=== PATIENT | male | born 1950 | race Caucasian/White ===

== ENCOUNTER → 2018-01-22 14:25 | Outpatient (CLI) | payer MEDICARE, OTHER, SELFPAY ==
--- NOTE | 2018-01-22 14:34 | RAD_ITS ---
STUDY: X-RAY CHEST REASON FOR EXAM: Male, 67 years old. Renal cancer. TECHNIQUE: PA and lateral views of the chest. COMPARISON: Portable AP chest x-ray March 23, 2013; CT chest/thorax November 25, 2013. FINDINGS: The lungs are clear and expanded. There is no demonstrated pleural abnormality. The heart size is upper normal. Normal mediastinum and markel. Normal visualized pulmonary arteries. There is stable atherosclerotic tortuosity of the descending thoracic aorta. There are stable degenerative changes of the visualized thoracic spine. Normal visualized ribs, clavicles, and shoulders. There is no demonstrated abnormality of the visualized soft tissue structures of the upper abdomen. RAD/Chest PA and Lateral IMPRESSION: No acute cardiopulmonary disease. Electronically Signed: Randall Lofton MD at 14:51 EDT , Service support ,
[2018-01-22 15:36] LABS: PSA,Total - Annual Screen 4.73 ng/mL (0.00-4.00)
== END ==
PROVIDERS: Family Provider Family Medicine; PCP Family Medicine; Visit Provider Family Medicine
DX: C64.9 Malignant neoplasm of unspecified kidney, except renal pelvis (principal); Z12.5 Encounter for screening for malignant neoplasm of prostate
CPT/HCPCS: 36415; 71046; 84153; G0103

== ENCOUNTER → 2019-04-02 | Outpatient (CLI) | payer MEDICARE, OTHER, SELFPAY ==
[2019-04-02 10:19] LABS: Hematocrit 48.9 % (40-54); Hemoglobin 15.8 g/dL (13.0-16.5); Mean Corp Hgb Conc 32.3 g/dL (32-36); Mean Corpuscular Hgb 28.7 pg (27.0-32.0); Mean Corpuscular Volume 88.7 fL (80-94); Mean Platelet Vol. 12.8 fl (6.2-12.0); Platelet Count 203 K/mm3 (150-450); RBC Distribution Width CV 12.5 % (11.6-14.6); RBC Distribution Width SD 41.2 fl (35.1-43.9); Red Blood Count 5.51 M/mm3 (4.6-6.2); White Blood Count 6.3 K/mm3 (4.4-11.0)
[2019-04-02 10:51] LABS: Anion Gap 6 (5-15); BUN 15 mg/dL (7-18); BUN/Creat Ratio 10.6 RATIO (10-20); Calcium,Total 9.1 mg/dL (8.5-10.1); Chloride 107 mmol/L (98-107); Cholesterol 137 mg/dL (200); Creatinine, Serum 1.42 mg/dL (0.70-1.30); EST Glomerular Filtration Rate 53 mL/min (>60); Est Glom Filt Rate - Afr Amer 64 mL/min (>60); Glucose 86 mg/dL (74-106); High Density Lipoprotein 40 mg/dL; PSA,Total- Diagnostic 5.51 ng/mL (0.0-4.0); Potassium 4.9 mmol/L (3.5-5.1); Sodium Level 139 mmol/L (136-145); Triglycerides 135 mg/dL; Very Low Density Lipoprotein 27 mg/dL (5-40)
== END | disposition home or self-care (01) ==
PROVIDERS: Family Provider Family Medicine; PCP Family Medicine; Referring Provider Family Medicine; Visit Provider Family Medicine
DX: I10 Essential (primary) hypertension (principal); E78.5 Hyperlipidemia, unspecified; R97.20 Elevated prostate specific antigen [PSA]
CPT/HCPCS: 36415; 80048; 80061; 84153; 85027

== ENCOUNTER → 2020-01-22 15:28 | Outpatient (CLI) | payer MEDICARE, OTHER, SELFPAY ==
[2020-01-22 17:41] LABS: Absolute Lymphocyte Count 2.92 X10^3/uL (0.83-4.51); Absolute Neutrophil Count 4.1 X10^3/uL (2.0-7.7); Basophil# 0.09 X10^3/uL; Basophil% 1.1 % (0-1); Eosinophil# 0.11 X10^3/uL; Eosinophils% 1.4 % (0-5); Hematocrit 52.2 % (40-54); Lymphocyte # 2.92 X10^3/ul (4.0); Lymphocyte % 36.8 % (19-41); Mean Corp Hgb Conc 32.6 g/dL (32-36); Mean Corpuscular Hgb 27.9 pg (27.0-32.0); Mean Corpuscular Volume 85.6 fL (80-94); Mean Platelet Vol. 11.9 fl (6.2-12.0); Monocyte# 0.63 X10^3/uL; Monocyte% 7.9 % (0-10); NRBC Flagged by Analyzer 0 % (0-5); Neutrophil # 4.14 X10^3/uL (2.7-7.7); Neutrophil % 52.2 % (47-70); Platelet Count 254 K/mm3 (150-450); RBC Distribution Width CV 12.6 % (11.6-14.6); RBC Distribution Width SD 38.5 fl (35.1-43.9); White Blood Count 7.9 K/mm3 (4.4-11.0)
[2020-01-22 18:18] LABS: Vitamin B12 428 pg/mL (211-911); Vitamin D,25 Hydroxy 35.6 ng/mL
[2020-01-22 18:36] LABS: ALB/GLOB Ratio 1.1 RATIO (0.9-2.4); AST(SGOT) 14 U/L (15-37); Alanine Aminotransfer ALT/SGPT 28 U/L (16-61); Albumin, Serum 3.8 g/dL (3.2-5.0); Alkaline Phosphatase 74 U/L (45-117); Anion Gap 6 (5-15); BUN 20 mg/dL (7-18); BUN/Creat Ratio 12.3 RATIO (10-20); Calcium,Total 8.7 mg/dL (8.5-10.1); Chloride 107 mmol/L (98-107); Cholesterol 275 mg/dL (200); Creatinine, Serum 1.62 mg/dL (0.70-1.30); EST Glomerular Filtration Rate 45 mL/min (>60); Est Glom Filt Rate - Afr Amer 54 mL/min (>60); Globulin 3.6 g/dL (2.2-4.2); Glucose 179 mg/dL (74-106); High Density Lipoprotein 32 mg/dL; PSA,Total- Diagnostic 8.37 ng/mL (0.0-4.0); Phosphorus 3.5 mg/dL (2.5-4.9); Potassium 4.6 mmol/L (3.5-5.1); Protein, Total 7.4 g/dL (6.4-8.2); Sodium Level 138 mmol/L (136-145); T4 Free Direct 0.88 ng/dL (0.76-1.46); Thyroid Stim Hormone (TSH) 1.61 uIU/mL (0.358-3.74); Triglycerides 609 mg/dL
[2020-01-22 19:18] LABS: Hemoglobin A1c 7.3 % (4.2-6.3)
[2020-01-23 06:48] LABS: PTHIN 81.9 pg/mL (18.4-80.1)
[2020-01-23 10:49] LABS: Ferritin 46 ng/mL (26-388); Iron 90 ug/dL (65-175); Iron Binding Capacity,Total 416 ug/dL (250-450); PERCENT IRON SATURATION 21.6 % (15.0-55.0)
[2020-01-26 16:08] LABS: Vitamin B1, Thiamine 133.7 nmol/L (66.5-200.0)
[2020-01-26 20:09] LABS: Transferrin 321 mg/dL (177-329)
== END ==
PROVIDERS: PCP Family Medicine; Visit Provider Family Medicine
DX: E11.22 Type 2 diabetes mellitus with diabetic chronic kidney disease (principal); I12.9 Hypertensive chronic kidney disease with stage 1 through stage 4 chronic kidney disease, or unspecified chronic kidney disease; N18.3 Chronic kidney disease, stage 3 (moderate); E78.5 Hyperlipidemia, unspecified; E11.42 Type 2 diabetes mellitus with diabetic polyneuropathy; R97.20 Elevated prostate specific antigen [PSA]; E04.1 Nontoxic single thyroid nodule
CPT/HCPCS: 36415; 80053; 80061; 82306; 82607; 82728; 83036; 83540; 83550; 83970; 84100; 84153; 84425; 84439; 84443; 84466; 85025

== ENCOUNTER → 2020-02-02 08:09 | Outpatient (CLI) | payer MEDICARE, OTHER, SELFPAY ==
--- NOTE | 2020-02-02 08:14 | US_ITS ---
STUDY: THYROID ULTRASOUND REASON FOR EXAM: Male, 69 years old. NODULE FELT ON EXAM TECHNIQUE: Ultrasound evaluation of the thyroid was performed with real-time and static bunn-scale imaging. COMPARISON: None. FINDINGS: RIGHT LOBE: The right lobe of the thyroid gland measures 5.0 x 2.3 x 1.9 cm. There is a homogeneous echotexture. There are occasional well-defined, rounded hypoechoic cysts measuring up to 4 x 4 by 4 mm diameter. LEFT LOBE: The left lobe of the thyroid gland measures 3.7 x 1.4 x 1.5 cm. There is a homogeneous echotexture. There are occasional well-defined, rounded hypoechoic cyst measuring up to 4 x 4 x 3 mm diameter. ISTHMUS: The isthmus measures 6 mm. The regional lymph nodes are normal. 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 Electronically Signed: Randall Lofton MD at 15:53 EDT , Service support ,
== END ==
PROVIDERS: PCP Family Medicine; Referring Provider Family Medicine; Visit Provider Family Medicine
DX: E04.1 Nontoxic single thyroid nodule (principal)
CPT/HCPCS: 76536

== ENCOUNTER → 2020-02-16 | Outpatient (CLI) | payer MEDICARE, OTHER, SELFPAY ==
--- NOTE | 2020-02-17 | IMM_PTH ---
PATIENT: OSCAR KEENAN LOC: [facility] U#:[id number] AGE/SX: 69/M ROOM: RE02/16/[address]: Dr. Michael Pascual MD : 1950 BED: DIS: 02/16/2020 SPEC #: [id number] RECD: 02/18/20 12:53 STATUS: DAISY KRIS #: [id number] LOLA: 02/17/20 00:[address]: Michael Pascual DEPT: IMMUNOHISTOCHEMISTRY RECD BY: Zenaida Issa Tissues: A - PROSTATE RIGHT C - PROSTATE RIGHT F - PROSTATE LEFT Procedures: 34BE12 (add) P40 (add) 34BE12 (initial) PHYSICIAN & INSTITUTION [place] [id number] SPECIMEN INFORMATION: Tissue Source: A - Right apex, C - Right base, F - Left base Clinical Info: Elevated PSA Specimen Number: [id number] A, C & F CPT code: 51106, 59289 x5 METHODOLOGY: Deparaffinized sections of prefer/formalin-fixed tissue or PAP/DQ stained slides are incubated with monoclonal/polyclonal antibodies/oligonucleotide probes. Localization is made via biotin free immunoperoxidase method. Appropriate controls are performed and reacted as expected. Results on target cell population are indicated in the following table: RESULTS: ANTIBODY / CLONE RESULT Block A 34BE12 (34BE12) negative P40 (BC28) negative Block C 34BE12 (34BE12) negative P40 (BC28) negative Block F 34BE12 (34BE12) negative P40 (BC28) negative These tests were developed and their performance characteristics determined by [facility]. They may not have been cleared or approved by the U.S. Food and Drug Administration. The FDA has determined that such clearance or approval is not necessary. The above immunohistochemical/dualISH markers are ordered and reviewed by the Pathologist. INTERPRETATION: A. Right prostate, apex, core biopsy: Adenocarcinoma. C. Right prostate, base, core biopsy: Adenocarcinoma. F. Left prostate, base, core biopsy: Adenocarcinoma. MARINA:kehinde 02/19/20
--- NOTE | 2020-02-17 08:00 | PROSBIL_PTH ---
PATIENT: OSCAR KEENAN LOC: [facility] U#:[id number] AGE/SX: 69/M ROOM: RE02/16/[address]: Dr. Michael Pascula MD : 1950 BED: DIS: 02/16/2020 SPEC #: [id number] RECD: 02/17/20 09:30 STATUS: DAISY KRIS #: [id number] LOLA: 02/17/20 08:[address]: Michael Pascual DEPT: SURGICAL PATHOLOGY RECD BY: Santos Schuler Tissues: A - PROSTATE RIGHT B - PROSTATE RIGHT C - PROSTATE RIGHT D - PROSTATE LEFT E - PROSTATE LEFT F - PROSTATE LEFT Procedures: PROSTATE BX HEADER OPERATION: Prostate biopsy PRE-OP DIAGNOSIS: Elevated PSA TISSUE SUBMITTED: A - Right apex, B - Right mid, C - Right base, D - Left apex, E - Left mid, F - Left base MICROSCOPIC DIAGNOSIS A. Right prostate, apex, core biopsy: Prostatic adenocarcinoma. [place] grade: 3+3=6 Number of cores involved: 1/1 Proportion of tissue involved: ~30% Perineural invasion: Not identified. Greatest tumor length: 0.6 cm, discontinuous. See comment. B. Right prostate, mid, core biopsy: Prostatic tissue, negative for malignancy. C. Right prostate, base, core biopsy: Prostatic adenocarcinoma. [place] grade: 3+3=6 Number of cores involved: 2/4 Proportion of tissue involved: ~5% Perineural invasion: Not identified. Greatest tumor length: 0.2 cm See comment. D. Left prostate, apex, core biopsy: Prostatic adenocarcinoma. [place] grade: 3+3=6 Number of cores involved: 1/2 Proportion of tissue involved: ~50% Perineural invasion: Not identified. Greatest tumor length: 0.7 cm E. Left prostate, mid, core biopsy: Prostatic tissue, negative for malignancy. F. Left prostate, base, core biopsy: Prostatic adenocarcinoma. [place] grade: 3+3=6 Number of cores involved: 1/1 Proportion of tissue involved: ~20% Perineural invasion: Not identified. Greatest tumor length: 0.2 cm See comment. SJ:kehinde 02/18/20 COMMENT A, C & F - Immunohistochemistry ([id number]) supports the above diagnosis. Case has been reviewed in consultation with Dr. Vitale who concurs with the above diagnosis. IDC:AM MICROSCOPIC DESCRIPTION Slides are reviewed. GROSS DESCRIPTION A - Received is one container designated prostate, right apex. The specimen consists of one elongated fragment of light patino-white soft tissue measuring 1 cm in length and 0.1 cm in diameter. The specimen is totally submitted in one cassette. B - Received is one container designated prostate, right mid. The specimen consists of one elongated fragment of light patino-white soft tissue measuring 1.5 cm in length and 0.1 cm in diameter. The specimen is totally submitted in one cassette. C - Received is one container designated prostate, right base. The specimen consists of four elongated fragments of light patino-white soft tissue each measuring 1 cm in length and 0.1 cm in diameter. The specimen is totally submitted in one cassette. D - Received is one container designated prostate, left apex. The specimen consists of two elongated fragments of light patino-white soft tissue each measuring 1 cm in length and 0.1 cm in diameter. The specimen is totally submitted in one cassette. E - Received is one container designated prostate, left mid. The specimen consists of two elongated fragments of light patino-white soft tissue each measuring 1 cm in length and 0.1 cm in diameter. The specimen is totally submitted in one cassette. F - Received is one container designated prostate, left base. The specimen consists of one elongated fragment of light patino-white soft tissue measuring 1 cm in length and 0.1 cm in diameter. The specimen is totally submitted in one cassette. / AM:kehinde 02/17/20 TC:0 [facility]: [id number]
== END | disposition home or self-care (01) ==
LOC: LABSPEC 02-17 06:25
PROVIDERS: Visit Provider Urology
DX: R97.20 Elevated prostate specific antigen [PSA] (principal)
CPT/HCPCS: 88305; 88341; 88342; G0416

== ENCOUNTER → 2020-05-11 08:14 | Outpatient (CLI) | payer MEDICARE, OTHER, SELFPAY ==
[2020-05-11 10:27] LABS: Absolute Lymphocyte Count 2.18 X10^3/uL (0.83-4.51); Absolute Neutrophil Count 3.6 X10^3/uL (2.0-7.7); Basophil# 0.07 X10^3/uL; Basophil% 1.1 % (0-1); Eosinophil# 0.13 X10^3/uL; Hematocrit 49.5 % (40-54); Hemoglobin 15.9 g/dL (13.0-16.5); Lymphocyte # 2.18 X10^3/ul (4.0); Lymphocyte % 33.7 % (19-41); Mean Corp Hgb Conc 32.1 g/dL (32-36); Mean Corpuscular Hgb 27.2 pg (27.0-32.0); Mean Corpuscular Volume 84.6 fL (80-94); Mean Platelet Vol. 12.3 fl (6.2-12.0); Monocyte# 0.51 X10^3/uL; Monocyte% 7.9 % (0-10); NRBC Flagged by Analyzer 0 % (0-5); Neutrophil # 3.55 X10^3/uL (2.7-7.7); Neutrophil % 54.8 % (47-70); Platelet Count 202 K/mm3 (150-450); RBC Distribution Width CV 12.4 % (11.6-14.6); RBC Distribution Width SD 37.7 fl (35.1-43.9); Red Blood Count 5.85 M/mm3 (4.6-6.2); White Blood Count 6.5 K/mm3 (4.4-11.0)
[2020-05-11 11:07] LABS: ALB/GLOB Ratio 1.1 RATIO (0.9-2.4); AST(SGOT) 16 U/L (15-37); Alanine Aminotransfer ALT/SGPT 24 U/L (16-61); Albumin, Serum 3.9 g/dL (3.2-5.0); Alkaline Phosphatase 64 U/L (45-117); Anion Gap 6 (5-15); BUN 19 mg/dL (7-18); BUN/Creat Ratio 13.7 RATIO (10-20); Calcium,Total 9.1 mg/dL (8.5-10.1); Chloride 106 mmol/L (98-107); Cholesterol 169 mg/dL (200); Creatinine, Serum 1.39 mg/dL (0.70-1.30); EST Glomerular Filtration Rate 54 mL/min (>60); Est Glom Filt Rate - Afr Amer 65 mL/min (>60); Globulin 3.6 g/dL (2.2-4.2); Glucose 166 mg/dL (74-106); High Density Lipoprotein 34 mg/dL; Potassium 4.1 mmol/L (3.5-5.1); Protein, Total 7.5 g/dL (6.4-8.2); Sodium Level 136 mmol/L (136-145); Triglycerides 221 mg/dL; Very Low Density Lipoprotein 44 mg/dL (5-40)
[2020-05-11 11:09] LABS: Hemoglobin A1c 9.2 % (3.8-5.6)
[2020-05-11 12:09] LABS: Microalbumin:Creatinine Ratio 893.8 mg/g CRE (<30 mg/g CRE)
== END ==
PROVIDERS: PCP Family Medicine; Referring Provider Family Medicine; Visit Provider Family Medicine
DX: E11.9 Type 2 diabetes mellitus without complications (principal); I10 Essential (primary) hypertension; R80.9 Proteinuria, unspecified; E78.5 Hyperlipidemia, unspecified
CPT/HCPCS: 36415; 80053; 80061; 82043; 82570; 83036; 85025

== ENCOUNTER → 2022-01-25 | Outpatient (CLI) | payer MEDICARE, OTHER, SELFPAY | END | disposition home or self-care (01) | PROVIDERS: PCP Family Medicine; Referring Provider Nurse Practitioner Family; Visit Provider Nurse Practitioner Family | DX: U07.1 COVID-19 (principal) | CPT/HCPCS: 87635; U0003; U0005 ==

== ENCOUNTER 2024-02-21 05:05 | Emergency (ER) | payer MEDICARE, OTHER, SELFPAY ==
[2024-02-21 05:06] VITALS: BP 147/72; PULSE 64; RESP 20; TEMP 37.1; O2SAT 96; BMI 34.2
[2024-02-21 05:10] VITALS: BP 142/72; PULSE 61; RESP 20; TEMP 37.1; O2SAT 96
--- NOTE | 2024-02-21 05:25 | RAD_ITS ---
EXAM: XR CHEST, 2 VIEWS CLINICAL INDICATION: cough, fever TECHNIQUE: Frontal and lateral views of the chest. COMPARISON: 01/22/2018. FINDINGS: LUNGS AND PLEURAL SPACES: Unremarkable. No consolidation or edema. No pneumothorax. No effusion. HEART: Unremarkable. Cardiac silhouette not enlarged. MEDIASTINUM: Central airways and mediastinal contour are unremarkable. BONES/JOINTS: Unremarkable. No acute fracture. SOFT TISSUES: Unremarkable. TUBES, LINES AND DEVICES: AV sequential AICD pacemaker leads in good position. RAD/Chest PA and Lateral IMPRESSION: 1. No acute cardiopulmonary abnormality. 2. AV sequential AICD pacemaker leads in good position. Electronically Signed: Obed Morales MD at 6:14 EDT ,
--- NOTE | 2024-02-21 05:26 | EX.ED.DYSGE1 ---
HPI History of Present Illness Chief Complaint: Fever Informant: patient and spouse/S.O. Onset/Context/Timing Onset: Today Narrative Narrative: Patient presents 5 AM because he woke up not feeling well, took his temperature and it was 102. He started feeling like he had some nasal congestion and a mild sore throat and a mild nonproductive cough yesterday evening. When asked if he feels short of breath he states yes a little, it seems maybe it is more likely due to his nasal congestion but he cannot tell for sure. He states he feels nauseated and took a Zofran prior to coming here and it is better denies any abdominal pain or diarrhea. He has urinary frequency that has been stable recently since diagnosed with prostate cancer and receiving radiation. No chemotherapy. He denies any new urinary symptoms. He denies any earache, headache, myalgias, chest pain, neck pain/stiffness, confusion. [facility] Medical History Diabetes Hyperlipemia HTN (hypertension) Prostate cancer Home Medications ?Medication ?Instructions ?Recorded ?Last Taken ?Type amlodipine 5 mg tablet 5 mg PO DAILY 02/21/24 Unknown History aspirin 81 mg chewable tablet 1 tab PO DAILY 02/21/24 Unknown History (Jayna Chewable Low Dose Aspirin) atorvastatin 20 mg tablet 20 mg PO DAILY 02/21/24 Unknown History empagliflozin 10 mg tablet 10 mg PO DAILY 02/21/24 Unknown History empagliflozin 10 mg tablet 10 mg PO DAILY 02/21/24 Unknown History (Jardiance) glucos 500 [id number] 450 cap PO 02/21/24 Unknown History mg-liza 0.67 mg-I.frankince-boron capsule lisinopril 2.5 mg tablet 2.5 mg PO DAILY 02/21/24 Unknown History metformin 500 mg tablet 500 mg PO BID 02/21/24 Unknown History metoprolol tartrate 50 mg tablet 50 mg PO BID 02/21/24 Unknown History (Lopressor) nirmatrelvir 300 mg (150 mg See Rx Instructions PO .COMPLEX 02/21/24 Unknown Rx x2)-ritonavir 100 mg tablet,dose #30 tabs pack (Paxlovid) omega 5-rij-uta-fish oil 1,200 mg 1 cap PO DAILY 02/21/24 Unknown History (144 mg-216 mg) capsule (Fish Oil) omeprazole 10 mg capsule,delayed 10 mg PO DAILY 02/21/24 Unknown History release ondansetron HCl 4 mg tablet 4 mg PO Q8H PRN nausea and vomiting 02/21/24 Unknown History spironolactone 25 mg tablet 25 mg PO DAILY 02/21/24 Unknown History super beta prostate 02/21/24 Unknown History tamsulosin 0.4 mg capsule 0.4 mg PO QPM 02/21/24 Unknown History vitamin B complex (Balanced B-50 1 tab PO DAILY 02/21/24 Unknown History tablet) Allergy/AdvReac Type Severity Reaction Status Date / Time No Known Allergies Allergy Verified 02/21/24 05:13 Social History Smoking Status: Former smoker ROS ROS ED Constitutional Constitutional ED: Reports fever(s) and malaise ENT ENT ED: Reports nasal congestion, rhinorrhea and sore throat; Denies ear pain Cardiovascular Cardiovascular: Denies chest pain or palpitations Respiratory/Chest Respiratory/Chest: Reports cough and dyspnea; Denies sputum Gastrointestinal Gastrointestinal: Reports nausea; Denies abdominal pain, diarrhea or vomiting Genitourinary Genitourinary ED: Reports urinary frequency; Denies dysuria or hematuria Musculoskeletal Musculoskeletal: Denies myalgias or neck pain Integumentary Denies abscess or rash Neurologic Neurologic: Denies headache(s), paresthesias or weakness Psychiatric Psychiatric: Denies depression or suicidal thoughts Endocrine Endocrinology: Denies polydipsia or polyuria EXAM Physical Exam Const Vital Signs: 02/21/24 05:06 02/21/24 05:10 Temperature 98.7 F 98.7 F Temperature Source Oral Oral Pulse Rate 64 61 Respiratory Rate 20 H 20 H Blood Pressure 147/72 H 142/72 H Blood Pressure Mean 97 95 Pulse Ox 96 96 Oxygen Delivery Method Room Air Positive well nourished and well developed General Appearance ED: well developed and NAD HEENT Reports moist mucous membranes normocephalic and atraumatic Throat: posterior oropharynx abnormal Positive for erythema (Without trismus, asymmetry, exudates, petechiae) Eyes PERRL and EOMs intact bilaterally Neck no lymphadenopathy, supple and no meningeal signs Chest Wall inspection of chest normal and palpation of chest normal Resp normal respiratory effort and clear to auscultation bilaterally Cardio no murmurs Rate: regular rate; Negative for tachycardic Rhythm: regular rhythm GI normal to inspection, nondistended, normoactive bowel sounds and non-tender Back/Spine no CVA tenderness Extremity normal to inspection General Extremety ED: Negative for edema, tenderness or other findings General Extremity: Negative for edema or other findings Neuro oriented x3, CN's II-XII intact bilaterally and no sensory deficits noted Sensorium / Orientation: alert Motor Exam: strength 5/5 throughout Psych mental status grossly normal Skin Lesions: no lesions Rashes: no rashes MDM MDM MDM Narrative Medical decision making narrative: Patient has a temperature of 98.7 here and the rest of his vital signs are fairly normal. He did not take any fever reducing medications prior to coming here. At this time he has cold symptoms and some mild dyspnea. I asked if they were worried about anything other than a cold and the states no but she was concerned because he has a pacer/defibrillator. I asked if his defibrillator went off and they both state no. I reassured them regarding the presence of this device if all he has is a cold, but I was happy to run some tests including COVID/influenza/RSV swab, rapid strep PCR, U/A, and a 2 view chest x-ray to evaluate for these infections and/or pneumonia/UTI. They were amenable to that. Chest x-ray 2 views of my interpretation shows no evidence of pneumonia, radiology was in agreement. His strep test is negative. His COVID test is positive and the rest are negative. Discussed with him and at length. He has had some COVID vaccinations. He is not hypoxic and does not require admission. Discussed pros and cons of Paxlovid. He qualifies because he has cancer and is 73. We discussed risk of rebound symptoms. They prefer to try it if his medications are compatible. Lab Data Attestation: I reviewed the patient's lab results. Labs: Laboratory Results - last 24 hr 02/21/24 05:15 Urine Color Yellow Urine Clarity Clear Urine pH 6.5 Ur Specific [place] 1.010 Urine Protein 100 H Urine Glucose (UA) 1000 H Urine Ketones 15 H Urine Occult Blood 25 H Urine Nitrite Negative Urine Bilirubin Negative Urine Urobilinogen Normal Ur Leukocyte Esterase 25 H Urine RBC 0-5 SEEN Urine WBC 0 SEEN Ur Squamous Epith Cells 0 SEEN Urine Bacteria RARE Urine Mucus 0 SEEN Radiography Diagnostic Testing: Clinical Impression(s) from Imaging Studies Chest X-Ray 02/21/24 05:25 IMPRESSION: 1. No acute cardiopulmonary abnormality. 2. AV sequential AICD pacemaker leads in good position. Electronically Signed: Obed Morales MD at 6:14 EDT , Discharge Plan Triage Chief Complaint: Fever ED Provider: Nino Beck Dx/Rx/DC Orders Clinical Impression: COVID-19 Instructions: Coronavirus Disease 2019 (COVID-19): Caring for Yourself or Others Prescriptions: New Paxlovid 300 mg (150 mg x 2)-100 mg tablets,dose pack See Rx Instructions .ROUTE .COMPLEX Qty: 30 0RF Rx Instructions: take TWO 150 mg tablets of nirmatrelvir with ONE 100 mg tablet of ritonavir twice daily for 5 days Continued spironolactone 25 mg tablet 25 mg PO DAILY amlodipine 5 mg tablet 5 mg PO DAILY aspirin [Jayna Chewable Aspirin] 81 mg tablet,chewable 1 tab PO DAILY metformin 500 mg tablet 500 mg PO BID Patient Comments: unclear on dose metoprolol tartrate [Lopressor] 50 mg tablet 50 mg PO BID lisinopril 2.5 mg tablet 2.5 mg PO DAILY Patient Comments: not clear on dosage Jardiance 10 mg tablet 10 mg PO DAILY Patient Comments: unclear on dose empagliflozin 10 mg tablet 10 mg PO DAILY Patient Comments: unclear on dosage ondansetron HCl 4 mg tablet 4 mg PO Q8H PRN (Reason: nausea and vomiting) Patient Comments: unclear on dosage and frequency omeprazole 10 mg capsule,delayed release(DR/EC) 10 mg PO DAILY Patient Comments: unclear on dosage omega 7-lqe-hjp-fish oil [Fish Oil] 1,200 (144-216) mg capsule 1 cap PO DAILY vitamin B complex [Balanced B-50] Tablet 1 tab PO DAILY super beta prostate Patient Comments: 6 tablets a day ynyt-bogn-yxa0-emkj-jqegty-jrg 500-450-0.67 mg capsule PO Held tamsulosin 0.4 mg capsule 0.4 mg PO QPM Hold Instructions: Resume on 02/28/24. atorvastatin 20 mg tablet 20 mg PO DAILY Hold Instructions: Resume on 02/28/24. Primary Care Provider: Gilles Vance Referrals: Gilles Vance MD [Primary Care Provider] - As Needed Activity Restrictions/Additional Instructions: Try to get a home portable pulse oximeter and closely watch your oxygen levels periodically. If you stay below 90% for more than a minute or so, and/or you are feeling like your breathing is getting worse, return to the emergency department for further evaluation. Currently, CDC recommendations state that you should stay home through day 5 of symptoms, then as long as symptoms are improving, if you need to go to work or somewhere else you may for days 6-10 as long as you are wearing a mask the entire time. If you are feeling better after day 10 you may resume life is normal. Print Language: Indian Disposition Disposition: Home, Self Care
[2024-02-21 05:35] LABS: Mucous, Urine 0 SEEN /hpf (<or=2+); Squamous Epithelial Cells - UA 0 SEEN /hpf (0-5); White Blood Cells 0 SEEN /hpf (0-5)
[2024-02-21 05:39] LABS: Glucose, Dipstick 1000 mg/dl (Normal); Ketone-Dipstick 15 mg/dl (Negative); Leukocyte Esterase-Dipstick 25 /ul (Negative); Nitrite-Dipstick Negative (Negative); Occult Blood-Urine 25 /ul (Negative); Protein-Dipstick 100 mg/dl (Negative); Urine Bilirubin Dipstick Negative (Negative); Urine Urobilinogen Normal (Normal); Urine pH 6.5 (5.0 - 8.0)
[2024-02-21 06:32] LABS: Color, Urine Yellow (Yellow); Urine Clarity Clear (Clear)
[2024-02-21 07:05] VITALS: BP 164/74; PULSE 60; RESP 20; TEMP 36.8; O2SAT 95
[2024-02-21 07:11] LABS: Bacteria RARE /hpf (None Seen); Red Blood Cells-Urine 0-5 SEEN /hpf (0-5)
== END 2024-02-21 07:30 | disposition home or self-care (01) ==
PROVIDERS: Emergency Provider Emergency Medicine; Visit Provider Emergency Medicine
DX: U07.1 COVID-19 (principal); C61 Malignant neoplasm of prostate; E11.9 Type 2 diabetes mellitus without complications; Z87.891 Personal history of nicotine dependence; Z95.0 Presence of cardiac pacemaker; E78.5 Hyperlipidemia, unspecified; I10 Essential (primary) hypertension; Z79.899 Other long term (current) drug therapy; Z79.82 Long term (current) use of aspirin
CPT/HCPCS: 71046; 81001; 87631; 87651; 99282; A4216

== ENCOUNTER → 2024-09-11 | Outpatient (CLI) | payer MEDICARE, OTHER, SELFPAY ==
[2024-09-11 17:44] LABS: Absolute Lymphocyte Count 1.53 X10^3/uL (0.83-4.51); Absolute Neutrophil Count 4.5 X10^3/uL (2.0-7.7); Basophil# 0.08 X10^3/uL; Basophil% 1.2 % (0-1); Eosinophil# 0.16 X10^3/uL; Eosinophils% 2.3 % (0-5); Hematocrit 48.2 % (40-54); Hemoglobin 15.8 g/dL (13.0-16.5); Lymphocyte # 1.53 X10^3/ul (0.83-4.51); Lymphocyte % 22.1 % (19-41); Mean Corp Hgb Conc 32.8 g/dL (32-36); Mean Corpuscular Volume 85.3 fL (80-94); Monocyte# 0.65 X10^3/uL; Monocyte% 9.4 % (0-10); NRBC Flagged by Analyzer 0 % (0-5); Neutrophil # 4.45 X10^3/uL (2.7-7.7); Neutrophil % 64.3 % (47-70); Platelet Count 234 K/mm3 (150-450); RBC Distribution Width CV 13.9 % (11.6-14.6); RBC Distribution Width SD 42.8 fl (35.1-43.9); Red Blood Count 5.65 M/mm3 (4.6-6.2); White Blood Count 6.9 K/mm3 (4.4-11.0)
[2024-09-11 17:59] LABS: Vitamin D,25 Hydroxy 36.8 ng/mL
[2024-09-11 18:06] LABS: ALB/GLOB Ratio 1.1 RATIO (0.9-2.4); AST(SGOT) 12 U/L (15-37); Alanine Aminotransfer ALT/SGPT 27 U/L (16-61); Albumin, Serum 3.9 g/dL (3.2-5.0); Alkaline Phosphatase 59 U/L (45-117); Anion Gap 9 (5-15); BUN 21 mg/dL (7-18); BUN/Creat Ratio 12.4 RATIO (10-20); Calcium,Total 9.1 mg/dL (8.5-10.1); Chloride 108 mmol/L (98-107); Cholesterol 157 mg/dL (200); EST Glomerular Filtration Rate 42 mL/min (>60); Est Glom Filt Rate - Afr Amer 51 mL/min (>60); Globulin 3.7 g/dL (2.2-4.2); Glucose 183 mg/dL (74-106); High Density Lipoprotein 44 mg/dL; PSA,Total- Diagnostic 1.42 ng/mL (0.0-4.0); Phosphorus 3.9 mg/dL (2.5-4.9); Potassium 4.7 mmol/L (3.5-5.1); Protein, Total 7.6 g/dL (6.4-8.2); Sodium Level 138 mmol/L (136-145); Triglycerides 233 mg/dL; Very Low Density Lipoprotein 47 mg/dL (5-40)
[2024-09-11 18:14] LABS: Hemoglobin A1c 7.9 % (3.8-5.6)
[2024-09-11 18:25] LABS: PTHIN 79.7 pg/mL (18.4-80.1)
== END | disposition home or self-care (01) ==
LOC: MFPLAB 16:11
PROVIDERS: PCP Family Medicine; Referring Provider Family Medicine; Visit Provider Family Medicine
DX: E11.22 Type 2 diabetes mellitus with diabetic chronic kidney disease (principal); C61 Malignant neoplasm of prostate; N18.30 Chronic kidney disease, stage 3 unspecified; E21.3 Hyperparathyroidism, unspecified
CPT/HCPCS: 36415; 80053; 80061; 82306; 83036; 83970; 84100; 84153; 85025

== ENCOUNTER → 2024-11-21 | Outpatient (CLI) | payer MEDICARE, OTHER, SELFPAY ==
--- NOTE | 2024-11-21 08:54 | AAAS_ITS ---
Reason For Study Reason For Study: Screening Aorta Measurements Aorta Doppler Measurements Proximal aorta measures2.49 x 2.49cm. in cross-sectional Peak systolic flow velocities within the proximal aorta axis. measure 48.3 cm/sec. Proximal aorta measures2.44cm. in longitudinal axis. Peak systolic flow velocities within the mid aorta measure Mid aorta measures2.01 x 1.91cm. in cross-sectional axis. 71.3. cm/sec. Mid aorta measures2.02cm. in longitudinal axis. Peak systolic flow velocities within the distal aorta Distal aorta measures2.45 x 2.43cm. in cross-sectional axis.measure 77.9 cm/sec. Distal aorta measures2.59cm. in longitudinal axis. Left Iliac Artery Left iliac artery measures 2.19 x 2.18 cm. in the cross-sectional axis. Left iliac artery measures 2.19 cm. in the longitudinal axis. Peak systolic velocity in the left iliac artery measures 31.8 cm/sec. Right Iliac Artery Right iliac artery measures 1.28 x 1.31 cm. in the cross-sectional axis. Right iliac artery measures 1.22 cm. in the longitudinal axis. Peak systolic velocity in the right iliac artery measures 59.2 cm/sec. Procedure Aorta IVC Iliac vasculature or bypass grafts [id number]. Exam performed in department. 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
== END | disposition home or self-care (01) ==
PROVIDERS: PCP Family Medicine; Referring Provider Family Medicine; Visit Provider Family Medicine
DX: I71.40 Abdominal aortic aneurysm, without rupture, unspecified (principal)
CPT/HCPCS: 76706

== ENCOUNTER → 2024-12-08 | Outpatient (CLI) | payer MEDICARE, OTHER, SELFPAY ==
[2024-12-08 23:39] LABS: PSA,Total- Diagnostic 1.37 ng/mL (0.00-4.00)
== END | disposition home or self-care (01) ==
LOC: LAB 11:53
PROVIDERS: PCP Family Medicine; Referring Provider Urology; Visit Provider Urology
DX: C61 Malignant neoplasm of prostate (principal)
CPT/HCPCS: 36415; 84153

== ENCOUNTER → 2025-02-11 | Outpatient (CLI) | payer MEDICARE, OTHER, SELFPAY ==
[2025-02-11 11:57] LABS: Mucous, Urine 0 SEEN /hpf (<or=2+); Red Blood Cells-Urine 0 SEEN /hpf (0-5); Squamous Epithelial Cells - UA 0 SEEN /hpf (0-5)
[2025-02-11 15:32] LABS: Absolute Lymphocyte Count 1.57 X10^3/uL (0.83-4.51); Absolute Neutrophil Count 4.9 X10^3/uL (2.0-7.7); Basophil# 0.08 X10^3/uL; Basophil% 1.1 % (0-1); Eosinophil# 0.16 X10^3/uL; Eosinophils% 2.1 % (0-5); Hematocrit 51.7 % (40-54); Hemoglobin 17.2 g/dL (13.0-16.5); Lymphocyte # 1.57 X10^3/ul (0.83-4.51); Lymphocyte % 20.8 % (19-41); Mean Corp Hgb Conc 33.3 g/dL (32-36); Mean Corpuscular Hgb 28.7 pg (27.0-32.0); Mean Corpuscular Volume 86.2 fL (80-94); Mean Platelet Vol. 11.9 fl (6.2-12.0); Monocyte% 10.6 % (0-10); NRBC Flagged by Analyzer 0 % (0-5); Neutrophil # 4.91 X10^3/uL (2.7-7.7); Neutrophil % 64.9 % (47-70); Platelet Count 219 K/mm3 (150-450); RBC Distribution Width CV 13.3 % (11.6-14.6); RBC Distribution Width SD 41.3 fl (35.1-43.9); White Blood Count 7.6 K/mm3 (4.4-11.0)
[2025-02-11 16:33] LABS: Hemoglobin A1c 8.7 % (<=5.6)
[2025-02-11 16:36] LABS: PTHIN 32 pg/mL (11-61)
[2025-02-11 16:47] LABS: ALB/GLOB Ratio 1.5 RATIO (0.9-2.4); AST(SGOT) 17 U/L (<=37); Alanine Aminotransfer ALT/SGPT 15 U/L (<=46); Albumin, Serum 4.6 g/dL (3.4-4.8); Alkaline Phosphatase 60 U/L (40-129); Anion Gap 14 (5-15); BUN 21 mg/dL (4-19); BUN/Creat Ratio 12.6 RATIO (10-20); Calcium,Total 10.1 mg/dL (7.6-11.0); Carbon Dioxide 18.3 mmol/L (21.0-32.0); Chloride 104 mmol/L (98-108); Cholesterol 125 mg/dL (<=200); Creatinine, Serum 1.64 mg/dL (0.70-1.20); EST Glomerular Filtration Rate 43 (>60); Glucose 128 mg/dL (70-99); High Density Lipoprotein 32 mg/dL; Low Density Lipoprotein Calc. 58 mg/dL; Phosphorus 4.2 mg/dL (2.7-4.5); Potassium 5.3 mmol/L (3.3-5.1); Protein, Total 7.6 g/dL (5.9-8.4); Sodium Level 137 mmol/L (133-145); Total Bilirubin 0.65 mg/dL (0.00-1.30); Triglycerides 172 mg/dL; Very Low Density Lipoprotein 34 mg/dL (5-40); Vitamin D,25 Hydroxy 41.4 ng/mL (30-100); cholesterol:hdl ratio screen 3.86
[2025-02-11 20:37] LABS: Microalbumin,Random Urine 78.5 mg/L (NO RANGE EST.); Microalbumin:Creatinine Ratio 726.9 mg/g CRE; Protein, Urine (Random) 19.3 mg/dL (0.0-12.0); Protein:Creat Ratio 179 mg/g CRE (0-200)
[2025-02-11 21:21] LABS: Color, Urine Yellow (Yellow); Glucose, Dipstick 1000 mg/dl (Normal); Ketone-Dipstick Negative (Negative); Leukocyte Esterase-Dipstick Negative /ul (Negative); Nitrite-Dipstick Negative (Negative); Occult Blood-Urine Negative /ul (Negative); Protein-Dipstick 30 mg/dl (Negative); Urine Bilirubin Dipstick Negative (Negative); Urine Clarity Clear (Clear); Urine Urobilinogen Normal (Normal)
[2025-02-11 22:23] LABS: Bacteria RARE /hpf (None Seen); White Blood Cells 0-5 SEEN /hpf (0-5)
[2025-02-12 10:32] LABS: Ferritin 28 ng/mL (37-417)
[2025-02-12 10:58] LABS: Iron 83 ug/dL (65-175); Iron Binding Capacity,Total 429 ug/dL (250-450); Iron Binding Capacity,Unsat 346 ug/dL (228-428)
== END | disposition home or self-care (01) ==
LOC: MFPLAB 11:46
PROVIDERS: PCP Family Medicine; Referring Provider Family Medicine; Visit Provider Family Medicine
DX: E11.22 Type 2 diabetes mellitus with diabetic chronic kidney disease (principal); I50.22 Chronic systolic (congestive) heart failure; N18.30 Chronic kidney disease, stage 3 unspecified; R71.8 Other abnormality of red blood cells
CPT/HCPCS: 36415; 80053; 80061; 81001; 82043; 82306; 82570; 82728; 83036; 83540; 83550; 83970; 84100; 84156; 85025

== ENCOUNTER → 2025-03-04 | Outpatient (CLI) | payer MEDICARE, OTHER, SELFPAY ==
[2025-03-04 16:33] LABS: Anion Gap 14 (5-15); BUN 30 mg/dL (4-19); BUN/Creat Ratio 14.1 RATIO (10-20); Calcium,Total 9.5 mg/dL (7.6-11.0); Carbon Dioxide 19.8 mmol/L (21.0-32.0); Chloride 102 mmol/L (98-108); Creatinine, Serum 2.12 mg/dL (0.70-1.20); EST Glomerular Filtration Rate 32 (>60); Glucose 164 mg/dL (70-99); Potassium 5.3 mmol/L (3.3-5.1); Sodium Level 136 mmol/L (133-145)
--- OUTSIDE RECORDS SUMMARY | 2025-03-04 21:34 | XMS RPT_ITS | CCD ---
Author Organization [facility] Care Team Providers Care Lieutenant General Name Role Phone Rajiv PATEL, Dr. Gilles Bailey Primary Care Provider [phone]( [phone] Rajiv PATEL, Dr. Gilles Bailey Attending Provider Rajiv PATEL, Dr. Gilles Bailey Referring Provider Shaniqua PATEL, Dr. James Attending Provider [phone] Chetan PATEL, Dr. [place] Attending Provider [phone] Samara PATEL, Dr. Michael Hanson Attending Provider Samara PATEL, Dr. Michael Hanson Referring Provider Gilles Vance Primary Care Unavailable Stanislaw Benton Attending Unavailable Shaniqua, [place] Attending Unavailable Gilles Vance Primary Care Unavailable Gilles Vance Primary Care Unavailable Gilles Vance Attending Unavailable Gilles Vance Referring Unavailable Gilles Vance Primary Care Unavailable Gilles Vance Attending Unavailable Gilles Vance Referring Unavailable Gilles Vance Primary Care Unavailable Michael Pascual Attending Unavailable Michael Pascual Referring Unavailable SchGilles baxter Primary Care Unavailable SchGilles baxter Attending Unavailable Gilles Vance Referring Unavailable SchGilles baxter Referring Unavailable SchGilles baxter Primary Care Unavailable SchGilles baxter Attending Unavailable HARRISON FOUNTAIN Primary Care Unavailable Nino Beck Attending Unavailable Gilles Vance Primary Care Unavailable Gilles Vance Attending Unavailable Gilles Vance Referring Unavailable Shaniqua, Jacob Attending Unavailable Gilles Vance E Primary Care Unavailable SchGilles baxter E Referring Unavailable Shaniqua, Jacob Attending Unavailable Gilles Vance Primary Care Unavailable Gilles Vance Referring Unavailable Rajiv PATEL, Dr. Gilles Bailey Primary Care Provider Rajiv PATEL, Dr. Gilles Bailey Attending Provider Rajiv PATEL, Dr. Gilles Bailey Referring Provider Medications Current Medications Medication Drug Class(es) Dates Sig (Normalized) Sig (Original) amLODIPine 10 mg oral tablet (12 sources) Dihydropyridine Calcium Channel Sage Start: 09-24-2024 take 1 tablet by mouth once daily Amlodipine 10 mg tablet Active 10 mg PO daily September 24, 2024 10:51am Start: 09-11-2024 End: 09-24-2024 take 5 mg by mouth once daily Amlodipine 10 mg tablet Discontinued 5 mg PO daily September 11, 2024 4:41pm September 24, 2024 10:53am Start: 09-11-2024 End: 09-11-2024 take 1 tablet by mouth once daily Amlodipine 10 mg tablet Discontinued 10 mg PO daily September 11, 2024 1:00am September 11, 2024 4:42pm Start: 02-21-2024 End: 09-11-2024 take 1 tablet by mouth once daily Amlodipine 5 mg tablet Discontinued 5 mg PO DAILY February 21, 2024 12:00am September 11, 2024 4:28pm aspirin 81 mg chewable tablet (3 sources) Platelet Aggregation Inhibitor, Nonsteroidal Anti-inflammatory Drug Start: 02-21-2024 Aspirin (Jayna Chewable Aspirin) 81 mg tablet,chewable Active 1 {tbl} PO DAILY February 21, 2024 12:00am atorvastatin 40 mg oral tablet (6 sources) HMG-CoA Reductase Inhibitor Start: 09-11-2024 take 1 tablet by mouth once daily Atorvastatin 40 mg tablet Active 40 mg PO daily September 11, 2024 1:00am Start: 02-21-2024 End: 09-11-2024 take 1 tablet by mouth once daily Atorvastatin 20 mg tablet Discontinued 20 mg PO DAILY February 21, 2024 12:00am September 11, 2024 4:29pm On Hold: Resume on 02/28/24. empagliflozin 25 mg oral tablet (12 sources) Sodium-Glucose Cotransporter 2 Inhibitor Start: 09-11-2024 End: 09-24-2024 take 1 tablet by mouth once daily Empagliflozin (Jardiance) 25 mg tablet Active 25 mg PO daily September 24, 2024 10:51am Start: 02-21-2024 End: 09-11-2024 take 1 tablet by mouth once daily Empagliflozin (Jardiance) 10 mg tablet Discontinued 10 mg PO DAILY February 21, 2024 12:00am September 11, 2024 4:26pm gabapentin 300 mg oral capsule (1 source) Anti-epileptic Agent Start: 02-13-2025 take 1 capsule by mouth three times daily Gabapentin 300 mg capsule Active 300 mg PO THREE TIMES A DAY February 13, 2025 12:00am Feal-Uzyj-Myl4-Liza- Frankn-Bor 500-450-0.67 mg capsule (3 sources) Start: 02-21-2024 Keee-Yldl-Uuz1-M aof-Xezgpw-Bzj 500-450-0.67 mg capsule Active NMA PO February 21, 2024 12:00am metFORMIN hydrochloride 500 mg oral tablet (9 sources) Biguanide Start: 09-24-2024 take 1 tablet by mouth twice daily Metformin 500 mg tablet Active 500 mg PO TWICE A DAY September 24, 2024 10:52am Start: 09-11-2024 End: 09-24-2024 take 2 tablets by mouth twice daily Metformin 500 mg tablet Discontinued 1000 mg PO TWICE A DAY September 11, 2024 4:29pm September 24, 2024 10:53am Start: 02-21-2024 End: 09-11-2024 take 1 tablet by mouth twice daily Metformin 500 mg tablet Discontinued 500 mg PO TWICE A DAY February 21, 2024 12:00am September 11, 2024 4:30pm metoprolol tartrate 50 mg oral tablet (3 sources) beta-Adrenergic Sage Start: 02-21-2024 take 1 tablet by mouth twice daily Metoprolol Tartrate (Lopressor) 50 mg tablet Active 50 mg PO TWICE A DAY February 21, 2024 12:00am [place] 0-Xzu-Uak-Fish Oil (Fish Oil) 1,200 (144-216) mg capsule (3 sources) Start: 02-21-2024 [place] 9-Wea-Pzz-Fish Oil (Fish Oil) 1,200 (144-216) mg capsule Active 1 NMA PO DAILY February 21, 2024 12:00am omeprazole 40 mg delayed release oral capsule (12 sources) Proton Pump Inhibitor Start: 09-24-2024 take 1 capsule by mouth once daily Omeprazole 40 mg capsule,delayed release(DR/EC) Active 40 mg PO daily September 24, 2024 10:52am Start: 09-11-2024 End: 09-24-2024 Omeprazole 40 mg capsule,del ayed release(DR/EC) Discontinued 20 mg PO daily September 11, 2024 4:41pm September 24, 2024 10:53am Start: 09-11-2024 End: 09-11-2024 take 1 capsule by mouth once daily Omeprazole 40 mg capsule,delayed release(DR/EC) Discontinued 40 mg PO daily September 11, 2024 1:00am September 11, 2024 4:42pm Start: 02-21-2024 End: 09-11-2024 take 1 capsule by mouth once daily Omeprazole 10 mg capsule,delayed release(DR/EC) Discontinued 10 mg PO DAILY February 21, 2024 12:00am September 11, 2024 4:28pm ondansetron 4 mg oral tablet (3 sources) Serotonin-3 Receptor Antagonist Start: 02-21-2024 take 1 tablet by mouth every eight hours as needed for nausea and vomiting Ondansetron Hcl 4 mg tablet Active 4 mg PO Q8H as needed for nausea and vomiting February 21, 2024 12:00am sacubitril / valsartan (3 sources) Angiotensin 2 Receptor Sage Start: 09-24-2024 Sacubitril-Valsarta n (Entresto) 24-26 mg tablet Active 1 {tbl} PO TWICE A DAY September 24, 2024 1:00am spironolactone 25 mg oral tablet (3 sources) Aldosterone Antagonist Start: 02-21-2024 take 1 tablet by mouth once daily Spironolactone 25 mg tablet Active 25 mg PO DAILY February 21, 2024 12:00am super beta prostate (3 sources) Start: 02-21-2024 super beta prostate Active February 21, 2024 12:00am Vitamin B Complex (Balanced B-50) tablet (3 sources) Start: 02-21-2024 Vitamin B Complex (Balanced B-50) tablet Active 1 {tbl} PO DAILY February 21, 2024 12:00am Completed/Discontinued Medications Medication Drug Class(es) Dates Sig (Normalized) Sig (Original) lisinopril 40 mg oral tablet (9 sources) Angiotensin Converting Enzyme Inhibitor Start: 09-11-2024 End: 09-24-2024 Lisinopril 40 mg tablet Discontinued 20 mg PO TWICE A DAY September 11, 2024 4:41pm September 24, 2024 10:53am Start: 09-11-2024 End: 09-11-2024 take 1 tablet by mouth once daily Lisinopril 40 mg tablet Discontinued 40 mg PO daily September 11, 2024 1:00am September 11, 2024 4:42pm Start: 02-21-2024 End: 09-11-2024 take 1 tablet by mouth once daily Lisinopril 2.5 mg tablet Discontinued 2.5 mg PO DAILY February 21, 2024 12:00am September 11, 2024 4:29pm Nirmatrelvir-Ritonavir (Paxlovid) 300 mg (150 mg x 2)-100 mg tablets,dose pack (3 sources) Start: 02-21-2024 End: 09-11-2024 Nirmatrelvir-Ritonavir (Paxlovid) 300 mg (150 mg x 2)-100 mg tablets,dose pack Discontinued 0 PO .COMPLEX 30 February 21, 2024 12:00am September 11, 2024 4:27pm take TWO 150 mg tablets of nirmatrelvir with ONE 100 mg tablet of ritonavir twice daily for 5 days tamsulosin hydrochloride 0.4 mg oral capsule (3 sources) alpha-Adren ergic Sage Start: 02-21-2024 End: 09-11-2024 take 1 capsule by mouth once daily in the evening Tamsulosin 0.4 mg capsule Discontinued 0.4 mg PO EVERY EVENING February 21, 2024 12:00am September 11, 2024 4:29pm On Hold: Resume on 02/28/24. Problems Problem Classification Problem Date Documented Date Episodic/Chronic Aortic; peripheral; and visceral artery aneurysms (5 sources) Abdominal aortic aneurysm; Translations: [Abdominal aortic aneurysm (AAA)] 09-11-2024 Chronic Calculus of urinary tract (3 sources) Kidney stone; Translations: [Calculus of kidney] 09-11-2024 Episodic Cancer of kidney and renal pelvis (3 sources) History of malignant neoplasm of retroperitoneum; Translations: [Personal history of other malignant neoplasm of kidney] 09-11-2024 Episodic Cancer of prostate (4 sources) Malignant tumor of prostate; Translations: [Malignant neoplasm of prostate] Onset: 12-15-2024 09-11-2024 Chronic Cardiac dysrhythmias (15 sources) Sinus node dysfunction; Translations: [Sick sinus syndrome] Onset: 09-24-2024 09-11-2024 Chronic Conduction disorders (8 sources) Automatic implantable cardiac defibrillator in situ; Translations: [Presence of automatic (implantable) cardiac defibrillator] Onset: 12-05-2023 09-24-2024 Chronic Comment on above: [employer] Stem XT DR Congestive heart failure; nonhypertensive (7 sources) Chronic combined systolic and diastolic heart failure; Translations: [Chronic combined systolic (congestive) and diastolic (congestive) heart failure] Onset: 09-24-2024 09-11-2024 Chronic Coronary atherosclerosis and other heart disease (4 sources) Coronary atherosclerosis; Translations: [Atherosclerotic heart disease of telida coronary artery without angina pectoris] Onset: 09-24-2024 09-11-2024 Chronic Diabetes mellitus with complications (5 sources) Chronic kidney disease stage 3 due to type 2 diabetes mellitus; Translations: [Type 2 diabetes mellitus with diabetic chronic kidney disease] Onset: 10-10-2024 09-11-2024 Chronic Diabetes mellitus without complication (3 sources) Diabetes mellitus; Translations: [Type 2 diabetes mellitus without complications] 09-11-2024 Chronic Disorders of lipid metabolism (5 sources) Hyperlipidemia; Translations: [Hyperlipidemia, unspecified] 09-11-2024 Chronic Esophageal disorders (6 sources) Gastroesophageal reflux disease; Translations: [Gastro-esophageal reflux disease without esophagitis] 09-11-2024 Chronic Essential hypertension (5 sources) Hypertensive disorder; Translations: [Essential (primary) hypertension] 09-11-2024 Chronic Occlusion or stenosis of precerebral arteries (3 sources) Bilateral atherosclerosis of carotid arteries; Translations: [Occlusion and stenosis of bilateral carotid arteries] 09-11-2024 Chronic Other endocrine disorders (3 sources) Hyperparathyroidism; Translations: [Hyperparathyroidism, unspecified] 09-11-2024 Chronic Other hematologic conditions (1 source) Other abnormality of red blood cells; Translations: [Other abnormality of red blood cells] Onset: 02-12-2025 Episodic Other nervous system disorders (3 sources) Neuropathy; Translations: [Polyneuropathy, unspecified] 09-11-2024 Chronic Other non-traumatic joint disorders (3 sources) Pain in right knee; Translations: [Right knee pain] 09-11-2024 Episodic Other nutritional; endocrine; and metabolic disorders (3 sources) Obesity; Translations: [Obesity, unspecified] 09-11-2024 Chronic Jasmin-; endo-; and myocarditis; cardiomyopathy (except that caused by tuberculosis or sexually transmitted disease) (8 sources) Dilated cardiomyopathy; Translations: [Dilated cardiomyopathy] Onset: 10-16-2024 09-11-2024 Chronic Peripheral and visceral atherosclerosis (3 sources) Peripheral vascular disease; Translations: [Peripheral vascular disease, unspecified] 09-11-2024 Chronic Residual codes; unclassified (3 sources) Obstructive sleep apnea syndrome; Translations: [Obstructive sleep apnea (adult) (pediatric)] 09-11-2024 Chronic Unclassified (1 source) Abdominal aortic aneurysm, without rupture, unspecified; Translations: [Abdominal aortic aneurysm, without rupture, unspecified] Onset: 12-03-2024 Viral infection (3 sources) Disease caused by 2019-nCoV; Translations: [COVID-19] 09-11-2024 Episodic Viral infection (1 source) COVID-19; Translations: [COVID-19] Onset: 08-18-2024 Results Test Name Value Interpretation Reference Range Facility Ferritinon 02-12-2025 Ferritin [Mass/Vol] 28 ng/mL Low 37-417 [facility] Comment on above: Order Comment: LADI Bailey ADD ANNA IBC TO BLOOD DRAWN 02/11/25 PER Order Date: 02/11/25Order Info: [id number] - CMPOrder Info: [id number] - LIPIDOrder Info: [id number] - PHOS Performed By: #### M [id number] #### [facility] [address] [place] [address]. [place], [address] Iron+Iron Binding Capacityon 02-12-2025 Iron [Mass/Vol] 83 ug/dL Normal 65-175 [facility] Comment on above: Order Comment: LADI Bailey ADD ANNA IBC TO BLOOD DRAWN 02/11/25 PER Order Date: 02/11/25Order Info: [id number] - CMPOrder Info: [id number] - LIPIDOrder Info: [id number] - PHOS Performed By: #### M [id number] #### [facility] [address] [place], [place], [id number] IRON SATURATION 19.0 Normal 9-55 [facility] Comment on above: Order Comment: LADI Bailey ADD ANNA IBC TO BLOOD DRAWN 02/11/25 PER Order Date: 02/11/25Order Info: [id number] - CMPOrder Info: [id number] - LIPIDOrder Info: [id number] - PHOS Performed By: #### M [id number] #### [facility] [address] [place], [place], [id number] TIBC 429 ug/dL Normal 250-450 [facility] Comment on above: Order Comment: LADI Bailey ADD ANNA IBC TO BLOOD DRAWN 02/11/25 PER Order Date: 02/11/25Order Info: [id number] - CMPOrder Info: [id number] - LIPIDOrder Info: [id number] - PHOS Performed By: #### M [id number] #### [facility] [address] [place], [place], [id number] UIBC 346 ug/dL Normal 228-428 [facility] Comment on above: Order Comment: LADI Bailey ADD ANNA IBC TO BLOOD DRAWN 02/11/25 PER Order Date: 02/11/25Order Info: [id number] - CMPOrder Info: [id number] - LIPIDOrder Info: [id number] - PHOS Performed By: #### M [id number] #### [facility] [address] [place], [place], [id number] Absolute lymphocyte countOrd ered By: Gilles Vance on 02-11-2025 Lymphocytes Auto (Unsp spec) [#/Vol] 1.57 10*3/uL 0.83-4.51 [facility] Absolute neutrophil countOrd ered By: Gilles Vance on 02-11-2025 Neutrophils (Bld) [#/Vol] 4.9 10*3/uL 2.0-7.7 [facility] Anion gap in Serum or Plasma Ordered By: Gilles Vance on 02-11-2025 Anion gap [Moles/Vol] 14 mmol/L 5- [facility] Automated lymphocyte count a s percentage of total leukocytesOrdered By: Gilles Vance on 02-11-2025 Lymphocytes/100 WBC Auto (Unsp spec) 20.8 % - [facility] BUN/creatinine ratioOrdered By: Gilles Vance on 02-11-2025 Urea nitrogen/Creatinine [Mass ratio] 12.6 mg/mg 10- [facility] Basophil percentageOrdered B y: Gilles Vance on 02-11-2025 Basophils/100 WBC (Bld) 1.1 % High 0-1 [facility] Bilirubin Test strip Ql (U)O rdered By: Gilles Vance on 02-11-2025 Bilirubin Ql (U) Negative Negative [facility] Bilirubin, totalOrdered By: Gilles Vance on 02-11-2025 Bilirubin [Mass/Vol] 0.65 mg/dL 0.00-1.30 [facility] CBC W/Diff, Automatedon 01-16 Absolute Lymph 1.57 X10 3/uL Normal 0.83-4.51 [facility] Comment on above: Order Comment: Order Date: 02/11/25Order Info: [id number] - CBCD Performed By: #### M [id number] #### [facility] [address] [place], [place], [phone] ([address] Absolute Neut 4.9 X10 3/uL Normal 2.0-7.7 [facility] Comment on above: Order Comment: Order Date: 02/11/25Order Info: [id number] - CBCD Performed By: #### M [id number] #### [facility] [address] [place], [address] Basophils/100 WBC (Bld) 1.1 % High 0-1 [facility] Comment on above: Order Comment: Order Date: 02/11/25Order Info: [id number] - CBCD Performed By: #### M [id number] #### [facility] [address] [place], [address] Eosinophils/100 WBC (Bld) 2.1 % Normal 0-5 [facility] Comment on above: Order Comment: Order Date: 02/11/25Order Info: 183- - CBCD Performed By: #### M [id number] #### [facility] [address] [place], [address] Erythrocyte distribution width (RBC) [Ratio] 13.3 % Normal 11.6-14.6 [facility] Comment on above: Order Comment: Order Date: 02/11/25Order Info: 183- - CBCD Performed By: #### M [id number] #### [facility] [address] [place], [address] Hematocrit (Bld) [Volume fraction] 51.7 % Normal 40-54 [facility] Comment on above: Order Comment: Order Date: 02/11/25Order Info: [id number]- - CBCD Performed By: #### M [id number] #### [facility] [address] [place], [address] Hemoglobin (Bld) [Mass/Vol] 17.2 g/dL High 13.0-16.5 [facility] Comment on above: Order Comment: Order Date: 02/11/25Order Info: [id number]- - CBCD Performed By: #### M [id number] #### [facility] [address] [place], [address] IG% 0.500 Normal 0.0-0.9 [facility] Comment on above: Order Comment: Order Date: 02/11/25Order Info: [id number] - CBCD Result Comment: IG% - Immature Granulocytes (promyelocytes, myelocytes and metamyelocytes) > 1% indicates that a LEFT SHIFT is Present. Performed By: #### M [id number] #### [facility] [address] [place], [address] Lymphocytes/100 WBC (Bld) 20.8 % Normal 19-41 [facility] Comment on above: Order Comment: Order Date: 02/11/25Order Info: [id number] - CBCD Performed By: #### M [id number] #### [facility] [address] [place], [address] MCH (RBC) [Entitic mass] 28.7 pg Normal 27.0-32.0 [facility] Comment on above: Order Comment: Order Date: 02/11/25Order Info: [id number] - CBCD Performed By: #### M 100.678 #### [facility] [address] [place], [address] MCHC (RBC) [Mass/Vol] 33.3 g/dL Normal 32-36 [facility] Comment on above: Order Comment: Order Date: 02/11/25Order Info: [id number] - CBCD Performed By: #### M 100.678 #### [facility] [address] [place], [address] MCV (RBC) [Entitic vol] 86.2 fL Normal 80-94 [facility] Comment on above: Order Comment: Order Date: 02/11/25Order Info: [id number] - CBCD Performed By: #### M [id number] #### [facility] [address] [place], [address] Monocytes/100 WBC (Bld) 10.6 % High 0-10 [facility] Comment on above: Order Comment: Order Date: 02/11/25Order Info: [id number] - CBCD Performed By: #### M 100.678 #### [facility] [address] [place], [address] Neutrophils/100 WBC (Bld) 64.9 % Normal 47-70 [facility] Comment on above: Order Comment: Order Date: 02/11/25Order Info: [id number] - CBCD Performed By: #### M [id number] #### [facility] [address] [place], [address] Nucleated RBC (Bld) [#/Vol] 0 10*3/uL Normal 0-5 [facility] Comment on above: Order Comment: Order Date: 02/11/25Order Info: [id number] - CBCD Performed By: #### M 100.678 #### [facility] [address] [place], [address] Platelet mean volume (Bld) [Entitic vol] 11.9 fL Normal 6.2-12.0 [facility] Comment on above: Order Comment: Order Date: 02/11/25Order Info: [id number] - CBCD Performed By: #### M 100.678 #### [facility] [address] [place], [address] Platelets (Bld) [#/Vol] 219 10*3/uL Normal 150-450 [facility] Comment on above: Order Comment: Order Date: 02/11/25Order Info: [id number] - CBCD Performed By: #### M 100.678 #### [facility] [address] [place], [address] RBC (Bld) [#/Vol] 6.00 10*6/uL Normal 4.6-6.2 [facility] Comment on above: Order Comment: Order Date: 02/11/25Order Info: [id number] - CBCD Performed By: #### M 100.678 #### [facility] [address] [place], [address] RDW SD 41.3 fl Normal 35.1-43.9 [facility] Comment on above: Order Comment: Order Date: 02/11/25Order Info: [id number] - CBCD Performed By: #### M 100.678 #### [facility] [address] [place], [place], [id number] WBC (Bld) [#/Vol] 7.6 10*3/uL Normal 4.4-11.0 [facility] Comment on above: Order Comment: Order Date: 02/11/25Order Info: [id number] - CBCD Performed By: #### M 100.678 #### [facility] [address] [place], [place], [id number] Calculated very low density lipoprotein (VLDL) cholesterol measurementOrdered By: Gilles Vance on 02-11-2025 Calculated very low density lipoprotein (VLDL) cholesterol measurement 34 mg/dL 5-40 [facility] Carbon dioxide, total [Moles /volume] in Central venous bloodOrdered By: Gilles Vance on 02-11-2025 CO2 [Moles/Vol] 18.3 mmol/L Low 21.0-32.0 [facility] Chloride assayOrdered By: Anel Vance on 02-11-2025 Chloride [Moles/Vol] 104 mmol/L 98-108 [facility] Comprehensive Metabolic Prof ilon 02-11-2025 Albumin [Mass/Vol] 4.6 g/dL Normal 3.4-4.8 [facility] Comment on above: Order Comment: Order Date: 02/11/25Order Info: [id number] - CMPOrder Info: [id number] - LIPIDOrder Info: [id number] - PHOS Performed By: #### M 100.678 #### [facility] [address] [place], [place], [id number] Albumin/Globulin [Mass ratio] 1.5 {ratio} Normal 0.9-2.4 [facility] Comment on above: Order Comment: Order Date: 02/11/25Order Info: [id number] - CMPOrder Info: [id number] - LIPIDOrder Info: [id number] - PHOS Performed By: #### M 100.678 #### [facility] [address] [place], [address] ALK PHOS 60 U/L Normal 40-129 [facility] Comment on above: Order Comment: Order Date: 02/11/25Order Info: [id number] - CMPOrder Info: [id number] - LIPIDOrder Info: [id number] - PHOS Performed By: #### M 100.678 #### [facility] [address] [place], [address] ALT [Catalytic activity/Vol] 15 U/L Normal <=46 [facility] Comment on above: Order Comment: Order Date: 02/11/25Order Info: [id number] - CMPOrder Info: [id number] - LIPIDOrder Info: [id number] - PHOS Performed By: #### M 100.678 #### [facility] [address] [place], [address] AST [Catalytic activity/Vol] 17 U/L Normal <=37 [facility] Comment on above: Order Comment: Order Date: 02/11/25Order Info: [id number] - CMPOrder Info: [id number] - LIPIDOrder Info: [id number] - PHOS Performed By: #### M 100.678 #### [facility] [address] [place], [address] Bilirubin [Mass/Vol] 0.65 mg/dL Normal 0.00-1.30 [facility] Comment on above: Order Comment: Order Date: 02/11/25Order Info: [id number] - CMPOrder Info: [id number] - LIPIDOrder Info: [id number] - PHOS Performed By: #### M 100.678 #### [facility] [address] [place], [address] BUN/CRE 12.6 RATIO Normal 10-20 [facility] Comment on above: Order Comment: Order Date: 02/11/25Order Info: [id number] - CMPOrder Info: [id number] - LIPIDOrder Info: [id number] - PHOS Performed By: #### M 100.678 #### [facility] [address] [place], [id number] [phone] Calcium [Mass/Vol] 10.1 mg/dL Normal 7.6-11.0 [facility] Comment on above: Order Comment: Order Date: 02/11/25Order Info: [id number] - CMPOrder Info: [id number] - LIPIDOrder Info: [id number] - PHOS Performed By: #### M 100.678 #### [facility] [address] [place], [address] Chloride [Moles/Vol] 104 mmol/L Normal 98-108 [facility] Comment on above: Order Comment: Order Date: 02/11/25Order Info: [id number] - CMPOrder Info: [id number] - LIPIDOrder Info: [id number] - PHOS Performed By: #### M 100.678 #### [facility] [address] [place], [address] CO2 [Moles/Vol] 18.3 mmol/L Low 21.0-32.0 [facility] Comment on above: Order Comment: Order Date: 02/11/25Order Info: [id number] - CMPOrder Info: [id number] - LIPIDOrder Info: [id number] PHOS Performed By: #### M 100.678 #### [facility] [address] [place], [address] (524) Creatinine [Mass/Vol] 1.64 mg/dL High 0.70-1.20 [facility] Comment on above: Order Comment: Order Date: 02/11/25Order Info: [id number] - CMPOrder Info: [id number] - LIPIDOrder Info: [id number] - PHOS Performed By: #### M [id number] #### [facility] [address] [place], [address] GAP 14 Normal 5-15 [facility] Comment on above: Order Comment: Order Date: 02/11/25Order Info: [id number] - CMPOrder Info: [id number] - LIPIDOrder Info: [id number] - PHOS Performed By: #### M 100.678 #### [facility] [address] [place], [address] GFR/1.73 sq M.predicted among non-blacks MDRD (S/P/Bld) [Vol rate/Area] 43 mL/min/{1.73_m2} Low >60 [facility] Comment on above: Order Comment: Order Date: 02/11/25Order Info: [id number] - CMPOrder Info: - LIPIDOrder Info: [id number] - PHOS Result Comment: mL/m in/1.73m2 CKD-EPI Creatinine Equation (2020) Performed By: #### M 100.678 #### [facility] [address] [place], [address] Globulin (S) [Mass/Vol] 3.0 g/dL Normal 2.2-4.2 [facility] Comment on above: Order Comment: Order Date: 02/11/25Order Info: [id number] - CMPOrder Info: - LIPIDOrder Info: [id number] - PHOS Performed By: #### M 100.678 #### [facility] [address] [place], [address] Glucose [Mass/Vol] 128 mg/dL High 70-99 [facility] Comment on above: Order Comment: Order Date: 02/11/25Order Info: [id number] - CMPOrder Info: [id number] - LIPIDOrder Info: [id number] - PHOS Performed By: #### M 100.678 #### [facility] [address] [place], [address] Potassium [Moles/Vol] 5.3 mmol/L High 3.3-5.1 [facility] Comment on above: Order Comment: Order Date: 02/11/25Order Info: [id number] - CMPOrder Info: [id number] - LIPIDOrder Info: [id number] - PHOS Performed By: #### M 100.678 #### [facility] [address] [place], [place], [id number] Sodium [Moles/Vol] 137 mmol/L Normal 133-145 [facility] Comment on above: Order Comment: Order Date: 02/11/25Order Info: [id number] - CMPOrder Info: [id number] - LIPIDOrder Info: [id number] - PHOS Performed By: #### M 100.678 #### [facility] [address] [place], [id number] T PROT 7.6 g/dL Normal 5.9-8.4 [facility] Comment on above: Order Comment: Order Date: 02/11/25Order Info: [id number] - CMPOrder Info: [id number] - LIPIDOrder Info: [id number] - PHOS Performed By: #### M 100.678 #### [facility] [address] [place], [place], [address] Urea nitrogen [Mass/Vol] 21 mg/dL High 4-19 [facility] Comment on above: Order Comment: Order Date: 02/11/25Order Info: [id number] - CMPOrder Info: [id number] - LIPIDOrder Info: [id number] - PHOS Performed By: #### M 100.678 #### [facility] [address] [place], [address] Eosinophil percentageOrdered By: Gilles Vance on 02-11-2025 Eosinophils/100 WBC (Bld) 2.1 % 0-5 [facility] Erythrocyte distribution wid th ratioOrdered By: Gilles Vance on 02-11-2025 Erythrocyte distribution width (RBC) [Ratio] 13.3 % 11.6-14.6 [facility] Erythrocyte distribution wid th standard deviationOrdered By: Gilles Vance on 02-11-2025 Erythrocyte distribution width (RBC) [Ratio] 41.3 fl 35.1-43.9 [facility] Glomerular filtration rate ( GFR) estimation/1.73 sq m using serum, plasma, or whole bOrdered By: Gilles Vance on 02-11-2025 GFR/1.73 sq M.predicted among non-blacks MDRD (S/P/Bld) [Vol rate/Area] 43 mL/min/{1.73_m2} Low >60 [facility] Comment on above: mL/min/1.73m2 CKD-EP I Creatinine Equation (2020) Hematocrit Auto (Bld) [Volum e fraction]Ordered By: Gilles Vance on 02-11-2025 Hematocrit (Bld) [Volume fraction] 51.7 % 40-54 [facility] Hemoglobin A1con 02-11-2025 HbA1c (Bld) [Mass fraction] 8.7 % High <=5.6 [facility] Comment on above: Order Comment: Order Date: 02/11/25Order Info: [id number] - A1C Result Comment: Norm al < 5.7 % Prediabetic 5.7 - 6.4 % Diabetic >or= 6.5 % Please note range changes. Performed By: #### M 100.678 #### [facility] [address] [place] [address]. [place], [address] Hemoglobin A1c percentageOrd ered By: Gilles Vance on 02-11-2025 HbA1c (Bld) [Mass fraction] 8.7 % High <5.7 [facility] Comment on above: Normal < 5.7 % Predi abetic 5.7 - 6.4 % Diabetic >or= 6.5 % Please note range changes. Hemoglobin measurementOrdere d By: Gilles Vance on 02-11-2025 Hemoglobin (Bld) [Mass/Vol] 17.2 g/dL High 13.0-16.5 [facility] Immature granulocytes/100 WB C Auto (Bld)Ordered By: Gilles Vance on 02-11-2025 Immature granulocytes/100 WBC (Bld) 0.500 % 0.0-0.9 [facility] Comment on above: IG% - Immature Granu locytes (promyelocytes, myelocytes and metamyelocytes) > 1% indicates that a LEFT SHIFT is Present. Iron measurement (mass/mass) Ordered By: Gilles Vance on 02-11-2025 Iron (Unsp spec) [Mass/Mass] 83 ug/dL 65-175 [facility] Ketones Test strip Ql (U)Ord ered By: Gilles Vance on 02-11-2025 Ketones Ql (U) Negative Negative [facility] LDL calc ser/plasOrdered By: Gilles Vance on 02-11-2025 Cholesterol in LDL [Mass/Vol] 58 mg/dL [facility] Comment on above: Lcbgkahley=457-623 m g/dL & Higher Ibwg=206 mg/dL or greater Laboratory - Chemistry and C hemistry - challengeOrdered By: Gilles Vance on 02-11-2025 AST [Catalytic activity/Vol] 17 U/L <38 [facility] Lipid Profileon 02-11-2025 CHOL:HDL 3.86 Normal [facility] Comment on above: Order Comment: Order Date: 02/11/25Order Info: [id number] - CMPOrder Info: [id number] - LIPIDOrder Info: [id number] - PHOS Performed By: #### M 100.678 #### [facility] [address] [place], [place], [id number] Cholesterol [Mass/Vol] 125 mg/dL Normal <=200 [facility] Comment on above: Order Comment: Order Date: 02/11/25Order Info: [id number] - CMPOrder Info: [id number] - LIPIDOrder Info: [id number] - PHOS Result Comment: Chol esterol level, Desirable <200 mg/dL Borderline high cholesterol 200-239 mg/dL High cholesterol >=240 mg/dL Recommendations of the NCEP Adult Treatment Panel for the following risk-cutoff thresholds for the [place] population. Performed By: #### M 100.678 #### [facility] [address] [place], [place], [id number] Cholesterol in HDL [Mass/Vol] 32 mg/dL Low [facility] Comment on above: Order Comment: Order Date: 02/11/25Order Info: [id number] - CMPOrder Info: [id number] - LIPIDOrder Info: [id number] - PHOS Result Comment: M[place] onal Cholesterol Education Program (NCEP) guidelines: <40 mg/dL: Low HDL-cholesterol (major risk factor for CHD) >= 60 mg/dL: High HDL-cholesterol (negative risk factor for CHD) HDL-cholesterol is affected by a number of factors, e.g. smoking, exercise, hormones, sex and age. Performed By: #### M 100.678 #### [facility] [address] [place], [address] Cholesterol in LDL [Mass/Vol] 58 mg/dL Normal [facility] Comment on above: Order Comment: Order Date: 02/11/25Order Info: [id number] - CMPOrder Info: [id number] - LIPIDOrder Info: [id number] - PHOS Result Comment: Bord udtlfn=572-671 mg/dL Higher Zypm=946 mg/dL or greater Performed By: #### M 100.678 #### [facility] [address] [place], [address] Cholesterol in VLDL [Mass/Vol] 34 mg/dL Normal 5-40 [facility] Comment on above: Order Comment: Order Date: 02/11/25Order Info: [id number] - CMPOrder Info: [id number] - LIPIDOrder Info: [id number] - PHOS Performed By: #### M 100.678 #### [facility] [address] [place], [address] Triglyceride [Mass/Vol] 172 mg/dL Normal [facility] Comment on above: Order Comment: Order Date: 02/11/25Order Info: [id number] - CMPOrder Info: [id number] - LIPIDOrder Info: [id number] - PHOS Result Comment: The drugs N-Acetylcysteine and Metamizole may falsely depress this assay. Normal range: <150 mg/dL Borderline High: 150-199 mg/dL High: 200-499 mg/dL Very High: >500 mg/dL Performed By: #### M 100.678 #### [facility] [address] [place], [place], [id number] (736) MCV (mean corpuscular volume ) determinationOrdered By: Gilles Vance on 02-11-2025 MCV (RBC) [Entitic vol] 86.2 fL 80-94 [facility] Mean corpuscular hemoglobin (MCH) determinationOrdered By: Gilles Vance on 02-11-2025 MCH (RBC) [Entitic mass] 28.7 pg 27.0-32.0 [facility] Mean corpuscular hemoglobin concentration (MCHC) determinationOrdered By: Gilles Vance on 02-11-2025 MCHC (RBC) [Mass/Vol] 33.3 g/dL 32-36 [facility] Mean platelet volume determi nationOrdered By: Gilles Vance on 02-11-2025 Platelet mean volume (Bld) [Entitic vol] 11.9 fL 6.2-12.0 [facility] Microalb:Creat Ratio,Random URon 02-11-2025 MALB:CREAT 726.9 mg/g CRE Normal [facility] Comment on above: Order Comment: Order Date: 02/11/25Order Info: [id number] - MIALB Performed By: #### M 100.677 #### [facility] [address] [place], [place], [phone] MICROALBUMIN,UR 78.5 mg/L Normal NO RANGE EST. [facility] Comment on above: Order Comment: Order Date: 02/11/25Order Info: [id number] - MIALB Performed By: #### M 100.677 #### [facility] [address] [place], [place], [phone] Microscopic analysis of urin e for red blood cells (RBC)Ordered By: Gilles Vance on 02-11-2025 Microscopic analysis of urine for red blood cells (RBC) 0 SEEN /hpf 0-5 [facility] Monocyte percentageOrdered B y: Gilles Vance on 02-11-2025 Monocytes/100 WBC (Bld) 10.6 % High 0-10 [facility] Mucus LM Ql (Urine sed)Order ed By: Gilles Vance on 02-11-2025 Mucus Ql (Urine sed) 0 SEEN /hpf [facility] Neutrophil percentageOrdered By: Gilles Vance on 02-11-2025 Neutrophils/100 WBC (Bld) 64.9 % 47-70 [facility] Nitrite Test strip Ql (U)Ord ered By: Gilles Vance on 02-11-2025 Nitrite Ql (U) Negative Negative [facility] No Panel InformationOrdered By: Gilles Vance on 02-11-2025 Unsaturated Iron Binding Capacity 346 ug/dL 228-428 [facility] Nucleated red blood cell per centageOrdered By: Gilles Vance on 02-11-2025 Nucleated RBC/100 WBC (Bld) [Ratio] 0 % 0-5 [facility] PTHINon 02-11-2025 PTH 32 pg/mL Normal 11-61 [facility] Comment on above: Order Comment: Order Date: 02/11/25Order Info: [id number] - PTHIN Performed By: #### M 100.678 #### [facility] [address] [place], [place], [phone] Phosphoruson 02-11-2025 Phosphate [Mass/Vol] 4.2 mg/dL Normal 2.7-4.5 [facility] [place] Comment on above: Order Comment: Order Date: 02/11/25Order Info: [id number] - CMPOrder Info: [id number] - LIPIDOrder Info: [id number] - PHOS Performed By: #### M 100.678 #### [facility] [address] [place], [place], [address] Platelet countOrdered By: Anel Vance on 02-11-2025 Platelets (Bld) [#/Vol] 219 10*3/uL 150-450 [facility] Potassium measurement (mass/ volume)Ordered By: Gilles Vance on 02-11-2025 Potassium (Unsp spec) [Mass/Vol] 5.3 mmol/L High 3.3-5.1 [facility] Protein Test strip Ql (U)Ord ered By: Gilles Vance on 02-11-2025 Protein Ql (U) 30 mg/dl High Negative [facility] Protein+Creatinine Ratio,Uri neon 02-11-2025 PROT:CRE RATIO 179 mg/g CRE Normal 0-200 [facility] Comment on above: Order Comment: Order Date: 02/11/25Order Info: [id number] - MIALB Performed By: #### M 100.677 #### [facility] [address] [place], [address] Protein (U) [Mass/Vol] 19.3 mg/dL High 0.0-12.0 [facility] Comment on above: Order Comment: Order Date: 02/11/25Order Info: [id number] - MIALB Performed By: #### M 100.677 #### [facility] [address] [place], [address] UR CREAT 108.00 mg/dL Normal 39.00-259.00 [facility] Comment on above: Order Comment: Order Date: 02/11/25Order Info: [id number] - MIALB Performed By: #### M 100.677 #### [facility] [address] [place], [address] RBC Auto (Bld) [#/Vol]Ordere d By: Gilles Vance on 02-11-2025 RBC (Bld) [#/Vol] 6.00 10*6/uL 4.6-6.2 [facility] Random urine creatinine bryanna urement (mass/volume)Ordered By: Gilles Vance on 02-11-2025 Creatinine Unsp time (U) [Mass/Vol] 108.00 mg/dL 39.00-259.00 [facility] Screening total cholesterol/ high density lipoprotein (HDL) cholesterol ratioOrdered By: Gilles Vance on 02-11-2025 Cholesterol.total/Cholest james in HDL [Mass ratio] 3.86 {ratio} [facility] Serum creatinine measurement (mass/volume)Ordered By: Gilles Vance on 02-11-2025 Creatinine [Mass/Vol] 1.64 mg/dL High 0.70-1.20 [facility] Serum globulin measurementOr dered By: Gilles Vance on 02-11-2025 Globulin (S) [Mass/Vol] 3.0 g/dL 2.2-4.2 [facility] Serum glucose measurement (m ass/volume)Ordered By: Gilles Vance on 02-11-2025 Glucose [Mass/Vol] 128 mg/dL High 70-99 [facility] Serum or plasma alanine lester otransferase (ALT) measurementOrdered By: Gilles Vance on 02-11-2025 ALT [Catalytic activity/Vol] 15 U/L <47 [facility] Serum or plasma albumin bryanna urement (mass/volume)Ordered By: Gilles Vance on 02-11-2025 Albumin [Mass/Vol] 4.6 g/dL 3.4-4.8 [facility] Serum or plasma albumin/glob ulin mass ratioOrdered By: Gilles Vance on 02-11-2025 Albumin/Globulin [Mass ratio] 1.5 {ratio} 0.9-2.4 [facility] Serum or plasma alkaline shakira sphatase measurementOrdered By: Gilles Vance on 02-11-2025 ALP [Catalytic activity/Vol] 60 U/L 40-129 [facility] Serum or plasma calcium bryanna urement (mass/volume)Ordered By: Gilles Vance on 02-11-2025 Calcium [Mass/Vol] 10.1 mg/dL 7.6-11.0 [facility] Serum or plasma cholesterol in HDL measurement (mass/volume)Ordered By: Gilles Vance on 02-11-2025 Cholesterol in HDL [Mass/Vol] 32 mg/dL Low >40 [facility] Comment on above: National Cholesterol Education Program (NCEP) guidelines:<40 mg/dL: Low HDL-cholesterol (major risk factor for CHD)>= 60 mg/dL: High HDL-cholesterol (negative risk factor for CHD)HDL-cholesterol is affected by a number of factors, e.g. smoking, exercise, hormones, sex and age. Serum or plasma cholesterol measurement (mass/volume)Ordered By: Gilles Vance on 02-11-2025 Cholesterol [Mass/Vol] 125 mg/dL <201 [facility] Comment on above: Cholesterol level, D esirable <200 mg/dLBorderline high cholesterol 200-239 mg/dLHigh cholesterol >=240 mg/dLRecommendations of the NCEP Adult Treatment Panel for the following risk-cutoff thresholds for the [place] population. Serum or plasma ferritin arnoldo surement (mass/volume)Ordered By: Gilles Vance on 02-11-2025 Ferritin [Mass/Vol] 28 ng/mL Low 37-417 [facility] Serum or plasma iron saturat ion measurement (mass fraction)Ordered By: Gilles Vance on 02-11-2025 Iron saturation [Mass fraction] 19.0 % 9-55 [facility] Serum or plasma urea nitroge n measurement (mass/volume)Ordered By: Gilles Vance on 02-11-2025 Urea nitrogen [Mass/Vol] 21 mg/dL High 4-19 [facility] Sodium levelOrdered By: Gilles Vance on 02-11-2025 Sodium [Moles/Vol] 137 mmol/L 133-145 [facility] Squamous epithelial cells de tection in urine sediment by light microscopyOrdered By: Gilles Vance on 02-11-2025 Epithelial cells.squamous LM Ql (Urine sed) 0 SEEN /hpf 0-5 [facility] Total proteinOrdered By: Hever Vance on 02-11-2025 Protein [Mass/Vol] 7.6 g/dL 5.9-8.4 [facility] Triglycerides measurementOrd ered By: Gilles Vance on 02-11-2025 Triglyceride [Mass/Vol] 172 mg/dL <199 [facility] Comment on above: The drugs N-Acetylcy steine and Metamizole may falsely depress this assay. Normal range: <150 mg/dLBorderline High: 150-199 mg/dLHigh: 200-499 mg/dLVery High: >500 mg/dL Urinalysis, Completeon 02-11 BACTERIA RARE Normal None Seen [facility] Comment on above: Order Comment: CLEAN CATCH Performed By: #### M 100.677 #### [facility] [address] [place], [place], [phone] WBC 0-5 SEEN Normal 0-5 [facility] Comment on above: Order Comment: CLEAN CATCH Performed By: #### M 100.677 #### [facility] [address] [place], [address] EPI,SQUAMOUS 0 SEEN Normal 0-5 [facility] Comment on above: Order Comment: CLEAN CATCH Performed By: #### M 100.677 #### [facility] [address] [place], [place], [phone] Mucus Ql (Urine sed) 0 SEEN Normal [facility] Comment on above: Order Comment: CLEAN CATCH Performed By: #### M 100.677 #### [facility] [address] [place], [place], [phone] RBC 0 SEEN Normal 0-5 [facility] Comment on above: Order Comment: CLEAN CATCH Performed By: #### M 100.677 #### [facility] [address] [place], [place], [id number] Urine albumin measurement wi detection limit of 20 mg/L or less (mass/volume)Ordered By: Gilles Vance on 02-11-2025 Albumin DL <= 20 mg/L (U) [Mass/Vol] 78.5 mg/L NO RANGE EST. [facility] Urine clarityOrdered By: Hever Vance on 02-11-2025 Clarity (U) Clear Clear [facility] Urine color determinationOrd ered By: Gilles Vance on 02-11-2025 Color (U) Yellow Yellow [facility] Urine glucose detectionOrder ed By: Gilles Vance on 02-11-2025 Glucose Ql (U) 1000 mg/dl High Normal [facility] Urine leukocyte esterase det ection by dipstickOrdered By: Gilles Vance on 02-11-2025 Leukocyte esterase Test strip Ql (U) Negative Negative [facility] Urine pHOrdered By: Gilles baxter on 02-11-2025 pH (U) 5.0 [pH] 5.0 - 8.0 [facility] Urine protein measurement (m ass/volume)Ordered By: Gilles Vance on 02-11-2025 Protein (U) [Mass/Vol] 19.3 mg/dL High 0.0-12.0 [facility] Urine protein/creatinine mas s ratioOrdered By: Gilles Vance on 02-11-2025 Protein/Creatinine (U) [Mass ratio] 179 mg/g CRE 0-200 [facility] Urine sediment bacteria coun t by microscopy (number/high power field)Ordered By: Gilles Vance on 02-11-2025 Bacteria LM.HPF (Urine sed) [#/Area] RARE /hpf None Seen [facility] Urine specific gravity measu rementOrdered By: Gilles Vance on 02-11-2025 Specific gravity (U) [Rel density] 1.020 1.002-1.030 [facility] Urine urobilinogen measureme ntOrdered By: Gilles Vance on 02-11-2025 Urobilinogen Ql (U) Normal mg/dl Normal [facility] Vitamin D,25 Hydroxyon 02-11 Vitamin D 25-OH 41.4 ng/mL Normal 30-100 [facility] Comment on above: Order Comment: Order Date: 02/11/25Order Info: [id number] - CMPOrder Info: [id number] - LIPIDOrder Info: [id number] - PHOS Result Comment: Amelie min D Status Deficiency: <20 ng/mL (50nmol/L) Insufficiency: 20-30 ng/mL (50-75 nmol/L) Sufficiency: 30-100 ng/mL (75-250 nmol/L) Toxicity: >100 ng/mL (>250 nmol/L) Performed By: #### M 100.677 #### [facility] [address] [place] [address], [phone] White blood cell (WBC) count Ordered By: Gilles Vance on 02-11-2025 WBC (Bld) [#/Vol] 7.6 10*3/uL 4.4-11.0 [facility] White blood cell countOrdere d By: Gilles Vance on 02-11-2025 White blood cell count 0-5 SEEN /hpf 0-5 [facility] Diagnostic total prostate sp ecific antigen (PSA) measurementOrdered By: Michael Pascual on 12-08-2024 Prostate Specific Antigen Total 1.37 ng/mL 0.00-4.00 [facility] Comment on above: This test was perfor med using the [employer] tPSA method. Measured values of a patient sample can vary depending on the testing procedure used. PSA values determined on patient samples by different testing procedures cannot be used interchangeably. If there is a change in PSA assays while monitoring therapy, sequential testing should be performed to confirm baseline values. PSA,Total- Diagnosticon 11-16 PSA, DIAGNOSTIC 1.37 ng/mL Normal 0.00-4.00 [facility] Comment on above: Result Comment: This test was performed using the [employer] tPSA method. Measured values of a patient??sample can vary depending on the testing procedure used. PSA values determined on patient samples by different testing procedures cannot be used interchangeably. If there is a change in PSA assays while monitoring therapy, sequential testing should be performed to confirm baseline values. Performed By: #### M 100.677 #### [facility] [address] [place], [address] Cardiovascular ultrasound re portOrdered By: Stanislaw Benton on 11-24-[address] [facility] [address] [place] [address] AAA Screening 11/21/24 0909 MR#: [id number] Acct: [id number] Name: OSCAR KEENAN Rep #:[id number] : 1950 73 From: Stanislaw Puri Attending Dr: Dr. Gilles Vance MD Status: REG CLI Ordering Dr: Gillse Vance MD Date: 11/21/24 Location: CVS Sex: M C Admitted: Reason For Study Reason For Study: Screening Aorta Measurements Aorta Doppler Measurements Proximal aorta measures2.49 x 2.49cm. in cross-sectional Peak systolic flow velocities within the proximal aorta axis. measure 48.3 cm/sec. Proximal aorta measures2.44cm. in longitudinal axis. Peak systolic flow velocities within the mid aorta measure Mid aorta measures2.01 x 1.91cm. in cross-sectional axis. 71.3. cm/sec. Mid aorta measures2.02cm. in longitudinal axis. Peak systolic flow velocities within the distal aorta Distal aorta measures2.45 x 2.43cm. in cross-sectional axis.measure 77.9 cm/sec. Distal aorta measures2.59cm. in longitudinal axis. Left Iliac Artery Left iliac artery measures 2.19 x 2.18 cm. in the cross-sectional axis. Left iliac artery measures 2.19 cm. in the longitudinal axis. Peak systolic velocity in the left iliac artery measures 31.8cm/sec. Right Iliac Artery Right iliac artery measures 1.28 x 1.31 cm. in the cross-sectional axis. Right iliac artery measures 1.22 cm. in the longitudinal axis. Peak systolic velocity in the right iliac artery measures 59.2 cm/sec. Procedure Aorta IVC Iliac vasculature or bypass grafts [id number]. Exam performed in department. VL/AAA Screening Interpretation Summary Aorta patent, ectasia to 2.59 cm Right iliac artery patent, ectasia to 1.31 cm Left iliac artery patent, 2.19 cm aneurysm present __ Ordering Physician: Gilles Vance Referring Physician: Gilles Vance Performed By: Juliette Mckeon Blanca 11/24/241533 Date _ Stanislaw Benton MD CC: Dr. Gilles Vance MD ~ Date Dictated: 11/21/24908 Date Transcribed: 11/24/241533 [employer]point Application Architect: Signed [facility] Work Phone: AAA Screeningon 11-21-2024 AAA Screening [facility] [address] [place] [address] AAA Screening 11/21/24908 MR#: [id number] Acct: [id number] Name: OSCAR KEENAN Rep #: [id number] : 1950 73 From: Stanislaw Benton MD Attending Dr: Dr. Gilles Vance MD Status: R EG CLI Ordering Dr: Gilles Vance MD Date: 11/21/24 Location: [facility] Sex: M C Admitted: Reason For Study Reason For Study: Screening Aorta Measurements Aorta Doppler Measurements Proximal aorta measures2.49 x 2.49cm. in cross-sectional Peak systolic flow velocities within the proximal aorta axis. measure 48.3 cm/sec. Proximal aorta measures2.44cm. in longitudinal axis. Peak systolic flow velocities within the mid aorta measure Mid aorta measures2.01 x 1.91cm. in cross-sectional axis. 71.3. cm/sec. Mid aorta measures2.02cm. in longitudinal axis. Peak systolic flow velocities within the distal aorta Distal aorta measures2.45 x 2.43cm. in cross-sectional axis.measure 77.9 cm/sec. Distal aorta measures2.59cm. in longitudinal axis. Left Iliac Artery Left iliac artery measures 2.19 x 2.18 cm. in the cross-sectional axis. Left iliac artery measures 2.19 cm. in the longitudinal axis. Peak systolic velocity in the left iliac artery measures 31.8 cm/sec. Right Iliac Artery Right iliac artery measures 1.28 x 1.31 cm. in the cross-sectional axis. Right iliac artery measures 1.22 cm. in the longitudinal axis. Peak systolic velocity in the right iliac artery measures 59.2 cm/sec. Procedure Aorta IVC Iliac vasculature or bypass grafts [id number]. Exam performed in department. VL/AAA Screening Interpretation Summary Aorta patent, ectasia to 2.59 cm Right iliac artery patent, ectasia to 1.31 cm Left iliac artery patent, 2.19 cm aneurysm present __ Ordering Physician: Gilles Vance Referring Physician: Gilles Vance Performed By: Juliette Mckeon T 11/24/24 1534 Date Stanislaw Benton MD CC: Dr. Gilles Vance MD Date Dictated: 11/21/2409 Date Transcribed: 11/24/24 153 [employer]point Application Architect: Signed Normal [facility] Pacemaker Checkon 10-06-2024 Pacemaker Check [facility] [address] [place] [address] Pacemaker Check Date of Service: 10/06/24 1346 MR#: [id number] Acct: [id number] Name: OSCAR KEENAN Rep #: [id number] : 1950 From: Macy Klein Age/Sex: 73/M Location: [facility] Status: Signed Billing Codes ICD Device Billin ICD Dev Prog Eval, Dual Assessment and Plan Assessment and Plan (1) Presence of implantable cardioverter-defibr illator (ICD): Status: Acute Comment: Medtronic Stem XT (2) SA node dysfunction: Status: Acute (3) Dilated cardiomyopathy: Status: Acute 10/06/241346 Date Macy Becker Signature: Date (if applicable) CC: Normal [facility] 12 Lead EKG performed by [facility] on 09-24-2024 12 Lead EKG performed by [facility] [address] [place] [address] 12 Lead EKG performed by [facility] 09/24/24 0946 MR#: [id number] Acct: [id number] Name: OSCAR KEENAN Rep #: [id number] : 1950 73 From: Jacob Mcgovern MD Attending Dr: Dr. 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 ABNORMAL Electronically signed on 09/24/2024 at 14:42 by Jacob Mcgovern [employer] Version 8610 09/24/24 1443 Date Jacob Mcgovern MD CC: Dr. Gilles Vance MD Date Dictated: 09/24/24945 Date Transcribed: 09/24/24945 Sharepoint Application Architect: [place] Signed Normal [facility] Cardiology Visit Reporton Cardiology Visit Report [facility] [address] [place] [address]. [address] [place], [place] [address] OFFICE VISIT Date of Service: 09/24/24 MR#: [id number] Acct: [id number] Name: OSCAR KEENAN Rep #: [id number] : 1950 Provider: Dr. Jacob Mcgovern MD Age/Sex: 73/M Location: [facility] Status: Signed HPI HPI History of Present Illness Details: Pleasant 73-year-old man who is relocating his care here to [place] from [place]. He is a gentleman with a history of peripheral vascular disease status post arterial bypass of his lower extremities in 2004. In 2012 he had a left nephrectomy performed. It appears that at some point he underwent evaluation of his coronary anatomy and no significant obstructive disease was noted. He has however had progressive worsening of his left ventricular ejection fraction culminating in his most recent ejection fraction from 2023 noted to be approximately 30-35 %. He does have a history of congestive heart failure [place] [employer] class III. As part of his guideline directed medical therapy he had undergone a permanent pacemaker implantation which was recently in November 2023 upgraded to a single-lead ICD in November 2023. It was a Medtronic model DD PA 2 D4, serial number [id number]. He has not had any evidence of heart failure and he tells me that he has been having serial stress test performed yearly with his last stress test in August 2023 demonstrating medium reversible defect noted in the lateral area which was partially reversible. He also has an abdominal aortic aneurysm which measures 3.[address] scan. He denies any neck arm or jaw discomfort suggest angina. His last EKG from June 2024 demonstrated an atrial paced rhythm. Intake Vital Signs 02/21/24 05:06 09/24/24 09:46 Height 5 ft 8 in 5 ft 8 in Weight: 226 lb BMI 34.3 BP 114/80 Blood Pressure Location Lt brachial Position Sitting Respiration 18 Pulse 61 Pulse Source Monitor Intake Visit Reasons: EST (SELF) Schedule Supervisor Required: No Accompanied by: Self Is patient in pain?: No Allergies No Known Allergies Allergy (Verified 09/24/24 09:50) Medications ???Medication ???Instructions ???Recorded ???Confirmed ???Type aspirin 81 mg chewable tablet 1 tab PO DAILY 02/21/24 09/24/24 History (Jayna Chewable Low Dose Aspirin) glucos 500 ga-hjvtx-ysi3 450 cap PO 02/21/24 09/24/24 History mg-liza 0.67 mg-Idiego-newtono n capsule metoprolol tartrate 50 mg tablet 50 mg PO BID 02/21/24 09/24/24 History (Lopressor) omega 1-guc-ayw-fish oil 1,200 mg 1 cap PO DAILY 02/21/24 09/24/24 History (144 mg-216 mg) capsule (Fish Oil) ondansetron HCl 4 mg tablet 4 mg PO Q8H PRN nausea and vomiting 02/21/24 09/24/24 History spironolactone 25 mg tablet 25 mg PO DAILY 02/21/24 09/24/24 History super beta prostate 02/21/24 09/24/24 History vitamin B complex (Balanced B-50 1 tab PO DAILY 02/21/24 09/24/24 History tablet) atorvastatin 40 mg tablet 40 mg PO QDAY 09/11/24 09/24/24 History amlodipine 10 mg tablet 10 mg PO QDAY 09/24/24 09/24/24 History empagliflozin 25 mg tablet 25 mg PO QDAY 09/24/24 09/24/24 History (Jardiance) metformin 500 mg tablet 500 mg PO BID 09/24/24 09/24/24 History omeprazole 40 mg capsule,delayed 40 mg PO QDAY 09/24/24 09/24/24 History release sacubitril 24 mg-valsartan 26 mg 1 tab PO BID 09/24/24 09/24/24 History tablet (Entresto) Have you fallen in the past year?: No PFSH Medical History SA node dysfunction Afib Dilated cardiomyopathy Supraventricular tachycardia Chronic combined systolic (congestive) and diastolic (congestive) heart failure Atherosclerosis of both carotid arteries Atherosclerosis of coronary artery of telida heart without angina pectoris ROSSI (obstructive sleep apnea) Neuropathy Hyperparathyroidism AAA (abdominal aortic aneurysm) CKD stage 3 due to type 2 diabetes mellitus Obesity PVD (peripheral vascular disease) Gómez esophagus GERD (gastroesophageal reflux disease) Calculus of kidney Right knee pain History of herniated intervertebral disc History of kidney cancer Diabetes Hyperlipemia HTN (hypertension) Prostate cancer Surgical History (Updated 09/24/24 @ 10:[address] Jacob Mcgovern MD) Hx of rotator cuff surgery ( 1989) Hx of arterial bypass of lower limb ( 2004) Presence of implantable cardioverter-defibr illator (ICD) (12/05/23) History of nephrectomy, left (02/28/13) Family History Father Cancer COPD (chronic obstructive pulmonary disease) Diabetes Brother Heart disease Mother Hypertension Social History Smoking Status: Current some day smoker tobacco type: c (more content not included)... Normal [facility] [id number] DOrdered By: Saida Vance on 09-11-2024 Vitamin D 25-Hydroxy 36.8 ng/mL [facility] [place] Comment on above: Vitamin D 25(OH) Sta tus Range Deficiency <20 ng/mL (50nmol/L) Insufficiency 20 - 30 ng/mL (50 - 75 nmol/L) Sufficiency 30 - 100 ng/mL (75 - 250 nmol/L) Toxicity >100 ng/mL (>250 nmol/L) Absolute neutrophil countOrd ered By: Gilles Vance on 09-11-2024 Neutrophils (Bld) [#/Vol] 4.5 10*3/uL 2.0-7.7 [facility] Albumin to globulin ratioOrd ered By: Gilles Vance on 09-11-2024 Albumin/Globulin [Mass ratio] 1.1 {ratio} 0.9-2.4 [facility] Basophil percentageOrdered B y: Gilles Vance on 09-11-2024 Basophils/100 WBC (Bld) 1.2 % High 0-1 [facility] Bilirubin, totalOrdered By: Gilles Vance on 09-11-2024 Bilirubin [Mass/Vol] 0.60 mg/dL 0.20-1.00 [facility] [place] Comment on above: For patients on eltr ombopag therapy, use of Dimension [place] TBIL is not recommended. Blood urea nitrogen (BUN)/cr eatinine ratioOrdered By: Gilles Vance on 09-11-2024 Urea nitrogen/Creatinine [Mass ratio] 12.4 mg/mg 10-20 [facility] CBC W/Diff, Automatedon 08-18 Absolute Lymph 1.53 X10 3/uL Normal 0.83-4.51 [facility] Comment on above: Order Comment: Order Date: 09/11/24 Order Info: 0184-1 - CBCD Performed By: #### L 501.9985, L501.2300, L500.4050, L501.9940, L509.1000, L506.1000, L500.4100, L100.0100 #### [facility] [address] [place], [address] Absolute Neut 4.5 X10 3/uL Normal 2.0-7.7 [facility] Comment on above: Order Comment: Order Date: 09/11/24 Order Info: 0184-1 - CBCD Performed By: #### L 501.9985, L501.2300, L500.4050, L501.9940, L509.1000, L506.1000, L500.4100, L100.0100 #### [facility] [address] [place], [address] Basophils/100 WBC (Bld) 1.2 % High 0-1 [facility] Comment on above: Order Comment: Order Date: 09/11/24 Order Info: 0184-1 - CBCD Performed By: #### L 501.9985, L501.2300, L500.4050, L501.9940, L509.1000, L506.1000, L500.4100, L100.0100 #### [facility] [address] [place], [address] Eosinophils/100 WBC (Bld) 2.3 % Normal 0-5 [facility] Comment on above: Order Comment: Order Date: 09/11/24 Order Info: 0184- - CBCD Performed By: #### L 501.9985, L501.2300, L500.4050, L501.9940, L509.1000, L506.1000, L500.4100, L100.0100 #### [facility] [address] [place] [place], [address] Erythrocyte distribution width (RBC) [Ratio] 13.9 % Normal 11.6-14.6 [facility] Comment on above: Order Comment: Order Date: 09/11/24 Order Info: 0184-1 - CBCD Performed By: #### L 501.9985, L501.2300, L500.4050, L501.9940, L509.1000, L506.1000, L500.4100, L100.0100 #### [facility] [address] [place], [address] Hematocrit (Bld) [Volume fraction] 48.2 % Normal 40-54 [facility] Comment on above: Order Comment: Order Date: 09/11/24 Order Info: 0184-1 - CBCD Performed By: #### L 501.9985, L501.2300, L500.4050, L501.9940, L509.1000, L506.1000, L500.4100, L100.0100 #### [facility] [address] [place], [address] Hemoglobin (Bld) [Mass/Vol] 15.8 g/dL Normal 13.0-16.5 [facility] Comment on above: Order Comment: Order Date: 09/11/24 Order Info: 0184- - CBCD Performed By: #### L 501.9985, L501.2300, L500.4050, L501.9940, L509.1000, L506.1000, L500.4100, L100.0100 #### [facility] [address] [place], [address] IG% 0.700 Normal 0.0-0.9 [facility] Comment on above: Order Comment: Order Date: 09/11/24 Order Info: 0184-1 - CBCD Result Comment: IG% - Immature Granulocytes (promyelocytes, myelocytes and metamyelocytes) > 1% indicates that a LEFT SHIFT is Present. Performed By: #### L 501.9985, L501.2300, L500.4050, L501.9940, L509.1000, L506.1000, L500.4100, L100.0100 #### [facility] [address] [place], [address] Lymphocytes/100 WBC (Bld) 22.1 % Normal 19-41 [facility] Comment on above: Order Comment: Order Date: 09/11/24 Order Info: 0184-1 - CBCD Performed By: #### L 501.9985, L501.2300, L500.4050, L501.9940, L509.1000, L506.1000, L500.4100, L100.0100 #### [facility] [address] [place], [address] MCH (RBC) [Entitic mass] 28.0 pg Normal 27.0-32.0 [facility] Comment on above: Order Comment: Order Date: 09/11/24 Order Info: 01812-16 - CBCD Performed By: #### L 501.9985, L501.2300, L500.4050, L501.9940, L509.1000, L506.1000, L500.4100, L100.0100 #### [facility] [address] [place], [address] MCHC (RBC) [Mass/Vol] 32.8 g/dL Normal 32-36 [facility] Comment on above: Order Comment: Order Date: 09/11/24 Order Info: 01812-16 - CBCD Performed By: #### L 501.9985, L501.2300, L500.4050, L501.9940, L509.1000, L506.1000, L500.4100, L100.0100 #### [facility] [address] [place], [address] MCV (RBC) [Entitic vol] 85.3 fL Normal 80-94 [facility] Comment on above: Order Comment: Order Date: 09/11/24 Order Info: 01812-16 - CBCD Performed By: #### L 501.9985, L501.2300, L500.4050, L501.9940, L509.1000, L506.1000, L500.4100, L100.0100 #### [facility] [address] [place], [address] Monocytes/100 WBC (Bld) 9.4 % Normal 0-10 [facility] Comment on above: Order Comment: Order Date: 09/11/24 Order Info: 01812-16 - CBCD Performed By: #### L 501.9985, L501.2300, L500.4050, L501.9940, L509.1000, L506.1000, L500.4100, L100.0100 #### [facility] [address] [place], [address] Neutrophils/100 WBC (Bld) 64.3 % Normal 47-70 [facility] Comment on above: Order Comment: Order Date: 09/11/24 Order Info: 0184-1 - CBCD Performed By: #### L 501.9985, L501.2300, L500.4050, L501.9940, L509.1000, L506.1000, L500.4100, L100.0100 #### [facility] [address] [place], [address] Nucleated RBC (Bld) [#/Vol] 0 10*3/uL Normal 0-5 [facility] Comment on above: Order Comment: Order Date: 09/11/24 Order Info: 0184- - CBCD Performed By: #### L 501.9985, L501.2300, L500.4050, L501.9940, L509.1000, L506.1000, L500.4100, L100.0100 #### [facility] [address] [place], [address] Platelet mean volume (Bld) [Entitic vol] 12.0 fL Normal 6.2-12.0 [facility] Comment on above: Order Comment: Order Date: 09/11/24 Order Info: 0184-1 - CBCD Performed By: #### L 501.9985, L501.2300, L500.4050, L501.9940, L509.1000, L506.1000, L500.4100, L100.0100 #### [facility] [address] [place], [address] Platelets (Bld) [#/Vol] 234 10*3/uL Normal 150-450 [facility] Comment on above: Order Comment: Order Date: 09/11/24 Order Info: 0184-1 - CBCD Performed By: #### L 501.9985, L501.2300, L500.4050, L501.9940, L509.1000, L506.1000, L500.4100, L100.0100 #### [facility] [address] [place], [address] RBC (Bld) [#/Vol] 5.65 10*6/uL Normal 4.6-6.2 [facility] Comment on above: Order Comment: Order Date: 09/11/24 Order Info: 0184- - CBCD Performed By: #### L 501.9985, L501.2300, L500.4050, L501.9940, L509.1000, L506.1000, L500.4100, L100.0100 #### [facility] [address] [place], [place], [id number] RDW SD 42.8 fl Normal 35.1-43.9 [facility] Comment on above: Order Comment: Order Date: 09/11/24 Order Info: 0184- - CBCD Performed By: #### L 501.9985, L501.2300, L500.4050, L501.9940, L509.1000, L506.1000, L500.4100, L100.0100 #### [facility] [address] [place], [address] WBC (Bld) [#/Vol] 6.9 10*3/uL Normal 4.4-11.0 [facility] Comment on above: Order Comment: Order Date: 09/11/24 Order Info: 0184-1 - CBCD Performed By: #### L 501.9985, L501.2300, L500.4050, L501.9940, L509.1000, L506.1000, L500.4100, L100.0100 #### [facility] [address] [place], [place], [id number] Carbon dioxide measurementOr dered By: Gilles Vance on 09-11-2024 CO2 [Moles/Vol] 20.0 mmol/L Low 21.0-32.0 [facility] Chloride measurementOrdered By: Gilles Vance on 09-11-2024 Chloride [Moles/Vol] 108 mmol/L High 98-107 [facility] Comprehensive Metabolic Prof ilon 09-11-2024 Albumin [Mass/Vol] 3.9 g/dL Normal 3.2-5.0 [facility] Comment on above: Order Comment: Order Date: 09/11/24 Order Info: 785- - CMP Order Info: - LIPID Order Info: 2776-09 - PHOS Order Info: 782-09 - PSAD Performed By: #### L 501.9985, L501.2300, L500.4050, L501.9940, L509.1000, L506.1000, L500.4100, L100.0100 #### [facility] [address] [place], [place], [address] Albumin/Globulin [Mass ratio] 1.1 {ratio} Normal 0.9-2.4 [facility] Comment on above: Order Comment: Order Date: 09/11/24 Order Info: 785-09 - CMP Order Info: - LIPID Order Info: 2776-09 - PHOS Order Info: 782- - PSAD Performed By: #### L 501.9985, L501.2300, L500.4050, L501.9940, L509.1000, L506.1000, L500.4100, L100.0100 #### [facility] [address] [place], [place], [phone] ALK P 59 U/L Normal 45-117 [facility] Comment on above: Order Comment: Order Date: 09/11/24 Order Info: 785-09 - CMP Order Info: - LIPID Order Info: 2776-09 - PHOS Order Info: 83- - PSAD Performed By: #### L 501.9985, L501.2300, L500.4050, L501.9940, L509.1000, L506.1000, L500.4100, L100.0100 #### [facility] [address] [place], [place], [address] ALT [Catalytic activity/Vol] 27 U/L Normal 16-61 [facility] Comment on above: Order Comment: Order Date: 09/11/24 Order Info: 0786-1 - CMP Order Info: 92135-0 - LIPID Order Info: 2776-09 - PHOS Order Info: 782- - PSAD Performed By: #### L 501.9985, L501.2300, L500.4050, L501.9940, L509.1000, L506.1000, L500.4100, L100.0100 #### [facility] [address] [place], [place], [phone] AST [Catalytic activity/Vol] 12 U/L Low 15-37 [facility] Comment on above: Order Comment: Order Date: 09/11/24 Order Info: 785- - CMP Order Info: - LIPID Order Info: 2776-09 - PHOS Order Info: 782-09 - PSAD Performed By: #### L 501.9985, L501.2300, L500.4050, L501.9940, L509.1000, L506.1000, L500.4100, L100.0100 #### [facility] [address] [place], [place], [address] Bilirubin [Mass/Vol] 0.60 mg/dL Normal 0.20-1.00 [facility] Comment on above: Order Comment: Order Date: 09/11/24 Order Info: 07- - CMP Order Info: [id number] - LIPID Order Info: 2776-09 - PHOS Order Info: 782- - PSAD Result Comment: For patients on eltrombopag therapy, use of Dimension [place] TBIL is not recommended. Performed By: #### L 501.9985, L501.2300, L500.4050, L501.9940, L509.1000, L506.1000, L500.4100, L100.0100 #### [facility] [address] [place], [address] BUN/CRE 12.4 RATIO Normal 10-20 [facility] Comment on above: Order Comment: Order Date: 09/11/24 Order Info: 785-1 - CMP Order Info: 62402-7 - LIPID Order Info: 7- - PHOS Order Info: 83- - PSAD Performed By: #### L 501.9985, L501.2300, L500.4050, L501.9940, L509.1000, L506.1000, L500.4100, L100.0100 #### [facility] [address] [place], [address] CA,Total 9.1 mg/dL Normal 8.5-10.1 [facility] Comment on above: Order Comment: Order Date: 09/11/24 Order Info: 785- - CMP Order Info: - LIPID Order Info: 2776-09 - PHOS Order Info: 782- - PSAD Performed By: #### L 501.9985, L501.2300, L500.4050, L501.9940, L509.1000, L506.1000, L500.4100, L100.0100 #### [facility] [address] [place], [address] Chloride [Moles/Vol] 108 mmol/L High 98-107 [facility] Comment on above: Order Comment: Order Date: 09/11/24 Order Info: 785- - CMP Order Info: 68313-6 - LIPID Order Info: 2777 - PHOS Order Info: 83-1 - PSAD Performed By: #### L 501.9985, L501.2300, L500.4050, L501.9940, L509.1000, L506.1000, L500.4100, L100.0100 #### [facility] [address] [place], [address] CO2 [Moles/Vol] 20.0 mmol/L Low 21.0-32.0 [facility] Comment on above: Order Comment: Order Date: 09/11/24 Order Info: 785- - CMP Order Info: [id number] - LIPID Order Info: 2776-09 - PHOS Order Info: 782-09 - PSAD Performed By: #### L 501.9985, L501.2300, L500.4050, L501.9940, L509.1000, L506.1000, L500.4100, L100.0100 #### [facility] [address] [place], [place], [phone] Creatinine [Mass/Vol] 1.70 mg/dL High 0.70-1.30 [facility] Comment on above: Order Comment: Order Date: 09/11/24 Order Info: 785-09 - CMP Order Info: - LIPID Order Info: 2776-09 - PHOS Order Info: 782-09 - PSAD Result Comment: The validity of the calculated GFR GFRAA in patients over 70 years has not been determined. Clinical correlation is essential. Performed By: #### L 501.9985, L501.2300, L500.4050, L501.9940, L509.1000, L506.1000, L500.4100, L100.0100 #### [facility] [address] [place], [place], [address] EST GFR - AA 51 mL/min Low >60 [facility] Comment on above: Order Comment: Order Date: 09/11/24 Order Info: 785-09 - CMP Order Info: - LIPID Order Info: 2776-09 - PHOS Order Info: 782-09 - PSAD Result Comment: Afri can [place] GFR Calc Performed By: #### L 501.9985, L501.2300, L500.4050, L501.9940, L509.1000, L506.1000, L500.4100, L100.0100 #### [facility] [address] [place], [place], [address] GAP 9 Normal 5-15 [facility] Comment on above: Order Comment: Order Date: 09/11/24 Order Info: 785-09 - CMP Order Info: - LIPID Order Info: 2776-09 - PHOS Order Info: 782-09 - PSAD Performed By: #### L 501.9985, L501.2300, L500.4050, L501.9940, L509.1000, L506.1000, L500.4100, L100.0100 #### [facility] [address] [place], [place], [address] GFR/1.73 sq M.predicted among non-blacks MDRD (S/P/Bld) [Vol rate/Area] 42 mL/min/{1.73_m2} Low >60 [facility] Comment on above: Order Comment: Order Date: 09/11/24 Order Info: 785-09 - CMP Order Info: - LIPID Order Info: 2776-09 - PHOS Order Info: 782-09 - PSAD Result Comment: Non- GFR Calc Performed By: #### L 501.9985, L501.2300, L500.4050, L501.9940, L509.1000, L506.1000, L500.4100, L100.0100 #### [facility] [address] [place], [place], [address] Globulin (S) [Mass/Vol] 3.7 g/dL Normal 2.2-4.2 [facility] Comment on above: Order Comment: Order Date: 09/11/24 Order Info: 785-09 - CMP Order Info: - LIPID Order Info: 2776-09 - PHOS Order Info: 782-09 - PSAD Performed By: #### L 501.9985, L501.2300, L500.4050, L501.9940, L509.1000, L506.1000, L500.4100, L100.0100 #### [facility] [address] [place], [place], [address] Glucose [Mass/Vol] 183 mg/dL High 74-106 [facility] Comment on above: Order Comment: Order Date: 09/11/24 Order Info: 785-09 - CMP Order Info: - LIPID Order Info: 2776-09 - PHOS Order Info: 782- - PSAD Result Comment: Fast ing Glucose result greater than or equal to 126 mg/dL suggests DIABETES MELLITUS per A.D.A. criteria. Performed By: #### L 501.9985, L501.2300, L500.4050, L501.9940, L509.1000, L506.1000, L500.4100, L100.0100 #### [facility] [address] [place], [place], [address] [phone] Potassium [Moles/Vol] 4.7 mmol/L Normal 3.5-5.1 [facility] Comment on above: Order Comment: Order Date: 09/11/24 Order Info: 785-09 - CMP Order Info: - LIPID Order Info: 2776-09 - PHOS Order Info: 07 - PSAD Performed By: #### L 501.9985, L501.2300, L500.4050, L501.9940, L509.1000, L506.1000, L500.4100, L100.0100 #### [facility] [address] [place], [place], [address] [phone] Sodium [Moles/Vol] 138 mmol/L Normal 136-145 [facility] Comment on above: Order Comment: Order Date: 09/11/24 Order Info: 785-09 - CMP Order Info: - LIPID Order Info: 2776-09 - PHOS Order Info: 782-09 - PSAD Performed By: #### L 501.9985, L501.2300, L500.4050, L501.9940, L509.1000, L506.1000, L500.4100, L100.0100 #### [facility] [address] [place], [place], [id number] T PROT 7.6 g/dL Normal 6.4-8.2 [facility] Comment on above: Order Comment: Order Date: 09/11/24 Order Info: 0786-1 - CMP Order Info: 34255-3 - LIPID Order Info: 277- - PHOS Order Info: 782-09 - PSAD Performed By: #### L 501.9985, L501.2300, L500.4050, L501.9940, L509.1000, L506.1000, L500.4100, L100.0100 #### [facility] [address] [place], [place], [id number] Urea nitrogen [Mass/Vol] 21 mg/dL High 7-18 [facility] Comment on above: Order Comment: Order Date: 09/11/24 Order Info: 0786-1 - CMP Order Info: 03457-2 - LIPID Order Info: [id number] - PHOS Order Info: 782-09 - PSAD Performed By: #### L 501.9985, L501.2300, L500.4050, L501.9940, L509.1000, L506.1000, L500.4100, L100.0100 #### [facility] [address] [place], [place], [id number] Diagnostic total prostate sp ecific antigen (PSA) measurementOrdered By: Gilles Vance on 09-11-2024 Prostate Specific Antigen Total 1.42 ng/mL 0.0-4.0 [facility] Comment on above: This test was perfor med using the TPSA assay method [facility]. Values obtained with differentassay methods cannot be used interchangably.When changing PSA assays in the course of monitoring apatient, additional sequential testing should be carriedout to confirm baseline values. Eosinophil percentageOrdered By: Gilles Vance on 09-11-2024 Eosinophils/100 WBC (Bld) 2.3 % 0-5 [facility] Erythrocyte distribution wid th ratioOrdered By: Gilles Vance on 09-11-2024 Erythrocyte distribution width (RBC) [Ratio] 13.9 % 11.6-14.6 [facility] Erythrocyte distribution wid th standard deviationOrdered By: Gilles Vance on 09-11-2024 Erythrocyte distribution width (RBC) [Entitic vol] 42.8 fL 35.1-43.9 [facility] Estimated glomerular filtrat ion rate (GFR) AmericanOrdered By: Gilles Vance on 09-11-2024 Estimated GFR (MDRD) Amer 51 mL/min Low >60 [facility] Comment on above: GFR Calc Glomerular filtration rate ( GFR) estimationOrdered By: Gilles Vance on 09-11-2024 Estimated GFR (MDRD) Non-Af Amer 42 mL/min Low >60 [facility] Comment on above: Non- GFR Calc Glucose measurementOrdered B y: Gilles Vance on 09-11-2024 Glucose [Mass/Vol] 183 mg/dL High 74-106 [facility] Comment on above: Fasting Glucose resu lt greater than or equal to 126 mg/dL suggests DIABETES MELLITUS per A.D.A. criteria. Hematocrit Auto (Bld) [Volum e fraction]Ordered By: Gilles Vance on 09-11-2024 Hematocrit (Bld) [Volume fraction] 48.2 % 40-54 [facility] Hemoglobin A1con 09-11-2024 HbA1c (Bld) [Mass fraction] 7.9 % High 3.8-5.6 [facility] Comment on above: Order Comment: Order Date: 09/11/24Order Info: [id number] - A1C Result Comment: Norm al < 5.7 % Prediabetic 5.7 - 6.4 % Diabetic >or= 6.5 % Please note range changes. Performed By: #### M 100.677 #### [facility] [address] [place] [address]. [place], [address] Hemoglobin A1c percentageOrd ered By: Gilles Vance on 09-11-2024 HbA1c (Bld) [Mass fraction] 7.9 % High 3.8-5.6 [facility] Comment on above: Normal < 5.7 % Predi abetic 5.7 - 6.4 % Diabetic >or= 6.5 % Please note range changes. Hemoglobin measurementOrdere d By: Gilles Vance on 09-11-2024 Hemoglobin (Bld) [Mass/Vol] 15.8 g/dL 13.0-16.5 [facility] High density lipoprotein (HD L) measurementOrdered By: Gilles Vance on 09-11-2024 Cholesterol in HDL [Mass/Vol] 44 mg/dL >40 [facility] Comment on above: The drugs N-Acetylcy steine and Metamizole may falsely depress this assay. Reference Range HDL <40 mg/dL Low HDL Cholesterol HDL >or= 60 mg/dL High HDL Cholesterol Immature granulocytes/100 WB C Auto (Bld)Ordered By: Gilles Vance on 09-11-2024 Immature granulocytes/100 WBC (Bld) 0.700 % 0.0-0.9 [facility] Comment on above: IG% - Immature Granu locytes (promyelocytes, myelocytes and metamyelocytes) > 1% indicates that a LEFT SHIFT is Present. Intact parathyroid hormone ( iPTH) measurementOrdered By: Gilles Vance on 09-11-2024 Parathyroid Hormone (Intact) 79.7 pg/mL 18.4-80.1 [facility] - Chemistry and C hemistry - challengeOrdered By: Gilles Vance on 09-11-2024 AST [Catalytic activity/Vol] 12 U/L Low 15-37 [facility] Lipid Profileon 09-11-2024 Cholesterol [Mass/Vol] 157 mg/dL Normal 200 [facility] Comment on above: Order Comment: Order Date: 09/11/24 Order Info: [id number] - CMP Order Info: [id number] - LIPID Order Info: [id number] - PHOS Order Info: [id number] - PSAD Result Comment: <200 mg/dL Desirable 200-240 mg/dL Borderline >240 mg/dL High Risk Performed By: #### L 501.9985, L501.2300, L500.4050, L501.9940, L509.1000, L506.1000, L500.4100, L100.0100 #### [facility] [address] [place], [address] Cholesterol in HDL [Mass/Vol] 44 mg/dL Normal [facility] Comment on above: Order Comment: Order Date: 09/11/24 Order Info: [id number] - CMP Order Info: - LIPID Order Info: [id number] - PHOS Order Info: [id number] - PSAD Result Comment: The drugs N-Acetylcysteine and Metamizole may falsely depress this assay. Reference Range HDL <40 mg/dL Low HDL Cholesterol HDL >or= 60 mg/dL High HDL Cholesterol Performed By: #### L 501.9985, L501.2300, L500.4050, L501.9940, L509.1000, L506.1000, L500.4100, L100.0100 #### [facility] [address] [place], [address] Cholesterol in LDL [Mass/Vol] 66 mg/dL Normal 0-130 [facility] Comment on above: Order Comment: Order Date: 09/11/24 Order Info: [id number] - CMP Order Info: - LIPID Order Info: [id number] - PHOS Order Info: [id number] - PSAD Performed By: #### L 501.9985, L501.2300, L500.4050, L501.9940, L509.1000, L506.1000, L500.4100, L100.0100 #### [facility] [address] [place], [address] Cholesterol in VLDL [Mass/Vol] 47 mg/dL High 5-40 [facility] Comment on above: Order Comment: Order Date: 09/11/24 Order Info: [id number] - CMP Order Info: [id number] - LIPID Order Info: [id number] - PHOS Order Info: 07 - PSAD Performed By: #### L 501.9985, L501.2300, L500.4050, L501.9940, L509.1000, L506.1000, L500.4100, L100.0100 #### [facility] [address] [place], [address] Triglyceride [Mass/Vol] 233 mg/dL High [facility] Comment on above: Order Comment: Order Date: 09/11/24 Order Info: [id number] - CMP Order Info: [id number] - LIPID Order Info: [id number] - PHOS Order Info: [id number] - PSAD Result Comment: The drugs N-Acetylcysteine and Metamizole may falsely depress this assay. Serum Triglycerides Reference Interval Normal <150 mg/dL Borderline high 150 - 199 mg/dL High 200 - 499 mg/dL Very High > or = 500 mg/dL Performed By: #### L 501.9985, L501.2300, L500.4050, L501.9940, L509.1000, L506.1000, L500.4100, L100.0100 #### [facility] [address] [place], [address] Low density lipoprotein (LDL ) cholesterol measurementOrdered By: Gilles Vance on 09-11-2024 Cholesterol in LDL [Mass/Vol] 66 mg/dL 0-130 [facility] Lymphocytes Auto (Unsp spec) [#/Vol]Ordered By: Gilles Vance on 09-11-2024 Lymphocytes (Bld) [#/Vol] 1.53 10*3/uL 0.83-4.5 1 [facility] Lymphocytes/100 WBC Auto (Un sp spec)Ordered By: Gilles Vance on 09-11-2024 Lymphocytes/100 WBC (Bld) 22.1 % 19-41 [facility] MCV (mean corpuscular volume ) determinationOrdered By: Gilles Vance on 09-11-2024 MCV (RBC) [Entitic vol] 85.3 fL 80-94 [facility] Mean corpuscular hemoglobin (MCH) determinationOrdered By: Gilles Vance on 09-11-2024 MCH (RBC) [Entitic mass] 28.0 pg 27.0-32.0 [facility] Mean corpuscular hemoglobin concentration (MCHC) determinationOrdered By: Gilles Vance on 09-11-2024 MCHC (RBC) [Mass/Vol] 32.8 g/dL 32-36 [facility] Mean platelet volume determi nationOrdered By: Gilles Vance on 09-11-2024 Platelet mean volume (Bld) [Entitic vol] 12.0 fL 6.2-12.0 [facility] Monocyte percentageOrdered B y: Gilles Vance on 09-11-2024 Monocytes/100 WBC (Bld) 9.4 % 0-10 [facility] Neutrophil percentageOrdered By: Gilles Vance on 09-11-2024 Neutrophils/100 WBC (Bld) 64.3 % 47-70 [facility] Nucleated red blood cell per centageOrdered By: Gilles Pattoncharles on 09-11-2024 Nucleated RBC/100 WBC (Bld) [Ratio] 0 % 0-5 [facility] PSA,Total- Diagnosticon 08-18 PSA, DIAGNOSTIC 1.42 ng/mL Normal 0.0-4.0 [facility] Comment on above: Order Comment: Order Date: 09/11/24 Order Info: [id number] - CMP Order Info: [id number] - LIPID Order Info: [id number] - PHOS Order Info: [id number] - PSAD Result Comment: This test was performed using the TPSA assay method for the [employer] chemistry system. Values obtained with different assay methods cannot be used interchangably. When changing PSA assays in the course of monitoring a patient, additional sequential testing should be carried out to confirm baseline values. Performed By: #### L 501.9985, L501.2300, L500.4050, L501.9940, L509.1000, L506.1000, L500.4100, L100.0100 #### [facility] [address] [place], [place], [id number] PTHINon 09-11-2024 PTH 79.7 pg/mL Normal 18.4-80.1 [facility] Comment on above: Order Comment: Order Date: 09/11/24Order Info: [id number] - PTHIN Performed By: #### M 100.677 #### [facility] [address] [place], [place], [address] Phosphoruson 09-11-2024 Phosphate [Mass/Vol] 3.9 mg/dL Normal 2.5-4.9 [facility] Comment on above: Order Comment: Order Date: 09/11/24 Order Info: [id number] - CMP Order Info: [id number] - LIPID Order Info: [id number] - PHOS Order Info: [id number] - PSAD Performed By: #### L 501.9985, L501.2300, L500.4050, L501.9940, L509.1000, L506.1000, L500.4100, L100.0100 #### [facility] [address] [place], [address] Phosphorus measurementOrdere d By: Gilles Vance on 09-11-2024 Phosphorus Level 3.9 mg/dL 2.5-4.9 [facility] Platelet countOrdered By: Anel Vance on 09-11-2024 Platelets (Bld) [#/Vol] 234 10*3/uL 150-450 [facility] Potassium measurementOrdered By: Gilles Vance on 09-11-2024 Potassium [Moles/Vol] 4.7 mmol/L 3.5-5.1 [facility] RBC Auto (Bld) [#/Vol]Ordere d By: Gilles Vance on 09-11-2024 RBC (Bld) [#/Vol] 5.65 10*6/uL 4.6-6.2 [facility] Serum anion gap measurementO rdered By: Gilles Vance on 09-11-2024 Anion gap [Moles/Vol] 9 mmol/L 5-15 [facility] Serum globulin measurementOr dered By: Gilles Vance on 09-11-2024 Globulin (S) [Mass/Vol] 3.7 g/dL 2.2-4.2 [facility] Serum or plasma alanine lester otransferase (ALT) measurementOrdered By: Gilles Vance on 09-11-2024 ALT [Catalytic activity/Vol] 27 U/L 16-61 [facility] Serum or plasma albumin bryanna urement (mass/volume)Ordered By: Gilles Vance on 09-11-2024 Albumin [Mass/Vol] 3.9 g/dL 3.2-5.0 [facility] Serum or plasma alkaline shakira sphatase measurementOrdered By: Gilles Vance on 09-11-2024 ALP [Catalytic activity/Vol] 59 U/L 45-117 [facility] Serum or plasma calcium bryanna urement (mass/volume)Ordered By: Gilles Vance on 09-11-2024 Calcium [Mass/Vol] 9.1 mg/dL 8.5-10.1 [facility] Serum or plasma cholesterol measurement (mass/volume)Ordered By: Gilles Vance on 09-11-2024 Cholesterol [Mass/Vol] 157 mg/dL <200 [facility] Comment on above: <200 mg/dL Desirable 200-240 mg/dL Borderline >240 mg/dL High Risk Serum or plasma creatinine m easurement (mass/volume)Ordered By: Gilles Vance on 09-11-2024 Creatinine [Mass/Vol] 1.70 mg/dL High 0.70-1.30 [facility] Comment on above: The validity of the calculated GFR & GFRAA in patients over 70 years has not been determined. Clinical correlation is essential. Serum or plasma urea nitroge n measurement (mass/volume)Ordered By: Gilles Vance on 09-11-2024 Urea nitrogen [Mass/Vol] 21 mg/dL High 7-18 [facility] Sodium levelOrdered By: Gilles Vance on 09-11-2024 Sodium [Moles/Vol] 138 mmol/L 136-145 [facility] Total proteinOrdered By: Hever Vance on 09-11-2024 Protein [Mass/Vol] 7.6 g/dL 6.4-8.2 [facility] Triglycerides measurementOrd ered By: Gilles Vance on 09-11-2024 Triglyceride [Mass/Vol] 233 mg/dL High <199 [facility] Comment on above: The drugs N-Acetylcy steine and Metamizole may falsely depress this assay.Serum Triglycerides Reference Interval Normal <150 mg/dL Borderline high 150 - 199 mg/dL High 200 - 499 mg/dL Very High > or = 500 mg/dL Very low density lipoprotein (VLDL) cholesterol measurementOrdered By: Gilles Vance on 09-11-2024 VLDL Cholesterol 47 mg/dL High 5-40 [facility] Vitamin D,25 Hydroxyon 09-11 Vitamin D 25-OH 36.8 ng/mL Normal [facility] Comment on above: Order Comment: Order Date: 09/11/24 Order Info: [id number] - VITD25 Result Comment: Amelie min D 25(OH) Status Range Deficiency <20 ng/mL (50nmol/L) Insufficiency 20 - 30 ng/mL (50 - 75 nmol/L) Sufficiency 30 - 100 ng/mL (75 - 250 nmol/L) Toxicity >100 ng/mL (>250 nmol/L) Performed By: #### L 501.9985, L501.2300, L500.4050, L501.9940, L509.1000, L506.1000, L500.4100, L100.0100 #### [facility] [address] [place], [address] White blood cell (WBC) count Ordered By: Gilles Vance on 09-11-2024 WBC (Bld) [#/Vol] 6.9 10*3/uL 4.4-11.0 [facility] Chest PA and Lateralon 02-20 Chest PA and Lateral [facility] [address] [place] [address] Chest PA and Lateral MR#: [id number] Acct: [id number] Name: OSCAR KEENAN Rep #: [id number] : 1950 M 73 From: Obed Puri PCP: Dr. Gilles Vance MD Status: PRE ER Study: Chest PA and Lateral Date of Exam: 02/21/24 Exam# [id number] Ordering Dr: Nino Beck MD -[id number] EXAM: XR CHEST, 2 VIEWS CLINICAL INDICATION: cough, fever TECHNIQUE: Frontal and lateral views of the chest. COMPARISON: 01/22/2018. FINDINGS: LUNGS AND PLEURAL SPACES: Unremarkable. No consolidation or edema. No pneumothorax. No effusion. HEART: Unremarkable. Cardiac silhouette not enlarged. MEDIASTINUM: Central airways and mediastinal contour are unremarkable. BONES/JOINTS: Unremarkable. No acute fracture. SOFT TISSUES: Unremarkable. TUBES, LINES AND DEVICES: AV sequential AICD pacemaker leads in good position. RAD/Chest PA and Lateral IMPRESSION: 1. No acute cardiopulmonary abnormality. 2. AV sequential AICD pacemaker leads in good position. Electronically Signed: Obed Morales MD at 6:14 EDT , CC: Dr. Nino Beck MD; Dr. Gilles Vance MD Sharepoint Application Architect: Signed Normal [facility] Emergency Department Summary on 02-21-[address] [facility] Medical Records Department [address] [place] [address] Emergency Department Summary 02/21/24 MR#: [id number] Acct: [id number] Name: OSCAR KEENAN Rep #: [id number] : 1950 73 From: Nino Beck MD PCP: Dr. Gilles Vance MD Status:REG ER Location: ED HPI History of Present Illness Chief Complaint: Fever Informant: patient and spouse/S.O. Onset/Context/Demetria zaldivar Onset: Today Narrative Narrative: Patient presents 5 AM because he woke up not feeling well, took his temperature and it was 102. He started feeling like he had some nasal congestion and a mild sore throat and a mild nonproductive cough yesterday evening. When asked if he feels short of breath he states yes a little, it seems maybe it is more likely due to his nasal congestion but he cannot tell for sure. He states he feels nauseated and took a Zofran prior to coming here and it is better denies any abdominal pain or diarrhea. He has urinary frequency that has been stable recently since diagnosed with prostate cancer and receiving radiation. No chemotherapy. He denies any new urinary symptoms. He denies any earache, headache, myalgias, chest pain, neck pain/stiffness, confusion. [facility] Medical History Diabetes Hyperlipemia HTN (hypertension) Prostate cancer Home Medications ???Medication ???Instructions ???Recorded ???Last Taken ???Type amlodipine 5 mg tablet 5 mg PO DAILY 02/21/24 Unknown History aspirin 81 mg chewable tablet 1 tab PO DAILY 02/21/24 Unknown History (Jayna Chewable Low Dose Aspirin) atorvastatin 20 mg tablet 20 mg PO DAILY 02/21/24 Unknown History empagliflozin 10 mg tablet 10 mg PO DAILY 02/21/24 Unknown History empagliflozin 10 mg tablet 10 mg PO DAILY 02/21/24 Unknown History (Jardiance) glucos 500 [id number] 450 cap PO 02/21/24 Unknown History mg-liza 0.67 mg-I.frankince-boro n capsule lisinopril 2.5 mg tablet 2.5 mg PO DAILY 02/21/24 Unknown History metformin 500 mg tablet 500 mg PO BID 02/21/24 Unknown History metoprolol tartrate 50 mg tablet 50 mg PO BID 02/21/24 Unknown History (Lopressor) nirmatrelvir 300 mg (150 mg See Rx Instructions PO .COMPLEX 02/21/24 Unknown Rx x2)-ritonavir 100 mg tablet,dose #30 tabs pack (Paxlovid) omega 8-fbj-vqa-fish oil 1,200 mg 1 cap PO DAILY 02/21/24 Unknown History (144 mg-216 mg) capsule (Fish Oil) omeprazole 10 mg capsule,delayed 10 mg PO DAILY 02/21/24 Unknown History release ondansetron HCl 4 mg tablet 4 mg PO Q8H PRN nausea and vomiting 02/21/24 Unknown History spironolactone 25 mg tablet 25 mg PO DAILY 02/21/24 Unknown History super beta prostate 02/21/24 Unknown History tamsulosin 0.4 mg capsule 0.4 mg PO QPM 02/21/24 Unknown History vitamin B complex (Balanced B-50 1 tab PO DAILY 02/21/24 Unknown History tablet) Allergy/AdvReac Type Severity Reaction Status Date / Time No Known Allergies Allergy Verified 02/21/24 05:13 Social History Smoking Status: Former smoker ROS ROS ED Constitutional Constitutional ED: Reports fever(s) and malaise ENT ENT ED: Reports nasal congestion, rhinorrhea and sore throat; Denies ear pain Cardiovascular Cardiovascular: Denies chest pain or palpitations Respiratory/Chest Respiratory/Chest: Reports cough and dyspnea; Denies sputum Gastrointestinal Gastrointestinal: Reports nausea; Denies abdominal pain, diarrhea or vomiting Genitourinary Genitourinary ED: Reports urinary frequency; Denies dysuria or hematuria Musculoskeletal Musculoskeletal: Denies myalgias or neck pain Integumentary Denies abscess or rash Neurologic Neurologic: Denies headache(s), paresthesias or weakness Psychiatric Psychiatric: Denies depression or suicidal thoughts Endocrine Endocrinology: Denies polydipsia or polyuria EXAM Physical Exam Const Vital Signs: 02/21/24 05:06 02/21/24 05:10 Temperature 98.7 F 98.7 F Temperature Source Oral Oral Pulse Rate 64 61 Respiratory Rate 20 H 20 H Blood Pressure 147/72 H 142/72 H Blood Pressure Mean 97 95 Pulse Ox 96 96 Oxygen Delivery Method Room Air Positive well nourished and well developed General Appearance ED: well developed and NAD HEENT Reports moist mucous membranes normocephalic and atraumatic Throat: posterior oropharynx abnormal Positive for erythema (Without trismus, asymmetry, exudates, petechiae) Eyes PERRL and EOMs intact bilaterally Neck no lymphadenopathy, supple and no meningeal signs Chest Wall inspection of chest normal and palpation of chest normal Resp normal respiratory effort and clear to auscultation bilaterally Cardio no murmurs Rate: regular rate; Negative for tachycar (more content not included)... Normal [facility] M100.677on 02-21-2024 M100.677 Negative Normal [facility] Comment on above: Performed By: #### M 100.677 #### [facility] [address] [place], [address] M100.678on 02-21-2024 M100.678 Normal Reference Range = Negative COV + FLU + RSV PCR GeneXpert Instrument, PCR method COV + FLU + RSV PCR Copy of report sent to Infection Control Printer [id number] 02/21/24 0622 BISINEERAJ. SARS-CoV-2 (COVID 19) Positive A INFLUENZA A Negative INFLUENZA B Negative RSV PCR Negative COV Normal [facility] Comment on above: Performed By: #### M 100.678 #### [facility] [address] [facility] [place], [address] Urinalysis, Completeon 02-20 BACTERIA RARE Normal None Seen [facility] Comment on above: Order Comment: CLEAN CATCH Performed By: #### M 100.677 #### [facility] [address] [place], [address] RBC 0-5 SEEN Normal 0-5 [facility] Comment on above: Order Comment: CLEAN CATCH Performed By: #### M 100.677 #### [facility] [address] [place], [address] Clarity (U) Clear Normal Clear [facility] Comment on above: Order Comment: CLEAN CATCH Performed By: #### M 100.677 #### [facility] [address] [place], [address] Color (U) Yellow Normal Yellow [facility] Comment on above: Order Comment: CLEAN CATCH Performed By: #### M 100.7 #### [facility] [address] [place], [address] BILIRUBIN URINE Negative Normal Negative [facility] Comment on above: Order Comment: CLEAN CATCH Performed By: #### M 100.677 #### [facility] [address] [place], [address] GLUCOSE, UR 1000 mg/dl Abnormal Normal [facility] Comment on above: Order Comment: CLEAN CATCH Performed By: #### M 100.677 #### [facility] [address] [place], [address] KETONE UR 15 mg/dl Abnormal Negative [facility] Comment on above: Order Comment: CLEAN CATCH Performed By: #### M 100.677 #### [facility] [address] [place], [address] LEUK ESTERASE 25 /ul Abnormal Negative [facility] Comment on above: Order Comment: CLEAN CATCH Performed By: #### M 100.677 #### [facility] [address] [place], [address] Nitrite Ql (U) Negative Normal Negative [facility] Comment on above: Order Comment: CLEAN CATCH Performed By: #### M 100.677 #### [facility] [address] [place], [address] OCCULT BLOOD-UR 25 /ul Abnormal Negative [facility] Comment on above: Order Comment: CLEAN CATCH Performed By: #### M 100.677 #### [facility] [address] [place], [address] pH UR 6.5 Normal 5.0 - 8.0 [facility] Comment on above: Order Comment: CLEAN CATCH Performed By: #### M 100.7 #### [facility] [address] [place], [address] PROT DIPSTX 100 mg/dl Abnormal Negative [facility] Comment on above: Order Comment: CLEAN CATCH Performed By: #### M 100.7 #### [facility] [address] [place], [address] SP.GR. DIPSTX 1.010 Normal 1.002-1.030 [facility] Comment on above: Order Comment: CLEAN CATCH Performed By: #### M 100.7 #### [facility] [address] [place], [address] UROBILI Normal Normal Normal [facility] Comment on above: Order Comment: CLEAN CATCH Performed By: #### M 100.677 #### [facility] [address] [place], [address] EPI,SQUAMOUS 0 SEEN Normal 0-5 [facility] Comment on above: Order Comment: CLEAN CATCH Performed By: #### M 100.677 #### [facility] [address] [place], [address] Mucus Ql (Urine sed) 0 SEEN Normal [facility] Comment on above: Order Comment: CLEAN CATCH Performed By: #### M 100.677 #### [facility] [address] [place], [place], [id number] WBC 0 SEEN Normal 0-5 [facility] Comment on above: Order Comment: CLEAN CATCH Performed By: #### M 100.677 #### [facility] [address] [place], [address] Laboratory - Microbiology an d Antimicrobial susceptibilityon 01-25-2022 SARS-CoV-2 (COVID-19) RNA DIEGO+probe Ql (Unsp spec) Detected Not Detect [facility] Work Phone: Comment on above: Normal Reference Ran ge: Not DetectedMethod:(RT-PCR) real-time reverse transcriptase PCRLuminex MARIBELL Instrument*The Food and Drug Administration (FDA) has issued an Emergency Use Authorization (EAU) for the [employer] SARS-CoV-2 Assay for the rapid detection of the virus that causes COVID-19. This test has been validated, but the FDAs independent review of this validation is pending.*Negative results do not preclude infection and should not be used as the sole basis for treatment or patient management. Optimum specimen types and timing for peak viral levels during infections caused by SARS-CoV-2 have not been determined. Collection of multiple specimens from the same patient may be necessary to detect the virus. The possibility of a false negative result should be considered if the patient has clinical presentation or has had recent exposure. Vital Signs Date Time Vital Sign Value Performing Clinician Faci lity 09-24-2024 09:46-0500 Body height 172.[address] Gilles Vance MD Work Phone: [facility] 09-24-2024 09:46-0500 Body mass index (BMI) [Ratio] 34.3 kg/m2 Dr. Gilles Vance MD Work Phone: [facility] 09-24-2024 09:46-0500 Body weight 102.[address] Gilles Vance MD Work Phone: [facility] 09-24-2024 09:46-0500 Diastolic blood pressure 80 mm[Hg] Dr. Gilles Vance MD Work Phone: [facility] 09-24-2024 09:46-0500 Heart rate 61 /min Dr. Gilles Vance MD Work Phone: [facility] 09-24-2024 09:46-0500 Respiratory rate 18 /min Dr. Gilles Vance MD Work Phone: [facility] 09-24-2024 09:46-0500 Systolic blood pressure 114 mm[Hg] Dr. Gilles Vance MD Work Phone: [facility] Encounters Encounter Date Encounter Type Care Provider Facility Start: 03-19-2025 ambulatory Gilles Vance [facility] y:[facility] Start: 02-11-2025 End: 02-11-2025 ambulatory Gilles Rajiv Facility:[facility] Start: 02-11-2025 End: 02-11-[address] Gilles Vance MD -Laboratory [facility] Start: 02-11-2025 End: 02-11-2025 ambulatory Gilles Vacne Facility:[facility] Start: 12-08-2024 End: 12-08-[address] Gilels Vance MD Work Phone: [facility] Work Phone: Start: 12-08-2024 End: 12-08-[address] Michael Pascual MD -Laboratory Work Phone: Start: 12-08-2024 End: 12-08-2024 ambulatory Gilles Vance Facility:[facility] Start: 11-21-2024 Non-patient / Non-visit Dr. Stanislaw french MD -[facility] Start: 11-21-2024 End: 11-21-[address] Gilles Vance MD Work Phone: [facility] Work Phone: Start: 11-21-2024 End: 11-21-2024 Patient encounter procedure Dr. Gilles Vance MD -Cardiovascular Services Work Phone: Start: 11-21-2024 End: 11-21-2024 ambulatory Gilles Vance Facility:[facility] Start: 10-06-2024 End: 10-06-2024 ambulatory Jacob Mcgovern Facility:[facility] Start: 10-06-2024 End: 10-06-[address] Jacob Mcgovern MD -[facility] Work Phone: Start: 09-24-2024 End: 09-24-2024 ambulatory Monte Riomeghan Mcgovern Facility:[facility] Start: 09-24-2024 End: 09-24-[address] Jacob Mcgovern MD -[facility] Work Phone: Start: 09-11-2024 End: 09-11-[address] Gilles Vance MD -Laboratory, [facility] Start: 09-11-2024 End: 09-11-2024 ambulatory [facility] Facility:[facility] Start: 02-21-2024 End: 02-21-2024 Emergency department patient visit [facility] Facility:[facility] Start: 01-25-2022 End: 01-25-2022 Patient encounter procedure [facility]-Laboratory, Specimen Procedures Date Procedure Procedure Detail Performing Clinician Start: 02-11-[address] Gilles Vance MD Work Phone: Start: 02-11-2025 Serum inorganic phos phate measurement Dr. Gilles Vance MD Work Phone: Start: 02-11-2025 Total iron binding capacity measurement Dr. Gilles Vance MD Work Phone: Start: 02-11-2025 Urine microalbumin/creatinine ratio measurement Dr. Gilles Vance MD Work Phone: Start: 02-11-2025 Urnls dip stick/tabl et reagent auto microscopy Dr. Gilles Vance MD Work Phone: Start: 02-11-2025 Vitamin D, 25-hydrox y measurement Dr. Gilles Vance MD Work Phone: Comment on above: Vitamin D StatusDefi ciency: <20 ng/mL (50nmol/L)Insufficiency: 20-30 ng/mL (50-75 nmol/L)Sufficiency: 30-100 ng/mL (75-250 nmol/L)Toxicity: >100 ng/mL (>250 nmol/L) Start: 12-08-2024 Assay of prostate sp ecific antigen total Dr. Gilles Vance MD Work Phone: Comment on above: This test was perfor med using the [employer] tPSA method. Measured values of a patient sample can vary depending on the testing procedure used. PSA values determined on patient samples by different testing procedures cannot be used interchangeably. If there is a change in PSA assays while monitoring therapy, sequential testing should be performed to confirm baseline values. Start: 09-24-2024 Evaluation of diagno stic study results Dr. Gilles Vance MD Work Phone: Payers Date Payer Category Payer Medicare [id number] 2024 Private Health Insurance [id number] 2024 Self-pay [id number] 2008 Private Health Insurance [employer] [id number] Unknown SELF PAY INSURANCE [id number] Unknown [id number] Unknown [id number] Unknown [id number] Unknown [id number] Unknown [id number] Unknown [id number] Unknown [id number] Unknown [id number] Unknown [id number] Unknown [id number] Unknown [id number] Social History Date Type Detail Facility Start: 06-23-2013 Tobacco smoking stat [facility] Unknown if ever smoked [facility] Work Phone: Start: 01-25-2022 None [facility] Start: 01-25-2022 Non-smoker [facility] Start: 1950 Sex Assigned At Male [facility] Start: 09-11-2024 [facility] Start: 12-03-2024 End: 12-15-2024 Sex Male (finding) [facility] Evaluation note 09-24-2024 Note Date & Type Note Facility 09-24-2024 Evaluation note Diagnosis Onset Date Resolution AAA (abdominal aortic aneurysm) acute September 24, 2024 9:45am Afib acute September 24, 2024 9:45am Dilated cardiomyopathy acute September 24, 2024 9:45am Hyperlipemia acute September 24, 2024 9:45am Presence of implantable cardioverter-defibri llator (ICD) December 05, 2023 acute September 24, 2024 9:45am 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 September 24, 2024 9:45am HTN (hypertension) chronic 2024 9:45am Dilated cardiomyopathy acute October 06, 2024 9:48am Presence of implantable cardioverter-defibri llator (ICD) December 05, 2023 acute October 06, 2024 9:48am SA node dysfunction acute Janua 2024 9:48am [facility] Work Phone: Evaluation note Note Date & Type Note Facility Evaluation note No assessment information availa ble [facility] Work Phone: Reason for referral (narrative) Note Date & Type Note Facility Reason for referral (narrative) No reason for referral information available [facility] Work Phone: Chief Complaint and Reason for Visit Chief Complaint Admit Date EST (SELF) September 24, 2024 9: 45am Pacer Check Remote October 06, 2024 9 :00am [place] October 06, 2024 9 :48am AAA SCREENING November 21, 2024 8:43 am Reason for Visit Admit Date AAA (abdominal aortic aneurysm) September 24, 2024 9:45am Afib September 24, 2024 9: 45am Dilated cardiomyopathy September 24, 2024 9:45am Hyperlipemia September 24, 2024 9: 45am Presence of implantable cardioverter-def ibrillator (ICD) September 24, 2024 9:45am Chronic combined systolic (c ongestive) and diastolic (congestive) heart failure September 24, 2024 9:45am HTN (hypertension) September 24, 2024 9: 45am Dilated cardiomyopathy October 06 9:48am Presence of implantable cardioverter-def ibrillator (ICD) October 06, 2024 9:48am SA node dysfunction October 06, 2024 9 :48am Chief Complaint Admit Date AAA SCREENING November 21, 2024 8:43 am Family History Relationship Condition Age at Onset Recorded Date/T [place] father Malignant neoplasm Unknown Chronic obstructive pulmonary disease Unk nown Diabetes mellitus Unknown brother Cardiac disease Unknown mother Hypertension Unknown Summary Purpose Advance Directives No Advanced Directives Records Found Additional Source Comments Goals (unrecognized section and content) Goals may be documented in a n alternate sectionGoals may be documented in an alternate sectionGoals may be documented in an alternate sectionGoals may be documented in an alternate section Care Teams (unrecognized sec tion and content) Team Status: Active Member Role Status Dates Dr. Gilles Vance MD Primary Care Provider Active Team Status: Inactive Member Role Status Dates Dr. Gilles Vance MD Primary Care Provider Active Start: September 11, 2024 End: September 11, 2024 Dr. Gilles Vance MD Attending Provider Active Start: September 11, 2024 End: September 11, 2024 Dr. Gilles Vance MD Referring Provider Active Start: September 11, 2024 End: September 11, 2024 Team Status: Inactive Member Role Status Dates Dr. Jacob Mcgovern MD Attending Provider Active S tart: September 24, 2024 End: September 24, 2024 Dr. Gilles Vance MD Primary Care Provider Active Start: September 24, 2024 End: September 24, 2024 Dr. Gilles Vance MD Referring Provider Active Start: September 24, 2024 End: September 24, 2024 Team Status: Inactive Member Role Status Dates Dr. Gilles Vance MD Primary Care Provider Active Start: October 06, 2024 End: October 06, 2024 Dr. Jacob Mcgovern MD Attending Provider Active S tart: October 06, 2024 End: October 06, 2024 Team Status: Inactive Member Role Status Dates Dr. Gilles Vance MD Primary Care Provider Active Start: October 06, 2024 End: October 06, 2024 Dr. Gilles Vance MD Referring Provider Active Start: October 06, 2024 End: October 06, 2024 Dr. Jacob Mcgovern MD Attending Provider Active S tart: October 06, 2024 End: October 06, 2024 Team Status: Inactive Member Role Status Dates Dr. Gilles Vance MD Primary Care Provider Active Start: November 21, 2024 End: November 21, 2024 Dr. Gilles Vance MD Attending Provider Active Start: November 21, 2024 End: November 21, 2024 Dr. Gilles Vance MD Referring Provider Active Start: November 21, 2024 End: November 21, 2024 Team Status: Active Member Role Status Dates Dr. Gilles Vance MD Primary Care Provider Active Start: November 21, 2024 Dr. Stanislaw Benton MD Attending Provider Active S tart: November 21, 2024 Team Status: Inactive Member Role Status Dates Dr. Gilles Vance MD Primary Care Provider Active Start: December 08, 2024 End: December 08, 2024 Dr. Michael Pascual MD Attending Provider Active Start: December 08, 2024 End: December 08, 2024 Dr. Michael Pascual MD Referring Provider Active Start: December 08, 2024 End: December 08, 2024 Team Status: Inactive Member Role Status Dates Dr. Gilles Vance MD Primary Care Provider Active Start: February 11, 2025 End: February 11, 2025 Dr. Gilles Vance MD Attending Provider Active Start: February 11, 2025 End: February 11, 2025 Dr. Gilles Vance MD Referring Provider Active Start: February 11, 2025 End: February 11, 2025 (unrecognized sect ion and content) No Status Records Found INFORMATION SOURCE (unrecogn ized section and content) DATE CREATED AUTHOR 02/18/2025 [facility] FOR RECORDS PERTAINING TO PATIENTS WHO ARE OR HAVE BEEN ENROLLED IN A CHEMICAL DEPENDENCY/SUBSTANCEABUSE PROGRAM, SOME INFORMATION MAY BE OMITTED. This clinical summary was aggregated from multiple sources. Caution should be exercised in using it in the provision of clinical care. This summary normalizes information from multiple sources, and as a consequence, information in this document may materially change the coding, format and clinical context of patient data. In addition, data may be omitted in some cases. CLINICAL DECISIONS SHOULD BE BASED ON THE PRIMARY CLINICAL RECORDS. [employer] provides no warranty or guarantee of the accuracy or completeness of information in this document.
== END | disposition home or self-care (01) ==
LOC: MFPLAB 11:49
PROVIDERS: PCP Family Medicine; Visit Provider Family Medicine
DX: E87.5 Hyperkalemia (principal)
CPT/HCPCS: 36415; 80048

== ENCOUNTER → 2025-03-09 | Outpatient (CLI) | payer MEDICARE, OTHER, SELFPAY ==
--- OUTSIDE RECORDS SUMMARY | 2025-03-09 10:40 | XMS RPT_ITS | CCD ---
Author Organization [facility] Care Team Providers Care Commercial Makeup Artist Name Role Phone Rajiv PATEL, Dr. Gilles Bailey Primary Care Provider Rajiv PATEL, Dr. Gilles Bailey Attending Provider Rajiv PATEL, Dr. Gilles Bailey Referring Provider [phone] Shaniqua PATEL, Dr. James Attending Provider Chetan PATEL, Dr. Dover Attending Provider Samara PATEL, Dr. Michael Hanson Attending Provider Samara PATEL, Dr. Michael Hanson Referring Provider Rajiv PATEL, Dr. Gilles Bailey Primary Care Provider Rajiv PATEL, Dr. Gilles Bailey Attending Provider [phone] Rajiv PATEL, Dr. Gilles Bailey Referring Provider Gilles Vance Referring Unavailable Gilles Vance Primary Care Unavailable Gilles Vance Attending Unavailable Gilles Vance Primary Care Unavailable Gilles Vance Attending Unavailable Gilles Vance Primary Care Unavailable Gilles Vance Referring Unavailable Gilles Vance Attending Unavailable Gilles Vance Referring Unavailable Gilles Vance Attending Unavailable Gilles Vance Primary Care Unavailable Gilles Vance Referring Unavailable Gilles Vance Primary Care Unavailable Gilles Vance Attending Unavailable Gilles Vance Referring Unavailable Gilles Vance Attending Unavailable Gilles Vance Primary Care Unavailable Michael Pascual Referring Unavailable Michael Pascual Attending Unavailable Gilles Vance Primary Care Unavailable Stanislaw Benton Attending Unavailable Gilles Vance Primary Care Unavailable Gilles Vance Referring Unavailable Gilles Vance Primary Care Unavailable Shaniqua, Jacob Attending Unavailable Gilles Vance Referring Unavailable Gilles Vance Primary Care Unavailable Jacob Mcgovern Attending Unavailable Gilles Vance Primary Care Unavailable Jacob Mcgovern Attending Unavailable Medications Current Medications Medication Drug Class(es) Dates [...] TIMES A DAY February 13, 2025 12:00am Zlaj-Ajxp-Rdo7-Liza- Frankn-Bor 500-450-0.67 mg capsule (3 sources) Start: 02-21-2024 Cfhd-Hcpq-Rum1-M yza-Rgmprn-Vys 500-450-0.67 mg capsule Active NMA PO February [...] TWICE A DAY February 21, 2024 12:00am [place] 7-Jub-Agb-Fish Oil (Fish Oil) 1,200 (144-216) mg capsule (3 sources) Start: 02-21-2024 [place] 1-Udd-Sda-Fish Oil (Fish Oil) 1,200 (144-216) mg capsule [...] 12-05-2023 09-24-2024 Chronic Comment on above: [employer] XT DR Congestive heart failure; nonhypertensive (7 sources) Chronic combined systolic and diastolic heart failure; Translations: [Chronic combined systolic (congestive) and diastolic (congestive) heart failure] Onset: 09-24-2024 09-11-2024 Chronic Coronary atherosclerosis and other heart disease (4 sources) Coronary atherosclerosis; Translations: [Atherosclerotic heart disease of [place] coronary artery without angina pectoris] Onset: 09-24-2024 [...] caused by 2019-nCoV; Translations: [COVID-19] 09-11-2024 Episodic Results Test Name Value Interpretation Reference Range Facility Basic Metabolic Profile (BMP )on 03-04-2025 BUN/CRE 14.1 RATIO Normal 10-20 [facility] Comment on above: Order Comment: Order Date: 03/04/25Order Info: [id number]- - BMP Performed By: #### L 500.2500 ####[facility] [address] [place], [place], [id number] Calcium [Mass/Vol] 9.5 mg/dL Normal 7.6-11.0 [facility] Comment on above: Order Comment: Order Date: 03/04/25Order Info: 0667- - BMP Performed By: #### L 500.2500 ####[facility] [address] [place], [address] Chloride [Moles/Vol] 102 mmol/L Normal 98-108 [facility] Comment on above: Order Comment: Order Date: 03/04/25Order Info: 0667- - BMP Performed By: #### L 500.2500 ####[facility] [address] [place], [address] CO2 [Moles/Vol] 19.8 mmol/L Low 21.0-32.0 [facility] Comment on above: Order Comment: Order Date: 03/04/25Order Info: [id number] - BMP Performed By: #### L 500.2500 ####[facility] [address] [place], [address] Creatinine [Mass/Vol] 2.12 mg/dL High 0.70-1.20 [facility] Comment on above: Order Comment: Order Date: 03/04/25Order Info: [id number] - BMP Performed By: #### L 500.2500 ####[facility] [address] [place], [address] GAP 14 Normal 5-15 [facility] Comment on above: Order Comment: Order Date: 03/04/25Order Info: 666-09 - BMP Performed By: #### L 500.2500 ####[facility] [address] [place], [address] GFR/1.73 sq M.predicted among non-blacks MDRD (S/P/Bld) [Vol rate/Area] 32 mL/min/{1.73_m2} Low >60 [facility] Comment on above: Order Comment: Order Date: 03/04/25Order Info: 666-09 - BMP Result Comment: mL/m in/1.73m2 CKD-EPI Creatinine Equation (2020) Performed By: #### L 500.2500 ####[facility] [address] [place], [address] Glucose [Mass/Vol] 164 mg/dL High 70-99 [facility] Comment on above: Order Comment: Order Date: 03/04/25Order Info: 666-09 - BMP Performed By: #### L 500.2500 ####[facility] [address] [place], [address] Potassium [Moles/Vol] 5.3 mmol/L High 3.3-5.1 [facility] Comment on above: Order Comment: Order Date: 03/04/25Order Info: [id number] - BMP Performed By: #### L 500.2500 ####[facility] [address] [place], [address] Sodium [Moles/Vol] 136 mmol/L Normal 133-145 [facility] Comment on above: Order Comment: Order Date: 03/04/25Order Info: 0667- - BMP Performed By: #### L 500.2500 ####[facility] [address] [place], [address] Urea nitrogen [Mass/Vol] 30 mg/dL High 4-19 [facility] Comment on above: Order Comment: Order Date: 03/04/25Order Info: [id number] - BMP Performed By: #### L 500.2500 ####[facility] [address] [place], [address] Ferritinon 02-12-2025 Ferritin [Mass/Vol] 28 ng/mL Low 37-417 [facility] Comment on above: Order Comment: LADI Bailey ADD ANNA IBC TO BLOOD DRAWN 02/11/25 PER Order Date: 02/11/25 Order Info: [id number] - CMP Order Info: [id number] - LIPID Order Info: [id number] - PHOS Performed By: #### L 503.6030, L503.6550, L502.0250, L400.0001, L501.0900, L506.1001 #### [facility] [address] [place], [address] Iron+Iron Binding Capacityon 02-12-2025 Iron [Mass/Vol] 83 ug/dL Normal 65-175 [facility] Comment on above: Order Comment: LADI Bailey ADD ANNA IBC TO BLOOD DRAWN 02/11/25 PER Order Date: 02/11/25 Order Info: [id number] - CMP Order Info: - LIPID Order Info: [id number] - PHOS Performed By: #### L 503.6030, L503.6550, L502.0250, L400.0001, L501.0900, L506.1001 #### [facility] [address] [place], [address] IRON SATURATION 19.0 Normal 9-55 [facility] Comment on above: Order Comment: LADI Bailey ADD ANNA IBC TO BLOOD DRAWN 02/11/25 PER Order Date: 02/11/25 Order Info: [id number] - CMP Order Info: - LIPID Order Info: [id number] - PHOS Performed By: #### L 503.6030, L503.6550, L502.0250, L400.0001, L501.0900, L506.1001 #### [facility] [address] [place], [address] TIBC 429 ug/dL Normal 250-450 [facility] Comment on above: Order Comment: LADI Bailey ADD ANNA IBC TO BLOOD DRAWN 02/11/25 PER Order Date: 02/11/25 Order Info: [id number] - CMP Order Info: - LIPID Order Info: [id number] - PHOS Performed By: #### L 503.6030, L503.6550, L502.0250, L400.0001, L501.0900, L506.1001 #### [facility] [address] [place], [address] UIBC 346 ug/dL Normal 228-428 [facility] Comment on above: Order Comment: LADI Bailey ADD ANNA IBC TO BLOOD DRAWN 02/11/25 PER Order Date: 02/11/25 Order Info: [id number] - CMP Order Info: - LIPID Order Info: [id number] - PHOS Performed By: #### L 503.6030, L503.6550, L502.0250, L400.0001, L501.0900, L506.1001 #### [facility] [address] [place], [address] Absolute lymphocyte countOrd ered By: Gilles Vance on 02-11-2025 Lymphocytes Auto (Unsp spec) [#/Vol] 1.57 10*3/uL 0.83-4.51 [facility] Absolute neutrophil countOrd ered By: Gilles Vance on 02-11-2025 Neutrophils (Bld) [#/Vol] 4.9 10*3/uL 2.0-7.7 [facility] Anion gap in Serum or Plasma Ordered By: Gilles Vance on 02-11-2025 Anion gap [Moles/Vol] 14 mmol/L 5- [facility] Automated lymphocyte count a s percentage of total leukocytesOrdered By: Gilles Vance on 02-11-2025 Lymphocytes/100 WBC Auto (Unsp spec) 20.8 % - [facility] BUN/creatinine ratioOrdered By: Gilles Vance on 02-11-2025 Urea nitrogen/Creatinine [Mass ratio] 12.6 mg/mg 10- [facility] Basophil percentageOrdered B y: Gilles Vance on 02-11-2025 Basophils/100 WBC (Bld) 1.1 % High 0-1 [facility] Bilirubin Test strip Ql (U)O rdered By: Gilles Vance on 02-11-2025 Bilirubin Ql (U) Negative Negative [facility] Bilirubin, totalOrdered By: Gilles Vance on 02-11-2025 Bilirubin [Mass/Vol] 0.65 mg/dL 0.00-1.30 [facility] CBC W/Diff, Automatedon 01-16 Absolute Lymph 1.57 X10 3/uL Normal 0.83-4.51 [facility] Comment on above: Order Comment: Order Date: 02/11/25Order Info: [id number] - CBCD Performed By: #### L 500.4050, L501.2300, L500.4100, L501.9985, L100.0100, L509.1000 ####[facility] [address] [place], [address] Absolute Neut 4.9 X10 3/uL Normal 2.0-7.7 [facility] Comment on above: Order Comment: Order Date: 02/11/25Order Info: 018-1 - CBCD Performed By: #### L 500.4050, L501.2300, L500.4100, L501.9985, L100.0100, L509.1000 ####[facility] [address] [place], [address] Basophils/100 WBC (Bld) 1.1 % High 0-1 [facility] Comment on above: Order Comment: Order Date: 02/11/25Order Info: 018-1 - CBCD Performed By: #### L 500.4050, L501.2300, L500.4100, L501.9985, L100.0100, L509.1000 ####[facility] [address] [place], [address] Eosinophils/100 WBC (Bld) 2.1 % Normal 0-5 [facility] Comment on above: Order Comment: Order Date: 02/11/25Order Info: 018- - CBCD Performed By: #### L 500.4050, L501.2300, L500.4100, L501.9985, L100.0100, L509.1000 ####[facility] [address] [place], [address] Erythrocyte distribution width (RBC) [Ratio] 13.3 % Normal 11.6-14.6 [facility] Comment on above: Order Comment: Order Date: 02/11/25Order Info: [id number] - CBCD Performed By: #### L 500.4050, L501.2300, L500.4100, L501.9985, L100.0100, L509.1000 ####[facility] [address] [place], [address] Hematocrit (Bld) [Volume fraction] 51.7 % Normal 40-54 [facility] Comment on above: Order Comment: Order Date: 02/11/25Order Info: [id number] - CBCD Performed By: #### L 500.4050, L501.2300, L500.4100, L501.9985, L100.0100, L509.1000 ####[facility] [address] [place], [address] Hemoglobin (Bld) [Mass/Vol] 17.2 g/dL High 13.0-16.5 [facility] Comment on above: Order Comment: Order Date: 02/11/25Order Info: 0184-1 - CBCD Performed By: #### L 500.4050, L501.2300, L500.4100, L501.9985, L100.0100, L509.1000 ####[facility] [address] [place], [address] IG% 0.500 Normal 0.0-0.9 [facility] Comment on above: Order Comment: Order Date: 02/11/25Order Info: [id number] - CBCD Result Comment: IG% - Immature Granulocytes (promyelocytes, myelocytes and metamyelocytes) > 1% indicates that a LEFT SHIFT is Present. Performed By: #### L 500.4050, L501.2300, L500.4100, L501.9985, L100.0100, L509.1000 ####[facility] [address] [place], [address] Lymphocytes/100 WBC (Bld) 20.8 % Normal 19-41 [facility] Comment on above: Order Comment: Order Date: 02/11/25Order Info: 0184-1 - CBCD Performed By: #### L 500.4050, L501.2300, L500.4100, L501.9985, L100.0100, L509.1000 ####[facility] [address] [place], [address] MCH (RBC) [Entitic mass] 28.7 pg Normal 27.0-32.0 [facility] Comment on above: Order Comment: Order Date: 02/11/25Order Info: 0184-1 - CBCD Performed By: #### L 500.4050, L501.2300, L500.4100, L501.9985, L100.0100, L509.1000 ####[facility] [address] [place], [address] MCHC (RBC) [Mass/Vol] 33.3 g/dL Normal 32-36 [facility] Comment on above: Order Comment: Order Date: 02/11/25Order Info: 0184-1 - CBCD Performed By: #### L 500.4050, L501.2300, L500.4100, L501.9985, L100.0100, L509.1000 ####[facility] [address] [place], [address] MCV (RBC) [Entitic vol] 86.2 fL Normal 80-94 [facility] Comment on above: Order Comment: Order Date: 02/11/25Order Info: 0184-1 - CBCD Performed By: #### L 500.4050, L501.2300, L500.4100, L501.9985, L100.0100, L509.1000 ####[facility] [address] [place], [address] Monocytes/100 WBC (Bld) 10.6 % High 0-10 [facility] Comment on above: Order Comment: Order Date: 02/11/25Order Info: [id number] - CBCD Performed By: #### L 500.4050, L501.2300, L500.4100, L501.9985, L100.0100, L509.1000 ####[facility] [address] [place], [address] Neutrophils/100 WBC (Bld) 64.9 % Normal 47-70 [facility] Comment on above: Order Comment: Order Date: 02/11/25Order Info: [id number] - CBCD Performed By: #### L 500.4050, L501.2300, L500.4100, L501.9985, L100.0100, L509.1000 ####[facility] [address] [place], [address] Nucleated RBC (Bld) [#/Vol] 0 10*3/uL Normal 0-5 [facility] Comment on above: Order Comment: Order Date: 02/11/25Order Info: [id number] - CBCD Performed By: #### L 500.4050, L501.2300, L500.4100, L501.9985, L100.0100, L509.1000 ####[facility] [address] [place], [address] Platelet mean volume (Bld) [Entitic vol] 11.9 fL Normal 6.2-12.0 [facility] Comment on above: Order Comment: Order Date: 02/11/25Order Info: [id number] - CBCD Performed By: #### L 500.4050, L501.2300, L500.4100, L501.9985, L100.0100, L509.1000 ####[facility] [address] [place], [address] Platelets (Bld) [#/Vol] 219 10*3/uL Normal 150-450 [facility] Comment on above: Order Comment: Order Date: 02/11/25Order Info: [id number] - CBCD Performed By: #### L 500.4050, L501.2300, L500.4100, L501.9985, L100.0100, L509.1000 ####[facility] [address] [place], [address] RBC (Bld) [#/Vol] 6.00 10*6/uL Normal 4.6-6.2 [facility] Comment on above: Order Comment: Order Date: 02/11/25Order Info: [id number] - CBCD Performed By: #### L 500.4050, L501.2300, L500.4100, L501.9985, L100.0100, L509.1000 ####[facility] [address] [place], [address] RDW SD 41.3 fl Normal 35.1-43.9 [facility] Comment on above: Order Comment: Order Date: 02/11/25Order Info: [id number] - CBCD Performed By: #### L 500.4050, L501.2300, L500.4100, L501.9985, L100.0100, L509.1000 ####[facility] [address] [place], [address] WBC (Bld) [#/Vol] 7.6 10*3/uL Normal 4.4-11.0 [facility] Comment on above: Order Comment: Order Date: 02/11/25Order Info: [id number] - CBCD Performed By: #### L 500.4050, L501.2300, L500.4100, L501.9985, L100.0100, L509.1000 ####[facility] [address] [place], [address] Calculated very low density lipoprotein (VLDL) cholesterol measurementOrdered By: Gilles Vance on 02-11-2025 Calculated very low density lipoprotein (VLDL) cholesterol measurement 34 mg/dL 5-40 [facility] Carbon dioxide, total [Moles /volume] in Central venous bloodOrdered By: Gilles Vance on 02-11-2025 CO2 [Moles/Vol] 18.3 mmol/L Low 21.0-32.0 [facility] Chloride assayOrdered By: Anel Vance on 02-11-2025 Chloride [Moles/Vol] 104 mmol/L 98-108 [facility] Comprehensive Metabolic Prof ilon 02-11-2025 Albumin [Mass/Vol] 4.6 g/dL Normal 3.4-4.8 [facility] Comment on above: Order Comment: Order Date: 02/11/25Order Info: 86-1 - CMPOrder Info: [id number] - LIPIDOrder Info: [id number] - PHOS Performed By: #### L 500.4050, L501.2300, L500.4100, L501.9985, L100.0100, L509.1000 ####[facility] [address] [place], [address] Albumin/Globulin [Mass ratio] 1.5 {ratio} Normal 0.9-2.4 [facility] Comment on above: Order Comment: Order Date: 02/11/25Order Info: [id number]- - CMPOrder Info: - LIPIDOrder Info: 7 - PHOS Performed By: #### L 500.4050, L501.2300, L500.4100, L501.9985, L100.0100, L509.1000 ####[facility] [address] [place], [address] ALK PHOS 60 U/L Normal 40-129 [facility] Comment on above: Order Comment: Order Date: 02/11/25Order Info: [id number] - CMPOrder Info: [id number] - LIPIDOrder Info: [id number] - PHOS Performed By: #### L 500.4050, L501.2300, L500.4100, L501.9985, L100.0100, L509.1000 ####[facility] [address] [place], [address] ALT [Catalytic activity/Vol] 15 U/L Normal <=46 [facility] Comment on above: Order Comment: Order Date: 02/11/25Order Info: 07-1 - CMPOrder Info: [id number] - LIPIDOrder Info: [id number] - PHOS Performed By: #### L 500.4050, L501.2300, L500.4100, L501.9985, L100.0100, L509.1000 ####[facility] [address] [place], [address] AST [Catalytic activity/Vol] 17 U/L Normal <=37 [facility] Comment on above: Order Comment: Order Date: 02/11/25Order Info: [id number] - CMPOrder Info: [id number] - LIPIDOrder Info: [id number] - PHOS Performed By: #### L 500.4050, L501.2300, L500.4100, L501.9985, L100.0100, L509.1000 ####[facility] [address] [place], [address] Bilirubin [Mass/Vol] 0.65 mg/dL Normal 0.00-1.30 [facility] Comment on above: Order Comment: Order Date: 02/11/25Order Info: 07-1 - CMPOrder Info: [id number] - LIPIDOrder Info: [id number] - PHOS Performed By: #### L 500.4050, L501.2300, L500.4100, L501.9985, L100.0100, L509.1000 ####[facility] [address] [place], [address] BUN/CRE 12.6 RATIO Normal 10-20 [facility] Comment on above: Order Comment: Order Date: 02/11/25Order Info: [id number] - CMPOrder Info: [id number] - LIPIDOrder Info: [id number] - PHOS Performed By: #### L 500.4050, L501.2300, L500.4100, L501.9985, L100.0100, L509.1000 ####[facility] [address] [place], [address] Calcium [Mass/Vol] 10.1 mg/dL Normal 7.6-11.0 [facility] Comment on above: Order Comment: Order Date: 02/11/25Order Info: [id number] - CMPOrder Info: [id number] - LIPIDOrder Info: [id number] - PHOS Performed By: #### L 500.4050, L501.2300, L500.4100, L501.9985, L100.0100, L509.1000 ####[facility] [address] [place], [address] Chloride [Moles/Vol] 104 mmol/L Normal 98-108 [facility] Comment on above: Order Comment: Order Date: 02/11/25Order Info: [id number] - CMPOrder Info: [id number] - LIPIDOrder Info: [id number]- - PHOS Performed By: #### L 500.4050, L501.2300, L500.4100, L501.9985, L100.0100, L509.1000 ####[facility] [address] [place], [address] CO2 [Moles/Vol] 18.3 mmol/L Low 21.0-32.0 [facility] Comment on above: Order Comment: Order Date: 02/11/25Order Info: 07-1 - CMPOrder Info: [id number] - LIPIDOrder Info: [id number] - PHOS Performed By: #### L 500.4050, L501.2300, L500.4100, L501.9985, L100.0100, L509.1000 ####[facility] [address] [place], [address] Creatinine [Mass/Vol] 1.64 mg/dL High 0.70-1.20 [facility] Comment on above: Order Comment: Order Date: 02/11/25Order Info: [id number] - CMPOrder Info: [id number] - LIPIDOrder Info: [id number] - PHOS Performed By: #### L 500.4050, L501.2300, L500.4100, L501.9985, L100.0100, L509.1000 ####[facility] [address] [place], [address] GAP 14 Normal 5-15 [facility] Comment on above: Order Comment: Order Date: 02/11/25Order Info: [id number] - CMPOrder Info: [id number] - LIPIDOrder Info: [id number] - PHOS Performed By: #### L 500.4050, L501.2300, L500.4100, L501.9985, L100.0100, L509.1000 ####[facility] [address] [place], [address] GFR/1.73 sq M.predicted among non-blacks MDRD (S/P/Bld) [Vol rate/Area] 43 mL/min/{1.73_m2} Low >60 [facility] Comment on above: Order Comment: Order Date: 02/11/25Order Info: 07- - CMPOrder Info: [id number] - LIPIDOrder Info: [id number] - PHOS Result Comment: mL/m in/1.73m2 CKD-EPI Creatinine Equation (2020) Performed By: #### L 500.4050, L501.2300, L500.4100, L501.9985, L100.0100, L509.1000 ####[facility] [address] [place], [address] Globulin (S) [Mass/Vol] 3.0 g/dL Normal 2.2-4.2 [facility] Comment on above: Order Comment: Order Date: 02/11/25Order Info: [id number]- - CMPOrder Info: [id number] - LIPIDOrder Info: [id number] - PHOS Performed By: #### L 500.4050, L501.2300, L500.4100, L501.9985, L100.0100, L509.1000 ####[facility] [address] [place], [address] Glucose [Mass/Vol] 128 mg/dL High 70-99 [facility] Comment on above: Order Comment: Order Date: 02/11/25Order Info: [id number]- - CMPOrder Info: [id number] - LIPIDOrder Info: [id number] - PHOS Performed By: #### L 500.4050, L501.2300, L500.4100, L501.9985, L100.0100, L509.1000 ####[facility] [address] [place], [address] Potassium [Moles/Vol] 5.3 mmol/L High 3.3-5.1 [facility] Comment on above: Order Comment: Order Date: 02/11/25Order Info: [id number] - CMPOrder Info: [id number] - LIPIDOrder Info: [id number] - PHOS Performed By: #### L 500.4050, L501.2300, L500.4100, L501.9985, L100.0100, L509.1000 ####[facility] [address] [place], [address] Sodium [Moles/Vol] 137 mmol/L Normal 133-145 [facility] Comment on above: Order Comment: Order Date: 02/11/25Order Info: 07-1 - CMPOrder Info: [id number] - LIPIDOrder Info: [id number] - PHOS Performed By: #### L 500.4050, L501.2300, L500.4100, L501.9985, L100.0100, L509.1000 ####[facility] [address] [place], [address] T PROT 7.6 g/dL Normal 5.9-8.4 [facility] Comment on above: Order Comment: Order Date: 02/11/25Order Info: [id number] - CMPOrder Info: [id number] - LIPIDOrder Info: [id number] - PHOS Performed By: #### L 500.4050, L501.2300, L500.4100, L501.9985, L100.0100, L509.1000 ####[facility] [address] [place], [address] Urea nitrogen [Mass/Vol] 21 mg/dL High 4-19 [facility] Comment on above: Order Comment: Order Date: 02/11/25Order Info: [id number] - CMPOrder Info: [id number] - LIPIDOrder Info: [id number] - PHOS Performed By: #### L 500.4050, L501.2300, L500.4100, L501.9985, L100.0100, L509.1000 ####[facility] [address] [place], [address] Eosinophil percentageOrdered By: Gilles Vance on 02-11-2025 Eosinophils/100 WBC (Bld) 2.1 % 0-5 [facility] Erythrocyte distribution wid th ratioOrdered By: Gilles Vance on 02-11-2025 Erythrocyte distribution width (RBC) [Ratio] 13.3 % 11.6-14.6 [facility] Erythrocyte distribution wid th standard deviationOrdered By: Gilles Vance on 02-11-2025 Erythrocyte distribution width (RBC) [Ratio] 41.3 fl 35.1-43.9 [facility] Glomerular filtration rate ( GFR) estimation/1.73 sq m using serum, plasma, or whole bOrdered By: Gilles Vance on 02-11-2025 GFR/1.73 sq M.predicted among non-blacks MDRD (S/P/Bld) [Vol rate/Area] 43 mL/min/{1.73_m2} Low >60 [facility] Comment on above: mL/min/1.73m2 CKD-EP I Creatinine Equation (2020) Hematocrit Auto (Bld) [Volum e fraction]Ordered By: Gilles Vance on 02-11-2025 Hematocrit (Bld) [Volume fraction] 51.7 % 40-54 [facility] Hemoglobin A1con 02-11-2025 HbA1c (Bld) [Mass fraction] 8.7 % High <=5.6 [facility] Comment on above: Order Comment: Order Date: 02/11/25Order Info: [id number] - A1C Result Comment: Norm al < 5.7 % Prediabetic 5.7 - 6.4 % Diabetic >or= 6.5 % Please note range changes. Performed By: #### L 500.4050, L501.2300, L500.4100, L501.9985, L100.0100, L509.1000 ####[facility] [address] [place], [address] Hemoglobin A1c percentageOrd ered By: Gilles Vacne on 02-11-2025 HbA1c (Bld) [Mass fraction] 8.7 % High <5.7 [facility] Comment on above: Normal < 5.7 % Predi abetic 5.7 - 6.4 % Diabetic >or= 6.5 % Please note range changes. Hemoglobin measurementOrdere d By: Gilles Vance on 02-11-2025 Hemoglobin (Bld) [Mass/Vol] 17.2 g/dL High 13.0-16.5 [facility] Immature granulocytes/100 WB C Auto (Bld)Ordered By: Gilles Vance on 02-11-2025 Immature granulocytes/100 WBC (Bld) 0.500 % 0.0-0.9 [facility] Comment on above: IG% - Immature Granu locytes (promyelocytes, myelocytes and metamyelocytes) > 1% indicates that a LEFT SHIFT is Present. Iron measurement (mass/mass) Ordered By: Gilles Vance on 02-11-2025 Iron (Unsp spec) [Mass/Mass] 83 ug/dL 65-175 [facility] Ketones Test strip Ql (U)Ord ered By: Gilles Vance on 02-11-2025 Ketones Ql (U) Negative Negative [facility] LDL calc ser/plasOrdered By: Gilles Vance on 02-11-2025 Cholesterol in LDL [Mass/Vol] 58 mg/dL [facility] Comment on above: Yojeqncxqx=669-269 m g/dL & Higher Ifok=779 mg/dL or greater Laboratory - Chemistry and C hemistry - challengeOrdered By: Gilles Vance on 02-11-2025 AST [Catalytic activity/Vol] 17 U/L <38 [facility] Lipid Profileon 02-11-2025 CHOL:HDL 3.86 Normal [facility] Comment on above: Order Comment: Order Date: 02/11/25Order Info: [id number] - CMPOrder Info: [id number] - LIPIDOrder Info: [id number] - PHOS Performed By: #### L 500.4050, L501.2300, L500.4100, L501.9985, L100.0100, L509.1000 ####[facility] [address] [place], [address] Cholesterol [Mass/Vol] 125 mg/dL Normal <=200 [facility] Comment on above: Order Comment: Order Date: 02/11/25Order Info: [id number] - CMPOrder Info: [id number] - LIPIDOrder Info: [id number] - PHOS Result Comment: Chol esterol level, Desirable <200 mg/dL Borderline high cholesterol 200-239 mg/dL High cholesterol >=240 mg/dL Recommendations of the NCEP Adult Treatment Panel for the following risk-cutoff thresholds for the [place] population. Performed By: #### L 500.4050, L501.2300, L500.4100, L501.9985, L100.0100, L509.1000 ####[facility] [address] [place], [address] Cholesterol in HDL [Mass/Vol] 32 mg/dL Low [facility] Comment on above: Order Comment: Order Date: 02/11/25Order Info: [id number] - CMPOrder Info: [id number] - LIPIDOrder Info: [id number] - PHOS Result Comment: Mica onal Cholesterol Education Program (NCEP) guidelines: <40 mg/dL: Low HDL-cholesterol (major risk factor for CHD) >= 60 mg/dL: High HDL-cholesterol (negative risk factor for CHD) HDL-cholesterol is affected by a number of factors, e.g. smoking, exercise, hormones, sex and age. Performed By: #### L 500.4050, L501.2300, L500.4100, L501.9985, L100.0100, L509.1000 ####[facility] [address] [place], [address] Cholesterol in LDL [Mass/Vol] 58 mg/dL Normal [facility] Comment on above: Order Comment: Order Date: 02/11/25Order Info: [id number] - CMPOrder Info: [id number] - LIPIDOrder Info: [id number]- - PHOS Result Comment: Bord riwevw=562-942 mg/dL Higher Moiq=749 mg/dL or greater Performed By: #### L 500.4050, L501.2300, L500.4100, L501.9985, L100.0100, L509.1000 ####[facility] [address] [place], [address] Cholesterol in VLDL [Mass/Vol] 34 mg/dL Normal 5-40 [facility] Comment on above: Order Comment: Order Date: 02/11/25Order Info: 07- - CMPOrder Info: - LIPIDOrder Info: [id number] - PHOS Performed By: #### L 500.4050, L501.2300, L500.4100, L501.9985, L100.0100, L509.1000 ####[facility] [address] [place], [place], [phone] Triglyceride [Mass/Vol] 172 mg/dL Normal [facility] Comment on above: Order Comment: Order Date: 02/11/25Order Info: [id number]- - CMPOrder Info: [id number] - LIPIDOrder Info: [id number]- - PHOS Result Comment: The drugs N-Acetylcysteine and Metamizole may falsely depress this assay. Normal range: <150 mg/dL Borderline High: 150-199 mg/dL High: 200-499 mg/dL Very High: >500 mg/dL Performed By: #### L 500.4050, L501.2300, L500.4100, L501.9985, L100.0100, L509.1000 ####[facility] [address] [place], [address] MCV (mean corpuscular volume ) determinationOrdered By: Gilles Vance on 02-11-2025 MCV (RBC) [Entitic vol] 86.2 fL 80-94 [facility] Mean corpuscular hemoglobin (MCH) determinationOrdered By: Gilles Vance on 02-11-2025 MCH (RBC) [Entitic mass] 28.7 pg 27.0-32.0 [facility] Mean corpuscular hemoglobin concentration (MCHC) determinationOrdered By: Gilles Vance on 02-11-2025 MCHC (RBC) [Mass/Vol] 33.3 g/dL 32-36 [facility] Mean platelet volume determi nationOrdered By: Gilles Vance on 02-11-2025 Platelet mean volume (Bld) [Entitic vol] 11.9 fL 6.2-12.0 [facility] Microalb:Creat Ratio,Random URon 02-11-2025 MALB:CREAT 726.9 mg/g CRE Normal [facility] Comment on above: Order Comment: Order Date: 02/11/25 Order Info: [id number] - MIALB Performed By: #### L 503.6030, L503.6550, L502.0250, L400.0001, L501.0900, L506.1001 #### [facility] [address] [place], [place], [id number] MICROALBUMIN,UR 78.5 mg/L Normal NO RANGE EST. [facility] Comment on above: Order Comment: Order Date: 02/11/25 Order Info: [id number] - MIALB Performed By: #### L 503.6030, L503.6550, L502.0250, L400.0001, L501.0900, L506.1001 #### [facility] [address] [place], [place], [address] Microscopic analysis of urin e for red blood cells (RBC)Ordered By: Gilles Vance on 02-11-2025 Microscopic analysis of urine for red blood cells (RBC) 0 SEEN /hpf 0-5 [facility] Monocyte percentageOrdered B y: Gilles Vance on 02-11-2025 Monocytes/100 WBC (Bld) 10.6 % High 0-10 [facility] Mucus LM Ql (Urine sed)Order ed By: Gilles Vance on 02-11-2025 Mucus Ql (Urine sed) 0 SEEN /hpf [facility] Neutrophil percentageOrdered By: Gilles Vance on 02-11-2025 Neutrophils/100 WBC (Bld) 64.9 % 47-70 [facility] Nitrite Test strip Ql (U)Ord ered By: Gilles Vance on 02-11-2025 Nitrite Ql (U) Negative Negative [facility] No Panel InformationOrdered By: Gilles Vance on 02-11-2025 Unsaturated Iron Binding Capacity 346 ug/dL 228-428 [facility] Nucleated red blood cell per centageOrdered By: Gilles Vance on 02-11-2025 Nucleated RBC/100 WBC (Bld) [Ratio] 0 % 0-5 [facility] PTHINon 02-11-2025 PTH 32 pg/mL Normal 11-61 [facility] Comment on above: Order Comment: Order Date: 02/11/25Order Info: [id number] - PTHIN Performed By: #### L 500.4050, L501.2300, L500.4100, L501.9985, L100.0100, L509.1000 ####[facility] [address] [place], [address] Phosphoruson 02-11-2025 Phosphate [Mass/Vol] 4.2 mg/dL Normal 2.7-4.5 [facility] Comment on above: Order Comment: Order Date: 02/11/25Order Info: [id number] - CMPOrder Info: [id number] - LIPIDOrder Info: [id number] - PHOS Performed By: #### L 500.4050, L501.2300, L500.4100, L501.9985, L100.0100, L509.1000 ####[facility] [address] [place], [address] Platelet countOrdered By: Anel Vance on 02-11-2025 Platelets (Bld) [#/Vol] 219 10*3/uL 150-450 [facility] Potassium measurement (mass/ volume)Ordered By: Gilles Vance on 02-11-2025 Potassium (Unsp spec) [Mass/Vol] 5.3 mmol/L High 3.3-5.1 [facility] Protein Test strip Ql (U)Ord ered By: Gilles Vance on 02-11-2025 Protein Ql (U) 30 mg/dl High Negative [facility] Protein+Creatinine Ratio,Uri neon 02-11-2025 PROT:CRE RATIO 179 mg/g CRE Normal 0-200 [facility] Comment on above: Order Comment: Order Date: 02/11/25 Order Info: [id number] - MIALB Performed By: #### L 503.6030, L503.6550, L502.0250, L400.0001, L501.0900, L506.1001 #### [facility] [address] [place], [address] Protein (U) [Mass/Vol] 19.3 mg/dL High 0.0-12.0 [facility] Comment on above: Order Comment: Order Date: 02/11/25 Order Info: [id number] - MIALB Performed By: #### L 503.6030, L503.6550, L502.0250, L400.0001, L501.0900, L506.1001 #### [facility] [address] [place], [address] UR CREAT 108.00 mg/dL Normal 39.00-259.00 [facility] Comment on above: Order Comment: Order Date: 02/11/25 Order Info: [id number] - MIALB Performed By: #### L 503.6030, L503.6550, L502.0250, L400.0001, L501.0900, L506.1001 #### [facility] [address] [place], [address] RBC Auto (Bld) [#/Vol]Ordere d By: Gilles Vance on 02-11-2025 RBC (Bld) [#/Vol] 6.00 10*6/uL 4.6-6.2 [facility] Random urine creatinine bryanna urement (mass/volume)Ordered By: Gilles Vance on 02-11-2025 Creatinine Unsp time (U) [Mass/Vol] 108.00 mg/dL 39.00-259.00 [facility] Screening total cholesterol/ high density lipoprotein (HDL) cholesterol ratioOrdered By: Gilles Vance on 02-11-2025 Cholesterol.total/Cholest james in HDL [Mass ratio] 3.86 {ratio} [facility] Serum creatinine measurement (mass/volume)Ordered By: Gilles Vance on 02-11-2025 Creatinine [Mass/Vol] 1.64 mg/dL High 0.70-1.20 [facility] Serum globulin measurementOr dered By: Gilles Vance on 02-11-2025 Globulin (S) [Mass/Vol] 3.0 g/dL 2.2-4.2 [facility] Serum glucose measurement (m ass/volume)Ordered By: Gilles Vance on 02-11-2025 Glucose [Mass/Vol] 128 mg/dL High 70-99 [facility] Serum or plasma alanine lester otransferase (ALT) measurementOrdered By: Gilles Vance on 02-11-2025 ALT [Catalytic activity/Vol] 15 U/L <47 [facility] Serum or plasma albumin bryanna urement (mass/volume)Ordered By: Gilles Vance on 02-11-2025 Albumin [Mass/Vol] 4.6 g/dL 3.4-4.8 [facility] Serum or plasma albumin/glob ulin mass ratioOrdered By: Gilles Vance on 02-11-2025 Albumin/Globulin [Mass ratio] 1.5 {ratio} 0.9-2.4 [facility] Serum or plasma alkaline shakira sphatase measurementOrdered By: Gilles Vance on 02-11-2025 ALP [Catalytic activity/Vol] 60 U/L 40-129 [facility] Serum or plasma calcium bryanna urement (mass/volume)Ordered By: Gilles Vance on 02-11-2025 Calcium [Mass/Vol] 10.1 mg/dL 7.6-11.0 [facility] Serum or plasma cholesterol in HDL measurement (mass/volume)Ordered By: Gilles Vance on 02-11-2025 Cholesterol in HDL [Mass/Vol] 32 mg/dL Low >40 [facility] Comment on above: National Cholesterol Education Program (NCEP) guidelines:<40 mg/dL: Low HDL-cholesterol (major risk factor for CHD)>= 60 mg/dL: High HDL-cholesterol (negative risk factor for CHD)HDL-cholesterol is affected by a number of factors, e.g. smoking, exercise, hormones, sex and age. Serum or plasma cholesterol measurement (mass/volume)Ordered By: Gilles Vance on 02-11-2025 Cholesterol [Mass/Vol] 125 mg/dL <201 [facility] Comment on above: Cholesterol level, D esirable <200 mg/dLBorderline high cholesterol 200-239 mg/dLHigh cholesterol >=240 mg/dLRecommendations of the NCEP Adult Treatment Panel for the following risk-cutoff thresholds for the [place] population. Serum or plasma ferritin arnoldo surement (mass/volume)Ordered By: Gilles Vance on 02-11-2025 Ferritin [Mass/Vol] 28 ng/mL Low 37-417 [facility] Serum or plasma iron saturat ion measurement (mass fraction)Ordered By: Gilles Vance on 02-11-2025 Iron saturation [Mass fraction] 19.0 % 9-55 [facility] Serum or plasma urea nitroge n measurement (mass/volume)Ordered By: Gilles Vance on 02-11-2025 Urea nitrogen [Mass/Vol] 21 mg/dL High 4-19 [facility] Sodium levelOrdered By: Gilles Vance on 02-11-2025 Sodium [Moles/Vol] 137 mmol/L 133-145 [facility] Squamous epithelial cells de tection in urine sediment by light microscopyOrdered By: Gilles Vance on 02-11-2025 Epithelial cells.squamous LM Ql (Urine sed) 0 SEEN /hpf 0-5 [facility] Total proteinOrdered By: Hever Vance on 02-11-2025 Protein [Mass/Vol] 7.6 g/dL 5.9-8.4 [facility] Triglycerides measurementOrd ered By: Gilles Vance on 02-11-2025 Triglyceride [Mass/Vol] 172 mg/dL <199 [facility] Comment on above: The drugs N-Acetylcy steine and Metamizole may falsely depress this assay. Normal range: <150 mg/dLBorderline High: 150-199 mg/dLHigh: 200-499 mg/dLVery High: >500 mg/dL Urinalysis, Completeon 02-11 BACTERIA RARE Normal None Seen [facility] Comment on above: Order Comment: CLEAN CATCH Performed By: #### L 503.6030, L503.6550, L502.0250, L400.0001, L501.0900, L506.1001 #### [facility] [address] [place], [address] WBC 0-5 SEEN Normal 0-5 [facility] Comment on above: Order Comment: CLEAN CATCH Performed By: #### L 503.6030, L503.6550, L502.0250, L400.0001, L501.0900, L506.1001 #### [facility] [address] [place], [address] EPI,SQUAMOUS 0 SEEN Normal 0-5 [facility] Comment on above: Order Comment: CLEAN CATCH Performed By: #### L 503.6030, L503.6550, L502.0250, L400.0001, L501.0900, L506.1001 #### [facility] [address] [place], [address] Mucus Ql (Urine sed) 0 SEEN Normal [facility] Comment on above: Order Comment: CLEAN CATCH Performed By: #### L 503.6030, L503.6550, L502.0250, L400.0001, L501.0900, L506.1001 #### [facility] [address] [place], [address] RBC 0 SEEN Normal 0-5 [facility] Comment on above: Order Comment: CLEAN CATCH Performed By: #### L 503.6030, L503.6550, L502.0250, L400.0001, L501.0900, L506.1001 #### [facility] [address] [place], [address] Urine albumin measurement wi detection limit of 20 mg/L or less (mass/volume)Ordered By: Gilles Vance on 02-11-2025 Albumin DL <= 20 mg/L (U) [Mass/Vol] 78.5 mg/L NO RANGE EST. [facility] Urine clarityOrdered By: Hever Vance on 02-11-2025 Clarity (U) Clear Clear [facility] Urine color determinationOrd ered By: Gilles Vance on 02-11-2025 Color (U) Yellow Yellow [facility] Urine glucose detectionOrder ed By: Gilles Vance on 02-11-2025 Glucose Ql (U) 1000 mg/dl High Normal [facility] Urine leukocyte esterase det ection by dipstickOrdered By: Gilles Vance on 02-11-2025 Leukocyte esterase Test strip Ql (U) Negative Negative [facility] Urine pHOrdered By: Gilles baxter on 02-11-2025 pH (U) 5.0 [pH] 5.0 - 8.0 [facility] Urine protein measurement (m ass/volume)Ordered By: Gilles Vance on 02-11-2025 Protein (U) [Mass/Vol] 19.3 mg/dL High 0.0-12.0 [facility] Urine protein/creatinine mas s ratioOrdered By: Gilles Vance on 02-11-2025 Protein/Creatinine (U) [Mass ratio] 179 mg/g CRE 0-200 [facility] Urine sediment bacteria coun t by microscopy (number/high power field)Ordered By: Gilles Vance on 02-11-2025 Bacteria LM.HPF (Urine sed) [#/Area] RARE /hpf None Seen [facility] Urine specific gravity measu rementOrdered By: Gilles Vance on 02-11-2025 Specific gravity (U) [Rel density] 1.020 1.002-1.030 [facility] Urine urobilinogen measureme ntOrdered By: Gilles Vance on 02-11-2025 Urobilinogen Ql (U) Normal mg/dl Normal [facility] Vitamin D,25 Hydroxyon 02-11 Vitamin D 25-OH 41.4 ng/mL Normal 30-100 [facility] Comment on above: Order Comment: Order Date: 02/11/25 Order Info: [id number] - CMP Order Info: [id number] - LIPID Order Info: [id number] - PHOS Result Comment: Amelie min D Status Deficiency: <20 ng/mL (50nmol/L) Insufficiency: 20-30 ng/mL (50-75 nmol/L) Sufficiency: 30-100 ng/mL (75-250 nmol/L) Toxicity: >100 ng/mL (>250 nmol/L) Performed By: #### L 503.6030, L503.6550, L502.0250, L400.0001, L501.0900, L506.1001 #### [facility] [address] [place], [address] White blood cell (WBC) count Ordered By: Gilles Vance on 02-11-2025 WBC (Bld) [#/Vol] 7.6 10*3/uL 4.4-11.0 [facility] White blood cell countOrdere d By: Gilles Vance on 02-11-2025 White blood cell count 0-5 SEEN /hpf 0-5 [facility] Diagnostic total prostate sp ecific antigen (PSA) measurementOrdered By: Michael Pascual on 12-08-2024 Prostate Specific Antigen Total 1.37 ng/mL 0.00-4.00 [facility] Comment on above: This test was [...] 11-16 PSA, DIAGNOSTIC 1.37 ng/mL Normal 0.00-4.00 [facility] Comment on above: Result Comment: This [...] confirm baseline values. Performed By: #### L 501.9940 #### [facility] [address] [place], [address] Cardiovascular ultrasound re portOrdered By: Stanislaw Benton on 11-24-2024 Study report [facility] [address] [place] [address] AAA Screening 11/21/24 0909 MR#: [id number] Acct: [id number] Name: OSCAR KEENAN Rep #:[id number] : 1950 73 From: Stanislaw Puri Attending Dr: Dr. Gilles Vance MD Status: REG CLI Ordering Dr: Gilles Vance MD Date: 11/21/24 Location: [facility] Sex: M C Admitted: Reason For Study [...] Aorta IVC Iliac vasculature or bypass grafts [address]01. Exam performed in department. 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 Gilles Vance MD ~ Date Dictated: 11/21/24908 Date Transcribed: 11/24/241533 [employer] Supervisor: Signed [facility] Work Phone: AAA Screeningon 11-21-2024 AAA Screening [facility] [address] [place] [address] AAA Screening 11/21/24908 MR#: [id number] Acct: [id number] Name: OSCAR KEENAN Rep #: [id number] : 1950 73 From: Stanislaw Benton MD Attending Dr: Dr. Gilles Vance MD Status: R [facility] Ordering Dr: Gilles Vance MD Date: 11/21/24 Location: [facility] Sex: M C Admitted: Reason For Study [...] Aorta IVC Iliac vasculature or bypass grafts 11124. Exam performed in department. 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 Gilles Vance MD Date Dictated: 11/21/24 0909 Date Transcribed: 11/24/241533 [employer] Supervisor: Signed Normal [facility] Pacemaker Checkon 10-06-2024 Pacemaker Check [facility] [address] [place] [address] Pacemaker Check Date of Service: 10/06/24 1346 MR#: [id number] Acct: [id number] Name: OSCAR KEENAN Rep #: [id number] : 1950 From: Macy Klein Age/Sex: 73/M [place] [facility] [place]: Signed Billing Codes ICD Device Billin ICD Dev Prog Eval, Dual Assessment and Plan Assessment and Plan (1) Presence of implantable cardioverter-defibr illator (ICD): Status: Acute Comment: Medtronic [place] XT (2) SA node dysfunction: Status: Acute (3) Dilated cardiomyopathy: Status: Acute 10/06/24 1347 Date Macy Mercerrahulirma Signature: Date (if applicable) CC: Normal [facility] 12 Lead EKG performed by [facility] on 09-24-2024 12 Lead EKG performed by [address] [address] 12 Lead EKG performed by [facility] 09/24/24 0946 MR#: [id number] Acct: [id number] Name: OSCAR KEENAN Rep #: [id number] : 1950 73 From: Jacob Mcgovern MD Attending Dr: Dr. 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 ABNORMAL Electronically signed on 09/24/2024 at 14:42 by Jacob Mcgovern [employer] Version [id number] 09/24/24 1443 Date Jacob Mcgovern MD CC: Dr. Gilles Vance MD Date Dictated: 09/24/24945 Date Transcribed: 09/24/24945 [employer] Supervisor: [place] Signed Normal [facility] Cardiology Visit Reporton Cardiology Visit Report [facility] [address] [place] [address] OFFICE VISIT Date of Service: 09/24/24 MR#: [id number] Acct: [id number] Name: OSCAR KEENAN Rep #: [id number] : 1950 Provider: Dr. Jacob Mcgovern MD Age/Sex: 73/M Location: [facility] Status: Signed HPI HPI History of Present Illness Details: Pleasant 73-year-old man who is relocating his care here to [place] from [place]. He is a gentleman with a history [...] have a history of congestive heart failure [place] [employer] class III. As part of his guideline directed medical therapy he had undergone a permanent pacemaker implantation which was recently in November 2023 upgraded to a single-lead ICD in November 2023. It was a Medtronic model DD PA 2 D4, serial number [id number]. 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 Accompanied by: Self Is patient in pain?: No Allergies No Known Allergies Allergy (Verified 09/24/24 09:50) Medications ???Medication ???Instructions ???Recorded ???Confirmed ???Type aspirin 81 mg chewable tablet 1 tab PO DAILY 02/21/24 09/24/24 History (Jayna Chewable Low Dose Aspirin) glucos 500 eb-kbygu-cmn8 450 cap PO 02/21/24 09/24/24 History mg-liza 0.67 mg-I.frankince-boro n capsule metoprolol tartrate 50 mg tablet 50 mg PO BID 02/21/24 09/24/24 History (Lopressor) omega 5-iys-xej-fish oil 1,200 mg 1 cap PO DAILY [...] carotid arteries Atherosclerosis of coronary artery of [place] heart without angina pectoris ROSSI (obstructive sleep [...] type: c (more content not included)... Normal [facility] 37-BP-Mostgbn DOrdered By: Saida Vance on 09-11-2024 Vitamin D 25-Hydroxy 36.8 ng/mL [facility] Comment on above: Vitamin D 25(OH) Sta tus Range Deficiency <20 ng/mL (50nmol/L) Insufficiency 20 - 30 ng/mL (50 - 75 nmol/L) Sufficiency 30 - 100 ng/mL (75 - 250 nmol/L) Toxicity >100 ng/mL (>250 nmol/L) Absolute neutrophil countOrd ered By: Gilles Vance on 09-11-2024 Neutrophils (Bld) [#/Vol] 4.5 10*3/uL 2.0-7.7 [facility] Albumin to globulin ratioOrd ered By: Gilles Vance on 09-11-2024 Albumin/Globulin [Mass ratio] 1.1 {ratio} 0.9-2.4 [facility] Basophil percentageOrdered B y: Gilles Vance on 09-11-2024 Basophils/100 WBC (Bld) 1.2 % High 0-1 [facility] Bilirubin, totalOrdered By: Gilles Rajiv on 09-11-2024 Bilirubin [Mass/Vol] 0.60 mg/dL 0.20-1.00 [facility] [place] Comment on above: For patients on eltr ombopag therapy, use of Dimension Baskin TBIL is not recommended. Blood urea nitrogen (BUN)/cr eatinine ratioOrdered By: Gilles Vance on 09-11-2024 Urea nitrogen/Creatinine [Mass ratio] 12.4 mg/mg 10-20 [facility] CBC W/Diff, Automatedon 12-2 Absolute Lymph 1.53 X10 3/uL Normal 0.83-4.51 [facility] Comment on above: Order Comment: Order Date: 09/11/24Order Info: [id number] - CBCD Performed By: #### L 501.9985, L501.2300, L500.4050, L501.9940, L509.1000, L506.1000, L500.4100, L100.0100 ####[facility] [address] [facility] [place], [address] Absolute Neut 4.5 X10 3/uL Normal 2.0-7.7 [facility] Comment on above: Order Comment: Order Date: 09/11/24Order Info: [id number] - CBCD Performed By: #### L 501.9985, L501.2300, L500.4050, L501.9940, L509.1000, L506.1000, L500.4100, L100.0100 ####[facility] [address] [facility] [place], [address] Basophils/100 WBC (Bld) 1.2 % High 0-1 [facility] Comment on above: Order Comment: Order Date: 09/11/24Order Info: [id number] - CBCD Performed By: #### L 501.9985, L501.2300, L500.4050, L501.9940, L509.1000, L506.1000, L500.4100, L100.0100 ####[facility] [address] [place], [address] Eosinophils/100 WBC (Bld) 2.3 % Normal 0-5 [facility] Comment on above: Order Comment: Order Date: 09/11/24Order Info: [id number] - CBCD Performed By: #### L 501.9985, L501.2300, L500.4050, L501.9940, L509.1000, L506.1000, L500.4100, L100.0100 ####[facility] [address] [place], [address] Erythrocyte distribution width (RBC) [Ratio] 13.9 % Normal 11.6-14.6 [facility] Comment on above: Order Comment: Order Date: 09/11/24Order Info: [id number] - CBCD Performed By: #### L 501.9985, L501.2300, L500.4050, L501.9940, L509.1000, L506.1000, L500.4100, L100.0100 ####[facility] [address] [place], [address] Hematocrit (Bld) [Volume fraction] 48.2 % Normal 40-54 [facility] Comment on above: Order Comment: Order Date: 09/11/24Order Info: [id number] - CBCD Performed By: #### L 501.9985, L501.2300, L500.4050, L501.9940, L509.1000, L506.1000, L500.4100, L100.0100 ####[facility] [address] [place], [address] Hemoglobin (Bld) [Mass/Vol] 15.8 g/dL Normal 13.0-16.5 [facility] Comment on above: Order Comment: Order Date: 09/11/24Order Info: [id number] - CBCD Performed By: #### L 501.9985, L501.2300, L500.4050, L501.9940, L509.1000, L506.1000, L500.4100, L100.0100 ####[facility] [address] [place], [address] IG% 0.700 Normal 0.0-0.9 [facility] Comment on above: Order Comment: Order Date: 09/11/24Order Info: [id number] - CBCD Result Comment: IG% - Immature Granulocytes (promyelocytes, myelocytes and metamyelocytes) > 1% indicates that a LEFT SHIFT is Present. Performed By: #### L 501.9985, L501.2300, L500.4050, L501.9940, L509.1000, L506.1000, L500.4100, L100.0100 ####[facility] [address] [place], [address] Lymphocytes/100 WBC (Bld) 22.1 % Normal 19-41 [facility] Comment on above: Order Comment: Order Date: 09/11/24Order Info: [id number] - CBCD Performed By: #### L 501.9985, L501.2300, L500.4050, L501.9940, L509.1000, L506.1000, L500.4100, L100.0100 ####[facility] [address] [place], [address] MCH (RBC) [Entitic mass] 28.0 pg Normal 27.0-32.0 [facility] Comment on above: Order Comment: Order Date: 09/11/24Order Info: [id number] - CBCD Performed By: #### L 501.9985, L501.2300, L500.4050, L501.9940, L509.1000, L506.1000, L500.4100, L100.0100 ####[facility] [address] [place], [address] MCHC (RBC) [Mass/Vol] 32.8 g/dL Normal 32-36 [facility] Comment on above: Order Comment: Order Date: 09/11/24Order Info: [id number] - CBCD Performed By: #### L 501.9985, L501.2300, L500.4050, L501.9940, L509.1000, L506.1000, L500.4100, L100.0100 ####[facility] [address] [place], [address] MCV (RBC) [Entitic vol] 85.3 fL Normal 80-94 [facility] Comment on above: Order Comment: Order Date: 09/11/24Order Info: [id number]- - CBCD Performed By: #### L 501.9985, L501.2300, L500.4050, L501.9940, L509.1000, L506.1000, L500.4100, L100.0100 ####[facility] [address] [place], [address] Monocytes/100 WBC (Bld) 9.4 % Normal 0-10 [facility] Comment on above: Order Comment: Order Date: 09/11/24Order Info: [id number]- - CBCD Performed By: #### L 501.9985, L501.2300, L500.4050, L501.9940, L509.1000, L506.1000, L500.4100, L100.0100 ####[facility] [address] [place], [address] Neutrophils/100 WBC (Bld) 64.3 % Normal 47-70 [facility] Comment on above: Order Comment: Order Date: 09/11/24Order Info: [id number] - CBCD Performed By: #### L 501.9985, L501.2300, L500.4050, L501.9940, L509.1000, L506.1000, L500.4100, L100.0100 ####[facility] [address] [place], [address] Nucleated RBC (Bld) [#/Vol] 0 10*3/uL Normal 0-5 [facility] Comment on above: Order Comment: Order Date: 09/11/24Order Info: [id number] - CBCD Performed By: #### L 501.9985, L501.2300, L500.4050, L501.9940, L509.1000, L506.1000, L500.4100, L100.0100 ####[facility] [address] [place], [address] Platelet mean volume (Bld) [Entitic vol] 12.0 fL Normal 6.2-12.0 [facility] Comment on above: Order Comment: Order Date: 09/11/24Order Info: 018- - CBCD Performed By: #### L 501.9985, L501.2300, L500.4050, L501.9940, L509.1000, L506.1000, L500.4100, L100.0100 ####[facility] [address] [place], [address] Platelets (Bld) [#/Vol] 234 10*3/uL Normal 150-450 [facility] Comment on above: Order Comment: Order Date: 09/11/24Order Info: 018- - CBCD Performed By: #### L 501.9985, L501.2300, L500.4050, L501.9940, L509.1000, L506.1000, L500.4100, L100.0100 ####[facility] [address] [place], [address] RBC (Bld) [#/Vol] 5.65 10*6/uL Normal 4.6-6.2 [facility] Comment on above: Order Comment: Order Date: 09/11/24Order Info: [id number] - CBCD Performed By: #### L 501.9985, L501.2300, L500.4050, L501.9940, L509.1000, L506.1000, L500.4100, L100.0100 ####[facility] [address] [place], [address] RDW SD 42.8 fl Normal 35.1-43.9 [facility] Comment on above: Order Comment: Order Date: 09/11/24Order Info: [id number]- - CBCD Performed By: #### L 501.9985, L501.2300, L500.4050, L501.9940, L509.1000, L506.1000, L500.4100, L100.0100 ####[facility] [address] [place], [address] WBC (Bld) [#/Vol] 6.9 10*3/uL Normal 4.4-11.0 [facility] Comment on above: Order Comment: Order Date: 09/11/24Order Info: 018- - CBCD Performed By: #### L 501.9985, L501.2300, L500.4050, L501.9940, L509.1000, L506.1000, L500.4100, L100.0100 ####[facility] [address] [facility] [address] [place], [place], [phone] Carbon dioxide measurementOr dered By: Gilles Vance on 09-11-2024 CO2 [Moles/Vol] 20.0 mmol/L Low 21.0-32.0 [facility] Chloride measurementOrdered By: Gilles Vance on 09-11-2024 Chloride [Moles/Vol] 108 mmol/L High 98-107 [facility] Comprehensive Metabolic Prof ilon 09-11-2024 Albumin [Mass/Vol] 3.9 g/dL Normal 3.2-5.0 [facility] Comment on above: Order Comment: Order Date: 09/11/24Order Info: [id number] - CMPOrder Info: [id number] - LIPIDOrder Info: [id number] - PHOSOrder Info: [id number] - PSAD Performed By: #### L 501.9985, L501.2300, L500.4050, L501.9940, L509.1000, L506.1000, L500.4100, L100.0100 ####[facility] [address] [place], [address] Albumin/Globulin [Mass ratio] 1.1 {ratio} Normal 0.9-2.4 [facility] Comment on above: Order Comment: Order Date: 09/11/24Order Info: 86- - CMPOrder Info: - LIPIDOrder Info: [id number] - PHOSOrder Info: [id number]- - PSAD Performed By: #### L 501.9985, L501.2300, L500.4050, L501.9940, L509.1000, L506.1000, L500.4100, L100.0100 ####[facility] [address] [place], [address] ALK P 59 U/L Normal 45-117 [facility] Comment on above: Order Comment: Order Date: 09/11/24Order Info: [id number] - CMPOrder Info: - LIPIDOrder Info: [id number] - PHOSOrder Info: 782- - PSAD Performed By: #### L 501.9985, L501.2300, L500.4050, L501.9940, L509.1000, L506.1000, L500.4100, L100.0100 ####[facility] [address] [place], [address] ALT [Catalytic activity/Vol] 27 U/L Normal 16-61 [facility] Comment on above: Order Comment: Order Date: 09/11/24Order Info: [id number]- - CMPOrder Info: - LIPIDOrder Info: [id number] - PHOSOrder Info: 83- - PSAD Performed By: #### L 501.9985, L501.2300, L500.4050, L501.9940, L509.1000, L506.1000, L500.4100, L100.0100 ####[facility] [address] [place], [place], [id number] AST [Catalytic activity/Vol] 12 U/L Low 15-37 [facility] Comment on above: Order Comment: Order Date: 09/11/24Order Info: 785- - CMPOrder Info: [id number] - LIPIDOrder Info: [id number] - PHOSOrder Info: 782- - PSAD Performed By: #### L 501.9985, L501.2300, L500.4050, L501.9940, L509.1000, L506.1000, L500.4100, L100.0100 ####[facility] [address] [place], [place], [phone] Bilirubin [Mass/Vol] 0.60 mg/dL Normal 0.20-1.00 [facility] Comment on above: Order Comment: Order Date: 09/11/24Order Info: [id number] - CMPOrder Info: - LIPIDOrder Info: [id number] - PHOSOrder Info: 782- - PSAD Result Comment: For patients on eltrombopag therapy, use of Dimension Baskin TBIL is not recommended. Performed By: #### L 501.9985, L501.2300, L500.4050, L501.9940, L509.1000, L506.1000, L500.4100, L100.0100 ####[facility] [address] [place], [place], [phone] BUN/CRE 12.4 RATIO Normal 10-20 [facility] Comment on above: Order Comment: Order Date: 09/11/24Order Info: [id number] - CMPOrder Info: - LIPIDOrder Info: [id number] - PHOSOrder Info: [id number]- - PSAD Performed By: #### L 501.9985, L501.2300, L500.4050, L501.9940, L509.1000, L506.1000, L500.4100, L100.0100 ####[facility] [address] [place], [address] CA,Total 9.1 mg/dL Normal 8.5-10.1 [facility] Comment on above: Order Comment: Order Date: 09/11/24Order Info: 86-1 - CMPOrder Info: [id number] - LIPIDOrder Info: [id number] - PHOSOrder Info: 83- - PSAD Performed By: #### L 501.9985, L501.2300, L500.4050, L501.9940, L509.1000, L506.1000, L500.4100, L100.0100 ####[facility] [address] [place], [address] Chloride [Moles/Vol] 108 mmol/L High 98-107 [facility] Comment on above: Order Comment: Order Date: 09/11/24Order Info: 785- - CMPOrder Info: - LIPIDOrder Info: [id number] - PHOSOrder Info: 83- - PSAD Performed By: #### L 501.9985, L501.2300, L500.4050, L501.9940, L509.1000, L506.1000, L500.4100, L100.0100 ####[facility] [address] [place], [address] CO2 [Moles/Vol] 20.0 mmol/L Low 21.0-32.0 [facility] Comment on above: Order Comment: Order Date: 09/11/24Order Info: 785- - CMPOrder Info: - LIPIDOrder Info: [id number] - PHOSOrder Info: 83- - PSAD Performed By: #### L 501.9985, L501.2300, L500.4050, L501.9940, L509.1000, L506.1000, L500.4100, L100.0100 ####[facility] [address] [place], [place], [address] Creatinine [Mass/Vol] 1.70 mg/dL High 0.70-1.30 [facility] Comment on above: Order Comment: Order Date: 09/11/24Order Info: [id number] - CMPOrder Info: [id number] - LIPIDOrder Info: [id number] - PHOSOrder Info: 782- - PSAD Result Comment: The validity of the calculated GFR GFRAA in patients over 70 years has not been determined. Clinical correlation is essential. Performed By: #### L 501.9985, L501.2300, L500.4050, L501.9940, L509.1000, L506.1000, L500.4100, L100.0100 ####[facility] [address] [place], [place], [id number] EST GFR - AA 51 mL/min Low >60 [facility] Comment on above: Order Comment: Order Date: 09/11/24Order Info: [id number] - CMPOrder Info: - LIPIDOrder Info: [id number] - PHOSOrder Info: 782- - PSAD Result Comment: Afri can [place] GFR Calc Performed By: #### L 501.9985, L501.2300, L500.4050, L501.9940, L509.1000, L506.1000, L500.4100, L100.0100 ####[facility] [address] [place], [place], [address] GAP 9 Normal 5-15 [facility] Comment on above: Order Comment: Order Date: 09/11/24Order Info: [id number] - CMPOrder Info: [id number] - LIPIDOrder Info: [id number] - PHOSOrder Info: [id number] - PSAD Performed By: #### L 501.9985, L501.2300, L500.4050, L501.9940, L509.1000, L506.1000, L500.4100, L100.0100 ####[facility] [address] [place], [place], [phone] GFR/1.73 sq M.predicted among non-blacks MDRD (S/P/Bld) [Vol rate/Area] 42 mL/min/{1.73_m2} Low >60 [facility] Comment on above: Order Comment: Order Date: 09/11/24Order Info: 785- - CMPOrder Info: - LIPIDOrder Info: [id number] - PHOSOrder Info: [id number] - PSAD Result Comment: Non- GFR Calc Performed By: #### L 501.9985, L501.2300, L500.4050, L501.9940, L509.1000, L506.1000, L500.4100, L100.0100 ####[facility] [address] [place], [place], [phone] Globulin (S) [Mass/Vol] 3.7 g/dL Normal 2.2-4.2 [facility] Comment on above: Order Comment: Order Date: 09/11/24Order Info: [id number] - CMPOrder Info: - LIPIDOrder Info: [id number] - PHOSOrder Info: [id number] - PSAD Performed By: #### L 501.9985, L501.2300, L500.4050, L501.9940, L509.1000, L506.1000, L500.4100, L100.0100 ####[facility] [address] [place], [place], [phone] Glucose [Mass/Vol] 183 mg/dL High 74-106 [facility] Comment on above: Order Comment: Order Date: 09/11/24Order Info: [id number] - CMPOrder Info: - LIPIDOrder Info: [id number] - PHOSOrder Info: [id number] - PSAD Result Comment: Fast ing Glucose result greater than or equal to 126 mg/dL suggests DIABETES MELLITUS per A.D.A. criteria. Performed By: #### L 501.9985, L501.2300, L500.4050, L501.9940, L509.1000, L506.1000, L500.4100, L100.0100 ####[facility] [address] [place], [address] Potassium [Moles/Vol] 4.7 mmol/L Normal 3.5-5.1 [facility] Comment on above: Order Comment: Order Date: 09/11/24Order Info: 86-1 - CMPOrder Info: [id number] - LIPIDOrder Info: [id number] - PHOSOrder Info: 83- - PSAD Performed By: #### L 501.9985, L501.2300, L500.4050, L501.9940, L509.1000, L506.1000, L500.4100, L100.0100 ####[facility] [address] [place], [place], [phone] Sodium [Moles/Vol] 138 mmol/L Normal 136-145 [facility] Comment on above: Order Comment: Order Date: 09/11/24Order Info: [id number]- - CMPOrder Info: - LIPIDOrder Info: [id number] - PHOSOrder Info: 83- - PSAD Performed By: #### L 501.9985, L501.2300, L500.4050, L501.9940, L509.1000, L506.1000, L500.4100, L100.0100 ####[facility] [address] [place], [address] T PROT 7.6 g/dL Normal 6.4-8.2 [facility] Comment on above: Order Comment: Order Date: 09/11/24Order Info: 86- - CMPOrder Info: - LIPIDOrder Info: [id number] - PHOSOrder Info: 83-1 - PSAD Performed By: #### L 501.9985, L501.2300, L500.4050, L501.9940, L509.1000, L506.1000, L500.4100, L100.0100 ####[facility] [address] [place], [address] Urea nitrogen [Mass/Vol] 21 mg/dL High 7-18 [facility] Comment on above: Order Comment: Order Date: 09/11/24Order Info: [id number] - CMPOrder Info: [id number] - LIPIDOrder Info: [id number] - PHOSOrder Info: [id number] - PSAD Performed By: #### L 501.9985, L501.2300, L500.4050, L501.9940, L509.1000, L506.1000, L500.4100, L100.0100 ####[facility] [address] [place] [place], [address] Diagnostic total prostate sp ecific antigen (PSA) measurementOrdered By: Gilles Vance on 09-11-2024 Prostate Specific Antigen Total 1.42 ng/mL 0.0-4.0 [facility] Comment on above: This test was perfor med using the TPSA assay method for [employer] chemistry system. Values obtained with differentassay methods cannot be used interchangably.When changing PSA assays in the course of monitoring apatient, additional sequential testing should be carriedout to confirm baseline values. Eosinophil percentageOrdered By: Gilles Vance on 09-11-2024 Eosinophils/100 WBC (Bld) 2.3 % 0-5 [facility] Erythrocyte distribution wid th ratioOrdered By: Gilles Vance on 09-11-2024 Erythrocyte distribution width (RBC) [Ratio] 13.9 % 11.6-14.6 [facility] Erythrocyte distribution wid th standard deviationOrdered By: Gilles Vance on 09-11-2024 Erythrocyte distribution width (RBC) [Entitic vol] 42.8 fL 35.1-43.9 [facility] Estimated glomerular filtrat ion rate (GFR) AmericanOrdered By: Gilles Vance on 09-11-2024 Estimated GFR (MDRD) Amer 51 mL/min Low >60 [facility] Comment on above: GFR Calc Glomerular filtration rate ( GFR) estimationOrdered By: Gilles Vance on 09-11-2024 Estimated GFR (MDRD) Non-Af Amer 42 mL/min Low >60 [facility] Comment on above: Non- GFR Calc Glucose measurementOrdered B y: Gilles Vance on 09-11-2024 Glucose [Mass/Vol] 183 mg/dL High 74-106 [facility] Comment on above: Fasting Glucose resu lt greater than or equal to 126 mg/dL suggests DIABETES MELLITUS per A.D.A. criteria. Hematocrit Auto (Bld) [Volum e fraction]Ordered By: Gilles Vance on 09-11-2024 Hematocrit (Bld) [Volume fraction] 48.2 % 40-54 [facility] Hemoglobin A1con 09-11-2024 HbA1c (Bld) [Mass fraction] 7.9 % High 3.8-5.6 [facility] Comment on above: Order Comment: Order Date: 09/11/24Order Info: [id number] - A1C Result Comment: Norm al < 5.7 % Prediabetic 5.7 - 6.4 % Diabetic >or= 6.5 % Please note range changes. Performed By: #### L 501.9985, L501.2300, L500.4050, L501.9940, L509.1000, L506.1000, L500.4100, L100.0100 ####[facility] [address] [place], [address] Hemoglobin A1c percentageOrd ered By: Gilles Vance on 09-11-2024 HbA1c (Bld) [Mass fraction] 7.9 % High 3.8-5.6 [facility] Comment on above: Normal < 5.7 % Predi abetic 5.7 - 6.4 % Diabetic >or= 6.5 % Please note range changes. Hemoglobin measurementOrdere d By: Gilles Vance on 09-11-2024 Hemoglobin (Bld) [Mass/Vol] 15.8 g/dL 13.0-16.5 [facility] High density lipoprotein (HD L) measurementOrdered By: Gilles Vance on 09-11-2024 Cholesterol in HDL [Mass/Vol] 44 mg/dL >40 [facility] Comment on above: The drugs N-Acetylcy steine and Metamizole may falsely depress this assay. Reference Range HDL <40 mg/dL Low HDL Cholesterol HDL >or= 60 mg/dL High HDL Cholesterol Immature granulocytes/100 WB C Auto (Bld)Ordered By: Gilles Vance on 09-11-2024 Immature granulocytes/100 WBC (Bld) 0.700 % 0.0-0.9 [facility] Comment on above: IG% - Immature Granu locytes (promyelocytes, myelocytes and metamyelocytes) > 1% indicates that a LEFT SHIFT is Present. Intact parathyroid hormone ( iPTH) measurementOrdered By: Gilles Vance on 09-11-2024 Parathyroid Hormone (Intact) 79.7 pg/mL 18.4-80.1 [facility] Laboratory - Chemistry and C hemistry - challengeOrdered By: Gilles Vance on 09-11-2024 AST [Catalytic activity/Vol] 12 U/L Low 15-37 [facility] Lipid Profileon 09-11-2024 Cholesterol [Mass/Vol] 157 mg/dL Normal 200 [facility] Comment on above: Order Comment: Order Date: 09/11/24Order Info: [id number] - CMPOrder Info: [id number] - LIPIDOrder Info: [id number] - PHOSOrder Info: [id number] - PSAD Result Comment: <200 mg/dL Desirable 200-240 mg/dL Borderline >240 mg/dL High Risk Performed By: #### L 501.9985, L501.2300, L500.4050, L501.9940, L509.1000, L506.1000, L500.4100, L100.0100 ####[facility] [address] [place], [address] Cholesterol in HDL [Mass/Vol] 44 mg/dL Normal [facility] Comment on above: Order Comment: Order Date: 09/11/24Order Info: [id number] - CMPOrder Info: [id number] - LIPIDOrder Info: [id number] - PHOSOrder Info: [id number] - PSAD Result Comment: The drugs N-Acetylcysteine and Metamizole may falsely depress this assay. Reference Range HDL <40 mg/dL Low HDL Cholesterol HDL >or= 60 mg/dL High HDL Cholesterol Performed By: #### L 501.9985, L501.2300, L500.4050, L501.9940, L509.1000, L506.1000, L500.4100, L100.0100 ####[facility] [address] [place], [address] Cholesterol in LDL [Mass/Vol] 66 mg/dL Normal 0-130 [facility] Comment on above: Order Comment: Order Date: 09/11/24Order Info: [id number] - CMPOrder Info: - LIPIDOrder Info: [id number] - PHOSOrder Info: [id number]- - PSAD Performed By: #### L 501.9985, L501.2300, L500.4050, L501.9940, L509.1000, L506.1000, L500.4100, L100.0100 ####[facility] [address] [place], [address] Cholesterol in VLDL [Mass/Vol] 47 mg/dL High 5-40 [facility] Comment on above: Order Comment: Order Date: 09/11/24Order Info: [id number] - CMPOrder Info: - LIPIDOrder Info: [id number] - PHOSOrder Info: [id number]- - PSAD Performed By: #### L 501.9985, L501.2300, L500.4050, L501.9940, L509.1000, L506.1000, L500.4100, L100.0100 ####[facility] [address] [place], [address] Triglyceride [Mass/Vol] 233 mg/dL High [facility] Comment on above: Order Comment: Order Date: 09/11/24Order Info: [id number] - CMPOrder Info: - LIPIDOrder Info: [id number] - PHOSOrder Info: 83- - PSAD Result Comment: The drugs N-Acetylcysteine and Metamizole may falsely depress this assay. Serum Triglycerides Reference Interval Normal <150 mg/dL Borderline high 150 - 199 mg/dL High 200 - 499 mg/dL Very High > or = 500 mg/dL Performed By: #### L 501.9985, L501.2300, L500.4050, L501.9940, L509.1000, L506.1000, L500.4100, L100.0100 ####[facility] [address] [place], [address] Low density lipoprotein (LDL ) cholesterol measurementOrdered By: Gilles Vance on 09-11-2024 Cholesterol in LDL [Mass/Vol] 66 mg/dL 0-130 [facility] Lymphocytes Auto (Unsp spec) [#/Vol]Ordered By: Gilles Vance on 09-11-2024 Lymphocytes (Bld) [#/Vol] 1.53 10*3/uL 0.83-4.5 1 [facility] Lymphocytes/100 WBC Auto (Un sp spec)Ordered By: Gilles Vance on 09-11-2024 Lymphocytes/100 WBC (Bld) 22.1 % 19-41 [facility] MCV (mean corpuscular volume ) determinationOrdered By: Gilles Vance on 09-11-2024 MCV (RBC) [Entitic vol] 85.3 fL 80-94 [facility] Mean corpuscular hemoglobin (MCH) determinationOrdered By: Gilles Vance on 09-11-2024 MCH (RBC) [Entitic mass] 28.0 pg 27.0-32.0 [facility] Mean corpuscular hemoglobin concentration (MCHC) determinationOrdered By: Gilles Vance on 09-11-2024 MCHC (RBC) [Mass/Vol] 32.8 g/dL 32-36 [facility] Mean platelet volume determi nationOrdered By: Gilles Vance on 09-11-2024 Platelet mean volume (Bld) [Entitic vol] 12.0 fL 6.2-12.0 [facility] Monocyte percentageOrdered B y: Gilles Vance on 09-11-2024 Monocytes/100 WBC (Bld) 9.4 % 0-10 [facility] Neutrophil percentageOrdered By: Gilles Vance on 09-11-2024 Neutrophils/100 WBC (Bld) 64.3 % 47-70 [facility] Nucleated red blood cell per centageOrdered By: Gilles Vance on 09-11-2024 Nucleated RBC/100 WBC (Bld) [Ratio] 0 % 0-5 [facility] PSA,Total- Diagnosticon 12 PSA, DIAGNOSTIC 1.42 ng/mL Normal 0.0-4.0 [facility] Comment on above: Order Comment: Order Date: 09/11/24Order Info: [id number] - CMPOrder Info: [id number] - LIPIDOrder Info: [id number] - PHOSOrder Info: [id number] - PSAD Result Comment: This test was performed using the TPSA assay method for the [employer] chemistry system. Values obtained with different assay methods cannot be used interchangably. When changing PSA assays in the course of monitoring a patient, additional sequential testing should be carried out to confirm baseline values. Performed By: #### L 501.9985, L501.2300, L500.4050, L501.9940, L509.1000, L506.1000, L500.4100, L100.0100 ####[facility] [id number] [place], [place], [id number] PTHINon 09-11-2024 PTH 79.7 pg/mL Normal 18.4-80.1 [facility] Comment on above: Order Comment: Order Date: 09/11/24Order Info: [id number] - PTHIN Performed By: #### L 501.9985, L501.2300, L500.4050, L501.9940, L509.1000, L506.1000, L500.4100, L100.0100 ####[facility] [id number] [place], [place], [id number] Phosphoruson 09-11-2024 Phosphate [Mass/Vol] 3.9 mg/dL Normal 2.5-4.9 [facility] Comment on above: Order Comment: Order Date: 09/11/24Order Info: [id number] - CMPOrder Info: [id number] - LIPIDOrder Info: [id number] - PHOSOrder Info: [id number] - PSAD Performed By: #### L 501.9985, L501.2300, L500.4050, L501.9940, L509.1000, L506.1000, L500.4100, L100.0100 ####[facility] [id number] [place], [address] Phosphorus measurementOrdere d By: Gilles Vance on 09-11-2024 Phosphorus Level 3.9 mg/dL 2.5-4.9 [facility] Platelet countOrdered By: Anel Vance on 09-11-2024 Platelets (Bld) [#/Vol] 234 10*3/uL 150-450 [facility] Potassium measurementOrdered By: Gilles Vance on 09-11-2024 Potassium [Moles/Vol] 4.7 mmol/L 3.5-5.1 [facility] RBC Auto (Bld) [#/Vol]Ordere d By: Gilles Vance on 09-11-2024 RBC (Bld) [#/Vol] 5.65 10*6/uL 4.6-6.2 [facility] Serum anion gap measurementO rdered By: Gilles Vance on 09-11-2024 Anion gap [Moles/Vol] 9 mmol/L 5-15 [facility] Serum globulin measurementOr dered By: Gilles Vance on 09-11-2024 Globulin (S) [Mass/Vol] 3.7 g/dL 2.2-4.2 [facility] Serum or plasma alanine lester otransferase (ALT) measurementOrdered By: Gilles Vance on 09-11-2024 ALT [Catalytic activity/Vol] 27 U/L 16-61 [facility] Serum or plasma albumin bryanna urement (mass/volume)Ordered By: Gilles Vance on 09-11-2024 Albumin [Mass/Vol] 3.9 g/dL 3.2-5.0 [facility] Serum or plasma alkaline shakira sphatase measurementOrdered By: Gilles Vance on 09-11-2024 ALP [Catalytic activity/Vol] 59 U/L 45-117 [facility] Serum or plasma calcium bryanna urement (mass/volume)Ordered By: Gilles Vance on 09-11-2024 Calcium [Mass/Vol] 9.1 mg/dL 8.5-10.1 [facility] Serum or plasma cholesterol measurement (mass/volume)Ordered By: Gilles Vance on 09-11-2024 Cholesterol [Mass/Vol] 157 mg/dL <200 [facility] Comment on above: <200 mg/dL Desirable 200-240 mg/dL Borderline >240 mg/dL High Risk Serum or plasma creatinine m easurement (mass/volume)Ordered By: Gilles Vance on 09-11-2024 Creatinine [Mass/Vol] 1.70 mg/dL High 0.70-1.30 [facility] Comment on above: The validity of the calculated GFR & GFRAA in patients over 70 years has not been determined. Clinical correlation is essential. Serum or plasma urea nitroge n measurement (mass/volume)Ordered By: Gilles Vance on 09-11-2024 Urea nitrogen [Mass/Vol] 21 mg/dL High 7-18 [facility] Sodium levelOrdered By: Gilles Vance on 09-11-2024 Sodium [Moles/Vol] 138 mmol/L 136-145 [facility] Total proteinOrdered By: Hever Vance on 09-11-2024 Protein [Mass/Vol] 7.6 g/dL 6.4-8.2 [facility] Triglycerides measurementOrd ered By: Gilles Vance on 09-11-2024 Triglyceride [Mass/Vol] 233 mg/dL High <199 [facility] Comment on above: The drugs N-Acetylcy steine and Metamizole may falsely depress this assay.Serum Triglycerides Reference Interval Normal <150 mg/dL Borderline high 150 - 199 mg/dL High 200 - 499 mg/dL Very High > or = 500 mg/dL Very low density lipoprotein (VLDL) cholesterol measurementOrdered By: Gilles Vance on 09-11-2024 VLDL Cholesterol 47 mg/dL High 5-40 [facility] Vitamin D,25 Hydroxyon 09-11 Vitamin D 25-OH 36.8 ng/mL Normal [facility] Comment on above: Order Comment: Order Date: 09/11/24Order Info: [id number] - [id number] Result Comment: Amelie min D 25(OH) Status Range Deficiency <20 ng/mL (50nmol/L) Insufficiency 20 - 30 ng/mL (50 - 75 nmol/L) Sufficiency 30 - 100 ng/mL (75 - 250 nmol/L) Toxicity >100 ng/mL (>250 nmol/L) Performed By: #### L 501.9985, L501.2300, L500.4050, L501.9940, L509.1000, L506.1000, L500.4100, L100.0100 ####[facility] [id number] [place], [address] White blood cell (WBC) count Ordered By: Gilles Vance on 09-11-2024 WBC (Bld) [#/Vol] 6.9 10*3/uL 4.4-11.0 [facility] Laboratory - Microbiology an d Antimicrobial susceptibilityon 01-25-2022 SARS-CoV-2 (COVID-19) RNA DIEGO+probe Ql (Unsp spec) Detected Not Detect [facility] Work Phone: Comment on above: Normal Reference Ran ge: Not DetectedMethod:(RT-PCR) real-time reverse transcriptase PCRLuminex MARIBELL Instrument*The Food and Drug Administration (FDA) has issued an Emergency Use Authorization (EAU) for the MARIBELL SARS-CoV-2 Assay for the rapid detection of [...] Date Time Vital Sign Value Performing Clinician Yolii lucien 09-24-2024 09:46-0500 Body height 172.[address] Gilles Vance MD Work Phone: [facility] 09-24-2024 09:46-0500 Body mass index (BMI) [Ratio] 34.3 kg/m2 Dr. Gilles Vance MD Work Phone: [facility] 09-24-2024 09:46-0500 Body weight 102.[address] Gilles Vance MD Work Phone: [facility] 09-24-2024 09:46-0500 Diastolic blood pressure 80 mm[Hg] Dr. Gilles Vance MD Work Phone: [facility] 09-24-2024 09:46-0500 Heart rate 61 /min Dr. Gilles Vance MD Work Phone: [facility] 09-24-2024 09:46-0500 Respiratory rate 18 /min Dr. Gilles Vance MD Work Phone: [facility] 09-24-2024 09:46-0500 Systolic blood pressure 114 mm[Hg] Dr. Gilles Vance MD Work Phone: [facility] Encounters Encounter Date Encounter Type Care Provider Facility Start: 03-19-2025 ambulatory Gilles Vance Facilit y:[facility] Start: 03-04-2025 ambulatory Gilles Vance Facilit y:[facility] Start: 02-11-2025 End: 02-11-[address] Gilles Vance MD Work Phone: [facility] Work Phone: Start: 02-11-2025 End: 02-11-[address] Gilles Vance MD -Laboratory [facility] Start: 02-11-2025 End: 02-11-2025 ambulatory Gilles Vance Facility:[facility] Start: 12-08-2024 End: 12-08-[address] Gilles Vance MD Work Phone: [facility] Work Phone: Start: 12-08-2024 End: 12-08-[address] Michael Pascual MD -Laboratory Work Phone: Start: 12-08-2024 End: 12-08-2024 ambulatory Michael Pascual Facility:[facility] Start: 11-21-2024 Non-patient / Non-visit Dr. Stanislaw french MD -[facility] Start: 11-21-2024 End: 11-21-[address] Gilles Vance MD Work Phone: [facility] Work Phone: Start: 11-21-2024 End: 11-21-[address] Gilles Vance MD -[facility] Work Phone: Start: 11-21-2024 End: 11-21-2024 ambulatory Gilles Vance Facility:[facility] Start: 10-06-2024 End: 10-06-2024 [facility] Start: 10-06-2024 End: 10-06-[address] Jacob Mcgovern MD -[facility] Work Phone: Start: 09-24-2024 End: 09-24-2024 ambulatory Gilles Vance Facility:[facility] Start: 09-24-2024 End: 09-24-[address] Jacob Mcgovern MD -[facility] Work Phone: Start: 09-11-2024 End: 09-11-[address] Gilles Vance MD -Laboratory, [facility] Start: 09-11-2024 End: 09-11-2024 ambulatory Gilles Vance Facility:[facility] Start: 01-25-2022 End: 01-25-2022 Patient encounter procedure [facility]-Laboratory, Specimen Procedures Date Procedure Procedure Detail [...] Work Phone: Payers Date Payer Category Payer Self-pay [id number] 2024 Medicare [id number] 2024 Private Health Insurance [id number] 2008 Private Health Insurance [employer] [id number] Unknown SELF PAY INSURANCE [id number] Unknown [id number] Unknown [id number] Unknown [id number] Unknown [id number] Unknown [id number] Unknown [id number] Unknown [id number] Unknown [id number] Unknown [id number] Unknown [id number] Unknown [id number] Social History Date Type Detail Facility Start: 06-23-2013 Tobacco smoking stat [facility] Unknown if ever smoked [facility] Work Phone: Start: 01-25-2022 None [facility] Start: 01-25-2022 Non-smoker [facility] Start: 1950 Sex Assigned At Male [facility] Start: 09-11-2024 [facility] sm[facility] Start: 12-03-2024 End: 12-15-2024 Sex Male (finding) [facility] Evaluation note 09-24-2024 Note Date & [...] 06, 2024 9:48am SA node dysfunction acute 2024 9:48am [facility] Work Phone: Evaluation note Note Date & Type Note Facility Evaluation note No assessment information availa ble [facility] Work Phone: Reason for referral (narrative) Note Date & Type Note Facility Reason for referral (narrative) No reason for referral information available [facility] Work Phone: Chief Complaint and Reason [...] November 21, 2024 8:43 am Family History No Family History Records Found Relationship Condition Age at Onset Recorded Date/T [...] ized section and content) DATE CREATED AUTHOR 03/07/2025 [facility] FOR RECORDS PERTAINING TO PATIENTS WHO ARE [...] BE BASED ON THE PRIMARY CLINICAL RECORDS. [employer] provides no warranty or guarantee of the accuracy or completeness of information in this document.
[2025-03-09 11:03] LABS: Anion Gap 15 (5-15); BUN 30 mg/dL (4-19); BUN/Creat Ratio 15.2 RATIO (10-20); Carbon Dioxide 18.8 mmol/L (21.0-32.0); Chloride 103 mmol/L (98-108); Creatinine, Serum 1.94 mg/dL (0.70-1.20); EST Glomerular Filtration Rate 35 (>60); Glucose 165 mg/dL (70-99); Potassium 5.3 mmol/L (3.3-5.1); Sodium Level 137 mmol/L (133-145)
== END | disposition home or self-care (01) ==
LOC: MFPLAB 08:27
PROVIDERS: PCP Family Medicine; Visit Provider Family Medicine
DX: E87.5 Hyperkalemia (principal)
CPT/HCPCS: 36415; 80048

== ENCOUNTER → 2025-03-19 | Outpatient (CLI) | payer MEDICARE, OTHER, SELFPAY | END | disposition home or self-care (01) | LOC: CVS 13:25 | PROVIDERS: PCP Family Medicine; Referring Provider Family Medicine; Visit Provider Family Medicine | DX: I50.22 Chronic systolic (congestive) heart failure (principal) | CPT/HCPCS: 93306; Q9957; A4216; C8929 ==

== ENCOUNTER 2025-05-03 10:57 | Emergency (ER) | payer MEDICARE, OTHER, SELFPAY ==
[2025-05-03 10:58] VITALS: BP 149/88; PULSE 76; RESP 16; TEMP 36.8; O2SAT 100
[2025-05-03 11:13] VITALS: BMI 35.6
--- NOTE | 2025-05-03 11:28 | VDLE_ITS ---
Reason For Study Reason For Study: Pain RIGHT LEFT GSV is normal. CFV is compressible, spontaneous, phasic, competent, CFV is compressible, spontaneous, phasic, competent and demonstrates normal augmentation. and demonstrates normal augmentation. FV is compressible, spontaneous, phasic, competent and demonstrates normal augmentation. POP V is compressible, spontaneous, phasic, competent and demonstrates normal augmentation. T/P Trunk is compressible. PTV is compressible. RT PerV is compressible. Procedure This is a venous duplex using B-mode, color flow and spectral Doppler. Exam performed portable in ED. A preliminary report was called and/or faxed to Jacque Huynh MD. VL/Venous Duplex US, Unilateral Interpretation Summary Deep veins of the right lower extremity are patent and compressible segmentally . There is no evidence of right lower extremity deep vein thrombosis. Valvular competence appears intact within the p roximal deep venous system on the right . The right great saphenous vein appears patent and compressible segmentally. The left common femoral vein is patent and compressible . Ordering Physician: Jacque Huynh Referring Physician: Gilles Vance Performed By: Disha Pierce RVT
--- OUTSIDE RECORDS SUMMARY | 2025-05-03 12:10 | XMS RPT_ITS | CCD ---
Author Organization [facility] CliniSymd Care Team Providers Care Feed Miller Name Role Phone Rajiv PATEL, Dr. Gilles Bailey Primary Care Provider [phone] Rajiv PATEL, Dr. Gilles Bailey Attending Provider Rajiv PATEL, Dr. Gilles Bailey Referring Provider Shaniqua PATEL, Dr. James Attending Provider Chetan PATEL, Dr. Dover Attending Provider Samara PATEL, Dr. Michael Hanson Attending Provider Samara PATEL, Dr. Michael Hanson Referring Provider Rajiv PATEL, Dr. Gilles Bailey Primary Care Provider Rajiv PATEL, Dr. Gilles Bailey Attending Provider Rajiv PATEL, Dr. Gilles Bailey Referring Provider [phone] Rajiv PATEL, Dr. Gilles Bailey Primary Care Provider Rajiv PATEL, Dr. Gilles Bailey Attending Provider Rajiv PATEL, Dr. Gilles Bailey Referring Provider Shaniqua PATEL, Dr. James Attending Provider Gilles Vance Attending Unavailable Gilles Vance Referring [...] Unavailable Gilles Vance Referring Unavailable Gilles Vance Referring Unavailable Gilles Vance Primary Care Unavailable Jacob Mcgovern Attending Unavailable Jacob Mcgovern Attending Unavailable Gilles Vance Primary Care Unavailable Jacob Mcgovern Attending Unavailable Gilles Vance Primary Care Unavailable Stanislaw Benton Attending Unavailable Gilles Vance Primary Care Unavailable Gilles Vance Attending Unavailable Gilles Vance Referring Unavailable Gilles Vance Primary Care Unavailable Michael Pascual Attending Unavailable Michael Pascual Referring Unavailable Gilles Vance Primary Care Unavailable Gilles Vance Attending Unavailable Gilles Vance Referring Unavailable Gilles Vance Primary Care Unavailable Medications Current Medications Medication Drug Class(es) Dates Sig (Normalized) Sig (Original) amLODIPine 10 mg oral tablet (20 sources) Dihydropyridine Calcium Channel Sage Start: 09-24-2024 [...] 2024 4:28pm aspirin 81 mg chewable tablet (6 sources) Platelet Aggregation Inhibitor, Nonsteroidal Anti-inflammatory Drug Start: 02-21-2024 Aspirin (Jayna Chewable Aspirin) 81 mg tablet,chewable Active 1 {tbl} PO DAILY February 21, 2024 12:00am atorvastatin 40 mg oral tablet (12 sources) HMG-CoA Reductase Inhibitor Start: 09-11-2024 take [...] on 02/28/24. empagliflozin 25 mg oral tablet (20 sources) Sodium-Glucose Cotransporter 2 Inhibitor Start: 09-11-2024 [...] 2024 4:26pm gabapentin 300 mg oral capsule (4 sources) Anti-epileptic Agent Start: 02-13-2025 take 1 capsule by mouth three times daily Gabapentin 300 mg capsule Active 300 mg PO THREE TIMES A DAY February 13, 2025 12:00am Noob-Mqkv-Zkq7-Liza- Frankn-Bor 500-450-0.67 mg capsule (6 sources) Start: 02-21-2024 Uzad-Imog-Wmf1-M bij-Nttsnj-Qfs 500-450-0.67 mg capsule Active NMA PO February 21, 2024 12:00am metFORMIN hydrochloride 500 mg oral tablet (18 sources) Biguanide Start: 09-24-2024 take 1 tablet [...] 4:30pm metoprolol tartrate 50 mg oral tablet (6 sources) beta-Adrenergic Sage Start: 02-21-2024 take 1 tablet by mouth twice daily Metoprolol Tartrate (Lopressor) 50 mg tablet Active 50 mg PO TWICE A DAY February 21, 2024 12:00am [place] 4-Rez-Ruz-Fish Oil (Fish Oil) 1,200 (144-216) mg capsule (6 sources) Start: 02-21-2024 [place] 9-Rcy-Mqq-Fish Oil (Fish Oil) 1,200 (144-216) mg capsule Active 1 NMA PO DAILY February 21, 2024 12:00am omeprazole 40 mg delayed release oral capsule (20 sources) Proton Pump Inhibitor Start: 09-24-2024 take [...] 2024 4:28pm ondansetron 4 mg oral tablet (6 sources) Serotonin-3 Receptor Antagonist Start: 02-21-2024 take 1 tablet by mouth every eight hours as needed for nausea and vomiting Ondansetron Hcl 4 mg tablet Active 4 mg PO Q8H as needed for nausea and vomiting February 21, 2024 12:00am sacubitril / valsartan (6 sources) Angiotensin 2 Receptor Sage Start: 09-24-2024 Sacubitril-Valsar patino (Entresto) 24-26 mg tablet Active 1 {tbl} PO TWICE A DAY September 24, 2024 1:00am super beta prostate (6 sources) Start: 02-21-2024 super beta prostate Active February 21, 2024 12:00am Vitamin B Complex (Balanced B-50) tablet (6 sources) Start: 02-21-2024 Vitamin B Comp jay (Balanced B-50) tablet Active 1 {tbl} PO DAILY February 21, 2024 12:00am Completed/Discontinued Medications Medication Drug Class(es) Dates Sig (Normalized) Sig (Original) lisinopril 40 mg oral tablet (18 sources) Angiotensin Converting Enzyme Inhibitor Start: 09-11-2024 [...] (150 mg x 2)-100 mg tablets,dose pack (6 sources) Start: 02-21-2024 End: 09-11-2024 Nirmatrelvir-Ritonavir (Paxlovid) 300 mg (150 mg x 2)-100 mg tablets,dose pack Discontinued 0 PO .COMPLEX 30 0 February 21, 2024 12:00am September 11, 2024 4:27pm take TWO 150 mg tablets of nirmatrelvir with ONE 100 mg tablet of ritonavir twice daily for 5 days Start: 02-21-2024 End: 09-11-2024 Nirmatrelvir-Ritonavir (Paxl ovid) 300 mg (150 mg x 2)-100 mg tablets,dose pack Discontinued 0 PO .COMPLEX 30 February 21, 2024 12:00am September 11, 2024 4:27pm take TWO 150 mg tablets of nirmatrelvir with ONE 100 mg tablet of ritonavir twice daily for 5 days spironolactone 25 mg oral tablet (6 sources) Aldosterone Antagonist Start: 02-21-2024 End: 03-10-2025 take 1 tablet by mouth once daily Spironolactone 25 mg tablet Discontinued 25 mg PO DAILY February 21, 2024 12:00am March 10, 2025 1:26pm tamsulosin hydrochloride 0.4 mg oral capsule (6 sources) alpha-Adrenergic Sage Start: 02-21-2024 End: 09-11-2024 take 1 capsule by mouth once daily in the evening Tamsulosin 0.4 mg capsule Discontinued 0.4 mg PO EVERY EVENING February 21, 2024 12:00am September 11, 2024 4:29pm On Hold: Resume on 02/28/24. Problems Problem Classification Problem Date Documented Date Episodic/Chronic Aortic; peripheral; and visceral artery aneurysms (8 sources) Abdominal aortic aneurysm; Translations: [Abdominal aortic aneurysm (AAA)] 09-11-2024 Chronic Calculus of urinary tract (6 sources) Kidney stone; Translations: [Calculus of kidney] 09-11-2024 Episodic Cancer of kidney and renal pelvis (6 sources) History of malignant neoplasm of retroperitoneum; Translations: [Personal history of other malignant neoplasm of kidney] 09-11-2024 Episodic Cancer of prostate (7 sources) Malignant tumor of prostate; Translations: [Malignant neoplasm of prostate] Onset: 12-15-2024 09-11-2024 Chronic Cardiac dysrhythmias (20 sources) Sinus node dysfunction; Translations: [Sick sinus syndrome] Onset: 09-24-2024 09-11-2024 Chronic Conduction disorders (11 sources) Automatic implantable cardiac defibrillator in situ; Translations: [Presence of automatic (implantable) cardiac defibrillator] Onset: 12-05-2023 09-24-2024 Chronic Comment on above: [employer] [place] XT Congestive heart failure; nonhypertensive (11 sources) Chronic combined systolic and diastolic heart failure; Translations: [Chronic combined systolic (congestive) and diastolic (congestive) heart failure] Onset: 09-24-2024 09-11-2024 Chronic Coronary atherosclerosis and other heart disease (7 sources) Coronary atherosclerosis; Translations: [Atherosclerotic heart disease of [place] coronary artery without angina pectoris] Onset: 09-24-2024 09-11-2024 Chronic Diabetes mellitus with complications (8 sources) Chronic kidney disease stage 3 due to type 2 diabetes mellitus; Translations: [Type 2 diabetes mellitus with diabetic chronic kidney disease] Onset: 10-10-2024 09-11-2024 Chronic Diabetes mellitus without complication (6 sources) Diabetes mellitus; Translations: [Type 2 diabetes mellitus without complications] 09-11-2024 Chronic Disorders of lipid metabolism (8 sources) Hyperlipidemia; Translations: [Hyperlipidemia, unspecified] 09-11-2024 Chronic Esophageal disorders (12 sources) Gastroesophageal reflux disease; Translations: [Gastro-esophageal reflux disease without esophagitis] 09-11-2024 Chronic Essential hypertension (8 sources) Hypertensive disorder; Translations: [Essential (primary) hypertension] 09-11-2024 Chronic Fluid and electrolyte disorders (1 source) Hyperkalemia; Translations: [Hyperkalemia] Onset: 03-13-2025 Episodic Occlusion or stenosis of precerebral arteries (6 sources) Bilateral atherosclerosis of carotid arteries; Translations: [Occlusion and stenosis of bilateral carotid arteries] 09-11-2024 Chronic Other endocrine disorders (6 sources) Hyperparathyroidism; Translations: [Hyperparathyroidism, unspecified] 09-11-2024 Chronic Other hematologic conditions (1 source) Other abnormality of red blood cells; Translations: [Other abnormality of red blood cells] Onset: 02-12-2025 Episodic Other nervous system disorders (6 sources) Neuropathy; Translations: [Polyneuropathy, unspecified] 09-11-2024 Chronic Other non-traumatic joint disorders (6 sources) Pain in right knee; Translations: [Right knee pain] 09-11-2024 Episodic Other nutritional; endocrine; and metabolic disorders (6 sources) Obesity; Translations: [Obesity, unspecified] 09-11-2024 Chronic Jasmin-; endo-; and myocarditis; cardiomyopathy (except that caused by tuberculosis or sexually transmitted disease) (11 sources) Dilated cardiomyopathy; Translations: [Dilated cardiomyopathy] Onset: 10-16-2024 09-11-2024 Chronic Peripheral and visceral atherosclerosis (6 sources) Peripheral vascular disease; Translations: [Peripheral vascular disease, unspecified] 09-11-2024 Chronic Residual codes; unclassified (6 sources) Obstructive sleep apnea syndrome; Translations: [Obstructive sleep apnea (adult) (pediatric)] 09-11-2024 Chronic Unclassified (1 source) Abdominal aortic aneurysm, without rupture, unspecified; Translations: [Abdominal aortic aneurysm, without rupture, unspecified] Onset: 12-03-2024 Viral infection (6 sources) Disease caused by 2019-nCoV; Translations: [COVID-19] 09-11-2024 Episodic Results Test Name Value Interpretation Reference Range Facility Echo Complete W/ Contraston 03-19-2025 Echo Complete W/ Contrast [facility] [place] [address] Echo Complete W/ Contrast 03/19/25 1039 MR#: [id number] Acct: [id number] Name: OSCAR KEENAN Rep #: [id number] : 1950 74 From: Jacob Mcgovern MD Attending Dr: Dr. Gilles Vance MD Status: R EG CLI Ordering Dr: Gilles Vance MD Date: 03/19/25 Location: [facility] Sex: M C Admitted: Reason For Study Reason For Study: CHF Procedure This was a 2D Doppler, Color Flow transthoracic echocardiogram. The study was technically difficult. Due to body habitus. Contrast injection was performed. Exam performed in department. Left Ventricle Normal LV size. The left ventricular ejection fraction is 60 %. Stage 1 diastolic dysfunction. No regional wall motion abnormalities noted. Right Ventricle Normal RV size. Normal systolic function. Atria Normal left atrium. Normal right atrium. Mitral Valve Normal mitral valve. Tricuspid Valve Normal tricuspid valve. Mild (1+) tricuspid valve insufficiency. Pulmonary artery systolic pressure is 25 mmHg. Aortic Valve Trisinus/trileaflet aortic valve. Pulmonic Valve Normal pulmonic valve. Great Vessels Normal aortic root. The pulmonary artery is normal size. Inferior vena cava collapse with respiration. Pericardium/Pleural No pericardial effusion. Medication Diluted definity 1.5ml given slow IV push to enhance endocardial definition. MMode/2D Measurements Calculations LVIDd: 5.4 cm IVSd: 0.82 cm Ao root diam: 4.3 cm LVIDs: 4.0 cm LVPWd: 0.99 cm RVDd: 3.6 cm FS: 25.1 % __ asc Aorta Diam: 4.7 cm LAV(MOD-bp): 40.6 ml LVAd ap4: 32.1 cm2 LAV(MOD-bp) Indexed: 18.6 ml/m2 LVLd ap4: 9.3 cm LAV(MOD-sp2): 45.0 ml EDV(MOD-sp4): 92.3 ml LAV(MOD-sp4): 36.0 ml EDV(sp4-el): 93.7 ml LVAs ap4: 18.6 cm2 LVLs ap4: 7.8 cm ESV(MOD-sp4): 37.7 ml ESV(sp4-el): 37.6 ml EF(MOD-sp4): 59.2 % EF(sp4-el): 59.9 % __ LVAd ap2: 31.0 cm2 SV(MOD-sp4): 54.7 ml SV(MOD-sp2): 50.9 ml LVLd ap2: 9.3 cm SI(MOD-sp4): 25.0 ml/m2 SI(MOD-sp2): 23.3 ml/m2 EDV(MOD-sp2): 84.5 ml EDV(sp2-el): 87.8 ml LVAs ap2: 18.0 cm2 LVLs ap2: 8.1 cm ESV(MOD-sp2): 33.6 ml ESV(sp2-el): 33.9 ml EF(MOD-sp2): 60.3 % __ SV(sp4-el): 56.2 ml LA A4 area: 15.8 cm2 RA A4 area: 15.7 cm2 __ TAPSE: 1.6 cm Time Measurements MV dec time: 0.19 sec Doppler Measurements Calculations MV E max jt: 34.3 cm/sec Lat Peak E' Jt: 10.5 cm/sec Med Peak E' Jt: 6.3 cm/sec MV A max jt: 68.3 cm/sec E/E' lat: 3.3 E/E' med: 5.4 MV E/A: 0.50 __ MV V2 max: 75.0 cm/sec MV P1/2t max jt: 37.2 cm/sec Ao V2 max: 112.1 cm/sec MV max P.2 mmHg MV P1/2t: 73.9 msec Ao max P.0 mmHg MV V2 mean: 26.4 cm/sec MV dec slope: 147.4 cm/sec2 Ao V2 mean: 75.2 cm/sec MV mean P.40 mmHg Ao mean P.6 mmHg MV V2 VTI: 15.0 cm MVA(P1/2t): 3.0 cm2 Ao V2 VTI: 22.4 cm AV (velocity ratio): 0.80 __ LV V1 max: 82.7 cm/sec PA V2 max: 84.5 cm/sec TR max jt: 231.8 cm/sec LV V1 max P.7 mmHg PA V2 mean: 57.2 cm/sec TR max P.5 mmHg LV V1 mean P.4 mmHg LV V1 mean: 55.9 cm/sec LV V1 VTI: 18.0 cm ECHO/Echo Complete W/ Contrast Interpretation Summary Normal LV size. The left ventricular ejection fraction is 60 %. No regional wall motion abnormalities noted. Stage 1 diastolic dysfunction. Pulmonary artery systolic pressure is 25 mmHg. Contrast injection was performed. __ Ordering Physician: Gilles Vance Referring Physician: Gilles Vance Performed By: Brea Emerson RDCS, RVT 03/19/251714 Date Jacob Mcgovern MD CC: Dr. Gilles Vance MD Date Dictated: 03/19/251038 Date Transcribed: 03/19/251714 Export Clerk: Signed Normal [facility] Echocardiogram study reportO rdered By: Jacob Mcgovern on 03-19-[address] [facility] [address] [place] [address] Echo Complete W/ Contrast 03/19/251038 MR#: [id number] Acct: [id number] Name: OSCAR KEENAN Rep #:[id number] : 1950 74 From: Jacob Puri Attending Dr: Dr. Gilles Vance MD Status: REG I Ordering Dr: Gilles Vnace MD Date: 03/19/25 Location: [facility] Sex: M C Admitted: Reason For Study Reason For Study: CHF Procedure This was a 2D Doppler, Color Flow transthoracic echocardiogram. The study was technically difficult. Due to body habitus. Contrast injection was performed. Exam performed in department. Left Ventricle Normal LV size. The left ventricular ejection fraction is 60 %. Stage 1 diastolic dysfunction. No regional wall motion abnormalities noted. Right Ventricle Normal RV size. Normal systolic function. Atria Normal left atrium. Normal right atrium. Mitral Valve Normal mitral valve. Tricuspid Valve Normal tricuspid valve. Mild (1+) tricuspid valve insufficiency. Pulmonary artery systolic pressure is 25 mmHg. Aortic Valve Trisinus/trileaflet aortic valve. Pulmonic Valve Normal pulmonic valve. Great Vessels Normal aortic root. The pulmonary artery is normal size. Inferior vena cava collapse with respiration. Pericardium/Pleural No pericardial effusion. Medication Diluted definity 1.5ml given slow IV push to enhance endocardial definition. MMode/2D Measurements & Calculations LVIDd: 5.4 cm IVSd: 0.82 cm Ao root diam: 4.3 cm LVIDs: 4.0 cm LVPWd: 0.99 cm RVDd: 3.6 cm FS: 25.1 % ____ asc Aorta Diam: 4.7 cm LAV(MOD-bp): 40.6 ml LVAd ap4: 32.1 cm2 LAV(MOD-bp) Indexed: 18.6 ml/m2 LVLd ap4: 9.3 cm LAV(MOD-sp2): 45.0 ml EDV(MOD-sp4): 92.3 ml LAV(MOD-sp4): 36.0 ml EDV(sp4-el): 93.7 ml LVAs ap4: 18.6 cm2 LVLs ap4: 7.8 cm ESV(MOD-sp4): 37.7 ml ESV(sp4-el): 37.6 ml EF(MOD-sp4): 59.2 % EF(sp4-el): 59.9 % __ LVAd ap2: 31.0 cm2 SV(MOD-sp4): 54.7 ml SV(MOD-sp2): 50.9 ml LVLd ap2: 9.3 cm SI(MOD-sp4): 25.0 ml/m2 SI(MOD-sp2): 23.3 ml/m2 EDV(MOD-sp2): 84.5 ml EDV(sp2-el): 87.8 ml LVAs ap2: 18.0 cm2 LVLs ap2: 8.1 cm ESV(MOD-sp2): 33.6 ml ESV(sp2-el): 33.9 ml EF(MOD-sp2): 60.3 % ____ SV(sp4-el): 56.2 ml LA A4 area: 15.8 cm2 RA A4 area: 15.7 cm2 ____ TAPSE: 1.6 cm Time Measurements MV dec time: 0.19 sec Doppler Measurements & Calculations MV E max jt: 34.3 cm/sec Lat Peak E' Jt: 10.5 cm/sec Med Peak E' Jt: 6.3 cm/sec MV A max jt: 68.3 cm/sec E/E' lat: 3.3 E/E' med: 5.4 MV E/A: 0.50 ____ MV V2 max: 75.0 cm/sec MV P1/2t max jt: 37.2 cm/sec Ao V2 max: 112.1 cm/sec MV max P.2 mmHg MV P1/2t: 73.9 msec Ao max P.0 mmHg MV V2 mean: 26.4 cm/sec MV dec slope: 147.4 cm/sec2 Ao V2 mean: 75.2 cm/sec MV mean P.40 mmHg Ao mean P.6 mmHg MV V2 VTI: 15.0 cm MVA(P1/2t): 3.0 cm2 Ao V2 VTI: 22.4 cm AV (velocity ratio): 0.80 __ LV V1 max: 82.7 cm/sec PA V2 max: 84.5 cm/sec TR max jt: 231.8 cm/sec LV V1 max P.7 mmHg PA V2 mean: 57.2 cm/sec TR max P.5 mmHg LV V1 mean P.4 mmHg LV V1 mean: 55.9 cm/sec LV V1 VTI: 18.0 cm ECHO/Echo Complete W/ Contrast Interpretation Summary Normal LV size. The left ventricular ejection fraction is 60 %. No regional wall motion abnormalities noted. Stage 1 diastolic dysfunction. Pulmonary artery systolic pressure is 25 mmHg. Contrast injection was performed. __ Ordering Physician: Gilles Vance Referring Physician: Gilles Vance Performed By: Brea Emerson, JADYN, RVT 03/19/251714 Date _ Jacob Mcgovern MD CC: Dr. Gilles Vance MD ~ Date Dictated: 03/19/25 1039 Date Transcribed: 03/19/251714 Export Clerk: Signed [facility] Work Phone: Microalb:Creat Ratio,Random URon 03-10-2025 MALB:CREAT 72.7 mg/g CRE Normal [facility] Comment on above: Order Comment: Order Date: 02/11/25 Order Info: [id number] - MIALB Result Comment: AMENDED REPORT 03/10/25 1104 MALB:CREAT previously reported as: 726.9 mg/g CRE Performed By: #### L 503.6030, L503.6550, L502.0250, L400.0001, L501.0900, L506.1001 #### [facility] [address] [place], [address] Anion gap in Serum or Plasma Ordered By: Gilles Vance on 03-09-2025 Anion gap [Moles/Vol] 15 mmol/L 01-29 [facility] BUN/creatinine ratioOrdered By: Gilles Vance on 03-09-2025 Urea nitrogen/Creatinine [Mass ratio] 15.2 mg/mg 07-06 [facility] Basic Metabolic Profile (BMP )on 03-09-2025 BUN/CRE 15.2 RATIO Normal 07-06 [facility] Comment on above: Order Comment: Order Date: 03/05/25 Order Info: 666-09 - BMP routine Performed By: #### L 500.2500 #### [facility] [address] [place], [address] Calcium [Mass/Vol] 10.0 mg/dL Normal 7.6-11.[address] [facility] Comment on above: Order Comment: Order Date: 03/05/25 Order Info: 666-09 - BMP routine Performed By: #### L 500.2500 #### [facility] [address] [place], [address] Chloride [Moles/Vol] 103 mmol/L Normal 98-108 [facility] Comment on above: Order Comment: Order Date: 03/05/25 Order Info: 666-09 - BMP routine Performed By: #### L 500.2500 #### [facility] [address] [place], [address] CO2 [Moles/Vol] 18.8 mmol/L Low 21.0-32.0 [facility] Comment on above: Order Comment: Order Date: 03/05/25 Order Info: 666-09 - BMP routine Performed By: #### L 500.2500 #### [facility] [address] [place], [address] Creatinine [Mass/Vol] 1.94 mg/dL High 0.70-1.20 [facility] Comment on above: Order Comment: Order Date: 03/05/25 Order Info: 0667- - BMP routine Performed By: #### L 500.2500 #### [facility] [address] [place], [address] GAP 15 Normal 5-15 [facility] Comment on above: Order Comment: Order Date: 03/05/25 Order Info: 666- - BMP routine Performed By: #### L 500.2500 #### [facility] [address] [place], [address] GFR/1.73 sq M.predicted among non-blacks MDRD (S/P/Bld) [Vol rate/Area] 35 mL/min/{1.73_m2} Low >60 [facility] Comment on above: Order Comment: Order Date: 03/05/25 Order Info: 666-09 - BMP routine Result Comment: mL/m in/1.73m2 CKD-EPI Creatinine Equation (2020) Performed By: #### L 500.2500 #### [facility] [address] [place], [address] Glucose [Mass/Vol] 165 mg/dL High 70-[address] [facility] Comment on above: Order Comment: Order Date: 03/05/25 Order Info: 06- - BMP routine Performed By: #### L 500.2500 #### [facility] [address] [place], [address] Potassium [Moles/Vol] 5.3 mmol/L High 3.3-5.1 [facility] Comment on above: Order Comment: Order Date: 03/05/25 Order Info: 06- - BMP routine Performed By: #### L 500.2500 #### [facility] [address] [place], [address] ([address] Sodium [Moles/Vol] 137 mmol/L Normal 133-[address] [facility] Comment on above: Order Comment: Order Date: 03/05/25 Order Info: 0667-1 - BMP routine Performed By: #### L 500.2500 #### [facility] [address] [place], [place], [address] Urea nitrogen [Mass/Vol] 30 mg/dL High 4-19 [facility] Comment on above: Order Comment: Order Date: 03/05/25 Order Info: 0667-1 - BMP routine Performed By: #### L 500.2500 #### [facility] [address] [place], [place], [address] Carbon dioxide, total [Moles /volume] in Central venous bloodOrdered By: Gilles Vance on 03-09-2025 CO2 [Moles/Vol] 18.8 mmol/L Low 21.0-32.0 [facility] Chloride assayOrdered By: Anel Vance on 03-09-2025 Chloride [Moles/Vol] 103 mmol/L 98-108 [facility] [place] Glomerular filtration rate ( GFR) estimation/1.73 sq m using serum, plasma, or whole bOrdered By: Gilles Vance on 03-09-2025 GFR/1.73 sq M.predicted among non-blacks MDRD (S/P/Bld) [Vol rate/Area] 35 mL/min/{1.73_m2} Low >60 [facility] Comment on above: mL/min/1.73m2 CKD-EP I Creatinine Equation (2020) Potassium measurement (mass/ volume)Ordered By: Gilles Vance on 03-09-2025 Potassium (Unsp spec) [Mass/Vol] 5.3 mmol/L High 3.3-5.1 [facility] Serum creatinine measurement (mass/volume)Ordered By: Gilles Vance on 03-09-2025 Creatinine [Mass/Vol] 1.94 mg/dL High 0.70-1.20 [facility] Serum glucose measurement (m ass/volume)Ordered By: Gilles Vance on 03-09-2025 Glucose [Mass/Vol] 165 mg/dL High 70-[address] [facility] Serum or plasma calcium bryanna urement (mass/volume)Ordered By: Gilles Vance on 03-09-2025 Calcium [Mass/Vol] 10.0 mg/dL 7.6-11.[address] [facility] Serum or plasma urea nitroge n measurement (mass/volume)Ordered By: Gilles Vance on 03-09-2025 Urea nitrogen [Mass/Vol] 30 mg/dL High 4- [facility] Sodium levelOrdered By: Gilles Vance on 03-09-2025 Sodium [Moles/Vol] 137 mmol/L 133-[address] [facility] Anion gap in Serum or Plasma Ordered By: Gilles Vance on 03-04-2025 Anion gap [Moles/Vol] 14 mmol/L 5- [facility] BUN/creatinine ratioOrdered By: Gilles Vance on 03-04-2025 Urea nitrogen/Creatinine [Mass ratio] 14.1 mg/mg - [facility] Basic Metabolic Profile (BMP )on 03-04-2025 BUN/CRE 14.1 RATIO Normal 07-06 [facility] Comment on above: Order Comment: Order Date: 03/04/25Order Info: 0667-1 - BMP Performed By: #### L 500.2500 ####[facility] [address] [place], [address] Calcium [Mass/Vol] 9.5 mg/dL Normal 7.6-11.[address] [facility] Comment on above: Order Comment: Order Date: 03/04/25Order Info: 0667-1 - BMP Performed By: #### L 500.2500 ####[facility] [address] [place], [address] Chloride [Moles/Vol] 102 mmol/L Normal 98-108 [facility] [place] Comment on above: Order Comment: Order Date: 03/04/25Order Info: 0667-1 - BMP Performed By: #### L 500.2500 ####[facility] [address] [place], [address] CO2 [Moles/Vol] 19.8 mmol/L Low 21.0-32.0 [facility] Comment on above: Order Comment: Order Date: 03/04/25Order Info: 666-09 - BMP Performed By: #### L 500.2500 ####[facility] [address] [place], [address] Creatinine [Mass/Vol] 2.12 mg/dL High 0.70-1.20 [facility] Comment on above: Order Comment: Order Date: 03/04/25Order Info: 666-09 - BMP Performed By: #### L 500.2500 ####[facility] [address] [place], [address] GAP 14 Normal 5-15 [facility] Comment on above: Order Comment: Order Date: 03/04/25Order Info: 666-09 - BMP Performed By: #### L 500.2500 ####[facility] [address] [place], [address] GFR/1.73 sq M.predicted among non-blacks MDRD (S/P/Bld) [Vol rate/Area] 32 mL/min/{1.73_m2} Low >60 [facility] Comment on above: Order Comment: Order Date: 03/04/25Order Info: [id number] - BMP Result Comment: mL/m in/1.73m2 CKD-EPI Creatinine Equation (2020) Performed By: #### L 500.2500 ####[facility] [address] [place], [address] Glucose [Mass/Vol] 164 mg/dL High 70-[address] [facility] Comment on above: Order Comment: Order Date: 03/04/25Order Info: [id number] - BMP Performed By: #### L 500.2500 ####[facility] [address] [place], [address] Potassium [Moles/Vol] 5.3 mmol/L High 3.3-5.1 [facility] Comment on above: Order Comment: Order Date: 03/04/25Order Info: [id number] - BMP Performed By: #### L 500.2500 ####[facility] [address] [place], [address] Sodium [Moles/Vol] 136 mmol/L Normal 133-[address] [facility] Comment on above: Order Comment: Order Date: 03/04/25Order Info: 67 - BMP Performed By: #### L 500.2500 ####[facility] [address] [place], [address] Urea nitrogen [Mass/Vol] 30 mg/dL High 4-19 [facility] Comment on above: Order Comment: Order Date: 03/04/25Order Info: [id number] - BMP Performed By: #### L 500.2500 ####[facility] [address] [place], [address] Carbon dioxide, total [Moles /volume] in Central venous bloodOrdered By: Gilles Vance on 03-04-2025 CO2 [Moles/Vol] 19.8 mmol/L Low 21.0-32.0 [facility] Chloride assayOrdered By: Anel Vance on 03-04-2025 Chloride [Moles/Vol] 102 mmol/L 98-108 [facility] [place] Glomerular filtration rate ( GFR) estimation/1.73 sq m using serum, plasma, or whole bOrdered By: Gilles Vance on 03-04-2025 GFR/1.73 sq M.predicted among non-blacks MDRD (S/P/Bld) [Vol rate/Area] 32 mL/min/{1.73_m2} Low >60 [facility] Comment on above: mL/min/1.73m2 CKD-EP I Creatinine Equation (2020) Potassium measurement (mass/ volume)Ordered By: Gilles Vance on 03-04-2025 Potassium (Unsp spec) [Mass/Vol] 5.3 mmol/L High 3.3-5.1 [facility] Serum creatinine measurement (mass/volume)Ordered By: Gilles Vance on 03-04-2025 Creatinine [Mass/Vol] 2.12 mg/dL High 0.70-1.20 [facility] Serum glucose measurement (m ass/volume)Ordered By: Gilles Vance on 03-04-2025 Glucose [Mass/Vol] 164 mg/dL High 70-[address] [facility] Serum or plasma calcium bryanna urement (mass/volume)Ordered By: Gilles Vance on 03-04-2025 Calcium [Mass/Vol] 9.5 mg/dL 7.6-11.[address] [facility] Serum or plasma urea nitroge n measurement (mass/volume)Ordered By: Gilles Vance on 03-04-2025 Urea nitrogen [Mass/Vol] 30 mg/dL High 4-19 [facility] Sodium levelOrdered By: Gilles Vance on 03-04-2025 Sodium [Moles/Vol] 136 mmol/L 133-[address] [facility] Ferritinon 02-12-2025 Ferritin [Mass/Vol] 28 ng/mL Low 37-417 [facility] Comment on above: Order Comment: LADI Bailey ADD ANNA IBC TO BLOOD DRAWN 02/11/25 PER Order Date: 02/11/25 Order Info: [id number] - CMP Order Info: [id number] - LIPID Order Info: [id number] - PHOS Performed By: #### L 503.6030, L503.6550, L502.0250, L400.0001, L501.0900, L506.1001 #### [facility] [address] [place], [place], [id number] Iron+Iron Binding Capacityon 02-12-2025 Iron [Mass/Vol] 83 ug/dL Normal 65-175 [facility] Comment on above: Order Comment: LADI Bailey ADD ANNA IBC TO BLOOD DRAWN 02/11/25 PER Order Date: 02/11/25 Order Info: [id number] - CMP Order Info: [id number] - LIPID Order Info: [id number] - PHOS Performed By: #### L 503.6030, L503.6550, L502.0250, L400.0001, L501.0900, L506.1001 #### [facility] [address] [place], [address] IRON SATURATION 19.0 Normal 9-55 [facility] Comment on above: Order Comment: LADI Bailey ADD ANNA IBC TO BLOOD DRAWN 02/11/25 PER Order Date: 02/11/25 Order Info: [id number] - CMP Order Info: - LIPID Order Info: [id number] - PHOS Performed By: #### L 503.6030, L503.6550, L502.0250, L400.0001, L501.0900, L506.1001 #### [facility] [address] [place], [address] TIBC 429 ug/dL Normal 250-450 [facility] Comment on above: Order Comment: LADI Bailey ADD ANNA IBC TO BLOOD DRAWN 02/11/25 PER Order Date: 02/11/25 Order Info: [id number] - CMP Order Info: - LIPID Order Info: [id number] - PHOS Performed By: #### L 503.6030, L503.6550, L502.0250, L400.0001, L501.0900, L506.1001 #### [facility] [address] [place], [address] UIBC 346 ug/dL Normal 228-428 [facility] Comment on above: Order Comment: LADI Bailey ADD ANNA IBC TO BLOOD DRAWN 02/11/25 PER Order Date: 02/11/25 Order Info: [id number] - CMP Order Info: - LIPID Order Info: [id number] - PHOS Performed By: #### L 503.6030, L503.6550, L502.0250, L400.0001, L501.0900, L506.1001 #### [facility] [address] [place], [address] Absolute lymphocyte countOrd ered By: Gilles Vance on 02-11-2025 Lymphocytes Auto (Unsp spec) [#/Vol] 1.57 10*3/uL 0.83-4.51 [facility] Absolute neutrophil countOrd ered By: Gilles Vance on 02-11-2025 Neutrophils (Bld) [#/Vol] 4.9 10*3/uL 2.0-7.7 [facility] Anion gap in Serum or Plasma Ordered By: Gilles Vance on 02-11-2025 Anion gap [Moles/Vol] 14 mmol/L 5- [facility] Automated lymphocyte count a s percentage of total leukocytesOrdered By: Gilles Vance on 02-11-2025 Lymphocytes/100 WBC Auto (Unsp spec) 20.8 % - [facility] BUN/creatinine ratioOrdered By: Gilles Vance on 02-11-2025 Urea nitrogen/Creatinine [Mass ratio] 12.6 mg/mg 10- [facility] Basophil percentageOrdered B y: Gilles Vance on 02-11-2025 Basophils/100 WBC (Bld) 1.1 % High 0-1 [facility] Bilirubin Test strip Ql (U)O rdered By: Gilles Vance on 02-11-2025 Bilirubin Ql (U) Negative Negative [facility] Bilirubin, totalOrdered By: Gilles Vance on 02-11-2025 Bilirubin [Mass/Vol] 0.65 mg/dL 0.00-1.30 [facility] [place] CBC W/Diff, Automatedon 01-16 Absolute Lymph 1.57 X10 3/uL Normal 0.83-4.51 [facility] Comment on above: Order Comment: Order Date: 02/11/25Order Info: [id number] - CBCD Performed By: #### L 500.4050, L501.2300, L500.4100, L501.9985, L100.0100, L509.1000 ####[facility] [address] [place], [place], [id number] Absolute Neut 4.9 X10 3/uL Normal 2.0-7.7 [facility] Comment on above: Order Comment: Order Date: 02/11/25Order Info: [id number] - CBCD Performed By: #### L 500.4050, L501.2300, L500.4100, L501.9985, L100.0100, L509.1000 ####[facility] [address] [place], [address] Basophils/100 WBC (Bld) 1.1 % High 0-1 [facility] Comment on above: Order Comment: Order Date: 02/11/25Order Info: [id number] - CBCD Performed By: #### L 500.4050, L501.2300, L500.4100, L501.9985, L100.0100, L509.1000 ####[facility] [address] [place], [address] Eosinophils/100 WBC (Bld) 2.1 % Normal 0-5 [facility] Comment on above: Order Comment: Order Date: 02/11/25Order Info: 018- - CBCD Performed By: #### L 500.4050, L501.2300, L500.4100, L501.9985, L100.0100, L509.1000 ####[facility] [address] [place], [address] Erythrocyte distribution width (RBC) [Ratio] 13.3 % Normal 11.6-14.6 [facility] Comment on above: Order Comment: Order Date: 02/11/25Order Info: 018- - CBCD Performed By: #### L 500.4050, L501.2300, L500.4100, L501.9985, L100.0100, L509.1000 ####[facility] [address] [place], [address] Hematocrit (Bld) [Volume fraction] 51.7 % Normal 40-54 [facility] Comment on above: Order Comment: Order Date: 02/11/25Order Info: [id number] - CBCD Performed By: #### L 500.4050, L501.2300, L500.4100, L501.9985, L100.0100, L509.1000 ####[facility] [address] [place], [address] Hemoglobin (Bld) [Mass/Vol] 17.2 g/dL High 13.0-16.5 [facility] Comment on above: Order Comment: Order Date: 02/11/25Order Info: [id number] - CBCD Performed By: #### L 500.4050, L501.2300, L500.4100, L501.9985, L100.0100, L509.1000 ####[facility] [address] [place], [address] IG% 0.500 Normal 0.0-0.9 [facility] Comment on above: Order Comment: Order Date: 02/11/25Order Info: 018- - CBCD Result Comment: IG% - Immature Granulocytes (promyelocytes, myelocytes and metamyelocytes) > 1% indicates that a LEFT SHIFT is Present. Performed By: #### L 500.4050, L501.2300, L500.4100, L501.9985, L100.0100, L509.1000 ####[facility] [address] [place], [address] Lymphocytes/100 WBC (Bld) 20.8 % Normal 19-41 [facility] Comment on above: Order Comment: Order Date: 02/11/25Order Info: [id number] - CBCD Performed By: #### L 500.4050, L501.2300, L500.4100, L501.9985, L100.0100, L509.1000 ####[facility] [address] [place], [address] MCH (RBC) [Entitic mass] 28.7 pg Normal 27.0-32.0 [facility] Comment on above: Order Comment: Order Date: 02/11/25Order Info: [id number] - CBCD Performed By: #### L 500.4050, L501.2300, L500.4100, L501.9985, L100.0100, L509.1000 ####[facility] [address] [place], [address] MCHC (RBC) [Mass/Vol] 33.3 g/dL Normal 32-36 [facility] Comment on above: Order Comment: Order Date: 02/11/25Order Info: [id number] - CBCD Performed By: #### L 500.4050, L501.2300, L500.4100, L501.9985, L100.0100, L509.1000 ####[facility] [address] [place], [address] MCV (RBC) [Entitic vol] 86.2 fL Normal 80-94 [facility] Comment on above: Order Comment: Order Date: 02/11/25Order Info: [id number] - CBCD Performed By: #### L 500.4050, L501.2300, L500.4100, L501.9985, L100.0100, L509.1000 ####[facility] [address] [place], [address] Monocytes/100 WBC (Bld) 10.6 % High 0-10 [facility] Comment on above: Order Comment: Order Date: 02/11/25Order Info: [id number] - CBCD Performed By: #### L 500.4050, L501.2300, L500.4100, L501.9985, L100.0100, L509.1000 ####[facility] [address] [place], [address] Neutrophils/100 WBC (Bld) 64.9 % Normal 47-70 [facility] Comment on above: Order Comment: Order Date: 02/11/25Order Info: [id number] - CBCD Performed By: #### L 500.4050, L501.2300, L500.4100, L501.9985, L100.0100, L509.1000 ####[facility] [address] [place], [address] Nucleated RBC (Bld) [#/Vol] 0 10*3/uL Normal 0-5 [facility] Comment on above: Order Comment: Order Date: 02/11/25Order Info: [id number] - CBCD Performed By: #### L 500.4050, L501.2300, L500.4100, L501.9985, L100.0100, L509.1000 ####[facility] [address] [place], [address] Platelet mean volume (Bld) [Entitic vol] 11.9 fL Normal 6.2-12.0 [facility] Comment on above: Order Comment: Order Date: 02/11/25Order Info: [id number] - CBCD Performed By: #### L 500.4050, L501.2300, L500.4100, L501.9985, L100.0100, L509.1000 ####[facility] [address] [place], [address] Platelets (Bld) [#/Vol] 219 10*3/uL Normal 150-450 [facility] Comment on above: Order Comment: Order Date: 02/11/25Order Info: [id number] - CBCD Performed By: #### L 500.4050, L501.2300, L500.4100, L501.9985, L100.0100, L509.1000 ####[facility] [address] [place], [address] RBC (Bld) [#/Vol] 6.00 10*6/uL Normal 4.6-6.2 [facility] Comment on above: Order Comment: Order Date: 02/11/25Order Info: [id number] - CBCD Performed By: #### L 500.4050, L501.2300, L500.4100, L501.9985, L100.0100, L509.1000 ####[facility] [address] [place], [address] RDW SD 41.3 fl Normal 35.1-43.9 [facility] Comment on above: Order Comment: Order Date: 02/11/25Order Info: [id number] - CBCD Performed By: #### L 500.4050, L501.2300, L500.4100, L501.9985, L100.0100, L509.1000 ####[facility] [address] [place], [place], [address] WBC (Bld) [#/Vol] 7.6 10*3/uL Normal 4.4-11.[address] [facility] Comment on above: Order Comment: Order Date: 02/11/25Order Info: [id number] - CBCD Performed By: #### L 500.4050, L501.2300, L500.4100, L501.9985, L100.0100, L509.1000 ####[facility] [address] [place], [place], [address] Calculated very low density lipoprotein (VLDL) cholesterol measurementOrdered By: Gilles Vance on 02-11-2025 Calculated very low density lipoprotein (VLDL) cholesterol measurement 34 mg/dL 5-40 [facility] Carbon dioxide, total [Moles /volume] in Central venous bloodOrdered By: Gilles Vance on 02-11-2025 CO2 [Moles/Vol] 18.3 mmol/L Low 21.0-32.0 [facility] Chloride assayOrdered By: Anel Vance on 02-11-2025 Chloride [Moles/Vol] 104 mmol/L 98-108 [facility] [place] Comprehensive Metabolic Prof ilon 02-11-2025 Albumin [Mass/Vol] 4.6 g/dL Normal 3.4-4.[address] [facility] Comment on above: Order Comment: Order Date: 02/11/25Order Info: [id number] - CMPOrder Info: [id number] - LIPIDOrder Info: [id number] - PHOS Performed By: #### L 500.4050, L501.2300, L500.4100, L501.9985, L100.0100, L509.1000 ####[facility] [address] [place], [address] Albumin/Globulin [Mass ratio] 1.5 {ratio} Normal 0.9-2.4 [facility] Comment on above: Order Comment: Order Date: 02/11/25Order Info: [id number] - CMPOrder Info: [id number] - LIPIDOrder Info: [id number] - PHOS Performed By: #### L 500.4050, L501.2300, L500.4100, L501.9985, L100.0100, L509.1000 ####[facility] [address] [place], [address] ALK PHOS 60 U/L Normal 40-129 [facility] Comment on above: Order Comment: Order Date: 02/11/25Order Info: 07-1 - CMPOrder Info: [id number] - LIPIDOrder Info: [id number] - PHOS Performed By: #### L 500.4050, L501.2300, L500.4100, L501.9985, L100.0100, L509.1000 ####[facility] [address] [place], [address] ALT [Catalytic activity/Vol] 15 U/L Normal <=46 [facility] Comment on above: Order Comment: Order Date: 02/11/25Order Info: [id number] - CMPOrder Info: [id number] - LIPIDOrder Info: [id number] - PHOS Performed By: #### L 500.4050, L501.2300, L500.4100, L501.9985, L100.0100, L509.1000 ####[facility] [address] [place], [address] AST [Catalytic activity/Vol] 17 U/L Normal <=37 [facility] Comment on above: Order Comment: Order Date: 02/11/25Order Info: [id number] - CMPOrder Info: [id number] - LIPIDOrder Info: [id number] - PHOS Performed By: #### L 500.4050, L501.2300, L500.4100, L501.9985, L100.0100, L509.1000 ####[facility] [address] [place], [address] Bilirubin [Mass/Vol] 0.65 mg/dL Normal 0.00-1.30 [facility] [place] Comment on above: Order Comment: Order Date: 02/11/25Order Info: [id number] - CMPOrder Info: [id number] - LIPIDOrder Info: [id number] - PHOS Performed By: #### L 500.4050, L501.2300, L500.4100, L501.9985, L100.0100, L509.1000 ####[facility] [address] [place], [address] BUN/CRE 12.6 RATIO Normal 10-20 [facility] Comment on above: Order Comment: Order Date: 02/11/25Order Info: [id number] - CMPOrder Info: [id number] - LIPIDOrder Info: [id number] - PHOS Performed By: #### L 500.4050, L501.2300, L500.4100, L501.9985, L100.0100, L509.1000 ####[facility] [address] [place], [address] Calcium [Mass/Vol] 10.1 mg/dL Normal 7.6-11.[address] [facility] Comment on above: Order Comment: Order Date: 02/11/25Order Info: [id number] - CMPOrder Info: [id number] - LIPIDOrder Info: [id number] - PHOS Performed By: #### L 500.4050, L501.2300, L500.4100, L501.9985, L100.0100, L509.1000 ####[facility] [address] [place], [address] Chloride [Moles/Vol] 104 mmol/L Normal 98-108 [facility] [place] Comment on above: Order Comment: Order Date: 02/11/25Order Info: 86-1 - CMPOrder Info: [id number] - LIPIDOrder Info: 7- - PHOS Performed By: #### L 500.4050, L501.2300, L500.4100, L501.9985, L100.0100, L509.1000 ####[facility] [address] [place], [address] CO2 [Moles/Vol] 18.3 mmol/L Low 21.0-32.0 [facility] Comment on above: Order Comment: Order Date: 02/11/25Order Info: [id number]- - CMPOrder Info: [id number] - LIPIDOrder Info: [id number] - PHOS Performed By: #### L 500.4050, L501.2300, L500.4100, L501.9985, L100.0100, L509.1000 ####[facility] [address] [place], [address] Creatinine [Mass/Vol] 1.64 mg/dL High 0.70-1.20 [facility] Comment on above: Order Comment: Order Date: 02/11/25Order Info: 86- - CMPOrder Info: [id number] - LIPIDOrder Info: [id number] - PHOS Performed By: #### L 500.4050, L501.2300, L500.4100, L501.9985, L100.0100, L509.1000 ####[facility] [address] [place], [address] GAP 14 Normal 5-15 [facility] Comment on above: Order Comment: Order Date: 02/11/25Order Info: 86-1 - CMPOrder Info: [id number] - LIPIDOrder Info: [id number] - PHOS Performed By: #### L 500.4050, L501.2300, L500.4100, L501.9985, L100.0100, L509.1000 ####[facility] [address] [place], [address] GFR/1.73 sq M.predicted among non-blacks MDRD (S/P/Bld) [Vol rate/Area] 43 mL/min/{1.73_m2} Low >60 [facility] Comment on above: Order Comment: Order Date: 02/11/25Order Info: [id number] - CMPOrder Info: [id number] - LIPIDOrder Info: [id number] - PHOS Result Comment: mL/m in/1.73m2 CKD-EPI Creatinine Equation (2020) Performed By: #### L 500.4050, L501.2300, L500.4100, L501.9985, L100.0100, L509.1000 ####[facility] [address] [place], [address] Globulin (S) [Mass/Vol] 3.0 g/dL Normal 2.2-4.2 [facility] Comment on above: Order Comment: Order Date: 02/11/25Order Info: [id number] - CMPOrder Info: [id number] - LIPIDOrder Info: [id number] - PHOS Performed By: #### L 500.4050, L501.2300, L500.4100, L501.9985, L100.0100, L509.1000 ####[facility] [address] [place], [address] Glucose [Mass/Vol] 128 mg/dL High 70-[address] [facility] Comment on above: Order Comment: Order Date: 02/11/25Order Info: [id number] - CMPOrder Info: [id number] - LIPIDOrder Info: [id number] - PHOS Performed By: #### L 500.4050, L501.2300, L500.4100, L501.9985, L100.0100, L509.1000 ####[facility] [address] [place], [address] Potassium [Moles/Vol] 5.3 mmol/L High 3.3-5.1 [facility] Comment on above: Order Comment: Order Date: 02/11/25Order Info: [id number] - CMPOrder Info: [id number] - LIPIDOrder Info: [id number] - PHOS Performed By: #### L 500.4050, L501.2300, L500.4100, L501.9985, L100.0100, L509.1000 ####[facility] [address] [place], [address] Sodium [Moles/Vol] 137 mmol/L Normal 133-[address] [facility] Comment on above: Order Comment: Order Date: 02/11/25Order Info: [id number]- - CMPOrder Info: [id number] - LIPIDOrder Info: [id number] - PHOS Performed By: #### L 500.4050, L501.2300, L500.4100, L501.9985, L100.0100, L509.1000 ####[facility] [address] [place], [address] T PROT 7.6 g/dL Normal 5.9-8.4 [facility] Comment on above: Order Comment: Order Date: 02/11/25Order Info: [id number] - CMPOrder Info: [id number] - LIPIDOrder Info: [id number] - PHOS Performed By: #### L 500.4050, L501.2300, L500.4100, L501.9985, L100.0100, L509.1000 ####[facility] [address] [place], [address] Urea nitrogen [Mass/Vol] 21 mg/dL High 4-19 [facility] Comment on above: Order Comment: Order Date: 02/11/25Order Info: 07- - CMPOrder Info: [id number] - LIPIDOrder Info: [id number] - PHOS Performed By: #### L 500.4050, L501.2300, L500.4100, L501.9985, L100.0100, L509.1000 ####[facility] [address] [place], [address] Eosinophil percentageOrdered By: Gilles Vance on 02-11-2025 Eosinophils/100 WBC (Bld) 2.1 % 0-5 [facility] Erythrocyte distribution wid th ratioOrdered By: Gilles Vance on 02-11-2025 Erythrocyte distribution width (RBC) [Ratio] 13.3 % 11.6-14.6 [facility] Erythrocyte distribution wid th standard deviationOrdered By: Gilles Vance on 02-11-2025 Erythrocyte distribution width (RBC) [Ratio] 41.3 fl 35.1-43.9 [facility] Glomerular filtration rate ( GFR) estimation/1.73 sq m using serum, plasma, or whole bOrdered By: Gilles Vance on 02-11-2025 GFR/1.73 sq M.predicted among non-blacks MDRD (S/P/Bld) [Vol rate/Area] 43 mL/min/{1.73_m2} Low >60 [facility] Comment on above: mL/min/1.73m2 CKD-EP I Creatinine Equation (2020) Hematocrit Auto (Bld) [Volum e fraction]Ordered By: Gilles Vance on 02-11-2025 Hematocrit (Bld) [Volume fraction] 51.7 % 40-54 [facility] Hemoglobin A1con 02-11-2025 HbA1c (Bld) [Mass fraction] 8.7 % High <=5.6 [facility] Comment on above: Order Comment: Order Date: 02/11/25Order Info: [id number] - A1C Result Comment: Norm al < 5.7 % Prediabetic 5.7 - 6.4 % Diabetic >or= 6.5 % Please note range changes. Performed By: #### L 500.4050, L501.2300, L500.4100, L501.9985, L100.0100, L509.1000 ####[facility] [address] [place], [address] Hemoglobin A1c percentageOrd ered By: Gilles Vance on 02-11-2025 HbA1c (Bld) [Mass fraction] 8.7 % High <5.7 [facility] Comment on above: Normal < 5.7 % Predi abetic 5.7 - 6.4 % Diabetic >or= 6.5 % Please note range changes. Hemoglobin measurementOrdere d By: Gilles Vance on 02-11-2025 Hemoglobin (Bld) [Mass/Vol] 17.2 g/dL High 13.0-16.5 [facility] Immature granulocytes/100 WB C Auto (Bld)Ordered By: Gilles Vance on 02-11-2025 Immature granulocytes/100 WBC (Bld) 0.500 % 0.0-0.9 [facility] Comment on above: IG% - Immature Granu locytes (promyelocytes, myelocytes and metamyelocytes) > 1% indicates that a LEFT SHIFT is Present. Iron measurement (mass/mass) Ordered By: Gilles Vance on 02-11-2025 Iron (Unsp spec) [Mass/Mass] 83 ug/dL 65-175 [facility] Ketones Test strip Ql (U)Ord ered By: Gilles Vance on 02-11-2025 Ketones Ql (U) Negative Negative [facility] LDL calc ser/plasOrdered By: Gilles Vance on 02-11-2025 Cholesterol in LDL [Mass/Vol] 58 mg/dL [facility] Comment on above: Rgfkjgsayj=048-456 m g/dL & Higher Xdut=604 mg/dL or greater Laboratory - Chemistry and C hemistry - challengeOrdered By: Gilles Vance on 02-11-2025 AST [Catalytic activity/Vol] 17 U/L <38 [facility] Lipid Profileon 02-11-2025 CHOL:HDL 3.86 Normal [facility] Comment on above: Order Comment: Order Date: 02/11/25Order Info: [id number] - CMPOrder Info: [id number] - LIPIDOrder Info: [id number] - PHOS Performed By: #### L 500.4050, L501.2300, L500.4100, L501.9985, L100.0100, L509.1000 ####[facility] [id number] [place], [address] Cholesterol [Mass/Vol] 125 mg/dL Normal <=200 [facility] Comment on above: Order Comment: Order Date: 02/11/25Order Info: [id number] - CMPOrder Info: [id number] - LIPIDOrder Info: [id number] - PHOS Result Comment: Chol esterol level, Desirable <200 mg/dL Borderline high cholesterol 200-239 mg/dL High cholesterol >=240 mg/dL Recommendations of the NCEP Adult Treatment Panel for the following risk-cutoff thresholds for the [place] population. Performed By: #### L 500.4050, L501.2300, L500.4100, L501.9985, L100.0100, L509.1000 ####[facility] [id number] [place], [place], [phone]) Cholesterol in HDL [Mass/Vol] 32 mg/dL Low [facility] Comment on above: Order Comment: Order Date: 02/11/25Order Info: 07 - CMPOrder Info: [id number] - LIPIDOrder Info: [id number] - PHOS Result Comment: Mica onal Cholesterol Education Program (NCEP) guidelines: <40 mg/dL: Low HDL-cholesterol (major risk factor for CHD) >= 60 mg/dL: High HDL-cholesterol (negative risk factor for CHD) HDL-cholesterol is affected by a number of factors, e.g. smoking, exercise, hormones, sex and age. Performed By: #### L 500.4050, L501.2300, L500.4100, L501.9985, L100.0100, L509.1000 ####[facility] [address] [place], [address] Cholesterol in LDL [Mass/Vol] 58 mg/dL Normal [facility] Comment on above: Order Comment: Order Date: 02/11/25Order Info: [id number] - CMPOrder Info: [id number] - LIPIDOrder Info: [id number] - PHOS Result Comment: Bord eoeyjl=979-232 mg/dL Higher Hcsp=647 mg/dL or greater Performed By: #### L 500.4050, L501.2300, L500.4100, L501.9985, L100.0100, L509.1000 ####[facility] [address] [place], [address] Cholesterol in VLDL [Mass/Vol] 34 mg/dL Normal 5-40 [facility] Comment on above: Order Comment: Order Date: 02/11/25Order Info: [id number] - CMPOrder Info: [id number] - LIPIDOrder Info: [id number] - PHOS Performed By: #### L 500.4050, L501.2300, L500.4100, L501.9985, L100.0100, L509.1000 ####[facility] [address] [place], [address] Triglyceride [Mass/Vol] 172 mg/dL Normal [facility] Comment on above: Order Comment: Order Date: 02/11/25Order Info: [id number] - CMPOrder Info: [id number] - LIPIDOrder Info: [id number] - PHOS Result Comment: The drugs N-Acetylcysteine and Metamizole may falsely depress this assay. Normal range: <150 mg/dL Borderline High: 150-199 mg/dL High: 200-499 mg/dL Very High: >500 mg/dL Performed By: #### L 500.4050, L501.2300, L500.4100, L501.9985, L100.0100, L509.1000 ####[facility] [address] [place], [address] MCV (mean corpuscular volume ) determinationOrdered By: Gilles Vance on 02-11-2025 MCV (RBC) [Entitic vol] 86.2 fL 80-94 [facility] Mean corpuscular hemoglobin (MCH) determinationOrdered By: Gilles Vance on 02-11-2025 MCH (RBC) [Entitic mass] 28.7 pg 27.0-32.0 [facility] Mean corpuscular hemoglobin concentration (MCHC) determinationOrdered By: Gilles Vance on 02-11-2025 MCHC (RBC) [Mass/Vol] 33.3 g/dL 32-36 [facility] Mean platelet volume determi nationOrdered By: Gilles Vance on 02-11-2025 Platelet mean volume (Bld) [Entitic vol] 11.9 fL 6.2-12.0 [facility] Microscopic analysis of urin e for red blood cells (RBC)Ordered By: Gilles Vance on 02-11-2025 Microscopic analysis of urine for red blood cells (RBC) 0 SEEN /hpf 0-5 [facility] Monocyte percentageOrdered B y: Gilles Vance on 02-11-2025 Monocytes/100 WBC (Bld) 10.6 % High 0-10 [facility] Mucus LM Ql (Urine sed)Order ed By: Gilles Vance on 02-11-2025 Mucus Ql (Urine sed) 0 SEEN /hpf [facility] Neutrophil percentageOrdered By: Gilles Vance on 02-11-2025 Neutrophils/100 WBC (Bld) 64.9 % 47-70 [facility] Nitrite Test strip Ql (U)Ord ered By: Gilles Vance on 02-11-2025 Nitrite Ql (U) Negative Negative [facility] No Panel InformationOrdered By: Gilles Vance on 02-11-2025 Unsaturated Iron Binding Capacity 346 ug/dL 228-428 [facility] Nucleated red blood cell per centageOrdered By: Gilles Vance on 02-11-2025 Nucleated RBC/100 WBC (Bld) [Ratio] 0 % 0-5 [facility] PTHINon 02-11-2025 PTH 32 pg/mL Normal 11-61 [facility] Comment on above: Order Comment: Order Date: 02/11/25Order Info: [id number] - PTHIN Performed By: #### L 500.4050, L501.2300, L500.4100, L501.9985, L100.0100, L509.1000 ####[facility] [address] [place], [place], [address] Phosphoruson 02-11-2025 Phosphate [Mass/Vol] 4.2 mg/dL Normal 2.7-4.5 [facility] [place] Comment on above: Order Comment: Order Date: 02/11/25Order Info: [id number] - CMPOrder Info: [id number] - LIPIDOrder Info: [id number] - PHOS Performed By: #### L 500.4050, L501.2300, L500.4100, L501.9985, L100.0100, L509.1000 ####[facility] [address] [place], [address] Platelet countOrdered By: Anel Vance on 02-11-2025 Platelets (Bld) [#/Vol] 219 10*3/uL 150-450 [facility] Potassium measurement (mass/ volume)Ordered By: Gilles Vance on 02-11-2025 Potassium (Unsp spec) [Mass/Vol] 5.3 mmol/L High 3.3-5.1 [facility] Protein Test strip Ql (U)Ord ered By: Gilles Vance on 02-11-2025 Protein Ql (U) 30 mg/dl High Negative [facility] Protein+Creatinine Ratio,Uri neon 02-11-2025 PROT:CRE RATIO 179 mg/g CRE Normal 0-200 [facility] Comment on above: Order Comment: Order Date: 02/11/25 Order Info: [id number] - MIALB Performed By: #### L 503.6030, L503.6550, L502.0250, L400.0001, L501.0900, L506.1001 #### [facility] [address] [place], [address] Protein (U) [Mass/Vol] 19.3 mg/dL High 0.0-12.0 [facility] Comment on above: Order Comment: Order Date: 02/11/25 Order Info: [id number] - MIALB Performed By: #### L 503.6030, L503.6550, L502.0250, L400.0001, L501.0900, L506.1001 #### [facility] [address] [place], [address] UR CREAT 108.00 mg/dL Normal 39.00-259.00 [facility] Comment on above: Order Comment: Order Date: 02/11/25 Order Info: [id number] - MIALB Performed By: #### L 503.6030, L503.6550, L502.0250, L400.0001, L501.0900, L506.1001 #### [facility] [address] [place], [address] RBC Auto (Bld) [#/Vol]Ordere d By: Gilles Vance on 02-11-2025 RBC (Bld) [#/Vol] 6.00 10*6/uL 4.6-6.2 [facility] Random urine creatinine bryanna urement (mass/volume)Ordered By: Gilles Vance on 02-11-2025 Creatinine Unsp time (U) [Mass/Vol] 108.00 mg/dL 39.00-259.00 [facility] Screening total cholesterol/ high density lipoprotein (HDL) cholesterol ratioOrdered By: Gilles Vance on 02-11-2025 Cholesterol.total/Cholest james in HDL [Mass ratio] 3.86 {ratio} [facility] Serum creatinine measurement (mass/volume)Ordered By: Gilles Vance on 02-11-2025 Creatinine [Mass/Vol] 1.64 mg/dL High 0.70-1.20 [facility] Serum globulin measurementOr dered By: Gilles Vance on 02-11-2025 Globulin (S) [Mass/Vol] 3.0 g/dL 2.2-4.2 [facility] Serum glucose measurement (m ass/volume)Ordered By: Gilles Vance on 02-11-2025 Glucose [Mass/Vol] 128 mg/dL High 70-[address] [facility] Serum or plasma alanine lester otransferase (ALT) measurementOrdered By: Gilles Vance on 02-11-2025 ALT [Catalytic activity/Vol] 15 U/L <47 [facility] Serum or plasma albumin bryanna urement (mass/volume)Ordered By: Gilles Vance on 02-11-2025 Albumin [Mass/Vol] 4.6 g/dL 3.4-4.[address] [facility] Serum or plasma albumin/glob ulin mass ratioOrdered By: Gilles Vance on 02-11-2025 Albumin/Globulin [Mass ratio] 1.5 {ratio} 0.9-2.4 [facility] Serum or plasma alkaline shakira sphatase measurementOrdered By: Gilles Vance on 02-11-2025 ALP [Catalytic activity/Vol] 60 U/L 40-129 [facility] Serum or plasma calcium bryanna urement (mass/volume)Ordered By: Gilles Vance on 02-11-2025 Calcium [Mass/Vol] 10.1 mg/dL 7.6-11.[address] [facility] Serum or plasma cholesterol in HDL measurement (mass/volume)Ordered By: Gilles Vance on 02-11-2025 Cholesterol in HDL [Mass/Vol] 32 mg/dL Low >40 [facility] Comment on above: National Cholesterol Education Program (NCEP) guidelines:<40 mg/dL: Low HDL-cholesterol (major risk factor for CHD)>= 60 mg/dL: High HDL-cholesterol (negative risk factor for CHD)HDL-cholesterol is affected by a number of factors, e.g. smoking, exercise, hormones, sex and age. Serum or plasma cholesterol measurement (mass/volume)Ordered By: Gilles Vance on 02-11-2025 Cholesterol [Mass/Vol] 125 mg/dL <201 [facility] Comment on above: Cholesterol level, D esirable <200 mg/dLBorderline high cholesterol 200-239 mg/dLHigh cholesterol >=240 mg/dLRecommendations of the NCEP Adult Treatment Panel for the following risk-cutoff thresholds for the [place] population. Serum or plasma ferritin arnoldo surement (mass/volume)Ordered By: Gilles Vance on 02-11-2025 Ferritin [Mass/Vol] 28 ng/mL Low 37-417 [facility] Serum or plasma iron saturat ion measurement (mass fraction)Ordered By: Gilles Vance on 02-11-2025 Iron saturation [Mass fraction] 19.0 % 9-55 [facility] Serum or plasma urea nitroge n measurement (mass/volume)Ordered By: Gilles Vance on 02-11-2025 Urea nitrogen [Mass/Vol] 21 mg/dL High 4-19 [facility] Sodium levelOrdered By: Gilles Vance on 02-11-2025 Sodium [Moles/Vol] 137 mmol/L 133-[address] [facility] Squamous epithelial cells de tection in urine sediment by light microscopyOrdered By: Gilles Vance on 02-11-2025 Epithelial cells.squamous LM Ql (Urine sed) 0 SEEN /hpf 0-5 [facility] Total proteinOrdered By: Hever Vance on 02-11-2025 Protein [Mass/Vol] 7.6 g/dL 5.9-8.[address] [facility] Triglycerides measurementOrd ered By: Gilles Vance on 02-11-2025 Triglyceride [Mass/Vol] 172 mg/dL <199 [facility] Comment on above: The drugs N-Acetylcy steine and Metamizole may falsely depress this assay. Normal range: <150 mg/dLBorderline High: 150-199 mg/dLHigh: 200-499 mg/dLVery High: >500 mg/dL Urinalysis, Completeon 02-11 BACTERIA RARE Normal None Seen [facility] Comment on above: Order Comment: CLEAN CATCH Performed By: #### L 503.6030, L503.6550, L502.0250, L400.0001, L501.0900, L506.1001 #### [facility] [address] [place], [address] WBC 0-5 SEEN Normal 0-5 [facility] Comment on above: Order Comment: CLEAN CATCH Performed By: #### L 503.6030, L503.6550, L502.0250, L400.0001, L501.0900, L506.1001 #### [facility] [address] [place], [address] EPI,SQUAMOUS 0 SEEN Normal 0-5 [facility] Comment on above: Order Comment: CLEAN CATCH Performed By: #### L 503.6030, L503.6550, L502.0250, L400.0001, L501.0900, L506.1001 #### [facility] [address] [place], [address] Mucus Ql (Urine sed) 0 SEEN Normal [facility] Comment on above: Order Comment: CLEAN CATCH Performed By: #### L 503.6030, L503.6550, L502.0250, L400.0001, L501.0900, L506.1001 #### [facility] [address] [place], [address] RBC 0 SEEN Normal 0-5 [facility] Comment on above: Order Comment: CLEAN CATCH Performed By: #### L 503.6030, L503.6550, L502.0250, L400.0001, L501.0900, L506.1001 #### [facility] [address] [place], [address] Urine albumin measurement wi th detection limit of 20 mg/L or less (mass/volume)Ordered By: Gilles Vance on 02-11-2025 Albumin DL <= 20 mg/L (U) [Mass/Vol] 78.5 mg/L NO RANGE EST. [facility] Urine clarityOrdered By: Hever Vance on 02-11-2025 Clarity (U) Clear Clear [facility] Urine color determinationOrd ered By: Gilles Vance on 02-11-2025 Color (U) Yellow Yellow [facility] Urine glucose detectionOrder ed By: Gilles Vance on 02-11-2025 Glucose Ql (U) 1000 mg/dl High Normal [facility] Urine leukocyte esterase det ection by dipstickOrdered By: Gilles Vance on 02-11-2025 Leukocyte esterase Test strip Ql (U) Negative Negative [facility] Urine pHOrdered By: Gilles baxter on 02-11-2025 pH (U) 5.0 [pH] 5.0 - 8.0 [facility] Urine protein measurement (m ass/volume)Ordered By: Gilles Vance on 02-11-2025 Protein (U) [Mass/Vol] 19.3 mg/dL High 0.0-12.0 [facility] Urine protein/creatinine mas s ratioOrdered By: Gilles Vance on 02-11-2025 Protein/Creatinine (U) [Mass ratio] 179 mg/g CRE 0-200 [facility] Urine sediment bacteria coun t by microscopy (number/high power field)Ordered By: Gilles Vance on 02-11-2025 Bacteria LM.HPF (Urine sed) [#/Area] RARE /hpf None Seen [facility] Urine specific gravity measu rementOrdered By: Gilles Vance on 02-11-2025 Specific gravity (U) [Rel density] 1.020 1.002-1.030 [facility] Urine urobilinogen measureme ntOrdered By: Gilles Vance on 02-11-2025 Urobilinogen Ql (U) Normal mg/dl Normal [facility] Vitamin D,25 Hydroxyon 02-11 Vitamin D 25-OH 41.4 ng/mL Normal 30-100 [facility] Comment on above: Order Comment: Order Date: 02/11/25 Order Info: [id number] - CMP Order Info: [id number] - LIPID Order Info: [id number] - PHOS Result Comment: Amelie min D Status Deficiency: <20 ng/mL (50nmol/L) Insufficiency: 20-30 ng/mL (50-75 nmol/L) Sufficiency: 30-100 ng/mL (75-250 nmol/L) Toxicity: >100 ng/mL (>250 nmol/L) Performed By: #### L 503.6030, L503.6550, L502.0250, L400.0001, L501.0900, L506.1001 #### [facility] [address] [place], [address] White blood cell (WBC) count Ordered By: Gilles Vance on 02-11-2025 WBC (Bld) [#/Vol] 7.6 10*3/uL 4.4-11.[address] [facility] White blood cell countOrdere d By: Gilles Vance on 02-11-2025 White blood cell count 0-5 SEEN /hpf 0-5 [facility] Diagnostic total prostate sp ecific antigen (PSA) measurementOrdered By: Michael Pascual on 12-08-2024 Prostate Specific Antigen Total 1.37 ng/mL 0.00-4.00 [facility] Comment on above: This test was [...] 11-16 PSA, DIAGNOSTIC 1.37 ng/mL Normal 0.00-4.00 [facility] Comment on above: Result Comment: This [...] baseline values. Performed By: #### L 501.9940 ####[facility] [address] [place], [address] Cardiovascular ultrasound re portOrdered By: Stanislaw Benton on 11-24-[address] [facility] [address] [place] [address] AAA Screening 11/21/24 0909 MR#: [id number] Acct: [id number] Name: OSCAR KEENAN Rep #:[id number] : 1950 73 From: Stanislaw Puri Attending Dr: Dr. Gilles Vance MD Status: REG CLI Ordering Dr: Gilles Vance MD Date: 11/21/24 Location: [facility] Sex: M C Admitted: Reason For Study [...] Aorta IVC Iliac vasculature or bypass grafts 73195. Exam performed in department. 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 Gilles Vance MD ~ Date Dictated: 11/21/24908 Date Transcribed: 11/24/241533 Export Clerk: Signed [facility] Work Phone: AAA Screeningon 11-21-2024 AAA Screening [facility] [address] [place] [address] AAA Screening 11/21/24908 MR#: [id number] Acct: [id number] Name: OSCAR KEENAN Rep #: [id number] : 1950 73 From: Stanislaw Benton MD Attending Dr: Dr. Gilles Vance MD Status: R EG CLI Ordering Dr: Gilles Vance MD Date: 11/21/24 Location: [facility] Sex: M C Admitted: Reason For Study [...] Aorta IVC Iliac vasculature or bypass grafts 10226. Exam performed in department. 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 Gilles Vance MD Date Dictated: 11/21/24 0909 Date Transcribed: 11/24/24 1534 Export Clerk: Signed Normal [facility] Pacemaker Checkon 10-06-2024 Pacemaker Check [facility] [address] [place] [address] Pacemaker Check Date of Service: 10/06/24 1346 MR#: [id number] Acct: [id number] Name: OSCAR KEENAN Rep #: [id number] : 1950 From: Macy Klein Age/Sex: 73/M Location[place] [facility] Status: Signed Billing Codes ICD Device Billin ICD Dev Prog Eval, Dual Assessment and Plan Assessment and Plan (1) Presence of implantable cardioverter-defibr illator (ICD): Status: Acute Comment: Medtronic [place] XT (2) SA node dysfunction: Status: Acute (3) Dilated cardiomyopathy: Status: Acute 10/06/24 134 Date Macylarissa Klein Eugenio Signature: Date (if applicable) CC: Normal [facility] 12 Lead EKG performed by [facility] on 09-24-2024 12 Lead EKG performed by [facility] [address] [place] [address] 12 Lead EKG performed by [facility] 09/24/24 0946 MR#: [id number] Acct: [id number] Name: OSCAR KEENAN Rep #: [id number] : 1950 73 From: Jacob Mcgovern MD Attending Dr: Dr. 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 ABNORMAL Electronically signed on 09/24/2024 at 14:42 by Jacob Mcgovern [employer] Version 8610 09/24/24 1443 Date Jacob Mcgovern MD CC: Dr. Gilles Vance MD Date Dictated: 09/24/24945 Date Transcribed: 09/24/24945 Export Clerk: [place] Signed Normal [facility] Cardiology Visit Reporton Cardiology Visit Report [facility] [address] [place], [place] [address] OFFICE VISIT Date of Service: 09/24/24 MR#: [id number] Acct: [id number] Name: OSCAR KEENAN Rep #: [id number] : 1950 Provider: Dr. Jacob Mcgovern MD Age/Sex: 73/M Location: [facility] [place] Status: Signed HPI HPI History of Present Illness Details: Pleasant 73-year-old man who is relocating his care here to [place] from [place]. He is a gentleman with a history [...] have a history of congestive heart failure [place] [employer] class III. As part of his guideline directed medical therapy he had undergone a permanent pacemaker implantation which was recently in November 2023 upgraded to a single-lead ICD in November 2023. It was a Medtronic model DD PA 2 D4, serial number [id number]. He has not had any evidence of [...] Source Monitor Intake Visit Reasons: EST (SELF) Director Of Physical Therapy Required: No Accompanied by: Self Is patient in pain?: No Allergies No Known Allergies Allergy (Verified 09/24/24 09:50) Medications ???Medication ???Instructions ???Recorded ???Confirmed ???Type aspirin 81 mg chewable tablet 1 tab PO DAILY 02/21/24 09/24/24 History (Jayna Chewable Low Dose Aspirin) glucos 500 pw-iokov-spd6 450 cap PO 02/21/24 09/24/24 History mg-liza 0.67 mg-I.frankince-boro n capsule metoprolol tartrate 50 mg tablet 50 mg PO BID 02/21/24 09/24/24 History (Lopressor) omega 2-alo-qlt-fish oil 1,200 mg 1 cap PO DAILY [...] carotid arteries Atherosclerosis of coronary artery of [place] heart without angina pectoris ROSSI (obstructive sleep [...] type: c (more content not included)... Normal [facility] 73-SJ-Yvkhwtf DOrdered By: Saida Vance on 09-11-2024 Vitamin D 25-Hydroxy 36.8 ng/mL [facility] [place] Comment on above: Vitamin D 25(OH) Sta tus Range Deficiency <20 ng/mL (50nmol/L) Insufficiency 20 - 30 ng/mL (50 - 75 nmol/L) Sufficiency 30 - 100 ng/mL (75 - 250 nmol/L) Toxicity >100 ng/mL (>250 nmol/L) Absolute neutrophil countOrd ered By: Gilles Vance on 09-11-2024 Neutrophils (Bld) [#/Vol] 4.5 10*3/uL 2.0-7.7 [facility] Albumin to globulin ratioOrd ered By: Gilles Vance on 09-11-2024 Albumin/Globulin [Mass ratio] 1.1 {ratio} 0.9-2.4 [facility] Basophil percentageOrdered B y: Gilles Vance on 09-11-2024 Basophils/100 WBC (Bld) 1.2 % High 0-1 [facility] Bilirubin, totalOrdered By: Gilles Vance on 09-11-2024 Bilirubin [Mass/Vol] 0.60 mg/dL 0.20-1.00 [facility] [place] Comment on above: For patients on eltr ombopag therapy, use of Dimension [place] TBIL is not recommended. Blood urea nitrogen (BUN)/cr eatinine ratioOrdered By: Gilles Vance on 09-11-2024 Urea nitrogen/Creatinine [Mass ratio] 12.4 mg/mg 10-20 [facility] CBC W/Diff, Automatedon 08-18 Absolute Lymph 1.53 X10 3/uL Normal 0.83-4.51 [facility] Comment on above: Order Comment: Order Date: 09/11/24Order Info: [id number] - CBCD Performed By: #### L 501.9985, L501.2300, L500.4050, L501.9940, L509.1000, L506.1000, L500.4100, L100.0100 ####[facility] [address] [place], [place], [address] Absolute Neut 4.5 X10 3/uL Normal 2.0-7.7 [facility] Comment on above: Order Comment: Order Date: 09/11/24Order Info: [id number] - CBCD Performed By: #### L 501.9985, L501.2300, L500.4050, L501.9940, L509.1000, L506.1000, L500.4100, L100.0100 ####[facility] [address] [place], [address] Basophils/100 WBC (Bld) 1.2 % High 0-1 [facility] Comment on above: Order Comment: Order Date: 09/11/24Order Info: [id number] - CBCD Performed By: #### L 501.9985, L501.2300, L500.4050, L501.9940, L509.1000, L506.1000, L500.4100, L100.0100 ####[facility] [address] [place], [address] Eosinophils/100 WBC (Bld) 2.3 % Normal 0-5 [facility] Comment on above: Order Comment: Order Date: 09/11/24Order Info: [id number] - CBCD Performed By: #### L 501.9985, L501.2300, L500.4050, L501.9940, L509.1000, L506.1000, L500.4100, L100.0100 ####[facility] [address] [place], [address] Erythrocyte distribution width (RBC) [Ratio] 13.9 % Normal 11.6-14.6 [facility] Comment on above: Order Comment: Order Date: 09/11/24Order Info: [id number] - CBCD Performed By: #### L 501.9985, L501.2300, L500.4050, L501.9940, L509.1000, L506.1000, L500.4100, L100.0100 ####[facility] [address] [place], [address] Hematocrit (Bld) [Volume fraction] 48.2 % Normal 40-54 [facility] Comment on above: Order Comment: Order Date: 09/11/24Order Info: 018- - CBCD Performed By: #### L 501.9985, L501.2300, L500.4050, L501.9940, L509.1000, L506.1000, L500.4100, L100.0100 ####[facility] [address] [place], [address] Hemoglobin (Bld) [Mass/Vol] 15.8 g/dL Normal 13.0-16.5 [facility] Comment on above: Order Comment: Order Date: 09/11/24Order Info: 018- - CBCD Performed By: #### L 501.9985, L501.2300, L500.4050, L501.9940, L509.1000, L506.1000, L500.4100, L100.0100 ####[facility] [address] [place], [address] IG% 0.700 Normal 0.0-0.9 [facility] Comment on above: Order Comment: Order Date: 09/11/24Order Info: 018- - CBCD Result Comment: IG% - Immature Granulocytes (promyelocytes, myelocytes and metamyelocytes) > 1% indicates that a LEFT SHIFT is Present. Performed By: #### L 501.9985, L501.2300, L500.4050, L501.9940, L509.1000, L506.1000, L500.4100, L100.0100 ####[facility] [address] [place], [address] Lymphocytes/100 WBC (Bld) 22.1 % Normal 19-41 [facility] Comment on above: Order Comment: Order Date: 09/11/24Order Info: 018- - CBCD Performed By: #### L 501.9985, L501.2300, L500.4050, L501.9940, L509.1000, L506.1000, L500.4100, L100.0100 ####[facility] [address] [place], [address] MCH (RBC) [Entitic mass] 28.0 pg Normal 27.0-32.0 [facility] Comment on above: Order Comment: Order Date: 09/11/24Order Info: 018- - CBCD Performed By: #### L 501.9985, L501.2300, L500.4050, L501.9940, L509.1000, L506.1000, L500.4100, L100.0100 ####[facility] [address] [place], [address] MCHC (RBC) [Mass/Vol] 32.8 g/dL Normal 32-36 [facility] Comment on above: Order Comment: Order Date: 09/11/24Order Info: [id number]- - CBCD Performed By: #### L 501.9985, L501.2300, L500.4050, L501.9940, L509.1000, L506.1000, L500.4100, L100.0100 ####[facility] [address] [place], [address] MCV (RBC) [Entitic vol] 85.3 fL Normal 80-94 [facility] Comment on above: Order Comment: Order Date: 09/11/24Order Info: [id number]- - CBCD Performed By: #### L 501.9985, L501.2300, L500.4050, L501.9940, L509.1000, L506.1000, L500.4100, L100.0100 ####[facility] [address] [place], [address] Monocytes/100 WBC (Bld) 9.4 % Normal 0-10 [facility] Comment on above: Order Comment: Order Date: 09/11/24Order Info: [id number]- - CBCD Performed By: #### L 501.9985, L501.2300, L500.4050, L501.9940, L509.1000, L506.1000, L500.4100, L100.0100 ####[facility] [address] [place], [address] Neutrophils/100 WBC (Bld) 64.3 % Normal 47-70 [facility] Comment on above: Order Comment: Order Date: 09/11/24Order Info: [id number]- - CBCD Performed By: #### L 501.9985, L501.2300, L500.4050, L501.9940, L509.1000, L506.1000, L500.4100, L100.0100 ####[facility] [address] [place], [address] Nucleated RBC (Bld) [#/Vol] 0 10*3/uL Normal 0-5 [facility] Comment on above: Order Comment: Order Date: 09/11/24Order Info: 183- - CBCD Performed By: #### L 501.9985, L501.2300, L500.4050, L501.9940, L509.1000, L506.1000, L500.4100, L100.0100 ####[facility] [address] [place], [address] Platelet mean volume (Bld) [Entitic vol] 12.0 fL Normal 6.2-12.0 [facility] Comment on above: Order Comment: Order Date: 09/11/24Order Info: [id number]- - CBCD Performed By: #### L 501.9985, L501.2300, L500.4050, L501.9940, L509.1000, L506.1000, L500.4100, L100.0100 ####[facility] [address] [place], [address] Platelets (Bld) [#/Vol] 234 10*3/uL Normal 150-450 [facility] Comment on above: Order Comment: Order Date: 09/11/24Order Info: 018- - CBCD Performed By: #### L 501.9985, L501.2300, L500.4050, L501.9940, L509.1000, L506.1000, L500.4100, L100.0100 ####[facility] [address] [place], [address] RBC (Bld) [#/Vol] 5.65 10*6/uL Normal 4.6-6.2 [facility] Comment on above: Order Comment: Order Date: 09/11/24Order Info: [id number] - CBCD Performed By: #### L 501.9985, L501.2300, L500.4050, L501.9940, L509.1000, L506.1000, L500.4100, L100.0100 ####[facility] [address] [place], [place], [phone](106) RDW SD 42.8 fl Normal 35.1-43.9 [facility] Comment on above: Order Comment: Order Date: 09/11/24Order Info: [id number] - CBCD Performed By: #### L 501.9985, L501.2300, L500.4050, L501.9940, L509.1000, L506.1000, L500.4100, L100.0100 ####[facility] [address] [place], [address] WBC (Bld) [#/Vol] 6.9 10*3/uL Normal 4.4-11.[address] [facility] Comment on above: Order Comment: Order Date: 09/11/24Order Info: [id number] - CBCD Performed By: #### L 501.9985, L501.2300, L500.4050, L501.9940, L509.1000, L506.1000, L500.4100, L100.0100 ####[facility] [address] [place], [place], [phone] Carbon dioxide measurementOr dered By: Gilles Vance on 09-11-2024 CO2 [Moles/Vol] 20.0 mmol/L Low 21.0-32.0 [facility] Chloride measurementOrdered By: Gilles Vance on 09-11-2024 Chloride [Moles/Vol] 108 mmol/L High 98-107 [facility] [place] Comprehensive Metabolic Prof ilon 09-11-2024 Albumin [Mass/Vol] 3.9 g/dL Normal 3.2-5.[address] [facility] Comment on above: Order Comment: Order Date: 09/11/24Order Info: [id number]- - CMPOrder Info: - LIPIDOrder Info: [id number] - PHOSOrder Info: [id number]- - PSAD Performed By: #### L 501.9985, L501.2300, L500.4050, L501.9940, L509.1000, L506.1000, L500.4100, L100.0100 ####[facility] [address] [place], [place], [phone] Albumin/Globulin [Mass ratio] 1.1 {ratio} Normal 0.9-2.4 [facility] Comment on above: Order Comment: Order Date: 09/11/24Order Info: [id number] - CMPOrder Info: - LIPIDOrder Info: [id number] - PHOSOrder Info: 83- - PSAD Performed By: #### L 501.9985, L501.2300, L500.4050, L501.9940, L509.1000, L506.1000, L500.4100, L100.0100 ####[facility] [address] [place], [place], [address] ALK P 59 U/L Normal 45-117 [facility] Comment on above: Order Comment: Order Date: 09/11/24Order Info: [id number]- - CMPOrder Info: - LIPIDOrder Info: [id number] - PHOSOrder Info: 83- - PSAD Performed By: #### L 501.9985, L501.2300, L500.4050, L501.9940, L509.1000, L506.1000, L500.4100, L100.0100 ####[facility] [address] [place], [place], [phone] ALT [Catalytic activity/Vol] 27 U/L Normal 16-61 [facility] Comment on above: Order Comment: Order Date: 09/11/24Order Info: 86-1 - CMPOrder Info: [id number] - LIPIDOrder Info: 7- - PHOSOrder Info: 83-1 - PSAD Performed By: #### L 501.9985, L501.2300, L500.4050, L501.9940, L509.1000, L506.1000, L500.4100, L100.0100 ####[facility] [address] [place], [place], [phone] AST [Catalytic activity/Vol] 12 U/L Low 15-37 [facility] Comment on above: Order Comment: Order Date: 09/11/24Order Info: 785- - CMPOrder Info: [id number] - LIPIDOrder Info: [id number] - PHOSOrder Info: [id number] - PSAD Performed By: #### L 501.9985, L501.2300, L500.4050, L501.9940, L509.1000, L506.1000, L500.4100, L100.0100 ####[facility] [address] [place], [place], [phone] Bilirubin [Mass/Vol] 0.60 mg/dL Normal 0.20-1.00 [facility] [place] Comment on above: Order Comment: Order Date: 09/11/24Order Info: [id number] - CMPOrder Info: [id number] - LIPIDOrder Info: [id number] - PHOSOrder Info: 83-1 - PSAD Result Comment: For patients on eltrombopag therapy, use of Dimension [place] TBIL is not recommended. Performed By: #### L 501.9985, L501.2300, L500.4050, L501.9940, L509.1000, L506.1000, L500.4100, L100.0100 ####[facility] [address] [place], [address] BUN/CRE 12.4 RATIO Normal 10-20 [facility] Comment on above: Order Comment: Order Date: 09/11/24Order Info: 86-1 - CMPOrder Info: [id number] - LIPIDOrder Info: 7- - PHOSOrder Info: [id number] - PSAD Performed By: #### L 501.9985, L501.2300, L500.4050, L501.9940, L509.1000, L506.1000, L500.4100, L100.0100 ####[facility] [address] [place], [address] CA,Total 9.1 mg/dL Normal 8.5-10.1 [facility] Comment on above: Order Comment: Order Date: 09/11/24Order Info: [id number]- - CMPOrder Info: - LIPIDOrder Info: [id number] - PHOSOrder Info: [id number] - PSAD Performed By: #### L 501.9985, L501.2300, L500.4050, L501.9940, L509.1000, L506.1000, L500.4100, L100.0100 ####[facility] [address] [place], [address] Chloride [Moles/Vol] 108 mmol/L High 98-107 [facility] [place] Comment on above: Order Comment: Order Date: 09/11/24Order Info: 86-1 - CMPOrder Info: [id number] - LIPIDOrder Info: [id number] - PHOSOrder Info: [id number] - PSAD Performed By: #### L 501.9985, L501.2300, L500.4050, L501.9940, L509.1000, L506.1000, L500.4100, L100.0100 ####[facility] [address] [place], [address] CO2 [Moles/Vol] 20.0 mmol/L Low 21.0-32.0 [facility] Comment on above: Order Comment: Order Date: 09/11/24Order Info: [id number]- - CMPOrder Info: [id number] - LIPIDOrder Info: [id number] - PHOSOrder Info: 782- - PSAD Performed By: #### L 501.9985, L501.2300, L500.4050, L501.9940, L509.1000, L506.1000, L500.4100, L100.0100 ####[facility] [address] [place], [place], [phone] Creatinine [Mass/Vol] 1.70 mg/dL High 0.70-1.30 [facility] Comment on above: Order Comment: Order Date: 09/11/24Order Info: [id number] - CMPOrder Info: - LIPIDOrder Info: [id number] - PHOSOrder Info: [id number] - PSAD Result Comment: The validity of the calculated GFR GFRAA in patients over 70 years has not been determined. Clinical correlation is essential. Performed By: #### L 501.9985, L501.2300, L500.4050, L501.9940, L509.1000, L506.1000, L500.4100, L100.0100 ####[facility] [address] [place], [place], [phone] EST GFR - AA 51 mL/min Low >60 [facility] Comment on above: Order Comment: Order Date: 09/11/24Order Info: [id number] - CMPOrder Info: - LIPIDOrder Info: [id number] - PHOSOrder Info: 83- - PSAD Result Comment: Afri can Gambian GFR Calc Performed By: #### L 501.9985, L501.2300, L500.4050, L501.9940, L509.1000, L506.1000, L500.4100, L100.0100 ####[facility] [address] [place], [place], [phone] GAP 9 Normal 5-15 [facility] Comment on above: Order Comment: Order Date: 09/11/24Order Info: [id number] - CMPOrder Info: - LIPIDOrder Info: [id number] - PHOSOrder Info: [id number] - PSAD Performed By: #### L 501.9985, L501.2300, L500.4050, L501.9940, L509.1000, L506.1000, L500.4100, L100.0100 ####[facility] [address] [place], [place], [phone] GFR/1.73 sq M.predicted among non-blacks MDRD (S/P/Bld) [Vol rate/Area] 42 mL/min/{1.73_m2} Low >60 [facility] Comment on above: Order Comment: Order Date: 09/11/24Order Info: [id number] - CMPOrder Info: - LIPIDOrder Info: [id number] - PHOSOrder Info: 782- - PSAD Result Comment: Non- GFR Calc Performed By: #### L 501.9985, L501.2300, L500.4050, L501.9940, L509.1000, L506.1000, L500.4100, L100.0100 ####[facility] [address] [place], [place], [phone] Globulin (S) [Mass/Vol] 3.7 g/dL Normal 2.2-4.2 [facility] Comment on above: Order Comment: Order Date: 09/11/24Order Info: [id number] - CMPOrder Info: - LIPIDOrder Info: [id number] - PHOSOrder Info: 782- - PSAD Performed By: #### L 501.9985, L501.2300, L500.4050, L501.9940, L509.1000, L506.1000, L500.4100, L100.0100 ####[facility] [address] [place], [address] Glucose [Mass/Vol] 183 mg/dL High 74-[address] [facility] Comment on above: Order Comment: Order Date: 09/11/24Order Info: [id number]- - CMPOrder Info: [id number] - LIPIDOrder Info: [id number] - PHOSOrder Info: 83- - PSAD Result Comment: Fast ing Glucose result greater than or equal to 126 mg/dL suggests DIABETES MELLITUS per A.D.A. criteria. Performed By: #### L 501.9985, L501.2300, L500.4050, L501.9940, L509.1000, L506.1000, L500.4100, L100.0100 ####[facility] [address] [place], [address] Potassium [Moles/Vol] 4.7 mmol/L Normal 3.5-5.1 [facility] Comment on above: Order Comment: Order Date: 09/11/24Order Info: [id number] - CMPOrder Info: - LIPIDOrder Info: [id number] - PHOSOrder Info: 782- - PSAD Performed By: #### L 501.9985, L501.2300, L500.4050, L501.9940, L509.1000, L506.1000, L500.4100, L100.0100 ####[facility] [address] [place], [address] Sodium [Moles/Vol] 138 mmol/L Normal 136-[address] [facility] Comment on above: Order Comment: Order Date: 09/11/24Order Info: [id number] - CMPOrder Info: - LIPIDOrder Info: [id number] - PHOSOrder Info: 782- - PSAD Performed By: #### L 501.9985, L501.2300, L500.4050, L501.9940, L509.1000, L506.1000, L500.4100, L100.0100 ####[facility] [address] [place], [place], [phone] T PROT 7.6 g/dL Normal 6.4-8.2 [facility] Comment on above: Order Comment: Order Date: 09/11/24Order Info: [id number] - CMPOrder Info: [id number] - LIPIDOrder Info: [id number] - PHOSOrder Info: [id number] - PSAD Performed By: #### L 501.9985, L501.2300, L500.4050, L501.9940, L509.1000, L506.1000, L500.4100, L100.0100 ####[facility] [address] [place], [place], [phone] Urea nitrogen [Mass/Vol] 21 mg/dL High 7-18 [facility] Comment on above: Order Comment: Order Date: 09/11/24Order Info: [id number] - CMPOrder Info: [id number] - LIPIDOrder Info: [id number] - PHOSOrder Info: [id number]- - PSAD Performed By: #### L 501.9985, L501.2300, L500.4050, L501.9940, L509.1000, L506.1000, L500.4100, L100.0100 ####[facility] [address] [place], [place], [phone] Diagnostic total prostate sp ecific antigen (PSA) measurementOrdered By: Gilles Vance on 09-11-2024 Prostate Specific Antigen Total 1.42 ng/mL 0.0-4.0 [facility] Comment on above: This test was perfor med using the TPSA assay method for theBlock[facility] chemistry system. Values obtained with differentassay methods cannot be used interchangably.When changing PSA assays in the course of monitoring apatient, additional sequential testing should be carriedout to confirm baseline values. Eosinophil percentageOrdered By: Gilles Vance on 09-11-2024 Eosinophils/100 WBC (Bld) 2.3 % 0-5 [facility] Erythrocyte distribution wid th ratioOrdered By: Gilles Vance on 09-11-2024 Erythrocyte distribution width (RBC) [Ratio] 13.9 % 11.6-14.6 [facility] Erythrocyte distribution wid th standard deviationOrdered By: Gilles Vance on 09-11-2024 Erythrocyte distribution width (RBC) [Entitic vol] 42.8 fL 35.1-43.[address] [facility] Estimated glomerular filtrat ion rate (GFR) AmericanOrdered By: Gilles Vance on 09-11-2024 Estimated GFR (MDRD) Amer 51 mL/min Low >60 [facility] Comment on above: GFR Calc Glomerular filtration rate ( GFR) estimationOrdered By: Gilles Vance on 09-11-2024 Estimated GFR (MDRD) Non-Af Amer 42 mL/min Low >60 [facility] Comment on above: Non- GFR Calc Glucose measurementOrdered B y: Gilles Vance on 09-11-2024 Glucose [Mass/Vol] 183 mg/dL High 74-[address] [facility] Comment on above: Fasting Glucose resu lt greater than or equal to 126 mg/dL suggests DIABETES MELLITUS per A.D.A. criteria. Hematocrit Auto (Bld) [Volum e fraction]Ordered By: Gliles Vance on 09-11-2024 Hematocrit (Bld) [Volume fraction] 48.2 % 40-54 [facility] Hemoglobin A1con 09-11-2024 HbA1c (Bld) [Mass fraction] 7.9 % High 3.8-5.6 [facility] Comment on above: Order Comment: Order Date: 09/11/24Order Info: [id number] - A1C Result Comment: Norm al < 5.7 % Prediabetic 5.7 - 6.4 % Diabetic >or= 6.5 % Please note range changes. Performed By: #### L 501.9985, L501.2300, L500.4050, L501.9940, L509.1000, L506.1000, L500.4100, L100.0100 ####[facility] [address] [place], [address] Hemoglobin A1c percentageOrd ered By: Gilles Vance on 09-11-2024 HbA1c (Bld) [Mass fraction] 7.9 % High 3.8-5.6 [facility] Comment on above: Normal < 5.7 % Predi abetic 5.7 - 6.4 % Diabetic >or= 6.5 % Please note range changes. Hemoglobin measurementOrdere d By: Gilles Vance on 09-11-2024 Hemoglobin (Bld) [Mass/Vol] 15.8 g/dL 13.0-16.5 [facility] High density lipoprotein (HD L) measurementOrdered By: Gilles Vance on 09-11-2024 Cholesterol in HDL [Mass/Vol] 44 mg/dL >40 [facility] Comment on above: The drugs N-Acetylcy steine and Metamizole may falsely depress this assay. Reference Range HDL <40 mg/dL Low HDL Cholesterol HDL >or= 60 mg/dL High HDL Cholesterol Immature granulocytes/100 WB C Auto (Bld)Ordered By: Gilles Vance on 09-11-2024 Immature granulocytes/100 WBC (Bld) 0.700 % 0.0-0.9 [facility] Comment on above: IG% - Immature Granu locytes (promyelocytes, myelocytes and metamyelocytes) > 1% indicates that a LEFT SHIFT is Present. Intact parathyroid hormone ( iPTH) measurementOrdered By: Gilles Vance on 09-11-2024 Parathyroid Hormone (Intact) 79.7 pg/mL 18.4-80.1 [facility] Laboratory - Chemistry and C hemistry - challengeOrdered By: Gilles Vance on 09-11-2024 AST [Catalytic activity/Vol] 12 U/L Low 15-37 [facility] Lipid Profileon 09-11-2024 Cholesterol [Mass/Vol] 157 mg/dL Normal 200 [facility] Comment on above: Order Comment: Order Date: 09/11/24Order Info: [id number] - CMPOrder Info: [id number] - LIPIDOrder Info: [id number] - PHOSOrder Info: [id number] - PSAD Result Comment: <200 mg/dL Desirable 200-240 mg/dL Borderline >240 mg/dL High Risk Performed By: #### L 501.9985, L501.2300, L500.4050, L501.9940, L509.1000, L506.1000, L500.4100, L100.0100 ####[facility] [address] [place], [address] Cholesterol in HDL [Mass/Vol] 44 mg/dL Normal [facility] Comment on above: Order Comment: Order Date: 09/11/24Order Info: [id number]- - CMPOrder Info: [id number] - LIPIDOrder Info: [id number] - PHOSOrder Info: [id number]- - PSAD Result Comment: The drugs N-Acetylcysteine and Metamizole may falsely depress this assay. Reference Range HDL <40 mg/dL Low HDL Cholesterol HDL >or= 60 mg/dL High HDL Cholesterol Performed By: #### L 501.9985, L501.2300, L500.4050, L501.9940, L509.1000, L506.1000, L500.4100, L100.0100 ####[facility] [address] [place], [address] Cholesterol in LDL [Mass/Vol] 66 mg/dL Normal 0-130 [facility] Comment on above: Order Comment: Order Date: 09/11/24Order Info: [id number] - CMPOrder Info: - LIPIDOrder Info: [id number] - PHOSOrder Info: [id number]- - PSAD Performed By: #### L 501.9985, L501.2300, L500.4050, L501.9940, L509.1000, L506.1000, L500.4100, L100.0100 ####[facility] [address] [place], [address] Cholesterol in VLDL [Mass/Vol] 47 mg/dL High 5-40 [facility] Comment on above: Order Comment: Order Date: 09/11/24Order Info: [id number]- - CMPOrder Info: [id number] - LIPIDOrder Info: [id number] - PHOSOrder Info: 83- - PSAD Performed By: #### L 501.9985, L501.2300, L500.4050, L501.9940, L509.1000, L506.1000, L500.4100, L100.0100 ####[facility] [address] [place], [place], [phone] Triglyceride [Mass/Vol] 233 mg/dL High [facility] Comment on above: Order Comment: Order Date: 09/11/24Order Info: [id number] - CMPOrder Info: [id number] - LIPIDOrder Info: [id number] - PHOSOrder Info: [id number] - PSAD Result Comment: The drugs N-Acetylcysteine and Metamizole may falsely depress this assay. Serum Triglycerides Reference Interval Normal <150 mg/dL Borderline high 150 - 199 mg/dL High 200 - 499 mg/dL Very High > or = 500 mg/dL Performed By: #### L 501.9985, L501.2300, L500.4050, L501.9940, L509.1000, L506.1000, L500.4100, L100.0100 ####[facility] [address] [place], [place], [address] Low density lipoprotein (LDL ) cholesterol measurementOrdered By: Gilles Vance on 09-11-2024 Cholesterol in LDL [Mass/Vol] 66 mg/dL 0-130 [facility] Lymphocytes Auto (Unsp spec) [#/Vol]Ordered By: Gilles Vance on 09-11-2024 Lymphocytes (Bld) [#/Vol] 1.53 10*3/uL 0.83-4.5 1 [facility] Lymphocytes/100 WBC Auto (Un sp spec)Ordered By: Gilles Vance on 09-11-2024 Lymphocytes/100 WBC (Bld) 22.1 % 19-41 [facility] MCV (mean corpuscular volume ) determinationOrdered By: Gilles Vance on 09-11-2024 MCV (RBC) [Entitic vol] 85.3 fL 80-94 [facility] Mean corpuscular hemoglobin (MCH) determinationOrdered By: Gilles Vance on 09-11-2024 MCH (RBC) [Entitic mass] 28.0 pg 27.0-32.0 [facility] Mean corpuscular hemoglobin concentration (MCHC) determinationOrdered By: Gilles Vance on 09-11-2024 MCHC (RBC) [Mass/Vol] 32.8 g/dL 32-36 [facility] Mean platelet volume determi nationOrdered By: Gilles Vance on 09-11-2024 Platelet mean volume (Bld) [Entitic vol] 12.0 fL 6.2-12.0 [facility] Monocyte percentageOrdered B y: Gilles Vance on 09-11-2024 Monocytes/100 WBC (Bld) 9.4 % 0-10 [facility] Neutrophil percentageOrdered By: Gilles Vance on 09-11-2024 Neutrophils/100 WBC (Bld) 64.3 % 47-70 [facility] Nucleated red blood cell per centageOrdered By: Gilles Vance on 09-11-2024 Nucleated RBC/100 WBC (Bld) [Ratio] 0 % 0-5 [facility] PSA,Total- Diagnosticon 08-18 PSA, DIAGNOSTIC 1.42 ng/mL Normal 0.0-4.0 [facility] Comment on above: Order Comment: Order Date: 09/11/24Order Info: [id number] - CMPOrder Info: [id number] - LIPIDOrder Info: [id number] - PHOSOrder Info: [id number] - PSAD Result Comment: This test was performed using the TPSA assay method for the [employer] chemistry system. Values obtained with different assay methods cannot be used interchangably. When changing PSA assays in the course of monitoring a patient, additional sequential testing should be carried out to confirm baseline values. Performed By: #### L 501.9985, L501.2300, L500.4050, L501.9940, L509.1000, L506.1000, L500.4100, L100.0100 ####[facility] [address] [place], [place], [address] PTHINon 09-11-2024 PTH 79.7 pg/mL Normal 18.4-80.1 [facility] Comment on above: Order Comment: Order Date: 09/11/24Order Info: [id number] - PTHIN Performed By: #### L 501.9985, L501.2300, L500.4050, L501.9940, L509.1000, L506.1000, L500.4100, L100.0100 ####[facility] [address] [place], [address] Phosphoruson 09-11-2024 Phosphate [Mass/Vol] 3.9 mg/dL Normal 2.5-4.9 [facility] Comment on above: Order Comment: Order Date: 09/11/24Order Info: [id number] - CMPOrder Info: [id number] - LIPIDOrder Info: [id number] - PHOSOrder Info: [id number] - PSAD Performed By: #### L 501.9985, L501.2300, L500.4050, L501.9940, L509.1000, L506.1000, L500.4100, L100.0100 ####[facility] [address] [place], [place], [address] Phosphorus measurementOrdere d By: Gilles Vance on 09-11-2024 Phosphorus Level 3.9 mg/dL 2.5-4.9 [facility] Platelet countOrdered By: Anel Vance on 09-11-2024 Platelets (Bld) [#/Vol] 234 10*3/uL 150-450 [facility] Potassium measurementOrdered By: Gilles Vance on 09-11-2024 Potassium [Moles/Vol] 4.7 mmol/L 3.5-5.1 [facility] RBC Auto (Bld) [#/Vol]Ordere d By: Gilles Vance on 09-11-2024 RBC (Bld) [#/Vol] 5.65 10*6/uL 4.6-6.2 [facility] Serum anion gap measurementO rdered By: Gilles Vance on 09-11-2024 Anion gap [Moles/Vol] 9 mmol/L 5-15 [facility] Serum globulin measurementOr dered By: Gilles Vance on 09-11-2024 Globulin (S) [Mass/Vol] 3.7 g/dL 2.2-4.2 [facility] Serum or plasma alanine lester otransferase (ALT) measurementOrdered By: Gilles Vance on 09-11-2024 ALT [Catalytic activity/Vol] 27 U/L 16-61 [facility] Serum or plasma albumin bryanna urement (mass/volume)Ordered By: Gilles Vance on 09-11-2024 Albumin [Mass/Vol] 3.9 g/dL 3.2-5.[address] [facility] Serum or plasma alkaline shakira sphatase measurementOrdered By: Gilles Vance on 09-11-2024 ALP [Catalytic activity/Vol] 59 U/L 45-117 [facility] Serum or plasma calcium bryanna urement (mass/volume)Ordered By: Gilles Vance on 09-11-2024 Calcium [Mass/Vol] 9.1 mg/dL 8.5-10.[address] [facility] Serum or plasma cholesterol measurement (mass/volume)Ordered By: Gilles Vance on 09-11-2024 Cholesterol [Mass/Vol] 157 mg/dL <200 [facility] Comment on above: <200 mg/dL Desirable 200-240 mg/dL Borderline >240 mg/dL High Risk Serum or plasma creatinine m easurement (mass/volume)Ordered By: Gilles Vance on 09-11-2024 Creatinine [Mass/Vol] 1.70 mg/dL High 0.70-1.30 [facility] Comment on above: The validity of the calculated GFR & GFRAA in patients over 70 years has not been determined. Clinical correlation is essential. Serum or plasma urea nitroge n measurement (mass/volume)Ordered By: Gilles Vance on 09-11-2024 Urea nitrogen [Mass/Vol] 21 mg/dL High 7-18 [facility] Sodium levelOrdered By: Gilles Vance on 09-11-2024 Sodium [Moles/Vol] 138 mmol/L 136-[address] [facility] Total proteinOrdered By: Hever Vance on 09-11-2024 Protein [Mass/Vol] 7.6 g/dL 6.4-8.[address] [facility] Triglycerides measurementOrd ered By: Gilles Vance on 09-11-2024 Triglyceride [Mass/Vol] 233 mg/dL High <199 [facility] Comment on above: The drugs N-Acetylcy steine and Metamizole may falsely depress this assay.Serum Triglycerides Reference Interval Normal <150 mg/dL Borderline high 150 - 199 mg/dL High 200 - 499 mg/dL Very High > or = 500 mg/dL Very low density lipoprotein (VLDL) cholesterol measurementOrdered By: Gilles Vance on 09-11-2024 VLDL Cholesterol 47 mg/dL High 5-40 [facility] Vitamin D,25 Hydroxyon 09-11 Vitamin D 25-OH 36.8 ng/mL Normal [facility] Comment on above: Order Comment: Order Date: 09/11/24Order Info: [id number] - [id number] Result Comment: Amelie min D 25(OH) Status Range Deficiency <20 ng/mL (50nmol/L) Insufficiency 20 - 30 ng/mL (50 - 75 nmol/L) Sufficiency 30 - 100 ng/mL (75 - 250 nmol/L) Toxicity >100 ng/mL (>250 nmol/L) Performed By: #### L 501.9985, L501.2300, L500.4050, L501.9940, L509.1000, L506.1000, L500.4100, L100.0100 ####[facility] [id number] [place], [place], [id number] White blood cell (WBC) count Ordered By: Gilles Vance on 09-11-2024 WBC (Bld) [#/Vol] 6.9 10*3/uL 4.4-11.[address] [facility] Laboratory - Microbiology an d Antimicrobial susceptibilityon 01-25-2022 SARS-CoV-2 (COVID-19) RNA DIEGO+probe Ql (Unsp spec) Detected Not Detect [facility] Work Phone: Comment on above: Normal [...] cm Dr. Gilles Vance MD Work Phone: [facility] 09-24-2024 09:46-0500 Body mass index (BMI) [Ratio] 34.3 kg/m2 Dr. Gilles Vance MD Work Phone: [facility] 09-24-2024 09:46-0500 Body weight 102.[address] Gilles Vance MD Work Phone: [facility] 09-24-2024 09:46-0500 Diastolic blood pressure 80 mm[Hg] Dr. Gilles Vance MD Work Phone: [facility] 09-24-2024 09:46-0500 Heart rate 61 /min Dr. Gilles Vance MD Work Phone: [facility] 09-24-2024 09:46-0500 Respiratory rate 18 /min Dr. Gilles Vance MD Work Phone: [facility] 09-24-2024 09:46-0500 Systolic blood pressure 114 mm[Hg] Dr. Gilles Vance MD Work Phone: [facility] Encounters Encounter Date Encounter Type Care Provider Facility Start: 03-19-2025 End: 03-19-[address] Gilles Vance MD Work Phone: -Cardiovascular Services Start: 03-19-2025 End: 03-19-[address] Gilles Vance MD -Cardiovascular Services Work Phone: Start: 03-19-2025 ambulatory Jacob Mcgovern Facility:[facility] Start: 03-19-2025 Non-patient / Non-visit Dr. Jason PATEL -[facility] Start: 03-19-2025 End: 03-19-2025 ambulatory Gilles Vance Facility:[facility] Start: 03-09-2025 End: 03-09-[address] Gilles Vance MD Work Phone: -Laboratory [facility] Start: 03-09-2025 End: 03-09-[address] Gilles Vance MD -Laboratory [facility] Start: 03-09-2025 End: 03-09-2025 ambulatory Gilles Vance Facility:[facility] Start: 03-04-2025 End: 03-04-[address] Gilles Vance MD Work Phone: [facility] Work Phone: Start: 03-04-2025 End: 03-04-[address] Gilles Vance MD -Laboratory [facility] Start: 03-04-2025 End: 03-04-2025 ambulatory Gilles Vance Facility:[facility] Start: 02-11-2025 End: 02-11-[address] Gilles Vance MD Work Phone: [facility] Work Phone: Start: 02-11-2025 End: 02-11-[address] Gilles Vance MD -Laboratory [facility] Start: 02-11-2025 End: 02-11-2025 ambulatory Gilles Vance Facility:[facility] Start: 12-08-2024 End: 12-08-[address] Gilles Vance MD Work Phone: [facility] Work Phone: Start: 12-08-2024 End: 12-08-[address] Michael Pascual MD -Laboratory Work Phone: Start: 12-08-2024 End: 12-08-2024 ambulatory Michael Pascual Facility:[facility] Start: 11-21-2024 Non-patient / Non-visit Dr. Stanislaw french MD -[facility] Start: 11-21-2024 End: 11-21-[address] Gilles Vance MD Work Phone: [facility] Work Phone: Start: 11-21-2024 End: 11-21-[address] Gilles Vance MD -Cardiovascular Services Work Phone: Start: 11-21-2024 End: 11-21-2024 ambulatory Gilles Vance Facility:[facility] Start: 10-06-2024 End: 10-06-2024 [facility] Start: 10-06-2024 End: 10-06-[address] Jacob Mcgovern MD -[facility] Work Phone: Start: 09-24-2024 End: 09-24-2024 ambulatory Jacob Mcgovern Facility:[facility] Start: 09-24-2024 End: 09-24-[address] Jacob Mcgovern MD -[facility] Work Phone: Start: 09-11-2024 End: 09-11-[address] Gilles Vance MD -Laboratory, [facility] Start: 09-11-2024 End: 09-11-2024 ambulatory [facility] Leo Vance Facility:[facility] Start: 01-25-2022 End: 01-25-2022 Patient encounter procedure [facility]-Laboratory, Specimen Procedures Date Procedure Procedure Detail Performing Clinician Start: 02-11-[address] Gilles Vance MD Work Phone: Start: 02-11-2025 Serum inorganic phos phate measurement Dr. Gilles Vance MD Work Phone: Start: 02-11-2025 Total iron binding capacity measurement Dr. Gilles Vance MD Work Phone: Start: 02-11-2025 Urine microalbumin/creatinine ratio measurement Dr. Gilles Vance MD Work Phone: Comment on above: Previous reported re sult: 726.9 mg/g CREEdited by: TRACY on 03/10/25:1104 AMENDED REPORT 03/10/25 1104 MALB:CREAT previously reported as: 726.9 mg/g CRE Start: 02-11-2025 Urnls dip stick/tabl et reagent [...] Phone: Payers Date Payer Category Payer Self-pay [id number] 2024 Medicare [id number] 2024 Private Health Insurance [id number] 2008 Private Health Insurance [id number] Unknown SELF PAY INSURANCE [id number] Unknown [id number] Unknown [id number] Unknown [id number] Unknown [id number] Unknown [id number] Unknown [id number] Unknown [id number] Unknown [id number] Unknown [id number] Unknown [id number] Unknown [id number] Unknown [id number] Unknown [id number] Social History Date Type Detail Facility Start: 06-23-2013 Tobacco smoking stat [facility] Unknown if ever smoked [facility] Work Phone: Start: 01-25-2022 None [facility] Start: 01-25-2022 Non-smoker [facility] Start: 1950 Sex Assigned At Male [facility] Start: 09-11-2024 [facility] Start: 12-03-2024 End: 12-15-2024 Sex Male (finding) [facility] Evaluation note 09-24-2024 Note Date & [...] 9:48am SA node dysfunction acute 2024 9:48am [facility] Work Phone: Evaluation note Note Date & Type Note Facility Evaluation note No assessment information availa ble [facility] Work Phone: Reason for referral (narrative) Note Date & Type Note Facility Reason for referral (narrative) No reason for referral information available [facility] Work Phone: Chief Complaint and Reason [...] AAA SCREENING November 21, 2024 8:43 am Chief Complaint Admit Date CHRONIC SYSTOLIC HEART FAILURE March 19, 2025 1:24pm Family History No Family History Records Found [...] February 11, 2025 End: February 11, 2025 Team Status: Inactive Member Role Status Dates Dr. Gilles Vance MD Primary Care Provider Active Start: March 04, 2025 End: March 04, 2025 Dr. Gilles Vance MD Attending Provider Active Start: March 04, 2025 End: March 04, 2025 Team Status: Active Member Role Status Dates Dr. Gilles Vance MD Primary Care Provider Active Start: March 09, 2025 Dr. Gilles Vance MD Attending Provider Active Start: March 09, 2025 Team Status: Active Member Role/Relationship Status Dates Dr. Gilles Vance MD Primary Care Provider Active Team Status: Inactive Member Role/Relationship Status Dates Dr. Gilles Vance MD Primary Care Provider Active Start: November 21, 2024 End: November 21, 2024 Dr. Gilles Vance MD Attending Provider Active Start: November 21, 2024 End: November 21, 2024 Dr. Gilles Vance MD Referring Provider Active Start: November 21, 2024 End: November 21, 2024 Team Status: Active Member Role/Relationship Status Dates Dr. Gilles Vance MD Primary Care Provider Active Start: November 21, 2024 Dr. Stanislaw Benton MD Attending Provider Active S tart: November 21, 2024 Team Status: Inactive Member Role/Relationship Status Dates Dr. Gilles Vance MD Primary Care Provider Active Start: December 08, 2024 End: December 08, 2024 Dr. Michael Pascual MD Attending Provider Active Start: December 08, 2024 End: December 08, 2024 Dr. Michael Pascual MD Referring Provider Active Start: December 08, 2024 End: December 08, 2024 Team Status: Inactive Member Role/Relationship Status Dates Dr. Gilles Vance MD Primary Care Provider Active Start: February 11, 2025 End: February 11, 2025 Dr. Gilles Vance MD Attending Provider Active Start: February 11, 2025 End: February 11, 2025 Dr. Gilles Vance MD Referring Provider Active Start: February 11, 2025 End: February 11, 2025 Team Status: Inactive Member Role/Relationship Status Dates Dr. Gilles Vance MD Primary Care Provider Active Start: March 04, 2025 End: March 04, 2025 Dr. Gilles Vance MD Attending Provider Active Start: March 04, 2025 End: March 04, 2025 Team Status: Inactive Member Role/Relationship Status Dates Dr. Gilles Vance MD Primary Care Provider Active Start: March 09, 2025 End: March 09, 2025 Dr. Gilles Vance MD Attending Provider Active Start: March 09, 2025 End: March 09, 2025 Team Status: Inactive Member Role/Relationship Status Dates Dr. Gilles Vance MD Primary Care Provider Active Start: December 08, 2024 End: December 08, 2024 Dr. Michael Pascual MD Attending Provider Active Start: December 08, 2024 End: December 08, 2024 Dr. Michael Pascual MD Referring Provider Active Start: December 08, 2024 End: December 08, 2024 Team Status: Inactive Member Role/Relationship Status Dates Dr. Gilles Vance MD Primary Care Provider Active Start: February 11, 2025 End: February 11, 2025 Dr. Gilles Vance MD Attending Provider Active Start: February 11, 2025 End: February 11, 2025 Dr. Gilles Vance MD Referring Provider Active Start: February 11, 2025 End: February 11, 2025 Team Status: Inactive Member Role/Relationship Status Dates Dr. Gilles Vance MD Primary Care Provider Active Start: March 04, 2025 End: March 04, 2025 Dr. Gilles Vance MD Attending Provider Active Start: March 04, 2025 End: March 04, 2025 Team Status: Inactive Member Role/Relationship Status Dates Dr. Gilles Vance MD Primary Care Provider Active Start: March 09, 2025 End: March 09, 2025 Dr. Gilles Vance MD Attending Provider Active Start: March 09, 2025 End: March 09, 2025 Team Status: Active Member Role/Relationship Status Dates Dr. Gilles Vance MD Primary Care Provider Active Start: March 19, 2025 Dr. Jacob Mcgovern MD Attending Provider Active S tart: March 19, 2025 Team Status: Inactive Member Role/Relationship Status Dates Dr. Gilles Vance MD Primary Care Provider Active Start: March 19, 2025 End: March 19, 2025 Dr. Gilles Vance MD Attending Provider Active Start: March 19, 2025 End: March 19, 2025 Dr. Gilles Vance MD Referring Provider Active Start: March 19, 2025 End: March 19, 2025 (unrecognized sect ion and content) No Status Records Found INFORMATION SOURCE (unrecogn ized section and content) DATE CREATED AUTHOR 03/30/[address] [facility] FOR RECORDS PERTAINING TO PATIENTS [...] BE BASED ON THE PRIMARY CLINICAL RECORDS. [facility] [employer] [facility]. provides no warranty or guarantee of the accuracy or completeness of information in this document.
[2025-05-03 13:10] VITALS: BP 122/77; PULSE 65; RESP 14; O2SAT 99
--- NOTE | 2025-05-03 13:35 | ED.VIS.LOWEX ---
HPI <Dr. Jacque Huynh MD - Last Filed: 05/04/25 07:09> History of Present Illness HPI Narrative: Patient is a 74-year-old male presenting to the emergency department for right leg pain. Patient has a past medical history as below, most notable for peripheral vascular disease and DVT. He did have a right saphenous venous arterial graft in 2012. Patient states that he started having leg pain about 3 days ago. States it feels like his prior DVT. He states he has baseline neuropathy but no new numbness or tingling in his legs. Denies any weakness in his leg. Denies any injury to his leg including falls. Denies back pain associated with the leg pain. Denies abdominal pain, chest pain or SOB. Chief Complaint: Lower Extremity Injury PFSH <Dr. Jacque Huynh MD - Last Filed: 05/04/25 07:09> [facility] Medical History SA node dysfunction Afib Dilated cardiomyopathy Supraventricular tachycardia Chronic combined systolic (congestive) and diastolic (congestive) heart failure Atherosclerosis of both carotid arteries Atherosclerosis of coronary artery of [place] heart without angina pectoris ROSSI (obstructive sleep apnea) Neuropathy Hyperparathyroidism AAA (abdominal aortic aneurysm) CKD stage 3 due to type 2 diabetes mellitus Obesity PVD (peripheral vascular disease) Gómez esophagus GERD (gastroesophageal reflux disease) Calculus of kidney Right knee pain History of herniated intervertebral disc History of kidney cancer Diabetes Hyperlipemia HTN (hypertension) Prostate cancer Home Medications ?Medication ?Instructions ?Recorded ?Last Taken ?Type aspirin 81 mg chewable tablet 1 tab PO DAILY 02/21/24 05/03/25 History (Jayna Chewable Low Dose Aspirin) glucos 500 [id number] 450 1 cap PO BID 02/21/24 05/03/25 History mg-liza 0.67 mg-I.frankince-boron capsule metoprolol tartrate 50 mg tablet 50 mg PO BID 02/21/24 05/03/25 History (Lopressor) omega 5-uvq-aqt-fish oil 1,200 mg 1 cap PO DAILY 02/21/24 05/02/25 History (144 mg-216 mg) capsule (Fish Oil) ondansetron HCl 4 mg tablet 4 mg PO Q8H PRN nausea and vomiting 02/21/24 Unknown History super beta prostate 1 tab PO/SL BID 02/21/24 05/03/25 History vitamin B complex (Balanced B-50 1 tab PO DAILY 02/21/24 05/03/25 History tablet) atorvastatin 40 mg tablet 40 mg PO QDAY 09/11/24 05/02/25 History amlodipine 10 mg tablet 10 mg PO QDAY 09/24/24 05/02/25 History empagliflozin 25 mg tablet 25 mg PO QDAY 09/24/24 05/03/25 History (Jardiance) metformin 500 mg tablet 500 mg PO BID 09/24/24 05/03/25 History omeprazole 40 mg capsule,delayed 40 mg PO QDAY 09/24/24 05/03/25 History release sacubitril 24 mg-valsartan 26 mg 0.5 tab PO BID 09/24/24 05/03/25 History tablet (Entresto) gabapentin 300 mg capsule 300 mg PO TID 02/13/25 05/03/25 History apixaban 2.5 mg tablet (Eliquis) 2.5 mg PO BID #60 tabs 05/03/25 Unknown Rx Allergy/AdvReac Type Severity Reaction Status Date / Time No Known Allergies Allergy Verified 05/03/25 10:59 Family History Father Cancer COPD (chronic obstructive pulmonary disease) Diabetes Brother Heart disease Mother Hypertension Surgical History Hx of rotator cuff surgery (~1989) Hx of arterial bypass of lower limb (~2004) Presence of implantable cardioverter-defibrillator (ICD) (12/05/23) History of nephrectomy, left (02/28/13) Social History Smoking Status: Current some day smoker tobacco type: cigars alcohol intake: current alcohol intake frequency: holidays/special occasions only substance use type: does not use ROS <Dr. Jacque Huynh MD - Last Filed: 05/04/25 07:09> ROS ED ROS Narrative see HPI EXAM <Dr. Jacque Huynh MD - Last Filed: 05/04/25 07:09> Physical Exam Narrative Exam Narrative: Vital signs: Reviewed General: Alert and oriented. No acute distress HEENT: Head is normocephalic and atraumatic, sinuses nontender, pupils equal round and reactive. Nares are patent. Oropharynx and throat exams normal. Neck: Supple without lymphadenopathy nontender Cardiovascular: Regular rate and rhythm, no murmurs. No rubs or gallops. Normal S1 and S2 Respiratory: Clear to auscultation bilaterally. No wheezes, rales, rhonchi Abdominal: Soft and nontender. Normal bowel sounds. No guarding or rebound. Nonsurgical abdomen Extremities: Prior surgical scars to right medial lower thigh and upper medial calf. There is a 3 cm area of erythema to the right lower medial thigh along the site of the surgical scar. No tenderness to palpation of the posterior calf. No swelling of the calf. No pain in the popliteal fossa. Sensation intact. Normal flexion and extension at hip and knee. Pulses could not be felt DP or PT. Able to be easily dopplered at the PT with strong sounds. DP was not able to be dopplered. Foot has no pallor. Warm to the touch. Neurological: Cranial nerves II through XII are grossly intact. Normal strength and sensation. Normal cerebellar function The rest of the physical exam is unremarkable Const Vital Signs: 05/03/25 10:58 05/03/25 13:10 05/03/25 15:20 Temperature 98.3 F Temperature Source Oral Pulse Rate 76 65 93 Respiratory Rate 16 14 24 H Blood Pressure 149/88 H 122/77 H 135/77 H Blood Pressure Mean 108 92 96 Pulse Ox 100 99 96 Oxygen Delivery Method Room Air Room Air Room Air 05/03/25 17:00 05/03/25 19:00 05/03/25 20:16 Temperature 98.6 F Temperature Source Pulse Rate 84 64 73 Respiratory Rate 17 15 16 Blood Pressure 161/132 H 120/75 141/73 H Blood Pressure Mean 141 90 95 Pulse Ox 94 93 94 Oxygen Delivery Method Room Air Room Air <Dr. José Miguel Mathews, DO - Last Filed: 05/03/25 19:55> Physical Exam Const Vital Signs: 05/03/25 10:58 05/03/25 13:10 05/03/25 15:20 Temperature 98.3 F Temperature Source Oral Pulse Rate 76 65 93 Respiratory Rate 16 14 24 H Blood Pressure 149/88 H 122/77 H 135/77 H Blood Pressure Mean 108 92 96 Pulse Ox 100 99 96 Oxygen Delivery Method Room Air Room Air Room Air 05/03/25 17:00 05/03/25 19:00 05/03/25 20:16 Temperature 98.6 F Temperature Source Pulse Rate 84 64 73 Respiratory Rate 17 15 16 Blood Pressure 161/132 H 120/75 141/73 H Blood Pressure Mean 141 90 95 Pulse Ox 94 93 94 Oxygen Delivery Method Room Air Room Air [facility] <Dr. Jacque Huynh MD - Last Filed: 05/04/25 07:09> [facility] Narrative Medical decision making narrative: Patient is a 74-year-old male presenting to the emergency department for right leg pain. Patient was seen and examined. Vitals are stable. Patient resting bed comfortably no acute distress. Differential includes but not limited to: DVT, arterial stenosis, cellulitis, abscess Given the patients prior history of PVD and graft with now pain along the graft side worsened with activity, I have concern for stenosis of his graft site. I asked ultrasound to evaluate his graft site along with his DVT study, she recommended obtaining CT given multiple insertion sides on evaluation. DVT study ordered and negative for clot. CT with run offs of the lower extremity ordered to evaluate the graft. [facility] ordered for kidney function per CT before going to imaging. Patient signed out to Dr Mathews pending CT. 1814: Bisi. Patient signed out to me to follow-up on CT angiogram abdomen pelvis with runoff. Results per radiology concerns for right side occlusion of the superficial femoral artery along with occlusion into the graft of the lower leg. Reported with delayed images there was some reconstitution of flow to the distal anastomosis graft below the knee. He has been having claudication symptoms for last couple days pain medial leg knee down to the upper lower leg. He reports his graft was done 2004 in [place] at [facility]. Currently there is no vascular surgeon available at this facility. I will start heparin drip. I will discuss with transferring facility with concerning occlusion. 1922: I was able to speak with [facility] transfer with vascular surgery Dr. Holbrook, she reviewed the imaging we discussed his symptoms claudication symptoms improved with rest. There is no resting pain. There are collaterals. Therefore no urgent indication to transfer as there is no immediate intervention. She reported with the occluded graft he would likely need another bypass surgery however this can be planned. We discussed his medications he is on baby aspirin and statin. She recommended Eliquis 2.5 mg twice a day first dose given in the ED with a prescription written. He has contraindication to Pletal as he has heart failure history. He will be given follow-up locally with Dr. Benton as he wants to stay local. He will call tomorrow in the office for follow-up. I discussed if any sudden worsening pain distal leg and foot at rest immediately return to the ED. Patient and spouse understands and agrees with plan. Clinical Impression: leg pain occlusion of femoral artery Lab Data Labs: Laboratory Results - last 24 hr 05/03/25 05/03/25 05/03/25 14:05 14:58 18:28 WBC 9.6 RBC 5.84 Hgb 16.4 Hct 48.5 MCV 83.0 MCH 28.1 MCHC 33.8 RDW Std Deviation 38.7 RDW Coeff of Ambika 12.9 Plt Count 209 MPV 11.6 Immature Gran % (Auto) 0.600 Neut % (Auto) 70.5 H Lymph % (Auto) 16.1 L [place] % (Auto) 11.4 H Eos % (Auto) 0.8 Baso % (Auto) 0.6 Absolute Neuts (auto) 6.7 Absolute Lymphs (auto) 1.54 Nucleated RBC % 0 PT 13.3 INR 1.0 APTT 24.1 Sodium 139 Potassium 4.9 Chloride 103 Carbon Dioxide 21.3 Anion Gap 15 BUN 19 Creatinine 1.66 H Estim Creat Clear Calc 45.43 L Est GFR (MDRD) Non-Af 43 L BUN/Creatinine Ratio 11.2 Glucose 167 H Calcium 9.6 POC Glucose 163 H Radiography Diagnostic Testing: Clinical Impression(s) from Imaging Studies Venous Doppler Study 05/03/25 11:28 Interpretation Summary Deep veins of the right lower extremity are patent and compressible segmentally. There is no evidence of right lower extremity deep vein thrombosis. Valvular competence appears intact within the proximal deep venous system on the right . The right great saphenous vein appears patent and compressible segmentally. The left common femoral vein is patent and compressible . Ordering Physician: Jacque Huynh Referring Physician: Gilles Vance Performed By: Disha Pierce RVT Abdomen/Pelvis CTA 05/03/25 15:15 IMPRESSION: Patent arterial tree on the left. Ectatic iliac arteries. Occluded distal right superficial femoral artery and graft. Reconstitution of infrapopliteal flow via collaterals on the right. Reading Location[facility] <Dr. José Miguel Mathews, DO - Last Filed: 05/03/25 19:55> [facility] MDM Narrative Medical decision making narrative: Patient is a 74-year-old male presenting to the emergency department for right leg pain. Patient was seen and examined. Vitals are stable. Patient resting bed comfortably no acute distress. Differential includes but not limited to: DVT, arterial stenosis, cellulitis, abscess DVT study ordered and negative for clot. CT with run offs of the lower extremity ordered to evaluate the graft. 1814: Bisi. Patient signed out to me to follow-up on CT angiogram abdomen pelvis with runoff. Results per radiology concerns for right side occlusion of the superficial femoral artery along with occlusion into the graft of the lower leg. Reported with delayed images there was some reconstitution of flow to the distal anastomosis graft below the knee. He has been having claudication symptoms for last couple days pain medial leg knee down to the upper lower leg. He reports his graft was done 2004 in [place] at [facility]. Currently there is no vascular surgeon available at this facility. I will start heparin drip. I will discuss with transferring facility with concerning occlusion. 192: I was able to speak with [facility] transfer with vascular surgery Dr. Holbrook, she reviewed the imaging we discussed his symptoms claudication symptoms improved with rest. There is no resting pain. There are collaterals. Therefore no urgent indication to transfer as there is no immediate intervention. She reported with the occluded graft he would likely need another bypass surgery however this can be planned. We discussed his medications he is on baby aspirin and statin. She recommended Eliquis 2.5 mg twice a day first dose given in the ED with a prescription written. He has contraindication to Pletal as he has heart failure history. He will be given follow-up locally with Dr. Benton as he wants to stay local. He will call tomorrow in the office for follow-up. I discussed if any sudden worsening pain distal leg and foot at rest immediately return to the ED. Patient and spouse understands and agrees with plan. Lab Data Attestation: I reviewed the patient's lab results. Labs: Laboratory Results - last 24 hr 05/03/25 05/03/25 05/03/25 14:05 14:58 18:28 WBC 9.6 RBC 5.84 Hgb 16.4 Hct 48.5 MCV 83.0 MCH 28.1 MCHC 33.8 RDW Std Deviation 38.7 RDW Coeff of Ambika 12.9 Plt Count 209 MPV 11.6 Immature Gran % (Auto) 0.600 Neut % (Auto) 70.5 H Lymph % (Auto) 16.1 L [place] % (Auto) 11.4 H Eos % (Auto) 0.8 Baso % (Auto) 0.6 Absolute Neuts (auto) 6.7 Absolute Lymphs (auto) 1.54 Nucleated RBC % 0 PT 13.3 INR 1.0 APTT 24.1 Sodium 139 Potassium 4.9 Chloride 103 Carbon Dioxide 21.3 Anion Gap 15 BUN 19 Creatinine 1.66 H Estim Creat Clear Calc 45.43 L Est GFR (MDRD) Non-Af 43 L BUN/Creatinine Ratio 11.2 Glucose 167 H Calcium 9.6 POC Glucose 163 H Radiography Diagnostic Testing: Clinical Impression(s) from Imaging Studies Venous Doppler Study 05/03/25 11:28 Interpretation Summary Deep veins of the right lower extremity are patent and compressible segmentally. There is no evidence of right lower extremity deep vein thrombosis. Valvular competence appears intact within the proximal deep venous system on the right . The right great saphenous vein appears patent and compressible segmentally. The left common femoral vein is patent and compressible . Ordering Physician: Jacque Huynh Referring Physician: Gilles Vance Performed By: Disha Pierce RVT Abdomen/Pelvis CTA 05/03/25 15:15 IMPRESSION: Patent arterial tree on the left. Ectatic iliac arteries. Occluded distal right superficial femoral artery and graft. Reconstitution of infrapopliteal flow via collaterals on the right. Reading Location: [facility] Discharge Plan Triage Chief Complaint: Lower Extremity Injury ED Provider: Jacque Huynh Dx/Rx/DC Orders Clinical Impression: Claudication of right lower extremity, CKD stage 3 due to type 2 diabetes mellitus, Arterial occlusion, lower extremity Instructions: ED Peripheral Artery Disease (PAD) Prescriptions: New Eliquis 2.5 mg tablet 2.5 mg PO BID Qty: 60 0RF No Action atorvastatin 40 mg tablet 40 mg PO QDAY amlodipine 10 mg tablet 10 mg PO QDAY Jardiance 25 mg tablet 25 mg PO QDAY sacubitril-valsartan [Entresto] 24-26 mg tablet 0.5 tab PO BID omeprazole 40 mg capsule,delayed release(DR/EC) 40 mg PO QDAY aspirin [Jayna Chewable Aspirin] 81 mg tablet,chewable 1 tab PO DAILY metoprolol tartrate [Lopressor] 50 mg tablet 50 mg PO BID ondansetron HCl 4 mg tablet 4 mg PO Q8H PRN (Reason: nausea and vomiting) Patient Comments: unclear on dosage and frequency omega 0-stz-msc-fish oil [Fish Oil] 1,200 (144-216) mg capsule 1 cap PO DAILY vitamin B complex [Balanced B-50] Tablet 1 tab PO DAILY super beta prostate 1 tab PO/SL BID dosr-eiip-ylj9-oboe-olaokb-cyn 500-450-0.67 mg capsule 1 cap PO BID metformin 500 mg tablet 500 mg PO BID Patient Comments: unclear on dose gabapentin 300 mg capsule 300 mg PO TID Primary Care Provider: Gilles Vance Referrals: Stanislaw Benton MD [Med Staff - Active Staff] - 3-5 Days Gilles Vance MD [Primary Care Provider] - Activity Restrictions/Additional Instructions: Your CT angiogram concerns for occlusion of distal right femoral artery into your graft there are collaterals. You have claudication symptoms. I did discuss with vascular surgery down at [facility] Dr. Holbrook, continue your baby aspirin and your statin. You were started on Eliquis 2.5 mg twice a day. Call to follow-up with Dr. Benton within the next week for outpatient evaluation. You will likely need new grafting. If you have sudden pain at rest distal leg and foot, return immediately to the emergency department. Print Language: Thai Disposition Disposition: Home, Self Care Discharge Date/Time: 05/03/25 20:19
[2025-05-03 14:56] LABS: Anion Gap 15 (5-15); BUN 19 mg/dL (4-19); BUN/Creat Ratio 11.2 RATIO (10-20); Calcium,Total 9.6 mg/dL (7.6-11.0); Carbon Dioxide 21.3 mmol/L (21.0-32.0); Chloride 103 mmol/L (98-108); Estimated Creatinine Clearance 45.43 ml/min (50-250); Glucose 167 mg/dL (70-99); Potassium 4.9 mmol/L (3.3-5.1)
--- NOTE | 2025-05-03 15:15 | CT_ITS ---
PROCEDURE: CTA ABD W/RUNOFF W/WO CONTRAST 05/03/2025 REASON FOR EXAM: EVALUATE PRIOR GRAFT, LEG PAIN TECHNIQUE: CTA ABD W/RUNOFF W/WO CONTRAST Multiplanar Sagittal and Coronal images were obtained. 3D reconstructions CONTRAST: Isovue 370 VOLUME: 100 mL One or more dose reduction techniques were used (e.g., Automated exposure control, adjustment of the mA and/or kV according to patient size, use of iterative reconstruction technique). RADIATION DOSE SUMMARY: CTDlvol: 39 mGy DLP: 1661 mGycm FINDINGS: Normal distal thoracic aorta. Patent superior mesenteric artery, celiac artery and right renal artery. Infrarenal mild ectasia of the abdominal aorta with calcifications. Ectatic left and right common iliac arteries. Left and right external iliac arteries patent. Left and right superficial femoral arteries demonstrate normal opacification with prominent calcified plaque bilaterally. On the left, the distal superficial femoral artery is patent. On the right, there is apparent occlusion of the distal right superficial femoral artery and there is a graft extending from that level to the lower leg which also appears occluded. Delayed images were also acquired through this region which demonstrate three-vessel runoff below the left knee. There is some reconstitution of flow at the distal anastomosis of the graft with 1 2 two-vessel seen below the right knee. CT/CTA Abd w/Runoff W/WO Contrast IMPRESSION: Patent arterial tree on the left. Ectatic iliac arteries. Occluded distal rig ht superficial femoral artery and graft. Reconstitution of infrapopliteal flow via collaterals on the right. Reading Location: [facility]
[2025-05-03 15:20] VITALS: BP 135/77; PULSE 93; RESP 24; O2SAT 96
[2025-05-03] MEDS: HYDROcodone Bitartrate/Apap 5/325 Tablet PO (15:26)
[2025-05-03 17:00] VITALS: BP 161/132; PULSE 84; RESP 17; O2SAT 94
[2025-05-03] MEDS: Heparin Injection (Vial) 5,000 UNIT/ML VIAL 8500 UNIT IV (18:32)
[2025-05-03] MEDS: HEPARIN/D5w 25,000 UNITS 25,000 UNITS/250 ML IV.SOLN. 15.9 UNITS CONT INF (18:33)
[2025-05-03 18:41] LABS: Hematocrit 48.5 % (40-54); Hemoglobin 16.4 g/dL (13.0-16.5); Immature Granulocytes Count 0.060 X10^3/uL (0.0-0.0); Mean Corp Hgb Conc 33.8 g/dL (32-36); Mean Corpuscular Volume 83.0 fL (80-94); Mean Platelet Vol. 11.6 fl (6.2-12.0); NRBC Flagged by Analyzer 0 % (0-5); Platelet Count 209 K/mm3 (150-450); RBC Distribution Width CV 12.9 % (11.6-14.6); RBC Distribution Width SD 38.7 fl (35.1-43.9); Red Blood Count 5.84 M/mm3 (4.6-6.2); White Blood Count 9.6 K/mm3 (4.4-11.0)
[2025-05-03 18:50] LABS: Prothrombin Time (Protime)PT. 13.3 SECONDS (11.7-14.9)
[2025-05-03 18:51] LABS: Partial Thromboplast Time 24.1 Seconds (24.1-36.2)
[2025-05-03 19:00] VITALS: BP 120/75; PULSE 64; RESP 15; O2SAT 93
[2025-05-03 20:16] VITALS: BP 141/73; PULSE 73; RESP 16; TEMP 37; O2SAT 94
[2025-05-03] MEDS: APIXABAN 2.5 MG TABLET (WCH) PO (20:18)
== END 2025-05-03 20:19 | disposition home or self-care (01) ==
PROVIDERS: Emergency Medicine; Emergency Provider Student in an Organized Health Care Education/Training Program; PCP Family Medicine; Visit Provider Student in an Organized Health Care Education/Training Program
DX: M79.604 Pain in right leg (principal); I13.0 Hypertensive heart and chronic kidney disease with heart failure and stage 1 through stage 4 chronic kidney disease, or unspecified chronic kidney disease; I50.42 Chronic combined systolic (congestive) and diastolic (congestive) heart failure; E11.22 Type 2 diabetes mellitus with diabetic chronic kidney disease; E11.40 Type 2 diabetes mellitus with diabetic neuropathy, unspecified; N18.30 Chronic kidney disease, stage 3 unspecified; Z86.718 Personal history of other venous thrombosis and embolism; I25.10 Atherosclerotic heart disease of native coronary artery without angina pectoris; E78.5 Hyperlipidemia, unspecified; Z85.46 Personal history of malignant neoplasm of prostate; Z79.82 Long term (current) use of aspirin; Z79.899 Other long term (current) drug therapy; Z79.84 Long term (current) use of oral hypoglycemic drugs; K21.9 Gastro-esophageal reflux disease without esophagitis; Z95.810 Presence of automatic (implantable) cardiac defibrillator; Z90.5 Acquired absence of kidney; F17.290 Nicotine dependence, other tobacco product, uncomplicated; I87.8 Other specified disorders of veins; I70.90 Unspecified atherosclerosis
CPT/HCPCS: 75635; 80048; 82962; 85025; 85610; 85730; 93971; 96365; 96375; 99285; Q9967; A4216

== ENCOUNTER 2025-05-05 09:24 | Emergency (ER) | payer MEDICARE, OTHER, SELFPAY ==
[2025-05-05 09:35] VITALS: BP 103/62; PULSE 87; RESP 16; TEMP 36.7; O2SAT 93; BMI 36.1
--- NOTE | 2025-05-05 09:54 | ED.VIS.LOWEX ---
HPI History of Present Illness Chief Complaint: Lower Extremity Injury Narrative Narrative: 74-year-old male presents with his because of increasing right lower extremity pain. They state that he was seen in the emergency department 2 days ago and diagnosed with an arterial clot. He relates history that he had a DVT years ago, and also had bypass surgery on his right lower extremity remotely at [facility]. Prior to being seen 2 days ago, he had a few days of right lower extremity pain. He states that he was sent home to be followed up by vascular surgery, Dr. Joe, but when they called the office today, they cannot be seen until next Sunday. He presents with increasing leg pain on the right secondary to reported bypass graft occlusion. No exacerbating or alleviating factors. [facility] Medical History SA node dysfunction Afib Dilated cardiomyopathy Supraventricular tachycardia Chronic combined systolic (congestive) and diastolic (congestive) heart failure Atherosclerosis of both carotid arteries Atherosclerosis of coronary artery of false pass heart without angina pectoris ROSSI (obstructive sleep apnea) Neuropathy Hyperparathyroidism AAA (abdominal aortic aneurysm) CKD stage 3 due to type 2 diabetes mellitus Obesity PVD (peripheral vascular disease) Gómez esophagus GERD (gastroesophageal reflux disease) Calculus of kidney Right knee pain History of herniated intervertebral disc History of kidney cancer Diabetes Hyperlipemia HTN (hypertension) Prostate cancer Home Medications ?Medication ?Instructions ?Recorded ?Last Taken ?Type aspirin 81 mg chewable tablet 1 tab PO DAILY 02/21/24 05/03/25 History (Jayna Chewable Low Dose Aspirin) glucos 500 [id number] 450 1 cap PO BID 02/21/24 05/03/25 History mg-liza 0.67 mg-I.frankdominiquee-boron capsule metoprolol tartrate 50 mg tablet 50 mg PO BID 02/21/24 05/03/25 History (Lopressor) omega 6-xub-jyk-fish oil 1,200 mg 1 cap PO DAILY 02/21/24 05/02/25 History (144 mg-216 mg) capsule (Fish Oil) ondansetron HCl 4 mg tablet 4 mg PO Q8H PRN nausea and vomiting 02/21/24 Unknown History super beta prostate 1 tab PO/SL BID 02/21/24 05/03/25 History vitamin B complex (Balanced B-50 1 tab PO DAILY 02/21/24 05/03/25 History tablet) atorvastatin 40 mg tablet 40 mg PO QDAY 09/11/24 05/02/25 History amlodipine 10 mg tablet 10 mg PO QDAY 09/24/24 05/02/25 History empagliflozin 25 mg tablet 25 mg PO QDAY 09/24/24 05/03/25 History (Jardiance) metformin 500 mg tablet 500 mg PO BID 09/24/24 05/03/25 History omeprazole 40 mg capsule,delayed 40 mg PO QDAY 09/24/24 05/03/25 History release sacubitril 24 mg-valsartan 26 mg 0.5 tab PO BID 09/24/24 05/03/25 History tablet (Entresto) gabapentin 300 mg capsule 300 mg PO TID 02/13/25 05/03/25 History apixaban 2.5 mg tablet (Eliquis) 2.5 mg PO BID #60 tabs 05/03/25 Unknown Rx oxycodone 5 mg tablet 5 mg PO Q4H PRN pain 3 days #18 05/05/25 Unknown Rx tabs Allergy/AdvReac Type Severity Reaction Status Date / Time No Known Allergies Allergy Verified 05/03/25 10:59 Family History Father Cancer COPD (chronic obstructive pulmonary disease) Diabetes Brother Heart disease Mother Hypertension Surgical History Hx of rotator cuff surgery (~1989) Hx of arterial bypass of lower limb (~2004) Presence of implantable cardioverter-defibrillator (ICD) (12/05/23) History of nephrectomy, left (02/28/13) Social History Smoking Status: Current some day smoker tobacco type: cigars alcohol intake: current alcohol intake frequency: holidays/special occasions only substance use type: does not use ROS ROS ED ROS Narrative Review of systems positive for right lower extremity pain. No exacerbating or alleviating factors. EXAM Physical Exam Narrative Exam Narrative: Afebrile. Vital signs noted. Nontoxic-appearing. Inspection of the right lower extremity does show purple marker in the area of the dorsalis pedis pulse, and on the right medial aspect of the lower leg with minimal erythema. Const Vital Signs: 05/05/25 09:35 Temperature 98.1 F Temperature Source Temporal Pulse Rate 87 Respiratory Rate 16 Blood Pressure 103/62 Blood Pressure Mean 75 Pulse Ox 93 Oxygen Delivery Method Room Air MDM MDM MDM Narrative Medical decision making narrative: I reviewed the patient's prior records, mainly his ED visit from a few days ago. He was negative for DVT, but he did have a CTA of the lower extremity with runoffs. Initially, patient had been discussed for possible transfer as he was found to have claudication, but in discussion with the vascular surgeon at [facility], they report that he has collateral flow. While he may require additional bypass surgery, was not felt that he needed emergent transfer at that time. His pulses will be dopplered here, and additionally they stated to start him on Eliquis 2.5 mg which I will confirm that he is taking. I will discuss patient with vascular surgery. In discussion with the MORGAN, she has reviewed the prior ED visit as well. Although he is having rest pain, he does have dopplerable pulses distally according to the RN. Vascular surgery did suggest close follow-up next week, and taking the Eliquis. I will write him for 3 days worth of oxycodone as he was given 1 here. She also suggested ordering an ankle-brachial index study. While I ordered it from the emergency department, patient stated that he did not want to wait for it to be performed here and prefers that it be done as an outpatient. However, as the technicians arrived, he is now willing to stay, but does not want to wait for the results. I do not feel this is necessary. However, I was able to review the initial preliminary report, and feel that he still can be discharged. This has been discussed with vascular surgery previously. He was given strict return instructions including numbness of his right lower extremity, discoloration and including pallor or purpleness. He was told that if he did have occlusion of his collateral flow that it may require transfer should he return. Disposition is discharged home in stable condition. History & Record Review Discussion w/independent historian: Patient and Family Additional record(s) reviewed:: Prior ED visit (DVT negative, CTA performed with positive collateral flow) Management Discussion w/another healthcare provider: Active Directory Engineer (Vascular surgery) Discharge Plan Triage Chief Complaint: Lower Extremity Injury ED Provider: Hal Hendrickson Dx/Rx/DC Orders Clinical Impression: Claudication of right lower extremity, Arterial occlusion, lower extremity, Acute pain of right lower extremity Instructions: ED Peripheral Artery Disease (PAD) Prescriptions: New oxycodone 5 mg tablet 5 mg PO Q4H PRN (Reason: pain) 3 Days Qty: 18 0RF No Action atorvastatin 40 mg tablet 40 mg PO QDAY amlodipine 10 mg tablet 10 mg PO QDAY Jardiance 25 mg tablet 25 mg PO QDAY sacubitril-valsartan [Entresto] 24-26 mg tablet 0.5 tab PO BID omeprazole 40 mg capsule,delayed release(DR/EC) 40 mg PO QDAY aspirin [Jayna Chewable Aspirin] 81 mg tablet,chewable 1 tab PO DAILY metoprolol tartrate [Lopressor] 50 mg tablet 50 mg PO BID ondansetron HCl 4 mg tablet 4 mg PO Q8H PRN (Reason: nausea and vomiting) Patient Comments: unclear on dosage and frequency omega 3-qop-dxk-fish oil [Fish Oil] 1,200 (144-216) mg capsule 1 cap PO DAILY vitamin B complex [Balanced B-50] Tablet 1 tab PO DAILY super beta prostate 1 tab PO/SL BID rskn-jgsa-etr8-nbkw-gejsyy-rxb 500-450-0.67 mg capsule 1 cap PO BID metformin 500 mg tablet 500 mg PO BID Patient Comments: unclear on dose Eliquis 2.5 mg tablet 2.5 mg PO BID Qty: 60 0RF gabapentin 300 mg capsule 300 mg PO TID Primary Care Provider: Gilles Vance Referrals: Stanislaw Benton MD [Med Staff - Active Staff] - As soon as possible Gilles Vance MD [Primary Care Provider] - Activity Restrictions/Additional Instructions: Take the Eliquis 2.5 mg as previously directed. Take oxycodone as directed for pain. Return to the emergency department with paleness or purple discoloration of right leg, numbness of leg, new or worsening symptoms. Print Language: New Zealander Disposition Disposition: Home, Self Care Discharge Date/Time: 05/05/25 11:26
--- NOTE | 2025-05-05 10:26 | ART_ITS ---
Reason For Study Reason For Study: Right leg pain Procedure A bilateral lower extremity continuous wave Doppler with analog waveform analysis and ankle brachial indexes. Left Segmental Pressures Left brachial= 140mmHg. Left posterior tibial artery = 140mmHg. Left dorsalis pedis artery = 142mmHg. Left digit = 126 mmHg. The left dorsalis pedis waveforms are triphasic. The left posterior tibial artery waveforms are triphasic. Right Segmental Pressures Right brachial= 138mmHg. Right posterior tibial artery = 80mmHg. Right dorsalis pedis artery = 66mmHg. The right dorsalis pedis waveforms are biphasic. The right posterior tibial artery waveforms are biphasic. Indices The right ankle brachial index by the dorsalis pedis is 0.47. The right ankle brachial index by the posterior tibial artery is 0.57. The left ankle brachial index by the dorsalis pedis is 1.01. The left ankle brachial index by the posterior tibial artery is 1.00. The left digital-brachial index is 0.90. VL/Ankle Brachial Index Interpretation Summary Biphasic Doppler waveforms are noted at ankle level on the right. Triphasic Dop pler waveforms are noted at ankle level on the left. Pulse-volume recordings appear severely diminished at ankle and di gital levels on the right. The resting right ankle-brachial index is moderately diminished. The resting left ankle-bra chial index is normal. The right digital- brachial index was not determined. The left digital-brachial index is normal. There is evidence of moderate arterial occlusive disease at ankle level on the right. Arterial flow at digital level on the right was not fully assessed. There is no evidence of significant arterial occlusive disease in the left lower extremity. Ordering Physician: Hal Hendrickson Referring Physician: Gilles Vance Performed By: Juliette Mckeon RVT
== END 2025-05-05 11:26 | disposition home or self-care (01) ==
PROVIDERS: Emergency Provider Emergency Medicine; PCP Family Medicine; Visit Provider Emergency Medicine
DX: E11.51 Type 2 diabetes mellitus with diabetic peripheral angiopathy without gangrene (principal); I13.0 Hypertensive heart and chronic kidney disease with heart failure and stage 1 through stage 4 chronic kidney disease, or unspecified chronic kidney disease; I50.42 Chronic combined systolic (congestive) and diastolic (congestive) heart failure; I42.0 Dilated cardiomyopathy; E11.40 Type 2 diabetes mellitus with diabetic neuropathy, unspecified; E11.22 Type 2 diabetes mellitus with diabetic chronic kidney disease; I70.92 Chronic total occlusion of artery of the extremities; I25.10 Atherosclerotic heart disease of native coronary artery without angina pectoris; E78.5 Hyperlipidemia, unspecified; F17.290 Nicotine dependence, other tobacco product, uncomplicated; Z79.01 Long term (current) use of anticoagulants; Z79.82 Long term (current) use of aspirin; Z79.84 Long term (current) use of oral hypoglycemic drugs; Z79.899 Other long term (current) drug therapy; Z95.810 Presence of automatic (implantable) cardiac defibrillator; Z95.820 Peripheral vascular angioplasty status with implants and grafts
CPT/HCPCS: 93922; 99282

== ENCOUNTER 2025-05-25 09:33 | Outpatient (CLI) | payer MEDICARE, OTHER, SELFPAY ==
--- NOTE | 2025-05-25 09:38 | VDLE_ITS ---
Reason For Study Reason For Study: Preop Bypass Planning RIGHT LEFT Rt GSV prox thigh to prox calf harvested for RLE Lt GSV prox thigh: 0.35cm x 0.30cm bypass Lt GSV mid thigh: 0.17cm x 0.18cm Rt ASV prox thigh: 0.34cm x 0.36cm Lt GSV distal thigh: 0.15cm x 0.15cm Rt ASV mid thigh: 0.24cm x 0.27cm Lt GSV knee: 0.24cm x 0.23cm Rt GSV mid calf: 0.27cm x 0.30cm Lt GSV prox calf: 0.19cm x 0.21cm Rt GSV distal calf: 0.34cm x 0.36cm Lt GSV mid calf: 0.22cm x 0.22cm Rt SSV prox: 0.13cm x 0.12cm Lt GSV distal calf: 0.28cm x 0.29cm Rt SSV mid: 0.26cm x 0.26cm Lt SSV prox: 0.18cm x 0.16cm Rt SSV distal: 0.22cm x 0.24cm. Lt SSV mid: 0.28cm x 0.36cm Procedure Lt SSV distal: 0.24cm x 0.26cm Exam performed in department. Lt ASV mid thigh: 0.26cm x 0.28cm Lt ASV distal thigh: 0.31cm x 0.30cm Lt ASV prox calf: 0.30cm x 0.30cm. VL/Saphenous Vein Mapping, Bilat Interpretation Summary Prior harvest right thigh great saphenous vein. Remaining right great saphenous vein and left great saphenous vein patent with measurements above. Bilateral small saphenous veins patent with measurements above. Ordering Physician: Stanislaw Benton Referring Physician: Gilles Vance Performed By: Destinee Rothman, JADYN, RVT
== END 2025-05-25 23:59 | disposition home or self-care (01) ==
LOC: CVS 09:34
PROVIDERS: PCP Family Medicine; Referring Provider Surgery Trauma Surgery; Visit Provider Surgery Trauma Surgery
DX: Z01.818 Encounter for other preprocedural examination (principal); I70.201 Unspecified atherosclerosis of native arteries of extremities, right leg
CPT/HCPCS: 93970

== ENCOUNTER → 2025-06-15 | Outpatient (CLI) | payer MEDICARE, OTHER, SELFPAY ==
[2025-06-15 13:15] LABS: PSA,Total- Diagnostic 1.26 ng/mL (0.00-4.00)
== END | disposition home or self-care (01) ==
PROVIDERS: PCP Family Medicine; Referring Provider Urology; Visit Provider Urology
DX: C61 Malignant neoplasm of prostate (principal)
CPT/HCPCS: 36415; 84153

== ENCOUNTER → 2025-07-01 | Outpatient (CLI) | payer MEDICARE, OTHER, SELFPAY ==
--- NOTE | 2025-07-01 08:55 | ADUL_ITS ---
Reason For Study Reason For Study: Reassess bypass thrombosis Right Velocities Ext. Iliac Artery, dist = 20.2 cm./sec. Common Femoral Artery, mid = 33.9 cm./sec. Supf Femoral Artery, prox = 23.4 cm./sec. Supf Femoral Artery, mid = 58.4 cm./sec. SFA Dist - DIGITAL SOLUTIONS ARCHITECT Mid Bypass Graft, no flow noted. Collateralization in SFA Dist prox to BPG. Profunda Femoral Artery = 30.5 cm./sec. Post. Tibial Artery, prox = 18.5 cm./sec. Post. Tibial Artery, mid = 34.7 cm./sec. Post. Tibial Artery, dist = 20.7 cm./sec. Peroneal Artery, mid = 13.0 cm./sec. Peroneal Artery,dist = 7.0 cm./sec. Ant. Tibial Artery, prox = 18.0 cm./sec. Ant. Tibial Artery, mid = 32.0 cm./sec. Ant. Tibial Artery, dist = 21.5 cm./sec. No flow visualized in Prox Travis A. Reconstitution of flow at prox calf. Procedure Exam performed in department. /US Art Duplex Unilat Lower Ext Interpretation Summary Right femoral-posterior tibial bypass occluded. Diminished velocities throughout. Ordering Physician: Qi Berman Referring Physician: Gilles Vance Performed By: Disha Pierce, LAURIE
--- NOTE | 2025-07-01 08:55 | ADUL_ITS ---
Reason For Study Reason For Study: Reassess bypass thrombosis Right Velocities Ext. Iliac Artery, dist = 20.2 cm./sec. Common Femoral Artery, mid = 33.9 cm./sec. Supf Femoral Artery, prox = 23.4 cm./sec. Supf Femoral Artery, mid = 58.4 cm./sec. SFA Dist - OIL WELL CABLE TOOL DRILLER Mid Bypass Graft, no flow noted. Collateralization in SFA Dist prox to BPG. Profunda Femoral Artery = 30.5 cm./sec. Post. Tibial Artery, prox = 18.5 cm./sec. Post. Tibial Artery, mid = 34.7 cm./sec. Post. Tibial Artery, dist = 20.7 cm./sec. Peroneal Artery, mid = 13.0 cm./sec. Peroneal Artery,dist = 7.0 cm./sec. Ant. Tibial Artery, prox = 18.0 cm./sec. Ant. Tibial Artery, mid = 32.0 cm./sec. Ant. Tibial Artery, dist = 21.5 cm./sec. No flow visualized in Prox Travis A. Reconstitution of flow at prox calf. Procedure Exam performed in department. /US Art Duplex Unilat Lower Ext Interpretation Summary Right femoral-posterior tibial bypass occluded. Diminished velocities throughout. Ordering Physician: Qi Berman Referring Physician: Gilles Vance Performed By: Disha Pierce, LAURIE
== END | disposition home or self-care (01) ==
LOC: CVS 08:55
PROVIDERS: PCP Family Medicine; Referring Provider Physician Assistant; Visit Provider Physician Assistant
DX: T82.868A Thrombosis due to vascular prosthetic devices, implants and grafts, initial encounter (principal)
CPT/HCPCS: 93926